=== PATIENT | female | born 1990 | race Caucasian/White ===

== ENCOUNTER → 2020-12-19 08:22 | Outpatient (BNVA) | payer BC, MEDICAID, SELFPAY | PROVIDERS: Visit Provider Surgery ==

== ENCOUNTER 2020-12-22 12:50 | Outpatient (REF) | payer BC, MEDICAID, SELFPAY ==
[2020-12-24 14:57] LABS: H Pylori Breath Test NOT DETECTED (NOT DETECTED)
== END 2020-12-22 12:51 | disposition home or self-care (01) ==
LOC: HO.LAB 12:50
PROVIDERS: Visit Provider Physician Assistant
DX: E66.9 Obesity, unspecified (principal); Z11.0 Encounter for screening for intestinal infectious diseases
CPT/HCPCS: 83013

== ENCOUNTER 2020-12-25 08:31 | Outpatient (REF) | payer BC, MEDICAID, SELFPAY ==
--- NOTE | ~2020-12-25 | XR_ITS ---
EXAMINATION: XR CHEST CLINICAL INFORMATION: Gastroesophageal reflux. COMPARISON: None TECHNIQUE: 2 views of the chest were obtained. FINDINGS: The lungs are clear. The cardiomediastinal silhouette is normal in size. There is no pleural effusion or pneumothorax. No acute osseous abnormality. XR/XR chest 2V IMPRESSION: No acute cardiopulmonary findings.
--- NOTE | 2020-12-25 08:59 | ECG_ITS ---
Test Reason : GERD Blood Pressure : / mmHG Vent. Rate : 060 BPM Atrial Rate : 060 BPM P-R Int : 204 ms QRS Dur : 094 ms QT Int : 390 ms P-R-T Axes : 035 074 054 degrees QTc Int : 390 ms Normal sinus rhythm Normal ECG No previous ECGs available Referred By: José Miguel Myles Electronically Signed By:Sebastian Cruz
[2020-12-25 10:25] LABS: MANUAL DIFF FLAG NO
[2020-12-25 10:56] LABS: Basophils Percent Auto 0.2 % (0-2); Eosinophils Absolute Auto 0.1 X10*3/uL (0.0-0.4); Eosinophils Percent Auto 1.2 % (0-4); Hematocrit 40.8 % (37-47); Hemoglobin 13.2 g/dl (12.0-16.0); Imm Gran Abs Auto 0.02 X10*3/uL (0.00-0.03); Imm Gran Pct Auto 0.3 % (0.0-0.4); Lymphocytes Absolute Auto 1.5 X10*3/uL (1.2-4.9); Lymphocytes Percent Auto 25.7 % (20-40); Mean Corpuscular HGB Conc 32.4 g/dl (31.0-35.0); Mean Corpuscular Hemoglobin 27.4 pg (27.0-33.0); Mean Corpuscular Volume 84.8 fL (80-98); Mean Platelet Volume 10.8 fL (9.4-12.3); Monocytes Absolute Auto 0.3 X10*3/uL (0.1-1.2); Monocytes Percent Auto 5.2 % (2-11); Neutrophils Absolute Auto 3.9 X10*3/uL (2.0-8.3); Neutrophils Percent Auto 67.4 % (45-73); Platelet Count 204 X10*3/uL (160-400); Red Blood Count 4.81 X10*6/uL (4.20-5.50); Red Cell Distribution Width 14.1 % (11.0-16.0); White Blood Count 5.8 X10*3/uL (4.8-10.8)
[2020-12-25 11:05] LABS: Alanine Aminotransferase 16 U/L (0-31); Albumin Level 4.5 g/dL (3.5-5.0); Alkaline Phosphatase 94 U/L (39-117); Anion Gap 15 (12-20); Aspartate Amino Transferase 12 U/L (5-31); Bilirubin Total 0.4 mg/dL (0.0-1.0); Blood Urea Nitrogen 16 mg/dL (9-16); C Reactive Protein 1.16 mg/dL (< or = 0.50); Calcium 9.7 mg/dL (8.4-10.2); Carbon Dioxide 26 mmol/L (22-29); Chloride 105 mmol/L (96-108); Cholesterol 210 mg/dL; Estimated Glomerular Filt Rate > 60; Glucose Random 81 mg/dL (60-115); HDL Cholesterol 47 mg/dL; LDL Cholesterol Calculated 149 mg/dl; Potassium 4.5 mmol/L (3.3-5.1); Sodium 141 mmol/L (135-145); Total Protein 7.2 g/dL (6.5-8.0); Triglycerides 71 mg/dL
[2020-12-25 11:19] LABS: Ferritin 14 ng/mL (10-122); TSH reflex Free T4 0.75 uIU/mL (0.32-4.0)
[2020-12-25 11:52] LABS: Vitamin D 25-OH Total 25.1 ng/mL (>30)
[2020-12-25 12:31] LABS: Folate 11.5 ng/mL (> or = 4.0); Vitamin B12 426 pg/mL (200-900)
[2020-12-25 13:17] LABS: Estimated Average Glucose 111 mg/dL; Hemoglobin A1c % 5.5 %
[2020-12-26 10:06] LABS: Insulin Level Total 7.1 uIU/mL
[2020-12-26 16:12] LABS: Calcium (PTHI) 9.6 mg/dL (8.6-10.2); PTHI 42 pg/mL (14-64)
[2020-12-28 16:46] LABS: Zinc 91 mcg/dL (60-130)
[2020-12-29 12:56] LABS: Vitamin B1 <6 nmol/L (8-30)
[2020-12-30 21:17] LABS: Vitamin A 45 mcg/dL (38-98)
== END 2020-12-25 08:32 | disposition home or self-care (01) ==
LOC: HO.LAB 08:31
PROVIDERS: PCP Nurse Practitioner Family; Visit Provider Surgery
DX: K21.9 Gastro-esophageal reflux disease without esophagitis (principal); E66.9 Obesity, unspecified; J45.909 Unspecified asthma, uncomplicated; Z68.39 Body mass index [BMI] 39.0-39.9, adult
CPT/HCPCS: 36415; 71046; 80053; 80061; 82306; 82607; 82728; 82746; 83036; 83525; 83970; 84425; 84443; 84590; 84630; 85025; 86140; 93005

== ENCOUNTER → 2020-12-29 15:37 | Outpatient (BNVA) | payer BC, MEDICAID, SELFPAY | PROVIDERS: PCP Nurse Practitioner Family; Visit Provider Physician Assistant ==

== ENCOUNTER 2021-01-06 09:40 | Day surgery (SDC) | payer BC, MEDICAID, SELFPAY ==
--- NOTE | 2021-01-05 09:53 | P.CONAN_ITS ---
Documented by User: Janeth Betancourt 01/05/21 09:54 HPI - Anesthesia Eval Consult details Narrative: 30yo F for Upper Endoscopy PMFSH Active Problems Active Problems: All Active Problems (Updated 12/19/20 @ 12:50 by José Miguel Myles MD) GERD (gastroesophageal reflux disease) (Acute) Back pain (Acute) Asthma, exercise induced (Acute) BMI 39.0-39.9,adult (Acute) Obesity (Acute) Past Medical History Medical History Asthma, exercise induced Back pain GERD (gastroesophageal reflux disease) Gestational diabetes Surgical History Surgical History History of sleeve gastrectomy Hx laparoscopic cholecystectomy Social History Social History Alcohol intake: never Smoking Status: Former smoker Use of substances other than those prescribed or required for medical reasons: No Have you been hit, kicked, punched, or otherwise hurt by someone within the past year? If so, by whom?: No Are you DNR?: No Advance Directives: No Advance Directives Information Provided: Yes Meds Allergies Allergy/AdvReac Type Severity Reaction Status Date / Time tomato Allergy Severe Anaphylaxis Verified 12/22/20 13:28 Home Medications Medication Instructions Recorded Confirmed Last Taken Type multivitamin 1 tab PO DAILY 12/19/20 12/19/20 Unknown History omeprazole 20 mg capsule,delayed 20 mg PO DAILY 12/19/20 12/19/20 Unknown History release levonorgestrel 20 mcg/24 hours (6 INTRAUTERINE 12/22/20 Unknown History yrs) 52 mg intrauterine device pantoprazole 20 mg tablet,delayed 20 mg PO DAILY 12/22/20 Unknown History release Exam Exam Date and Time: January 05, 2021 0953 Narrative Narrative: EKG 12/2020 Vent. Rate : 060 BPM Atrial Rate : 060 BPM P-R Int : 204 ms QRS Dur : 094 ms QT Int : 390 ms P-R-T Axes : 035 074 054 degrees QTc Int : 390 ms Normal sinus rhythm Normal ECG No previous ECGs available Assessment and Plan Assessment Anesthesia Assessment: Chart Reviewed Documented by User: Amish Montgomery 01/06/21 10:35 [facility] Past Medical History Medical History Asthma, exercise induced Back pain GERD (gastroesophageal reflux disease) Gestational diabetes Surgical History Surgical History History of sleeve gastrectomy Hx laparoscopic cholecystectomy Social History Social History Alcohol intake: never Smoking Status: Former smoker Use of substances other than those prescribed or required for medical reasons: No Have you been hit, kicked, punched, or otherwise hurt by someone within the past year? If so, by whom?: No Are you DNR?: No Advance Directives: No Advance Directives Information Provided: Yes Meds Allergies Allergy/AdvReac Type Severity Reaction Status Date / Time tomato Allergy Severe Anaphylaxis Verified 12/22/20 13:28 Home Medications Medication Instructions Recorded Confirmed Last Taken Type multivitamin 1 tab PO DAILY 12/19/20 12/19/20 Unknown History omeprazole 20 mg capsule,delayed 20 mg PO DAILY 12/19/20 12/19/20 Unknown History release levonorgestrel 20 mcg/24 hours (6 INTRAUTERINE 12/22/20 Unknown History yrs) 52 mg intrauterine device pantoprazole 20 mg tablet,delayed 20 mg PO DAILY 12/22/20 Unknown History release Exam Airway Mallampati Class: II TM Dist: >3cm Neck ROM: Full Loose/Missing/Broken Teeth: No Heart: [id number] Lungs: cta b/l Assessment and Plan Assessment Anesthesia Assessment: Anesthesia Plan Discussed, PAT Visit and Chart Reviewed Final Anesthetic Review NPO: Yes ASA Class: II Final Preanesthetic Review: No Changes in Pt Med Stat, Meds/Allgs Chart Reviewed, Consent Obtained/Reviewed and Anes Risks/Benef Reviewed Patient Risk: Low Procedure Risk: Low Assessment/Block/Sedation in SS: Assess/Block/Sedation-SS Anesthetic Plan Anesthetic Plan: MAC: and Agree w/ Assess. and Plan Disposition: Standard PACU
--- NOTE | 2021-01-05 17:48 | MHC.SHP ---
Pre-Procedural Eval Section A The patient is an INPATIENT: No The History & Physical has been completed within 30 days and I have reviewed it.: Yes Section B Chief Complaint: reflux disease Details of Present Illness: GERD, s/p sleeve gastrectomy Relevant Family History (Specify if Yes): No Relevant Social History: None Present Medications: see Short Stay Collaborative assessment Medical History: No relevant PMH History of Previous Operations: Relevant previous surgery/procedure and date(s) (sleeve gastrectomy) Allergies: Allergies Allergy/AdvReac Type Severity Reaction Status Date / Time tomato Allergy Severe Anaphylaxis Verified 12/22/20 13:28 Review of Systems Sugical H&P ROS: Negative: Constitution, Cardiovascular, Respiratory, Neurological, Psychiatric, Hem-Onc, Allergic/Immunologic, Gastrointestinal, Genitourinary, Musculoskeletal, Integumentary, Endocrine and Eyes/Ears/Nose/Throat Exam Surgical H&P Exam: Normal: HEENT, Normal: Heart, Normal: Lungs, Normal: Extremities, Normal: Abdomen, Normal: Skin and Normal: Neurological Plan Diagnosis/Plan: Unchanged (EGD to rule out GERD esophagitis, and assess sleeve anatomy and possible stenosis) I have reviewed the history and physical and performed a pertinent physical examination on my patient. No changes have occurred unless specified.
[2021-01-06 09:59] LABS: UPreg QC Valid YES; Urine Pregnancy NEGATIVE (NEGATIVE)
[2021-01-06 10:01] VITALS: BP 128/73; PULSE 65; RESP 18; TEMP 36.7; O2SAT 97; BMI 39.3
[2021-01-06 10:12] LABS: COVID-19 Test Negative (Negative)
[2021-01-06] MEDS: Lactated Ringers 1,000 ML 100 ML IVCONT (10:22)
--- NOTE | 2021-01-06 11:12 | P.BOP_ITS ---
Brief Operative Note Date of Service: 01/06/21 Procedure: PROCEDURE DATE: 01/06/2021 PREOPERATIVE DIAGNOSIS: GERD, s/p sleeve gastrectomy POSTOPERATIVE DIAGNOSIS: Same as above. 1) incomplete fundal resection, 2) functional narrowing at mid- stomach, 3) incomplete antral resection PROCEDURE: Mrgakctv-[id number]-[id number] with biopsies Surgeon: Adam Myles M.D.. Ph.D. Venetian Blind Mechanic: None Anesthesia: IV sedation Estimated blood loss: Minimal FINDINGS AND PROCEDURE: OPERATIVE INDICATIONS: The patient is a 30 year old female known to me who underwent a laparoscopic sleeve gastrectomy. The patient had remarkable weight loss so far and had a completely uneventful recovery. The patient was doing very well but has recently been complaining of GERD. Based on this information I recommended an upper endoscopy to evaluate the patient's symptoms. Risks and complications of the surgery were discussed with the patient in advance particularly the possibility of perforation or bleeding that may require surgical intervention. The patient understood the risks and was in agreement with the plan. PROCEDURE: After informed consent was obtained by the patient, the patient was transferred to the Operating Room and was placed in the supine position. After successful induction of IV sedation, a mouth block was inserted and the patient was placed in the left lateral decubitus position. An upper endoscopy was performed next, the oropharynx and esophagus appeared within the normal limits. There was no hiatal hernia. The z-line was smooth. Two biopsies were obtained from the distal esohagus 2-3 cm proximal to the GE junction and two additional biopsies from the GE junction. The sleeve was entered and it appeared to be of relatively size. The proximal fundus was incompletely resected with an additional lateral chamber beyond the gastric sleeve. The proximal sleeve ended into a relatively small outlet to the antrum causing functional narrowing. THe natrum was not included to the sleeve resection leaving a large portion of distal stomach in place. There was mild gastritis at distal antrum. There was no stricture or ulcer. Biopsies were obtained from the proximal sleeve as well as the distal antrum. No significant bleeding was noted from any of the biopsy sites. The scope was then advanced into the duodenum which appeared to be normal as well. At that point the duodenum and the sleeve were decompressed and the scope was withdrawn from the patient's mouth. The patient extubated and was transferred in stable condition to the Recovery Room for further care. I was present and performed all steps of the procedure. There were no residents to assist with this case. Adam Myles M.D., Ph.D. Surgeon: José Miguel Myles MD Anesthesia: MAC Was an Venetian Blind Mechanic used for this Procedure?: No Estimated blood loss (mL): 0 IV fluids (mL): 400 Urine output (mL): 0 (No [place] to record) Pathology: other ( 1) GE junction x2 2) Distal esophagus x2 3) Proximal stomach x1 4) Distal antrum x1) Condition: stable Disposition: PACU
[2021-01-06 11:49] VITALS: BP 108/61; PULSE 78; RESP 14; TEMP 36.4; O2SAT 94
[2021-01-06 12:17] VITALS: BP 118/63; PULSE 62; RESP 16; O2SAT 99
== END 2021-01-06 12:33 | disposition home or self-care (01) ==
PROVIDERS: Nurse Practitioner; PCP Nurse Practitioner Family; Visit Provider Surgery
PROC: 0DJ08ZZ Inspection of Upper Intestinal Tract, Via Natural or Artificial Opening Endoscopic (ICD-10-PCS; CPT 43235; principal; 2021-01-06 11:00)
DX: K21.9 Gastro-esophageal reflux disease without esophagitis (principal); Z98.84 Bariatric surgery status; K95.89 Other complications of other bariatric procedure; K31.9 Disease of stomach and duodenum, unspecified; J45.990 Exercise induced bronchospasm; Z90.49 Acquired absence of other specified parts of digestive tract; Z79.899 Other long term (current) drug therapy; Z87.891 Personal history of nicotine dependence
CPT/HCPCS: 43239; 36415; 81025; 87635; 88305; 88342; J1100

== ENCOUNTER 2021-01-07 08:40 | Outpatient (REF) | payer BC, MEDICAID, SELFPAY ==
--- NOTE | ~2021-01-07 | US_ITS ---
EXAMINATION: US COMPLETE ABDOMEN WITH LIVER ELASTOGRAPHY CLINICAL INFORMATION: Gastroesophageal reflux disease COMPARISON: None. TECHNIQUE: Real-time imaging of the abdominal viscera. Noninvasive ultrasound liver fibrosis assessment is performed using Efrain ElastPQ point quantification shear wave elastography (pSWE) with a C5-2 MHz transducer. Multiple elastography samples are obtained. FINDINGS: PANCREAS: Not well visualized due to bowel gas ABDOMINAL AORTA: The proximal, middle, and distal aortic segments are normal in caliber. INFERIOR VENA CAVA: Visualized portions are normal. LIVER: The echotexture is normal. The liver is normal in contour and size. There is an echogenic area in the peripheral liver probably representing ligamentum teres. No other focal liver lesion. There is no intrahepatic biliary duct dilatation. The The right lobe measures 15.1 cm in length. The left lobe measures 7.2 cm in length. Portal flow is normal/hepatopedal Shear wave liver elastography median stiffness is 1.39 m/s (reference: normal median stiffness is 1.3 m/s or less). IQR/median stiffness to assess sampling precision is 0.2 (reference: good quality data set is IQR/median stiffness of 0.15 or less). GALLBLADDER: Normal. The gallbladder is physiologically distended without evidence of stones, sludge, polyps, wall thickening or pericholecystic fluid. COMMON BILE DUCT: Normal in caliber measuring 0.2 cm in diameter. RIGHT KIDNEY: Normal. No hydronephrosis. No renal calculi or focal parenchymal lesions. The kidney measures 11 cm in maximum dimension. LEFT KIDNEY: Normal. No hydronephrosis. No renal calculi or focal parenchymal lesions. The kidney measures 9.5 cm in maximum dimension. SPLEEN: Normal. The spleen measures 11.3 cm in maximum dimension. FREE FLUID: None. US/US abdomen comp w elastography IMPRESSION: 1. Impression echogenic area in the peripheral liver probably representing a prominent ligamentum teres. The liver is otherwise normal. Limited visualization of the pancreas. 2. Liver elastography: Minimally elevated liver stiffness. Minimal sampling error. In the absence of known clinical signs, rule out compensated advanced chronic liver disease. REFERENCE: Society of Radiologists in Ultrasound Liver Stiffness Thresholds (2020): LIVER STIFFNESS THRESHOLDS: *Liver Stiffness equal or less than 1.3 m/s: High probability of being normal. *Liver Stiffness less than 1.7 m/s: In the absence of other known clinical signs, rules out compensated advanced chronic liver disease. *Liver Stiffness 1.7-2.1 m/s: Suggestive of compensated advanced chronic liver disease but need further test for confirmation. *Liver Stiffness over 2.1 m/s: Rules in compensated advanced chronic liver disease. *Liver Stiffness over 2.4 m/s: Suggestive of clinically significant portal hypertension. QUALITY OF DATA SET: *IQR/Median value equal or less than 0.15 implies a quality data set. *IQR/Median value over 0.15 implies a poor quality data set. SIGNIFICANT CHANGE FROM PRIOR EXAM: Significant change if liver stiffness measurement is 10% or greater from prior exam. OTHER CONSIDERATIONS: The stage of liver fibrosis may be overestimated in the setting of acute hepatitis, liver inflammation, elevated liver function tests, hepatic vascular congestion, obstructive cholestasis, non-fasting state, and infiltrative diseases such as amyloidosis and lymphoma. In some patients with NAFLD, the liver stiffness thresholds for compensated advanced chronic liver disease may be lower. In causes other than viral hepatitis and NAFLD, liver stiffness thresholds are not well established.
--- NOTE | ~2021-01-07 | FL_ITS ---
EXAMINATION: XR GI SERIES CLINICAL INFORMATION: Gastroesophageal reflux disease with esophagitis. Previous gastric sleeve surgery. COMPARISON: None. TECHNIQUE: Routine upper GI exam was performed. FINDINGS: Following oral administration of thick barium and effervescent granules, there is normal propagation of bolus from the oral cavity through the pharynx and esophagus and into the stomach without any evidence of obstruction, narrowing or stricture. The stomach size is reduced secondary to gastric sleeve surgery. Otherwise, the rest of the visualized stomach, duodenal bulb and sweep is normal in course and caliber. The mucosal pattern of the stomach and duodenal bulb is normal. There is mild gastroesophageal reflux without hiatal hernia. Incidental finding of cholecystectomy. FLUOROSCOPY TIME: 1.2 minutes DOSE AREA PRODUCT: 38.34 uGy-m2 (microgray-meter squared). FL/FL upper GI series IMPRESSION: Evidence of previous gastric sleeve surgery with reduced caliber of the stomach. Mild gastroesophageal reflux. Otherwise the rest of the upper GI exam is unremarkable.
== END 2021-01-07 08:41 | disposition home or self-care (01) ==
LOC: HO.US 08:40
PROVIDERS: PCP Nurse Practitioner Family; Visit Provider Surgery
DX: Z01.818 Encounter for other preprocedural examination (principal); E66.01 Morbid (severe) obesity due to excess calories; Z68.39 Body mass index [BMI] 39.0-39.9, adult; K21.9 Gastro-esophageal reflux disease without esophagitis; J45.909 Unspecified asthma, uncomplicated
CPT/HCPCS: 74240; 76705; 76981

== ENCOUNTER → 2021-01-12 08:22 | Outpatient (BNVA) | payer BC, MEDICAID, SELFPAY | PROVIDERS: PCP Nurse Practitioner Family; Visit Provider Surgery ==

== ENCOUNTER → 2021-01-16 08:19 | Outpatient (BNVA) | payer BC, MEDICAID, SELFPAY | PROVIDERS: PCP Nurse Practitioner Family; Visit Provider Dietitian, Registered | DX: E66.9 Obesity, unspecified (principal); Z68.39 Body mass index [BMI] 39.0-39.9, adult | CPT/HCPCS: 97802 ==

== ENCOUNTER → 2021-02-06 08:26 | Outpatient (BNVA) | payer BC, MEDICAID, SELFPAY | PROVIDERS: PCP Nurse Practitioner Family; Visit Provider Surgery ==

== ENCOUNTER → 2021-03-13 07:50 | Outpatient (BNVA) | payer BC, MEDICAID, SELFPAY | PROVIDERS: PCP Nurse Practitioner Family; Visit Provider Surgery ==

== ENCOUNTER 2021-03-18 23:13 | Inpatient (IN) | payer BC, MEDICAID, SELFPAY ==
[2021-03-12 14:58] VITALS: BMI 36.6
[2021-03-14 08:47] LABS: Basophils Percent Auto 0.2 % (0-2); Eosinophils Absolute Auto 0.1 X10*3/uL (0.0-0.4); Eosinophils Percent Auto 1.9 % (0-4); Hematocrit 41.6 % (37-47); Hemoglobin 13.6 g/dl (12.0-16.0); Imm Gran Abs Auto 0.01 X10*3/uL (0.00-0.03); Imm Gran Pct Auto 0.2 % (0.0-0.4); Lymphocytes Absolute Auto 1.4 X10*3/uL (1.2-4.9); Lymphocytes Percent Auto 29.7 % (20-40); MANUAL DIFF FLAG NO; Mean Corpuscular HGB Conc 32.7 g/dl (31.0-35.0); Mean Corpuscular Volume 85.6 fL (80-98); Mean Platelet Volume 10.3 fL (9.4-12.3); Monocytes Absolute Auto 0.3 X10*3/uL (0.1-1.2); Monocytes Percent Auto 5.9 % (2-11); Neutrophils Absolute Auto 2.9 X10*3/uL (2.0-8.3); Neutrophils Percent Auto 62.1 % (45-73); Platelet Count 191 X10*3/uL (160-400); Red Blood Count 4.86 X10*6/uL (4.20-5.50); Red Cell Distribution Width 14.4 % (11.0-16.0); White Blood Count 4.7 X10*3/uL (4.8-10.8)
[2021-03-14 08:57] LABS: INTERNATIONAL NORM RATIO 1.1 (0.9-1.1); Prothrombin Time 12.5 SEC (9.9-13.0)
[2021-03-14 09:00] LABS: Partial Thromboplastin Time 38.4 SEC (24.1-38.0)
[2021-03-14 09:12] LABS: Estimated Average Glucose 105 mg/dL; Hemoglobin A1c % 5.3 %
[2021-03-14 09:19] LABS: Alanine Aminotransferase 18 U/L (0-31); Albumin Level 4.5 g/dL (3.5-5.0); Alkaline Phosphatase 81 U/L (39-117); Anion Gap 12 (12-20); Aspartate Amino Transferase 15 U/L (5-31); Bilirubin Total 0.6 mg/dL (0.0-1.0); Blood Urea Nitrogen 15 mg/dL (9-16); C Reactive Protein 0.43 mg/dL (< or = 0.50); Carbon Dioxide 27 mmol/L (22-29); Chloride 107 mmol/L (96-108); Cholesterol 198 mg/dL; Creatinine Clr Calc Pharmacy 107.3; Estimated Glomerular Filt Rate > 60; Glucose Random 91 mg/dL (60-115); HDL Cholesterol 49 mg/dL; LDL Cholesterol Calculated 130 mg/dl; Potassium 4.5 mmol/L (3.3-5.1); Sodium 141 mmol/L (135-145); Total Protein 7.2 g/dL (6.5-8.0); Triglycerides 97 mg/dL
[2021-03-14 09:42] LABS: TSH reflex Free T4 1.07 uIU/mL (0.32-4.0)
[2021-03-16 17:17] LABS: Insulin Level Total 6.9 uIU/mL
--- NOTE | ~2021-03-18 | FL_ITS ---
EXAMINATION: XR UPPER GI SERIES WITH SMALL BOWEL CLINICAL INFORMATION: Postop. COMPARISON: Preoperative upper GI exam January 2021 TECHNIQUE: Limited upper single-contrast upper GI was performed following dilute Gastrografin with the patient in the upright position. FINDINGS: Esophageal motility is normal. There are postsurgical changes to the stomach following gastric bypass. No leak or evidence of obstruction is seen. There is no evidence of free air. There are surgical clips in the right upper quadrant suggestive of cholecystectomy. FLUOROSCOPY TIME: 0.2 minutes DOSE AREA PRODUCT: 7 Gy-cm2. Total dose: 36 mGy. 16 saved fluoroscopic images. FL/FL upper GI small bowel IMPRESSION: Postop gastric bypass. No leak or evidence of obstruction.
--- NOTE | 2021-03-18 08:34 | HO.ANESPROP2 ---
Documented by User: Janeth Christyney 03/18/21 08:36 HPI - Anesthesia Eval Consult details Narrative: 31yo F for Gastric Sleeve to Bypass Conversion s/p gastric sleeve 2012 [facility] Active Problems Active Problems: All Active Problems (Updated 03/13/21 @ 11:34 by José Miguel Myles MD) BMI 34.0-34.9,adult (Acute) Obesity (Acute) BMI 39.0-39.9,adult (Acute) Vitamin B1 deficiency (Acute) Vitamin B12 deficiency (Acute) Vitamin D deficiency (Acute) BMI 37.0-37.9, adult (Acute) Adjustment disorder, unspecified (Acute) BMI over 35 (Acute) GERD (gastroesophageal reflux disease) (Acute) Back pain (Acute) Asthma, exercise induced (Acute) Past Medical History Medical History Anxiety Asthma, exercise induced Back pain BMI 34.0-34.9,adult COVID-19 vaccine series completed GERD (gastroesophageal reflux disease) Gestational diabetes History of depression Surgical History Surgical History History of esophagogastroduodenoscopy (EGD) History of sleeve gastrectomy Hx laparoscopic cholecystectomy Social History Social History Are you a primary specialist wound care to a significant other at home: Yes (2 children, arrangements made for their care in the post-op period) Do you presently have visiting nurse or other home services: No Alcohol intake: never Patient Tobacco Use Status: Former Tobacco user Quit Date: 2012 Use of substances other than those prescribed or required for medical reasons: No Have you been hit, kicked, punched, or otherwise hurt by someone within the past year? If so, by whom?: No Are you DNR?: No Advance Directives: No Advance Directives Information Provided: No Advance Directives on File: No Recently lost weight without trying: No Patient : No FDLMP: 03/09/2021 : No Poor oral hygiene: No Meds Allergies Allergy/AdvReac Type Severity Reaction Status Date / Time tomato Allergy Severe itchy Verified 03/12/21 15:03 throat Home Medications Medication Instructions Recorded Confirmed Last Taken Type multivitamin 1 tab PO DAILY 12/19/20 03/13/21 Unknown History levonorgestrel 20 mcg/24 hours (6 INTRAUTERINE 12/22/20 03/13/21 Unknown History yrs) 52 mg intrauterine device pantoprazole 20 mg tablet,delayed 20 mg PO DAILY 12/22/20 03/13/21 Unknown History release albuterol sulfate 1 puff PO Q4H PRN 03/12/21 03/13/21 Unknown History Exam Exam Date and Time: March 18, 2021 0834 Height,Weight and Vital Signs: Height 5 ft 3 in Weight 93.894 kg Pertinent Lab Results Pertinent Lab Results: Laboratory Tests 03/14/21 03/14/21 03/14/21 08:22 08:22 08:22 WBC 4.7 L RBC 4.86 Hgb 13.6 Hct 41.6 MCV 85.6 MCH 28.0 MCHC 32.7 RDW 14.4 Plt Count 191 MPV 10.3 Immature Gran % (Auto) 0.2 Neut % (Auto) 62.1 Lymph % (Auto) 29.7 [place] % (Auto) 5.9 Eos % (Auto) 1.9 Baso % (Auto) 0.2 Lymph # (Auto) 1.4 [place] # (Auto) 0.3 Eos # (Auto) 0.1 Baso # (Auto) 0.0 Abs Immat Gran (auto) 0.01 Absolute Neuts (auto) 2.9 Absolute Nucleated RBC 0.000 Nucleated RBC % (auto) 0.0 PT 12.5 INR 1.1 APTT 38.4 H Sodium 141 Potassium 4.5 Chloride 107 Carbon Dioxide 27 Anion Gap 12 BUN 15 Creatinine 0.82 Estim Creat Clear Calc 107.3 Estimated GFR > 60 Random Glucose 91 Estimat Average Glucose Hemoglobin A1c % Total Insulin Calcium 10.0 Total Bilirubin 0.6 AST 15 ALT 18 Alkaline Phosphatase 81 C-Reactive Protein 0.43 Total Protein 7.2 Albumin 4.5 Triglycerides 97 Cholesterol 198 LDL Cholesterol, Calc 130 HDL Cholesterol 49 TSH 1.07 Blood Type Antibody Screen 03/14/21 03/14/21 03/14/21 08:22 08:22 08:22 WBC RBC Hgb Hct MCV MCH MCHC RDW Plt Count MPV Immature Gran % (Auto) Neut % (Auto) Lymph % (Auto) [place] % (Auto) Eos % (Auto) Baso % (Auto) Lymph # (Auto) [place] # (Auto) Eos # (Auto) Baso # (Auto) Abs Immat Gran (auto) Absolute Neuts (auto) Absolute Nucleated RBC Nucleated RBC % (auto) PT INR APTT Sodium Potassium Chloride Carbon Dioxide Anion Gap BUN Creatinine Estim Creat Clear Calc Estimated GFR Random Glucose Estimat Average Glucose 105 Hemoglobin A1c % 5.3 Total Insulin 6.9 Calcium Total Bilirubin AST ALT Alkaline Phosphatase C-Reactive Protein Total Protein Albumin Triglycerides Cholesterol LDL Cholesterol, Calc HDL Cholesterol TSH Blood Type A Positive Antibody Screen NEGATIVE Narrative Narrative: EKG 12/2020 Vent. Rate : 060 BPM Atrial Rate : 060 BPM P-R Int : 204 ms QRS Dur : 094 ms QT Int : 390 ms P-R-T Axes : 035 074 054 degrees QTc Int : 390 ms Normal sinus rhythm Normal ECG No previous ECGs available Assessment and Plan Assessment Anesthesia Assessment: Chart Reviewed Documented by User: Amish Montgomery 03/19/21 09:07 [facility] Past Medical History Medical History Anxiety Asthma, exercise induced Back pain BMI 34.0-34.9,adult COVID-19 vaccine series completed GERD (gastroesophageal reflux disease) Gestational diabetes History of depression Surgical History Surgical History History of esophagogastroduodenoscopy (EGD) History of sleeve gastrectomy Hx laparoscopic cholecystectomy Social History Social History Are you a primary specialist wound care to a significant other at home: Yes (2 children, arrangements made for their care in the post-op period) Do you presently have visiting nurse or other home services: No Alcohol intake: never Patient Tobacco Use Status: Former Tobacco user Quit Date: 2012 Use of substances other than those prescribed or required for medical reasons: No Have you been hit, kicked, punched, or otherwise hurt by someone within the past year? If so, by whom?: No Are you DNR?: No Advance Directives: No Advance Directives Information Provided: No Advance Directives on File: No Recently lost weight without trying: No Patient : No FDLMP: 03/09/2021 : No Poor oral hygiene: No Meds Allergies Allergy/AdvReac Type Severity Reaction Status Date / Time tomato Allergy Severe itchy Verified 03/12/21 15:03 throat Home Medications Medication Instructions Recorded Confirmed Last Taken Type multivitamin 1 tab PO DAILY 12/19/20 03/13/21 Unknown History levonorgestrel 20 mcg/24 hours (6 INTRAUTERINE 12/22/20 03/13/21 Unknown History yrs) 52 mg intrauterine device pantoprazole 20 mg tablet,delayed 20 mg PO DAILY 12/22/20 03/13/21 Unknown History release albuterol sulfate 1 puff PO Q4H PRN 03/12/21 03/13/21 Unknown History Exam Airway Mallampati Class: III TM Dist: >3cm Neck ROM: Full Loose/Missing/Broken Teeth: Yes (missing some, no loose) Heart: rrr+s1s2 Lungs: cta b/l Assessment and Plan Assessment Anesthesia Assessment: Anesthesia Plan Discussed, PAT Visit and Chart Reviewed Final Anesthetic Review NPO: Yes ASA Class: III Final Preanesthetic Review: No Changes in Pt Med Stat, Meds/Allgs Chart Reviewed, Consent Obtained/Reviewed and Anes Risks/Benef Reviewed Patient Risk: Intermediate Procedure Risk: Low Assessment/Block/Sedation in SS: Assess/Block/Sedation-SS Anesthetic Plan Anesthetic Plan: GA and Agree w/ Assess. and Plan Disposition: Standard PACU
--- NOTE | 2021-03-18 23:12 | MHC.SHP ---
Pre-Procedural Eval Section A Date of Service: 03/18/21 The patient is an INPATIENT: Yes The History & Physical has been completed within 30 days and I have reviewed it.: Yes Section B Chief Complaint: Obesity Details of Present Illness: Obesity Relevant Family History (Specify if Yes): No Relevant Social History: None Present Medications: see Short Stay Collaborative assessment Medical History: No relevant PMH History of Previous Operations: Relevant previous surgery/procedure and date(s) (sleeve gastrectomy) Allergies: Allergies Allergy/AdvReac Type Severity Reaction Status Date / Time tomato Allergy Severe itchy Verified 03/12/21 15:03 throat Review of Systems Sugical H&P ROS: Negative: Constitution, Cardiovascular, Respiratory, Neurological, Psychiatric, Hem-Onc, Allergic/Immunologic, Gastrointestinal, Genitourinary, Musculoskeletal, Integumentary, Endocrine and Eyes/Ears/Nose/Throat Exam Surgical H&P Exam: Normal: HEENT, Normal: Heart, Normal: Lungs, Normal: Extremities, Normal: Abdomen, Normal: Skin and Normal: Neurological Plan Diagnosis/Plan: Unchanged I have reviewed the history and physical and performed a pertinent physical examination on my patient. No changes have occurred unless specified.
[2021-03-19] VITALS (16 sets, daily range): BP systolic 116–147; BP diastolic 55–97; PULSE 54–75; RESP 11–20; TEMP 36.2–37.4; O2SAT 95–100
[2021-03-19 06:37] LABS: COVID-19 Test Negative (Negative); IDNOW Serial# 9DD0AD1C
[2021-03-19 07:40] LABS: UPreg QC Valid YES; Urine Pregnancy NEGATIVE (NEGATIVE)
[2021-03-19] MEDS: Lactated Ringers 1,000 ML 100 ML IVCONT (07:45)
[2021-03-19] MEDS: Lactated Ringers 1,000 ML 999 ML IV (07:45)
--- NOTE | 2021-03-19 12:20 | P.BOP_ITS ---
Brief Operative Note Date of Service: 03/19/21 Pre-op diagnosis: Severe obesity with associated comorbidities including GERD, asthma, back pain, gestational diabetes Post-op diagnosis: same Procedure: PROCEDURE: Upper endoscopy, extensive laparoscopic lysis of adhesions and laparoscopic Savana-en-Y gastric bypass with a Savana limb of 165cm INDICATIONS: This is a 31 year-old female with a BMI of 34.4 kg/m2 and associated comorbid conditions as described previously. After appropriate workup was performed, the patient was electively scheduled for laparoscopic, possibly open, gastric bypass. The risks and complications of the procedure were discussed with the patient in advance, particularly the possibility of ; pulmonary embolism; anastomotic leak; bleeding; bowel obstruction; cardiac, pulmonary, or renal complications; as well as long-term problems such as insufficient weight loss, vitamin deficiency, anastomotic strictures, or ulcers. The patient understood all the risks, and was in agreement to proceed with surgery. DESCRIPTION OF PROCEDURE: After informed consent was obtained from the patient, the patient was given preoperative antibiotics, and was transferred to the operating room. After successful induction of general anesthesia, a Victoria catheter and pneumatic compressive devices were placed on both lower extremities. An upper endoscopy was performed next. The oropharynx and esophagus appeared to be within normal limits. There was no diaphragmatic hernia consistent with the findings of the preoperative upper GI. The sleeve was entered. There was mild redundancy of the proximal sleeve laterally. Then after all fluid and air were suctioned and the stomach was fully decompressed, the scope was withdrawn and secured in the mid esophagus. The patient was then prepped and draped in the usual sterile manner, and abdominal access was established at the right upper quadrant with the Dakota technique. A 12 mm blunt port was inserted, and the abdomen was insufflated with CO2 to a pressure of 15 mmHg. Under direct visualization, additional ports were placed, specifically a 5 and a 12 mm Versi-Step port, to the left and right of the umbilicus, two 5 mm ports to the left upper quadrant, and a 5 mm Versi-Step port to the right upper quadrant. Using the EndoClose suture passer device, I placed a #1 Polysorb tie across the falciform ligament in order to retract it up against the abdominal wall and prevent injury of the ligament with our instruments during the procedure. Following that, the patient was placed in a steep reverse Trendelenburg position. An additional 5 mm port was placed to the right flank for the Mediflex retractor that was used to retract the left lobe of the liver. There was adhesions between the previous sleeve and the greater omentum. Those were lysed with the Thunderbeat all the way to the GE junction. There were also posterior retrogastric adhesions that were also lysed and the sleeve was completely freed all the way to the lesser omentum. Proximally the posterior aspect of the sleeve was attached densely to the spleen and it was not dissected. Adhesions on the anterior aspect of the sleeve at the area of planned resection were also freed so I can be able to identify better stomach as well as the previous sleeve's staple line. The lesser omentum was divided with an Endo RUSS-45 articulating ferrer load. A gastric pouch was created by resecting the previous sleeve transversely with Endo-RUSS 60 purple load. The transection was made carefully to make sure that transection was appropriately oriented in relation to the previous sleeve's staple line to make sure that ischemic areas between stapler lines are not created. The staple line of the distal sleeve was reinfirced with clips. The patient was then placed in supine position, and after we retracted the trans verse colon and the omentum cephalad, we identified the ligament of Treitz. I counted 70 cm from the ligament of Treitz, and the small bowel and the mesentery were divided with an Endo RUSS-60 white load. Using the ultrasonic device, we opened the peritoneum at the root of the mesentery further to gain extra mobility. A clip was used to bibiana the proximal end of the divided bowel, the bilio-pancreatic end, which was run back to the ligament of Treitz to confirm that we had marked the correct side and I had done so. I then developed the mesocolic window slightly to the left and superior to the ligament of Treitz using the ultrasonic device. The apex of the Savana limb was identified. Following that, I grasped the apex of the Savana limb with an articulating bowel grasper, and after I made sure there was no twisting of the mesentery, it was delivered in a retrocolic, retrogastric fashion through the mesocolic window which I had previously made. Following that, I noted there was no tension between the gastric pouch and the Savana limb. Enterotomies were made at the apex of the pouch and the Savana limb, and the gastro-jejunostomy was made with an Endo RUSS-45 kaiser load measured to be 4.5 cm in diameter. The enterotomy was closed using the Endo Stitch device in one layer of running 2-0 Polysorb suture in a Shahid fashion starting from each corner of the enterotomy and tying the two ends together in the center of the enterotomy. The Savana limb was clamped with a bowel clamp approximately 15 cm from the gastro-jejunostomy, and a leak test was performed by submerging the anastomosis in saline and insufflating air off the scope into the pouch. There was no narrowing of the GE junction. There was no air leak during the test. There was no significant ischemia of the mucosa of the gastric pouch or Savana limb. There was no bleeding from the suture or staple lines of the anastomosis, as well as the staple line of the gastric pouch which was clearly seen in its entirety. In addition, the anastomosis was patent, and we easily advanced the scope into the proximal Savana limb. With the scope pulled back at the esophagus, we reinforced the anastomosis circumferentially with multiple interrupted 2-0 Polysorb sutures in a Lembert type fashion using the Endo Stitch device. At that point, I pulled the endoscope back to the esophagus while we were decompressing the Savana limb and gastric pouch from any remaining air. At that point, the patient was placed in supine position, and after we reduced the Savana limb back into the abdomen, I counted 165 cm from the gastro- jejunostomy. An enterotomy was made there with the ultrasonic device. After a similar enterotomy was made at the apex of the bilio-pancreatic limb, the jejuno-jejunostomy was made with an Endo RUSS-60 white load. The enterotomy was closed with another Endo RUSS-60 white load after appropriate alignment with four interrupted 2-0 Surgidac sutures. Two anti-obstruction sutures were placed next between the staple line of the bilio-pancreatic limb and the mesentery of the Savana limb distal from the anastomosis to prevent kinking of the anastomosis. We then closed the small bowel mesenteric defect in a running fashion using a r unning 2-0 Surgidac suture using the EndoStitch device. I checked the anastomosis at the end. The jejuno-jejunostomy was patent. The Savana limb was not narrowed. The staple lines were intact, viable, without evidence of any ischemia, bleeding, or any open areas, and the entire anastomosis was sitting nicely without tension, narrowing, or kinking. I then closed the Martinez's defect with two interrupted 2-0 Surgidac sutures in a U-type fashion and then the mesocolic defect with four interrupted 2-0 Sofsilk sutures in a U-type fashion. The Savana limb was clamped 20 cm inferior to the mesocolic window and another endoscopy was performed. I could easily pass the gastroscope through the gastro-jejunostomy and mesocolic window without any narrowing, kinking, or evidence of bleeding or ischemia. At that point the gastroscope was withdrawn from the patient?s mouth while we were decompressing the bowel and the stomach from any remaining air. I ran back the Savana limb from the mesocolic window to the jejuno-jejunostomy which appeared to be normal without any twisting or kinking. All blood clots were suctioned. We carefully positioned the transverse colon epiploic appendages to the root of the small bowel mesentery to prevent any adhesions between them and the anastomosis that could lead to an internal hernia. I then placed the patient back in a steep reverse Trendelenburg position. I lo oked into the lesser sac to see how the Savana limb was situating and it was situating well. There was no bleeding from the suture lines of the remnant, angle of His, and gastric pouch, as well as from the mesentery of the Savana limb. At this point I placed a 10 mm EMILIE drain underneath the gastro-jejunostomy and we secured the skin level with an #0 Sofsilk suture. The Mediflex retractor was removed, and the undersurface of the liver was inspected and there was no bleeding. The patient was placed in supine position. I closed the fascial defect of periumbilical 12 mm port site laparoscopically with the EndoClose suture passer device using #1 Polysorb suture and a #1 Polysorb suture in a figure of eight fashion for the Dakota port. Then 100 cc 0.25 % Marcaine and 1% lidocaine plain were used to infiltrate both fascial closures as well as all skin incisions. At this point, the abdomen was deflated, all ports were removed under direct vision, and no bleeding was noted from any of the port sites. The skin incisions were irrigated with saline and were closed with 4-0 absorbable monofilament sutures. Steri-Strips and OpSites were used to cover all incisions. The patient was extubated and was transferred in stable condition to the recovery room for further care. I was present and performed all prado parts of the procedure. Ms. Murilloson was the preschool assistant director. There were no residents to assist with this case. Adam Myles MD, PhD, FACS Surgeon: José Miguel Myles MD Anesthesia: GETA, local and other (TAP block) Was an Cutting Machine Operator used for this Procedure?: Yes Cutting Machine Operator: Robyn Sahu Estimated blood loss (mL): 20 IV fluids (mL): 4,000 Urine output (mL): 50 Pathology: none sent Condition: stable Disposition: PACU
--- NOTE | 2021-03-19 12:23 | P.DS_ITS ---
DS: Providers Provider Date of Service: 03/20/21 Date of admission: 03/18/21 23:13 Primary care physician: GABRIELA Murray DS: Medications Discharge Medications Home Medications: Home Medications Medication Instructions Recorded Confirmed multivitamin 1 tab PO DAILY 12/19/20 03/13/21 levonorgestrel 20 mcg/24 hours (6 INTRAUTERINE 12/22/20 03/13/21 yrs) 52 mg intrauterine device pantoprazole 20 mg tablet,delayed 20 mg PO DAILY 12/22/20 03/13/21 release albuterol sulfate 1 puff PO Q4H PRN 03/12/21 03/13/21 Previous Rx's Medication Instructions Recorded cholecalciferol (vitamin D3) 125 125 mcg PO DAILY #30 cap 01/05/21 mcg (5,000 unit) capsule mecobalamin (vitamin B12) 1,000 1,000 mcg SUBLINGUAL DAILY #30 tab 01/05/21 mcg disintegrating tablet,sublingual thiamine HCl (vitamin B1) 100 mg 100 mg PO DAILY #30 tab 01/05/21 tablet ondansetron HCl 4 mg tablet 4 mg PO Q12H #20 tab 03/13/21 pantoprazole 40 mg tablet,delayed 40 mg PO DAILY #30 tab 03/13/21 release polyethylene glycol 3350 17 gram 17 g PO DAILY #14 ea 03/13/21 oral powder packet sucralfate 100 mg/mL oral 10 ml PO BID #400 ml 03/13/21 suspension DS: Summary Time Spent with Patient Time attestation: ADMITTING DIAGNOSIS: Refractory morbid obesity with a BMI of X kg/m2 and history of sleeve gastrectomy with associated co-morbid conditions including asthma DISCHARGE DIAGNOSIS: as above, s/p conversion to gastric bypass Past surgical history: lap maye, lap sleeve gstrectomy PROCEDURE: [id number] and conversion from sleeve gastrectomy to laparoscopic Savana-en-Y gastric bypass DISCHARGE SUMMARY: HISTORY OF PRESENT ILLNESS: The patient is a 31 year-old woman with a BMI of 39.1 kg/m2 and associated co- morbidities as described previously. The patient had extensive preoperative work-up, lost X lbs preoperatively and was electively scheduled for laparoscopic, possible open conversion to gastric bypass. Risks and complic ations of the surgery were discussed with the patient in advance, particularly the possibility of , pulmonary embolism, anastomotic leak, bleeding, bowel injury, GERD, cardiac, renal or pulmonary complications. The patient understood all the risks and was in agreement with the surgical plan. HOSPITAL COURSE: The patient underwent uneventful laparoscopic conversion of sleeve gastrectomy to Savana-en-Y gastric bypass on the day of admission. Postoperatively, the patient was transferred to the surgical floor on a monitored bed and hemoglobin during the first 8 hours remained stable. The patient was on IV Acetaminophen and dilaudid for pain control. On postoperative day one, the patient was feeling well without nausea, vomiting, fevers, or tachycardia. The patient had some mild incisional pain. The abdomen was soft. UGI showed no leak or obstruction. The patient was started on 1 ounce of water or ice every half hour. The Victoria was discontinued. During the first day, the patient did fairly well, having some incisional pain, but able to ambulate adequately and to tolerate liquids well. Since the patient is doing well, we decided that the patient was ready to be discharged. The patient was given instructions to follow-up with me next week and to call my office for any fever over 101, persistent abdominal pain, nausea, vomiting, change in the color of the EMILIE fluid, symptoms of DVT such as calf tenderness, or leg swelling, or pulmonary embolism such as chest pain or shortness of breath. The patient was also instructed to drink 40-60 ounces of liquids per day using the 1-ounce cups. The patient was given prescription for Tylenol for pain, Zofran prn for nausea, pantoprazole and carafate. The patient was encouraged to ambulate and use the incentive spirometry. The patient was allowed to shower, but no baths, and encouraged to stay active at home. All of these instructions were given to the patient personally. All questions were answered and the patient understood all instructions. The instructions were given to the patient in print as well. Total time spent providing and/or coordinating discharge services: 20 Discharge coordination time: Less than 30 minutes Quality: Stroke Does the patient have a stroke diagnosis?: No Physical Exam 2 Vital Signs: Vital Signs: Last Vital Signs Temp 98.3 F 03/19/21 06:21 Pulse 60 03/19/21 06:21 Resp 18 03/19/21 06:21 BP 123/65 03/19/21 06:21 Pulse Ox 98 03/19/21 06:21 Body Mass Index 36.6 DS: Data Data Completed and Pending Labs on day of discharge: Laboratory Results - last 24 hr 03/19/21 03/19/21 06:06 06:06 Urine Test NEGATIVE COVID-19 ([facility]) Negative COVID-19 Clin Com See Note Discharge Plan Discharge Anticipated Discharge Date/Time: 03/20/21 12:00 Patient Disposition: Home, Self-Care Discharge Diagnosis: s/p gastric bypass Referrals: Beth Paul FNP [Primary Care Provider] - 1 Week Discharge Medications: Continued albuterol sulfate 90 mcg/actuation HFA aerosol inhaler 1 puff PO Q4H PRN (Reason: dyspnea) RF: 0 Mirena 20 mcg/24 hours (6 yrs) 52 mg intrauterine device intrauterine RF: 0 pantoprazole 40 mg tablet,delayed release (DR/EC) 40 mg PO DAILY Qty: 30 RF: 2 sucralfate 100 mg/mL suspension 10 ml PO BID Qty: 400 RF: 2 ondansetron HCl [Zofran] 4 mg tablet 4 mg PO Q12H Qty: 20 RF: 0 Discontinued thiamine HCl (vitamin B1) 100 mg tablet 100 mg PO DAILY Qty: 30 RF: 2 mecobalamin (vitamin B12) 1,000 mcg tablet,disintegrating 1,000 mcg sublingual DAILY Qty: 30 RF: 1 cholecalciferol (vitamin D3) 125 mcg (5,000 unit) capsule 125 mcg PO DAILY Qty: 30 RF: 1 pantoprazole 20 mg tablet,delayed release (DR/EC) 20 mg PO DAILY RF: 0 multivitamin Tablet 1 tab PO DAILY RF: 0 polyethylene glycol 3350 [Miralax] 17 gram powder in packet 17 g PO DAILY Qty: 14 RF: 0 Discharge Orders: Discharge Order (Routine); Ordered 03/20/21 Ordered By: José Miguel Myles Diet: other Activity on Discharge: No heavy lifting Stand Alone Forms: Patient Portal Discharge page Care Plan Goals: weight loss Health Concerns: obesity Plan of Treatment: No tub baths, sex or returning to work until discussed at first post op appointment. No exercise, alcohol, tobacco or illegal drug use. Continue to use incentive spirometer hourly while awake. Walk in home for 5- 10 minutes every 2 hours during the first week. Continue phase 1 diet today and start phase 2 diet tomorrow morning. Follow all instructions in the bariatric handbook and call with any questions. Follow all bariatric handbook insructions for drain care. The patient's medical history has been reviewed and they are considered low risk for post op DVT and therefore DVT prophylaxis is not considered necessary. Travel after surgery was reviewed. The patient has not disclosed any travel plans during the first 30 days after surgery and they have been advised that within the first 30 days after surgery any bus, plane, train or car travel over 2 hours in duration is contraindicated due to the possibility of developing blood clots from immobility. Any travel, needs to include periods of ambulation of 10 minutes in duration every 2 hours. The patient was instructed to discuss any plans for travel during this period with their bariatric surgeon. Assessment: stable pod # 1 s/p gastric bypass
[2021-03-19] MEDS: HYDROmorphone HCl 0.5 MG/0.5 ML SYRINGE IVPUSH ×3 (12:28→13:30)
[2021-03-19] MEDS: ondansetron HCL 4 MG/2 ML VIAL IVPUSH ×2 (12:29→21:38)
--- NOTE | 2021-03-19 12:45 | PM.PNGS ---
Subjective Subjective Date of Service: 03/20/21 Interval history: Patient had mild incisional pain but was able to ambulate and use the incentive spirometer. Physical Exam Vital Signs: Vital Signs: Last Vital Signs Temp 97.1 F 03/19/21 12:15 Pulse 68 03/19/21 12:25 Resp 16 03/19/21 12:25 BP 138/89 03/19/21 12:25 Pulse Ox 100 03/19/21 12:25 Body Mass Index 36.6 GI: Inspection: Yes normal to inspection, Yes incision (clean, dry and intact), Yes obesity and Yes other (EMILIE with serosanguinous fluid) Extrem: Right lower extremity: normal to inspection (no calf tenderness) Left lower extremity: normal to inspection (no calf tenderness) Progress Note: A&P Assessment and plan (1) Obesity: Status: Acute (2) BMI 34.0-34.9,adult: Status: Acute (3) GERD (gastroesophageal reflux disease): Status: Acute (4) Back pain: Status: Acute (5) Asthma, exercise induced: Status: Acute (6) Intra-abdominal adhesions: Status: Acute (7) S/P gastric bypass: Status: Acute Assessment and Plan: s/p laparoscopic lysis of adhesions and gastric bypass Doing well Check am labs and UGI. If OK, will d/c Victoria and begin phase 1 bariatric diet. Fall Risk Details Current Medications: Current Medications Generic Name Dose Route Start Last Admin Trade Name Freq PRN Reason Stop Dose Admin Albuterol Sulfate 2.5 mg 03/19/21 05:57 Albuterol Sulfate (0.083%) 2.5 Mg/3 Ml Vial.Neb INHALE ONCE PRN Shortness of Breath/Wheezing Fentanyl 50 mcg 03/19/21 09:07 Fentanyl Citrate/Pf 100 Mcg/2 Ml Vial IVPUSH Q5M PRN Pain, Moderate (Pain Scale 4-6 Hydromorphone HCl 0.5 mg 03/19/21 09:07 03/19/21 12:28 Hydromorphone Hcl 0.5 Mg/0.5 Ml Syringe IVPUSH 0.5 mg Q5M PRN Administration Pain, Severe (Pain Scale 7-10) Lactated Ringer's 1,000 mls @ 100 mls/hr 03/19/21 06:00 03/19/21 07:45 Lr IVCONT 100 mls/hr .Q10H ROXANA Administration Promethazine HCl 12.5 mg/ 50.5 mls @ 202 mls/hr 03/19/21 09:07 03/19/21 12:29 Sodium Chloride IV 202 mls/hr ONCE PRN Administration Nausea and Vomiting Ondansetron HCl 4 mg 03/19/21 09:07 03/19/21 12:29 Ondansetron Hcl 4 Mg/2 Ml Vial IVPUSH 4 mg ONCE PRN Administration Nausea and Vomiting Oxycodone HCl 10 mg 03/19/21 09:07 Oxycodone Hcl Immed Release 5 Mg Tablet PO ONCE PRN Pain, Mild (Pain Scale 1-3) Time Spent With Patient Time: Total time spent is greater than 50% in coordination of care (as documented) at patient's floor/unit and/or counseling patient: Time with patient: less than 15 minutes Procedures Date of Service Date of Service: 03/20/21 Quality Stroke Does the patient have a stroke diagnosis?: No VTE Prior VTE?: No VTE Risk Level:: Surgical - moderate VTE Device Contraindication: N/A - Device Ordered VTE Drug Contraindication: Treatment Not Indicated
[2021-03-19 13:38] LABS: Hematocrit 37.4 % (37-47); Hemoglobin 12.1 g/dl (12.0-16.0)
[2021-03-19 14:14] LABS: Anion Gap 14 (12-20); Blood Urea Nitrogen 11 mg/dL (9-16); Calcium 9.1 mg/dL (8.4-10.2); Carbon Dioxide 21 mmol/L (22-29); Chloride 108 mmol/L (96-108); Creatinine Clr Calc Pharmacy 109.9; Estimated Glomerular Filt Rate > 60; Glucose Random 111 mg/dL (60-115); Potassium 4.3 mmol/L (3.3-5.1); Sodium 139 mmol/L (135-145)
[2021-03-19] MEDS: Lactated Ringers 1,000 ML 150 ML IVCONT ×2 (14:14→20:21)
[2021-03-19] MEDS: Famotidine/PF 20 MG/2 ML VIAL IVPUSH ×2 (14:29→21:38)
[2021-03-19] MEDS: Metoclopramide HCl 10 MG/2 ML VIAL IVPUSH (15:51)
[2021-03-19] MEDS: HYDROmorphone HCl 0.5 MG/0.5 ML SYRINGE 0.25 MG IVPUSH (19:41)
[2021-03-20] MEDS: HYDROmorphone HCl 0.5 MG/0.5 ML SYRINGE 0.25 MG IVPUSH ×3 (01:07→13:45)
[2021-03-20] MEDS: Lactated Ringers 1,000 ML 150 ML IVCONT ×2 (02:23→07:57)
[2021-03-20 03:16] VITALS: BP 108/63; PULSE 54; RESP 15; TEMP 36.6; O2SAT 97
[2021-03-20] MEDS: ondansetron HCL 4 MG/2 ML VIAL IVPUSH (05:42)
[2021-03-20 06:19] LABS: MANUAL DIFF FLAG NO
[2021-03-20 06:29] LABS: Basophils Percent Auto 0.1 % (0-2); Eosinophils Percent Auto 0.1 % (0-4); Hematocrit 32.7 % (37-47); Hemoglobin 10.7 g/dl (12.0-16.0); Imm Gran Abs Auto 0.04 X10*3/uL (0.00-0.03); Imm Gran Pct Auto 0.5 % (0.0-0.4); Lymphocytes Absolute Auto 1.4 X10*3/uL (1.2-4.9); Lymphocytes Percent Auto 16.3 % (20-40); Mean Corpuscular HGB Conc 32.7 g/dl (31.0-35.0); Mean Corpuscular Hemoglobin 28.1 pg (27.0-33.0); Mean Corpuscular Volume 85.8 fL (80-98); Mean Platelet Volume 11.2 fL (9.4-12.3); Monocytes Absolute Auto 0.5 X10*3/uL (0.1-1.2); Monocytes Percent Auto 6.2 % (2-11); Neutrophils Absolute Auto 6.4 X10*3/uL (2.0-8.3); Neutrophils Percent Auto 76.8 % (45-73); Platelet Count 150 X10*3/uL (160-400); Red Blood Count 3.81 X10*6/uL (4.20-5.50); Red Cell Distribution Width 14.5 % (11.0-16.0); White Blood Count 8.4 X10*3/uL (4.8-10.8)
[2021-03-20 06:58] LABS: Anion Gap 13 (12-20); Blood Urea Nitrogen 9 mg/dL (9-16); Calcium 8.5 mg/dL (8.4-10.2); Carbon Dioxide 20 mmol/L (22-29); Chloride 108 mmol/L (96-108); Creatinine Clr Calc Pharmacy 125.6; Estimated Glomerular Filt Rate > 60; Glucose Random 88 mg/dL (60-115); Potassium 4.2 mmol/L (3.3-5.1); Sodium 137 mmol/L (135-145)
[2021-03-20 07:30] VITALS: BP 116/66; PULSE 43; RESP 20; TEMP 36.4; O2SAT 97
[2021-03-20] MEDS: Famotidine/PF 20 MG/2 ML VIAL IVPUSH (07:57)
--- NOTE | 2021-03-20 08:56 | MHC.CM.PN ---
pt lives alone in her home. she reports that she is independent in her care. she drives a car and works a job. pt's s.o. can help her if she needs it and will transport pt home at dc. pt denies the need for vna at dc. dc plan is home no svcs. cm to cont. to follow.
[2021-03-20 09:07] VITALS: O2SAT 94
[2021-03-20 11:16] VITALS: BP 134/78; PULSE 67; RESP 18; TEMP 36.8; O2SAT 98
--- NOTE | 2021-03-20 16:13 | HO.POSTANES ---
Post Anesthesia Evaluation Post Anesthesia Evaluation Vital Signs: Vital Signs Temp Pulse Resp BP Pulse Ox 03/20/21 11:16 98.2 F 67 18 134/78 98 03/20/21 09:07 94 03/20/21 07:30 97.6 F 43 L 20 116/66 97 Anesthesia: General Endotracheal-GETA Mental Status: Awake Pain Control: Satisfactory Nausea/Vomiting: None Hydration: Adequate Anesthesia-Related Issues: No Anes. Related Issues
== END 2021-03-20 15:03 | disposition home or self-care (01) | DRG 403 ==
LOC: HO.SSSA 03-19 12:23 → HO.S3 03-19 12:48
PROVIDERS: Nurse Practitioner; Physician Assistant; Admitting Provider Surgery; PCP Nurse Practitioner Family; Visit Provider Surgery
PROC: 0D164ZA Bypass Stomach to Jejunum, Percutaneous Endoscopic Approach (ICD-10-PCS; principal; 2021-03-19 07:30)
DX: E66.01 Morbid (severe) obesity due to excess calories (principal); J45.909 Unspecified asthma, uncomplicated; K66.0 Peritoneal adhesions (postprocedural) (postinfection); M54.9 Dorsalgia, unspecified; K21.9 Gastro-esophageal reflux disease without esophagitis; Z20.822 Contact with and (suspected) exposure to COVID-19; Z97.5 Presence of (intrauterine) contraceptive device; Z68.34 Body mass index [BMI] 34.0-34.9, adult; Z98.84 Bariatric surgery status; Z79.899 Other long term (current) drug therapy
CPT/HCPCS: 36415; 74240; 74248; 80048; 80053; 80061; 81025; 83036; 83525; 84443; 85014; 85018; 85025; 85610; 85730; 86140; 86850; 86900; 86901; 87635; 99024; C1758; J0131; J0690; J1100; J1170; J2250; J2405; J2550; J2765; J3010

== ENCOUNTER → 2021-03-27 08:29 | Outpatient (BNVA) | payer BC, MEDICAID, SELFPAY | PROVIDERS: PCP Nurse Practitioner Family; Visit Provider Surgery ==

== ENCOUNTER → 2021-04-29 08:01 | Outpatient (BNVA) | payer BC, MEDICAID, SELFPAY | PROVIDERS: PCP Nurse Practitioner Family; Visit Provider Surgery ==

== ENCOUNTER → 2021-06-01 07:40 | Outpatient (BNVA) | payer BC, MEDICAID, SELFPAY | PROVIDERS: PCP Nurse Practitioner Family; Visit Provider Surgery ==

== ENCOUNTER 2021-06-27 10:22 | Outpatient (REF) | payer BC, MEDICAID, SELFPAY ==
[2021-06-27 10:50] LABS: MANUAL DIFF FLAG NO
[2021-06-27 11:01] LABS: Basophils Percent Auto 0.4 % (0-2); Eosinophils Absolute Auto 0.1 X10*3/uL (0.0-0.4); Eosinophils Percent Auto 1.6 % (0-4); Hematocrit 38.4 % (37-47); Hemoglobin 12.7 g/dl (12.0-16.0); Imm Gran Abs Auto 0.01 X10*3/uL (0.00-0.03); Imm Gran Pct Auto 0.2 % (0.0-0.4); Lymphocytes Absolute Auto 1.2 X10*3/uL (1.2-4.9); Mean Corpuscular HGB Conc 33.1 g/dl (31.0-35.0); Mean Corpuscular Hemoglobin 28.9 pg (27.0-33.0); Mean Corpuscular Volume 87.5 fL (80-98); Mean Platelet Volume 11.1 fL (9.4-12.3); Monocytes Absolute Auto 0.2 X10*3/uL (0.1-1.2); Monocytes Percent Auto 4.3 % (2-11); Neutrophils Absolute Auto 3.4 X10*3/uL (2.0-8.3); Neutrophils Percent Auto 68.5 % (45-73); Platelet Count 179 X10*3/uL (160-400); Red Blood Count 4.39 X10*6/uL (4.20-5.50); Red Cell Distribution Width 14.3 % (11.0-16.0); White Blood Count 4.9 X10*3/uL (4.8-10.8)
[2021-06-27 11:16] LABS: Estimated Average Glucose 105 mg/dL; Hemoglobin A1c % 5.3 %
[2021-06-27 11:37] LABS: Alanine Aminotransferase 12 U/L (0-31); Albumin Level 4.4 g/dL (3.5-5.0); Alkaline Phosphatase 91 U/L (39-117); Anion Gap 11 (12-20); Aspartate Amino Transferase 12 U/L (5-31); Bilirubin Total 0.4 mg/dL (0.0-1.0); Blood Urea Nitrogen 10 mg/dL (9-16); C Reactive Protein 0.33 mg/dL (< or = 0.50); Calcium 9.9 mg/dL (8.4-10.2); Carbon Dioxide 25 mmol/L (22-29); Chloride 106 mmol/L (96-108); Cholesterol 157 mg/dL; Estimated Glomerular Filt Rate > 60; Glucose Random 96 mg/dL (60-115); HDL Cholesterol 38 mg/dL; Iron 48 mcg/dL (30-160); LDL Cholesterol Calculated 104 mg/dl; Percent Iron Saturation 16 % (15-50); Potassium 3.9 mmol/L (3.3-5.1); Sodium 138 mmol/L (135-145); Total Iron Binding Capacity 294 mcg/dL (228-428); Total Protein 6.7 g/dL (6.5-8.0); Triglycerides 76 mg/dL; Unsaturated Iron Binding 246 ug/dL
[2021-06-27 11:58] LABS: Ferritin 14 ng/mL (10-122); TSH reflex Free T4 0.89 uIU/mL (0.32-4.0); Vitamin D 25-OH Total 38.2 ng/mL (>30)
[2021-06-29 09:16] LABS: Folate 5.7 ng/mL (> or = 4.0); Vitamin B12 477 pg/mL (200-900)
[2021-06-30 05:42] LABS: Calcium (PTHI) 9.6 mg/dL (8.6-10.2); PTHI 51 pg/mL (14-64)
[2021-07-01 07:47] LABS: Zinc 91 mcg/dL (60-130)
[2021-07-02 10:27] LABS: Vitamin A 34 mcg/dL (38-98)
[2021-07-03 05:45] LABS: Vitamin B1 8 nmol/L (8-30)
== END 2021-06-27 10:23 | disposition home or self-care (01) ==
LOC: HO.LAB 10:22
PROVIDERS: PCP Nurse Practitioner Family; Visit Provider Surgery
DX: E66.3 Overweight (principal); Z98.84 Bariatric surgery status
CPT/HCPCS: 36415; 80053; 80061; 82306; 82607; 82728; 82746; 83036; 83540; 83970; 84425; 84443; 84590; 84630; 85025; 86140

== ENCOUNTER → 2021-07-03 08:14 | Outpatient (BNVA) | payer BC, MEDICAID, SELFPAY | PROVIDERS: PCP Nurse Practitioner Family; Visit Provider Surgery ==

== ENCOUNTER → 2021-08-12 08:03 | Outpatient (BNVA) | payer BC, MEDICAID, SELFPAY | PROVIDERS: PCP Nurse Practitioner Family; Visit Provider Physician Assistant Surgical ==

== ENCOUNTER 2021-09-23 16:35 | Outpatient (REF) | payer MEDICAID, SELFPAY ==
[2021-09-23 16:56] LABS: MANUAL DIFF FLAG NO
[2021-09-23 17:26] LABS: Basophils Percent Auto 0.6 % (0-2); Eosinophils Absolute Auto 0.1 X10*3/uL (0.0-0.4); Eosinophils Percent Auto 3.5 % (0-4); Hematocrit 38.2 % (37.0-47.0); Hemoglobin 12.7 g/dl (12.0-16.0); Lymphocytes Absolute Auto 1.2 X10*3/uL (1.2-4.9); Lymphocytes Percent Auto 33.5 % (20-40); Mean Corpuscular HGB Conc 33.2 g/dl (31.0-35.0); Mean Corpuscular Hemoglobin 28.9 pg (27.0-33.0); Mean Platelet Volume 10.8 fL (9.4-12.3); Monocytes Absolute Auto 0.3 X10*3/uL (0.1-1.2); Monocytes Percent Auto 7.8 % (2-11); Neutrophils Absolute Auto 1.9 x10*3/uL (2.0-8.3); Neutrophils Percent Auto 54.6 % (45-73); Platelet Count 173 X10*3/uL (160-400); Red Blood Count 4.39 X10*6/uL (4.20-5.50); Red Cell Distribution Width 13.8 % (11.0-16.0); White Blood Count 3.5 X10*3/uL (4.8-10.8)
[2021-09-23 17:33] LABS: Estimated Average Glucose 108 mg/dL; Hemoglobin A1c % 5.4 %
[2021-09-23 17:55] LABS: Anion Gap 11 (12-20); Blood Urea Nitrogen 12 mg/dL (9-16); Calcium 9.6 mg/dL (8.4-10.2); Carbon Dioxide 26 mmol/L (22-29); Chloride 106 mmol/L (96-108); Cholesterol 167 mg/dL; Estimated Glomerular Filt Rate > 60; Glucose Random 97 mg/dL (60-115); HDL Cholesterol 42 mg/dL; Iron 29 mcg/dL (30-160); LDL Cholesterol Calculated 108 mg/dl; Percent Iron Saturation 9 % (15-50); Potassium 4.2 mmol/L (3.3-5.1); Sodium 139 mmol/L (135-145); Total Iron Binding Capacity 324 mcg/dL (228-428); Triglycerides 86 mg/dL; Unsaturated Iron Binding 295 ug/dL
[2021-09-23 18:16] LABS: Ferritin 23 ng/mL (10-122); TSH reflex Free T4 0.93 uIU/mL (0.32-4.0); Vitamin D 25-OH Total 29.5 ng/mL (>30)
[2021-09-23 18:30] LABS: Folate 6.2 ng/mL (> or = 4.0); Vitamin B12 411 pg/mL (200-900)
[2021-09-29 03:17] LABS: Zinc 56 mcg/dL (60-130)
[2021-09-29 16:26] LABS: Vitamin B1 9 nmol/L (8-30)
[2021-09-30 14:21] LABS: Vitamin A 30 mcg/dL (38-98)
== END 2021-09-23 16:36 | disposition home or self-care (01) ==
LOC: HO.LAB 16:35
PROVIDERS: Visit Provider Physician Assistant Surgical
DX: E66.3 Overweight (principal)
CPT/HCPCS: 36415; 80048; 80061; 82306; 82607; 82728; 82746; 83036; 83540; 84425; 84443; 84590; 84630; 85025

== ENCOUNTER → 2021-09-25 07:57 | Outpatient (BNVA) | payer MEDICAID, SELFPAY | PROVIDERS: PCP Nurse Practitioner Family; Visit Provider Physician Assistant Surgical | DX: E66.3 Overweight (principal) ==

== ENCOUNTER → 2022-03-18 08:20 | Outpatient (BNVA) | payer MEDICAID, SELFPAY | PROVIDERS: PCP Nurse Practitioner Family; Visit Provider Physician Assistant Surgical | DX: L98.7 Excessive and redundant skin and subcutaneous tissue (principal); Z98.84 Bariatric surgery status | CPT/HCPCS: 99212 ==

== ENCOUNTER 2024-01-10 10:49 | Outpatient (AMB) | payer MEDICAID, SELFPAY ==
--- NOTE | 2024-01-10 11:08 | A.OFFVIS_ITS ---
VS Expanded 01/10/24 11:16 BP 114/58 L Blood Pressure Location Rt brachial Blood Pressure Position Sitting Pulse 59 Pulse Source Pulse Oximeter Temp 97.7 F Temperature Source Temporal Artery Scan Pulse Oximetry 98 Oxygen Delivery Method Room Air Height 5 ft 5 in Weight 144 lb 12.8 oz BMI 24.1 Body Fat % 20.4 Body Fat Mass 29.6 Fat Free Mass 115.0 Visceral Fat Rating 2.0 Body Water % 57.0 Body Water Mass 82.4 Muscle Mass/Score 109.4 Basal Metabolic Rate/Score 1,529 Intake Visit Reasons: (OV) PO LSG 03/19/21 Allergies tomato Allergy (Severe, Verified 01/10/24 11:11) itchy throat Medication List - Last Reconciled 01/10/24 by PRATIBHA Kline albuterol sulfate 90 mcg/actuation 1 puff PO Q4H PRN [Celebrate MVI 1 cap PO DAILY] clotrimazole 1% (Antifungal (clotrimazole)) 1 appl topical BID cyanocobalamin (vitamin B-12) 1,000 mcg IM levonorgestrel (Mirena) intrauterine HPI Comments Details: This?is a?33?yo female who is s/p conversion LSG to RYGB 03/19/2021. Presents for 2 year 10 month post op visit. Weight at last visit on 03/18/2022 was 137 pounds with a BMI of 22.8, weight today is 144.8 pounds, representing a 7.8 pound weight gain with a BMI today of 24.1.? No complaints of nausea, emesis, abdominal pain or reflux, or constipation. Present meal plan includes: breakfast- scrambled eggs, half slice toast, fruit lunch- salad with protein, or half sandwich with whole grain bread/lettuce/turkey/cheese, fruit or carrot/celery sticks dinner- chicken or fish, or liver and onions (eats this to help with iron levels), plus veg Adequate hydration? Exercise routine includes: lots of walking- stair climbing, bike riding, or home exercises (yoga, dance classes) Reports excess skin of abdomen; skin is painful when rubs on clothing. Has tried Nystatin and baby powder which has not completely resolved the problem. Has to use pads to soak up moisture in skin folds, moisture has an unpleasant odor Has to wear compressive waistbands with exercise and any activity as the excess skin is flapping with any movement and is very uncomfortable. Heaviness of the excess skin causes discomfort during normal activities of daily living. [facility] Medical History (Updated 03/18/22 @ 09:09 by PRATIBHA Kline) Intra-abdominal adhesions BMI 34.0-34.9,adult COVID-19 vaccine series completed History of depression Anxiety BMI over 35 BMI 37.0-37.9, adult Vitamin D deficiency Vitamin B12 deficiency Vitamin B1 deficiency GERD (gastroesophageal reflux disease) Back pain Gestational diabetes Asthma, exercise induced Surgical History (Updated 01/10/24 @ 11:13 by Yessica Vera CMA) Hx of breast surgery Hx of gastric bypass History of esophagogastroduodenoscopy (EGD) Hx laparoscopic cholecystectomy History of sleeve gastrectomy Social History (Updated 01/10/24 @ 11:13 by Yessica Vera CMA) 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 home: Yes (2 children, arrangements made for their care in the post-op period) Do you presently have visiting nurse or other home services: No Alcohol intake: current Alcohol intake frequency: holidays/special occasions only Patient Tobacco Use Status: Former Tobacco user Quit Date: 2012 service: No Current occupational status: employed Physical Exam Const General: cooperative, comfortable and no acute distress Orientation/consciousness: patient oriented x3 GI Other: soft, nontender, nondistended, incisions well healed, no hernia, no masses Grade II pannus Neuro General: patient oriented x3 Assessment & Plan Assessment & Plan (1) S/P gastric bypass: Code(s): Z98.84 - Bariatric surgery status Category: Surgical (2) Excess skin of abdomen: Code(s): L98.7 - Excessive and redundant skin and subcutaneous tissue Category: Medical Plan Pt continues to maintain a healthy BMI after conversion from LSG to RYGB. Adequate meal plan and exercise regimen. She has developed issues of excess skin of abdomen resulting in painful, malodorous rashes. Area is difficult to keep clean. Excess skin is making activities of daily living more difficult, causing discomfort and requiring the use of special clothing to try to hold excess skin in place. Clotrimazole ointment ordered for rashes of excess skin. Expected postop course reviewed. Labs ordered. RTC 1 month for monitoring of issues of excess skin. Patient is at healthy BMI but with issues of excess skin and is not considered stable at this time. I spent a total of 30 minutes reviewing/updating records, examining the patient and counseling the patient on weight management as detaile d above. Orders: Orders Insulin Today Z98.84 - Bariatric surgery status Complete Blood Count Auto Diff Today Z98.84 - Bariatric surgery status IRON PROFILE Today Z98.84 - Bariatric surgery status Comprehensive Met. Panel Today Z98.84 - Bariatric surgery status Vitamin B12 and Folate Today Z98.84 - Bariatric surgery status Vitamin B1 Today Z98.84 - Bariatric surgery status Hemoglobin A1c Today Z98.84 - Bariatric surgery status Lipid Panel Today Z98.84 - Bariatric surgery status Zinc Today Z98.84 - Bariatric surgery status C Reactive Protein Today Z98.84 - Bariatric surgery status Vitamin A Today Z98.84 - Bariatric surgery status TSH reflex Free T4 Today Z98.84 - Bariatric surgery status Ferritin Today Z98.84 - Bariatric surgery status Vitamin D 25-OH Total Today Z98.84 - Bariatric surgery status Medications: Refilled clotrimazole 1% (Antifungal (clotrimazole)) 1 appl topical BID 30 grams 2RF M79.3 - Panniculitis, unspecified
[2024-01-10 11:16] VITALS: BP 114/58; PULSE 59; TEMP 36.5; O2SAT 98; BMI 24.1
== END 2024-01-10 11:45 | disposition home or self-care (01) ==
PROVIDERS: PCP Nurse Practitioner Family; Visit Provider Physician Assistant Surgical
DX: L98.7 Excessive and redundant skin and subcutaneous tissue (principal); Z98.84 Bariatric surgery status
CPT/HCPCS: 99214

== ENCOUNTER → 2024-01-10 10:49 | Outpatient (BNVA) | payer MEDICAID, SELFPAY | PROVIDERS: PCP Nurse Practitioner Family; Visit Provider Physician Assistant Surgical | DX: L98.7 Excessive and redundant skin and subcutaneous tissue (principal); Z98.84 Bariatric surgery status | CPT/HCPCS: 99212 ==

== ENCOUNTER 2024-01-14 08:16 | Inpatient (IN) | payer MEDICAID, SELFPAY ==
[2024-01-14] VITALS (8 sets, daily range): BP systolic 103–126; BP diastolic 55–80; PULSE 54–70; RESP 15–22; TEMP 36.6–37.5; O2SAT 96–100; BMI 24.4
--- NOTE | ~2024-01-14 | CT_ITS ---
EXAMINATION: CT ABDOMEN AND PELVIS WITHOUT CONTRAST CLINICAL INFORMATION: Abdominal pain COMPARISON: CT abdomen pelvis from earlier same day. TECHNIQUE: Multidetector volumetric imaging was performed from the superior aspect of the liver through the pubic symphysis. Sagittal and coronal reformatted images were obtained on the technologist's workstation. This CT examination was performed using dose optimization techniques as appropriate, variously including the following: *Automated exposure control *Adjustment of mA and/or kV according to patient size (this includes techniques or standardized protocols for targeted exams where dose is matched to indication/reason for exam; i.e. extremities or head) *Use of iterative reconstruction technique DLP: 504 mGy-cm FINDINGS: Evaluation of solid organs, vascular structures, and bowel wall limited in the absence of intravenous contrast. LUNG BASES: Mild bibasilar pulmonary atelectasis. Lung bases otherwise unremarkable. LIVER AND BILIARY TREE: Unremarkable. GALLBLADDER: Status post cholecystectomy. PANCREAS: Unremarkable. SPLEEN: Unremarkable. ADRENAL GLANDS: Unremarkable. KIDNEYS AND URETERS: Excreted contrast within the bilateral renal collecting systems, likely relates to previous contrast administration. As. GASTROINTESTINAL TRACT: Redemonstrated postoperative appearance from Savana-en-Y gastric bypass, without. Enteric contrast extends from the cecum through the mid descending colon without evidence of leak or extraluminal contrast identified. Normal appendix. VASCULAR: Unremarkable LYMPH NODES: No lymphadenopathy. PERITONEUM: Compared to earlier same day, similar small volume pneumoperitoneum, most pronounced within the ventral upper abdomen, anterior to the left hepatic lobe, with additional small locules at the deandra hepatis, along the falciform ligament, and in the left upper quadrant adjacent to patient's gastrojejunal anastomosis. BLADDER: Partially decompressed containing excreted intravenous contrast.. PELVIC VISCERA: Unchanged small volume simple pelvic free fluid. Centrally positioned intrauterine device again seen. ABDOMINAL AND PELVIC WALL: Partially visualized bilateral saline breast implants, intact. Surgical clips over the right thoracolumbar back. OSSEOUS STRUCTURES: Unremarkable. CT/CT abdomen pelvis wo IV con IMPRESSION: No significant change from earlier same day. Redemonstrated findings highly suggestive of perforated viscus, the source of which remains indeterminate, and again may represent gastric/duodenal ulcer or dehiscent the patient's gastrojejunostomy. No extraluminal enteric contrast identified.
--- NOTE | ~2024-01-14 | CT_ITS ---
EXAMINATION: CT ABDOMEN AND PELVIS WITH CONTRAST CLINICAL INFORMATION: Abdominal pain. History of gastric bypass. COMPARISON: Upper GI small bowel series from 03/20/2021. Abdomen ultrasound from 01/07/2021. TECHNIQUE: Multidetector volumetric images were obtained from the superior aspect of the liver through the pubic symphysis following administration 85 mL of Omnipaque 350 intravenous contrast. Sagittal and coronal reformatted images were obtained on the technologist's workstation. Oral contrast: No This CT examination was performed using dose optimization techniques as appropriate, variously including the following: *Automated exposure control *Adjustment of mA and/or kV according to patient size (this includes techniques or standardized protocols for targeted exams where dose is matched to indication/reason for exam; i.e. extremities or head) *Use of iterative reconstruction technique DLP: 539 mGy-cm FINDINGS: LUNG BASES: No pulmonary consolidation or pleural effusion. There is respiratory motion on images through the bases. Bilateral subpectoral breast implants are partially included in the [id number]. HEPATOBILIARY: Liver has normal size, contour and parenchymal attenuation. No liver mass or abscess, status post cholecystectomy. The common bile duct measures up to 0.6 cm diameter. PANCREAS: No edema, pancreatic ductal dilatation or mass. SPLEEN: Normal. ADRENAL GLANDS: Normal. KIDNEYS AND URETERS: Kidneys are normal in size and enhance symmetrically. No nephrolithiasis or hydronephrosis. BLADDER: Normal. BOWEL AND PERITONEUM: Surgical changes from Savana-en-Y gastric bypass. Small volume of pneumoperitoneum is present. Since some of the free air is seen anterior to the stomach, it is possible that there has been a disruption in the anterior gastric wall or at the gastrojejunal anastomosis. Small amount of simple-appearing free fluid within the pelvis. There is no contrast leakage into the peritoneal cavity. ABDOMINAL WALL: Unremarkable. VASCULATURE: Abdominal aorta is normal in caliber and its branches are patent. Inferior vena cava is normal. LYMPH NODES: No pathologic sized lymph nodes in the abdomen or pelvis. No inguinal lymphadenopathy. PELVIC VISCERA: A contraceptive device is well-positioned within the endometrium. No evidence of uterine or adnexal mass. MUSCULOSKELETAL: The evaluation of bones is partially limited by patient's motion. No evidence of acute osseous abnormality. CT/CT abdomen pelvis w IV con IMPRESSION: The evaluation is partially limited by patient's motion. Small volume of pneumoperitoneum is present and some of the free air is projecting anterior to the stomach. Also, small amount of simple-appearing free fluid is present in the pelvis. No focal organized collection. Consider possibility of a perforated ulcer or dehiscence in the region of the gastrojejunal anastomosis. The critical test result was discussed with Dr. Moreland at 11:03 AM on 01/14/2024 and it was ascertained that the content and the importance of the findings was understood at the time of the direct communication.
[2024-01-14] MEDS: 0.9 % Sodium Chloride 1,000 ML 999 ML IV ×2 (08:38→11:41)
[2024-01-14] MEDS: ondansetron HCL 4 MG/2 ML VIAL IVPUSH ×2 (08:38→17:31)
[2024-01-14] MEDS: Barium Sulfate Oral (Vanilla) 450 ML ORAL.SUSP PO (08:40)
[2024-01-14] MEDS: fentaNYL citrate/PF 100 MCG/2 ML VIAL 25 MCG IVPUSH ×2 (08:45→10:10)
--- NOTE | 2024-01-14 08:56 | ED.ABDPAIN ---
HPI - Abdominal Pain General Chief Complaint: Abdominal Pain Stated Complaint: ABD PAIN HX GASTRIC BYPASS Time Seen by Provider: 01/14/24 08:20 Source: patient Mode of arrival: EMS History of Present Illness HPI narrative: 33-year-old female with history of gastric bypass/cholecystectomy presents via EMS with acute onset mid abdominal pain at 07:00 with associated nausea/vomiting and states that the pain radiates to the left shoulder and woke her up from sleeping, patient reports no flatus/BM and last ate last night. Patient has IUD in place Related Data Home Medications ?Medication ?Instructions ?Recorded ?Confirmed levonorgestrel 21 mcg/24 hours (8 intrauterine 12/22/20 01/10/24 yrs) 52 mg intrauterine device (Mirena) albuterol sulfate 90 mcg/actuation 1 puff PO Q4H PRN dyspnea 03/12/21 01/10/24 aerosol inhaler cyanocobalamin (vitamin B-12) 1,000 mcg IM 01/10/24 01/10/24 1,000 mcg/mL injection solution Previous Rx's ?Medication ?Instructions ?Recorded Celebrate MVI 1 cap PO DAILY #1 cap 09/25/21 clotrimazole 1 % topical cream 1 appl topical BID #30 grams 01/10/24 (Antifungal (clotrimazole)) Allergies Allergy/AdvReac Type Severity Reaction Status Date / Time tomato Allergy Severe itchy Verified 01/14/24 08:24 throat Review of Systems Review of Systems Pertinent positives and negatives as stated in HPI PMFSH Past Medical History Source: nursing notes reviewed Medical History Intra-abdominal adhesions BMI 34.0-34.9,adult COVID-19 vaccine series completed History of depression Anxiety BMI over 35 BMI 37.0-37.9, adult Vitamin D deficiency Vitamin B12 deficiency Vitamin B1 deficiency GERD (gastroesophageal reflux disease) Back pain Gestational diabetes Asthma, exercise induced Surgical History Hx of breast surgery Hx of gastric bypass History of esophagogastroduodenoscopy (EGD) Hx laparoscopic cholecystectomy History of sleeve gastrectomy Social History Social History 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 home: Yes (2 children, arrangements made for their care in the post-op period) Do you presently have visiting nurse or other home services: No Alcohol intake: current Alcohol intake frequency: holidays/special occasions only Patient Tobacco Use Status: Former Tobacco user Quit Date: 2012 Smoked in Last 30 Days: No Use of substances other than those prescribed or required for medical reasons: No Advance Directives: No Do you have a plan to hurt others: No Plan service: No Current occupational status: employed Physical Exam ED Vital Signs: Vital Signs - 24 hr 01/14/24 08:21 01/14/24 08:23 01/14/24 11:38 Temperature 98.2 F 98.1 F Pulse Rate 56 59 65 Respiratory Rate 18 18 18 Blood Pressure 103/62 103/62 105/64 Pulse Oximetry 98 100 100 Oxygen Delivery Method Room Air Room Air Room Air BMI result Body Mass Index 24.4 VITAL SIGNS: Reviewed. GENERAL: Well developed, well nourished, in moderate-severe distress. HEAD: Normocephalic/atraumatic EYES: PERRLA, EOMI EARS: Ext canals without abnormality NOSE: Nares patent bilateral OROPHARYNX: no oral lesions noted, posterior pharynx clear NECK: Supple, no adenopathy LUNGS: Normal breath sounds. No adventitious sounds or accessory muscle use. SpO2<100> CARDIOVASCULAR: Regular rate and rhythm without noted murmurs ABDOMEN: Soft, tenderness to palpation, non-distended with hypoactive bowel sounds. MUSCULOSKELETAL: No tenderness, deformities, or effusions noted on gross inspection. EXTREMITIES: No cyanosis, clubbing or edema. SKIN: Inspection of the skin reveals no rashes NEUROLOGIC: Alert and oriented x 4. Strength and sensation to light touch were grossly intact x 4. Medical Decision Making Medical Decision Making MDM Narrative: 33-year-old female with history and clinical presentation, DDX: Obstruction, internal hernia, renal colic, urinary tract infection, ectopic INTERVENTION: IV fluids, antiemetics, pain medication I reviewed all investigations and hematologic indices are negative for leukocytosis/anemia/thrombocytopenia. Chemistry indices are negative for [place]/electrolyte or liver enzyme derangements. 1103: Received a call from [facility] describing free air that appears to be located around possibly the stomach area, no extravasation contrast though radiology points out that if the patient was lying down this may not have extravasated secondary to position. Also noted small amount of free fluid within the pelvis. INTERVENTION: Lactic acid/blood cultures/antibiotics. 1105: Call out to bariatric surgery, Dr. Myles is aware. Patient has been informed of results as well. Plan for admission to OR. Differential Diagnosis Differential Diagnoses: The differential diagnosis associated with the presentation includes Please see the discussion above Admission/Observation Consideration of admission/observation: Escalation of care including admission/observation considered Please see the discussion above Consult Healthcare Provider Management of the patient was discussed with: [facility] [employer] Department Supervisor Please see the discussion above Lab Data MDM Lab Attestation statement: I reviewed the patient's lab results. Please see the discussion above 01/14/24 09:03 01/14/24 09:03 Labs: Lab Results 01/14/24 Range/Units 09:03 WBC 5.1 (4.8-10.8) X10*3/uL RBC 5.08 (4.20-5.50) X10*6/uL Hgb 14.1 (12.0-16.0) g/dl Hct 42.8 (37.0-47.0) % MCV 84.3 (80.0-98.0) fL MCH 27.8 (27.0-33.0) pg MCHC 32.9 (31.0-35.0) g/dl RDW 14.3 (11.0-16.0) % Plt Count 175 (160-400) X10*3/uL MPV 10.2 (9.4-12.3) fL Immature Gran % (Auto) 0.2 (0.0-0.4) % Neut % (Auto) 73.4 H (45-73) % Lymph % (Auto) 21.1 (20-40) % Saunders % (Auto) 3.3 (2-11) % Eos % (Auto) 1.6 (0-4) % Baso % (Auto) 0.4 (0-2) % Lymph # (Auto) 1.1 L (1.2-4.9) X10*3/uL Saunders # (Auto) 0.2 (0.1-1.2) X10*3/uL Eos # (Auto) 0.1 (0.0-0.4) X10*3/uL Baso # (Auto) 0.0 (0.0-0.2) X10*3/uL Abs Immat Gran (auto) 0.01 (0.00-0.03) X10*3/uL Absolute Neuts (auto) 3.8 (2.0-8.3) x10*3/uL Absolute Nucleated RBC 0.000 (0.0-0.012) X10*3/uL Nucleated RBC % (auto) 0.0 (0.0-0.2) /100WBC Sodium 140 (135-145) mmol/L Potassium 4.2 (3.3-5.1) mmol/L Chloride 107 (96-108) mmol/L Carbon Dioxide 22 (22-29) mmol/L Anion Gap 15 (12-20) BUN 12 (9-16) mg/dL Creatinine 0.68 (0.5-1.4) mg/dL Estim Creat Clear Calc 104.9 Estimated GFR > 60 Random Glucose 94 (60-115) mg/dL Calcium 9.2 (8.4-10.2) mg/dL Total Bilirubin 0.3 (0.0-1.0) mg/dL AST 14 (5-31) U/L ALT 15 (0-31) U/L Alkaline Phosphatase 80 (39-117) U/L Total Protein 7.1 (6.5-8.0) g/dL Albumin 4.2 (3.5-5.0) g/dL Beta HCG, Quant 3 mIU/mL Radiology Impression Discussion of test interpretation with radiology: I have reviewed the radiologist's reading. Radiologist Impression: Please see the discussion above External Record Review External record reviewed: Office record, Outpatient record, Prior outpatient labs and Prior outpatient radiology Medications Administered Generic Name Dose Route Start Last Admin Trade Name Freq PRN Reason Stop Dose Admin Metronidazole 500 mg in 100 mls @ 100 mls/hr 01/14/24 11:06 01/14/24 11:31 Flagyl IV 01/14/24 12:05 100 mls/hr ONCE ONE Administration Discontinued Medications Generic Name Dose Route Start Last Admin Trade Name Freq PRN Reason Stop Dose Admin Barium Sulfate 450 ml 01/14/24 08:40 01/14/24 08:40 Barium Sulfate Oral (Vanilla) 450 Ml Oral.Susp PO 01/14/24 08:41 450 ml ONCE ONE Administration Fentanyl 25 mcg 01/14/24 08:42 01/14/24 08:45 Fentanyl Citrate/Pf 100 Mcg/2 Ml Vial IVPUSH 01/14/24 08:43 25 mcg ONCE ONE Administration Protocol Fentanyl 25 mcg 01/14/24 10:00 01/14/24 10:10 Fentanyl Citrate/Pf 100 Mcg/2 Ml Vial IVPUSH 01/14/24 10:01 25 mcg ONCE ONE Administration Protocol Hydromorphone HCl 0.25 mg 01/14/24 11:22 01/14/24 11:36 Hydromorphone Hcl 0.5 Mg/0.5 Ml Syringe IVPUSH 01/14/24 11:23 0.25 mg ONCE ONE Administration Protocol Sodium Chloride 1,000 mls @ 999 mls/hr 01/14/24 08:30 01/14/24 09:41 Ns IV 01/14/24 09:30 Infused .Q1H1M ROXANA Infusion Piperacillin Sod/Tazobactam 50 mls @ 100 mls/hr 01/14/24 11:06 01/14/24 11:31 Sod 3.375 gm/ Sodium Chloride IV 01/14/24 11:35 100 mls/hr ONCE ONE Administration Iohexol 100 ml 01/14/24 10:07 01/14/24 10:07 Iohexol 350 Mg/Ml 100 Ml Infus..Btl IV 01/14/24 10:08 85 ml ONCE ONE Administration Ondansetron HCl 4 mg 01/14/24 08:22 01/14/24 08:38 Ondansetron Hcl 4 Mg/2 Ml Vial IVPUSH 01/14/24 08:23 4 mg ONCE ONE Administration Critical Care Time Critical Care Time Critical Care Time: Yes Total Critical Care Time: 60 Attestation: I personally attest to this time spent taking care of the patient. Discharge Plan Discharge Clinical Impression: Perforated viscus Patient Disposition: Admitted As Inpatient
[2024-01-14 09:08] LABS: MANUAL DIFF FLAG NO
[2024-01-14 09:12] LABS: Basophils Percent Auto 0.4 % (0-2); Eosinophils Absolute Auto 0.1 X10*3/uL (0.0-0.4); Eosinophils Percent Auto 1.6 % (0-4); Hematocrit 42.8 % (37.0-47.0); Hemoglobin 14.1 g/dl (12.0-16.0); Imm Gran Abs Auto 0.01 X10*3/uL (0.00-0.03); Imm Gran Pct Auto 0.2 % (0.0-0.4); Lymphocytes Absolute Auto 1.1 X10*3/uL (1.2-4.9); Lymphocytes Percent Auto 21.1 % (20-40); Mean Corpuscular HGB Conc 32.9 g/dl (31.0-35.0); Mean Corpuscular Hemoglobin 27.8 pg (27.0-33.0); Mean Corpuscular Volume 84.3 fL (80.0-98.0); Mean Platelet Volume 10.2 fL (9.4-12.3); Monocytes Absolute Auto 0.2 X10*3/uL (0.1-1.2); Monocytes Percent Auto 3.3 % (2-11); Neutrophils Absolute Auto 3.8 x10*3/uL (2.0-8.3); Neutrophils Percent Auto 73.4 % (45-73); Platelet Count 175 X10*3/uL (160-400); Red Blood Count 5.08 X10*6/uL (4.20-5.50); Red Cell Distribution Width 14.3 % (11.0-16.0); White Blood Count 5.1 X10*3/uL (4.8-10.8)
[2024-01-14 09:33] LABS: Alanine Aminotransferase 15 U/L (0-31); Albumin Level 4.2 g/dL (3.5-5.0); Alkaline Phosphatase 80 U/L (39-117); Anion Gap 15 (12-20); Aspartate Amino Transferase 14 U/L (5-31); Bilirubin Total 0.3 mg/dL (0.0-1.0); Blood Urea Nitrogen 12 mg/dL (9-16); Calcium 9.2 mg/dL (8.4-10.2); Carbon Dioxide 22 mmol/L (22-29); Chloride 107 mmol/L (96-108); Creatinine Clr Calc Pharmacy 104.9; Estimated Glomerular Filt Rate > 60; Glucose Random 94 mg/dL (60-115); Potassium 4.2 mmol/L (3.3-5.1); Sodium 140 mmol/L (135-145); Total Protein 7.1 g/dL (6.5-8.0)
[2024-01-14 09:39] LABS: HCG Quantitative 3 mIU/mL
[2024-01-14] MEDS: iohexoL 350 MG/ML 100 ML INFUS..BTL IV (10:07)
[2024-01-14] MEDS: Piperacillin Sodium/Tazobactam 3.375 GM in 0.9 % Sodium Chloride 50 ML IV (11:31)
[2024-01-14] MEDS: metroNIDAZOLE/NS 500 MG/100 ML PIGGYBACK 100 MG IV ×2 (11:31→17:47)
[2024-01-14] MEDS: HYDROmorphone HCl 0.5 MG/0.5 ML SYRINGE 0.25 MG IVPUSH (11:36)
[2024-01-14 11:42] LABS: Lactic Acid 1.1 mmol/L (0.5-2.0)
--- NOTE | 2024-01-14 12:37 | PHA.MEDREC ---
Pharmacy Consult ? Medication Reconciliation Pharmacy has completed the medication reconciliation. Spoke with patient to confirm medications. She reports taking prilosec 20mg daily. Per patient, last B12 injection was around the 18 of December, does not do on a specific day.
[2024-01-14] MEDS: HYDROmorphone HCl 0.5 MG/0.5 ML SYRINGE IVPUSH ×5 (12:49→23:54)
--- NOTE | 2024-01-14 13:57 | P.HPGS_ITS ---
History of Present Illness History of Present Illness Date of Service: 01/14/24 Chief complaint: Perforated anastomotic ulcer Narrative: Daina Larkin is a 33 year old female with a history of laparoscopic Savana-en-Y gastric bypass by me on 03/19/2021. The patient is not compliant with her follow- up in our practice and presents with an acute onset of severe and sudden LUQ abdominal pain radiating to the left shoulder and LLQ. The pain was associated with nausea. After further inquiry she reports that she had LUQ discomfort for over 3 week period for which she went to an Urgent Care and they told her it is reflux. She does take Pantoprazole Review of Systems Constitutional: Constitutional: Reports as per HPI Eyes: Eyes: Reports no additional eye complaints ENT: Reports Normal hearing present Cardiovascular: Cardiovascular: Reports as per HPI Respiratory: Respiratory: Reports as per HPI Gastrointestinal: Gastrointestinal: Reports abdominal pain (LUQ pain) and Reports nausea Genitourinary: Genitourinary: Reports no additional female genitourinary complaints Musculoskeletal: Musculoskeletal: Reports other (Left shoulder pain) Integumentary/Breasts: Skin/Breast: Reports other (Breast implants bilaterally) Neurologic: Reports system reviewed and no additional complaints, except as documented and Reports Normal hearing present Psychiatric: Psychiatric: Reports no additional psychiatric complaints Endocrine: Endocrine: Reports no additional endocrine complaints Hematologic/Lymphatic: Hematologic/Lymphatic: Reports no additional hematologic/lymphatic complaints Allergic/Immunologic: Allergic/Immunologic: Reports no additional allergic/immunologic complaints [facility] Past Medical History Medical History (Updated 01/14/24 @ 14:02 by José Miguel Myles MD) Intestinal malabsorption Intra-abdominal adhesions BMI 34.0-34.9,adult COVID-19 vaccine series completed History of depression Anxiety BMI over 35 BMI 37.0-37.9, adult Vitamin D deficiency Vitamin B12 deficiency Vitamin B1 deficiency GERD (gastroesophageal reflux disease) Back pain Gestational diabetes Asthma, exercise induced Family History Family history: reviewed and not pertinent Surgical History Surgical History Hx of breast surgery Hx of gastric bypass History of esophagogastroduodenoscopy (EGD) Hx laparoscopic cholecystectomy History of sleeve gastrectomy Social History Social History 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 at home: Yes (2 children, arrangements made for their care in the post-op period) Do you presently have visiting nurse or other home services: No Alcohol intake: current Alcohol intake frequency: holidays/special occasions only Patient Tobacco Use Status: Former Tobacco user Quit Date: 2012 Smoked in Last 30 Days: No Use of substances other than those prescribed or required for medical reasons: No Advance Directives: No Do you have a plan to hurt others: No Plan service: No Current occupational status: employed Travel History Ebola Risk: Travel/Contact With Anyone From Affected Area/s: No Has Patient Experienced Ebola Symptoms: No I have personally reviewed the patient's Ebola risk: Yes Recent Out of Country Travel Within the Last 8 Weeks: No Meds Allergies Allergy/AdvReac Type Severity Reaction Status Date / Time tomato Allergy Severe itchy Verified 01/14/24 08:24 throat Active Medications: Current Medications Famotidine (Famotidine/Pf 20 Mg/2 Ml Vial) 20 mg IVPUSH BID ROXANA Hydromorphone HCl (Hydromorphone Hcl 0.5 Mg/0.5 Ml Syringe) 0.5 mg IVPUSH RQ4H WHILE AWAKE PRN; Protocol PRN Reason: Pain, Severe (Pain Scale 7-10) Lactated Ringer's (Lr) 1,000 mls @ 150 mls/hr IVCONT .Q6H40M ROXANA Folic Acid 1 mg/ Sodium (Chloride) 50.2 mls @ 100.4 mls/hr IV ONCE ONE Stop: 01/14/24 14:10 Piperacillin Sod/Tazobactam (Sod 3.375 gm/ Sodium Chloride) 100 mls @ 100 mls/hr IV Q6H ROXANA Acetaminophen (Ofirmev) 1,000 mg in 100 mls @ 16.7 mls/hr IV .Q6H ROXANA Metronidazole (Flagyl) 500 mg in 100 mls @ 100 mls/hr IV Q6H ROXANA Metoclopramide HCl (Metoclopramide Hcl 10 Mg/2 Ml Vial) 10 mg IVPUSH Q6H PRN PRN Reason: Nausea Ondansetron HCl (Ondansetron Hcl 4 Mg/2 Ml Vial) 4 mg IVPUSH RQ6H ROXANA Pantoprazole Sodium (Pantoprazole Sodium 40 Mg/10 Ml Vial) 40 mg IVPUSH BID ROXANA Sodium Chloride (0.9 % Sodium Chloride Flush 3 Ml Syringe) [address] [facility] Home Medications ?Medication ?Instructions ?Recorded ?Confirmed ?Last Taken ?Type levonorgestrel 21 mcg/24 hours (8 1 device intrauterine DIRECTED 12/22/20 01/14/24 Unknown History yrs) 52 mg intrauterine device (Mirena) albuterol sulfate 90 mcg/actuation 1 puff PO Q4H PRN dyspnea 03/12/21 01/14/24 Unknown History aerosol inhaler cyanocobalamin (vitamin B-12) 1,000 mcg IM QMONTH 01/10/24 01/14/24 Unknown History 1,000 mcg/mL injection solution multivitamin 1 tab PO DAILY 01/14/24 01/14/24 Unknown History omeprazole magnesium 20 mg 20 mg PO DAILY 01/14/24 01/14/24 Unknown History tablet,delayed release (Prilosec OTC) Physical Exam Vital Signs: Vital Signs: Last Vital Signs Temp 98.1 F 01/14/24 13:41 Pulse 64 01/14/24 13:41 Resp 15 01/14/24 13:41 BP 114/58 L 01/14/24 13:41 Pulse Ox 96 01/14/24 13:41 O2 Del Method Room Air 01/14/24 13:41 BMI result Body Mass Index 24.4 Const: General: cooperative, well developed, alert, awake and acute distress Nutritional Appearance: thin Orientation/consciousness: oriented to person, oriented to place, oriented to time and patient oriented x3 Chest: Chest palpation & inspection: normal inspection of the chest Breast/axilla inspection: Other (breast implants bilaterally) Resp: Effort & Inspection: normal respiratory effort Cardio: Jugular venous distension: no JVD Rate: regular rate Rhythm: regular rhythm GI: Inspection: Yes incision (well healed) Palpation (GI): Soft to palpation and Tenderness to palpation present (GI) in the LLQ and in the LUQ Rectal Exam - Female: deferred : General: Yes no CVA tenderness Back/Spine/Pelvis: Back: no CVA tenderness Skin: General skin exam: no rashes or lesions noted, elasticity normal and turgor normal Lesions: no lesions Rashes: no rashes Wounds: no wounds Hair: normal Neuro: General: oriented to person, oriented to place, oriented to time and patient oriented x3 Cranial nerves: Yes Normal hearing present Psych: Appearance: grossly normal Results Results Labs: Short CBC 01/14/24 Range/Units 09:03 WBC 5.1 (4.8-10.8) X10*3/uL Hgb 14.1 (12.0-16.0) g/dl Hct 42.8 (37.0-47.0) % Plt Count 175 (160-400) X10*3/uL BMP 01/14/24 09:03 Sodium 140 Potassium 4.2 Chloride 107 Carbon Dioxide 22 BUN 12 Creatinine 0.68 Calcium 9.2 Liver Function 01/14/24 Range/Units 09:03 Total Bilirubin 0.3 (0.0-1.0) mg/dL AST 14 (5-31) U/L ALT 15 (0-31) U/L Alkaline Phosphatase 80 (39-117) U/L Albumin 4.2 (3.5-5.0) g/dL CT scan - chest: report reviewed Assessment and Plan (1) Perforated viscus: Status: Acute Plan 1. I spoke to the Radiologist who read the CT. There is a small amount of free air. There is no extravasation of contrast (although she had a small amount) and no intra-abdominal fluid collection. As I explained to the patient, it would be best to admit her on a monitored bed and observe her. There is a good chance that the microperforation will seal by itself without requiring surgical intervention. However, if she becomes septic (tachycardia, fever, hypotension) she will need laparoscopic explorations with Mu's patch of the perforated anastomotic ulcer. 2. IV antibiotics, NPO, IF fluids 3. IV acetaminophen and Dilaudid prn for pain 4. IV vitamins 5. IV PPI and H2-blockers 6. Monitored bed Case was discussed with the patient in detail and the ER attending Dr. De La Rosa. Total time managing care of this patient today: 60 minutes. Quality Stroke Does the patient have a stroke diagnosis?: No VTE Prior VTE?: No VTE Risk Level:: Surgical - moderate VTE Device Contraindication: N/A - Device Ordered VTE Drug Contraindication: Treatment Not Indicated Procedures Date of Service Date of Service: 01/14/24
[2024-01-14] MEDS: Lactated Ringers 1,000 ML 150 ML IVCONT ×2 (14:15→21:47)
[2024-01-14] MEDS: Pantoprazole Sodium 40 MG/10 ML VIAL 80 MG IVPUSH (14:15)
[2024-01-14] MEDS: Folic Acid 1 MG in 0.9 % Sodium Chloride 50 ML 100.4 MG IV (14:24)
[2024-01-14 14:35] LABS: MANUAL DIFF FLAG NO
[2024-01-14 14:37] LABS: Basophils Percent Auto 0.3 % (0-2); Hematocrit 34.7 % (37.0-47.0); Hemoglobin 11.5 g/dl (12.0-16.0); Imm Gran Abs Auto 0.02 X10*3/uL (0.00-0.03); Imm Gran Pct Auto 0.3 % (0.0-0.4); Lymphocytes Absolute Auto 0.4 X10*3/uL (1.2-4.9); Lymphocytes Percent Auto 5.1 % (20-40); Mean Corpuscular HGB Conc 33.1 g/dl (31.0-35.0); Mean Corpuscular Hemoglobin 27.6 pg (27.0-33.0); Mean Corpuscular Volume 83.2 fL (80.0-98.0); Mean Platelet Volume 10.1 fL (9.4-12.3); Monocytes Absolute Auto 0.4 X10*3/uL (0.1-1.2); Monocytes Percent Auto 4.6 % (2-11); Neutrophils Percent Auto 89.7 % (45-73); Platelet Count 151 X10*3/uL (160-400); Red Blood Count 4.17 X10*6/uL (4.20-5.50); Red Cell Distribution Width 14.3 % (11.0-16.0); White Blood Count 7.8 X10*3/uL (4.8-10.8)
[2024-01-14] MEDS: Cyanocobalamin (Vitamin B-12) 1,000 MCG/ML VIAL 1000 MCG IM (14:37)
[2024-01-14] MEDS: Thiamine HCL 200 MG/2 ML VIAL 100 MG IM (14:38)
[2024-01-14] MEDS: Famotidine/PF 20 MG/2 ML VIAL IVPUSH ×2 (14:43→22:06)
[2024-01-14 14:49] LABS: Magnesium 1.7 mg/dL (1.6-2.6); Phosphorus 3.3 mg/dL (2.7-4.5)
[2024-01-14] MEDS: Acetaminophen 1,000 MG/100 ML PIGGYBACK 16.7 MG IV ×2 (15:19→21:46)
--- NOTE | 2024-01-14 18:35 | PM.EVENT ---
Event Note Date of Service: 01/15/24 Event Note: I was requested to assess a patient by a nurse who had been unsuccessful in contacting the patient's primary attending physician despite multiple attempts. The patient had been admitted earlier with abdominal pain and was found to have a microperforation on CT scan. She has had good pain control fo approximately four hours, but the patient subsequently developed severe abdominal pain, writhing in discomfort, making it challenging to conduct an examination. She was doubled over in pain. Although I had not been officially consulted on the case and with a noticeable change in the patient's condition, coupled with the attending physician being unreachable, I deemed it prudent to order a repeat CT scan of the abdomen to reassess for any significant developments. Eventually, the attending physician was contacted, but by then, it was too late to cancel the imaging study. The patient's vital signs remained within normal limits. Time Spent With Patient Time: Total time managing care of this patient today ____ minutes.
--- NOTE | 2024-01-14 18:38 | PC.NURSE ---
at prox 1755 patient started to have sevre abodominal pain after having optimal pain control x3.5 hours. patient became diaphoretic, tripoding in bed with pain. patient attending consulted with no reply, hospitalist contacted due to patient condition. patient sent to stat CT for concern due to patient condition.
--- NOTE | 2024-01-14 19:21 | PC.NURSE ---
reached out to this RN stating please let me know if she has tachycardia,hypotension,fever RN aware of new orders. no new orders for pain medication at this time, patient is crying in pain, diaphoretic, in visible distress due to pain. currently on tele monitor
--- NOTE | 2024-01-14 19:47 | PC.NURSE ---
assumed care of pt. pt screaming in room reporting 10/10 pain, restless. pt reports she is upset d/t pain meds not being due/effective. Dr. Downs previously notified and aware. patient called Dr. Downs on private phone on speaker, after conversation patient demanded meds be administered prior to due time. pt educated order reflects q4 prn administration and next dose due 2011; new order reflect q2 prn administration however med unverified via pharmacy. pt states you are ignoring me and my pain, i feel i am not getting the care that i deserve. educated on plan of care. pt questioned why she does not have a bed on inpatient unit. health promotion officer/Accounting Technician Rachel notified.
--- NOTE | 2024-01-14 21:30 | PC.NURSE ---
2044- pt transporting to inpatient unit. pt appears more comfortable, resting quietly. receiving nurse Bora RN. family at bedside. nat.
[2024-01-15] MEDS: ondansetron HCL 4 MG/2 ML VIAL IVPUSH ×4 (00:01→16:56)
[2024-01-15 00:18] VITALS: BMI 24.5
[2024-01-15] MEDS: metroNIDAZOLE/NS 500 MG/100 ML PIGGYBACK 100 MG IV ×4 (00:57→16:59)
[2024-01-15] MEDS: HYDROmorphone HCl 0.5 MG/0.5 ML SYRINGE IVPUSH ×11 (01:58→22:18)
[2024-01-15] MEDS: Pantoprazole Sodium 40 MG/10 ML VIAL IVPUSH ×2 (02:06→13:02)
[2024-01-15 03:15] VITALS: BP 113/58; PULSE 61; RESP 16; TEMP 36.6; O2SAT 95
[2024-01-15] MEDS: Lactated Ringers 1,000 ML 150 ML IVCONT ×4 (05:21→20:18)
[2024-01-15 06:48] LABS: Hematocrit 32.7 % (37.0-47.0); Hemoglobin 10.9 g/dl (12.0-16.0); Mean Corpuscular HGB Conc 33.3 g/dl (31.0-35.0); Mean Corpuscular Hemoglobin 27.7 pg (27.0-33.0); Mean Platelet Volume 10.6 fL (9.4-12.3); Platelet Count 158 X10*3/uL (160-400); Red Blood Count 3.94 X10*6/uL (4.20-5.50); Red Cell Distribution Width 14.6 % (11.0-16.0)
[2024-01-15 06:59] LABS: Anion Gap 14 (12-20); Blood Urea Nitrogen 11 mg/dL (9-16); Calcium 8.7 mg/dL (8.4-10.2); Carbon Dioxide 19 mmol/L (22-29); Chloride 109 mmol/L (96-108); Creatinine Clr Calc Pharmacy 111.4; Estimated Glomerular Filt Rate > 60; Glucose Random 94 mg/dL (60-115); Potassium 3.7 mmol/L (3.3-5.1); Sodium 138 mmol/L (135-145)
[2024-01-15 07:11] LABS: Appearance Urine Clear; Color Urine Dark Yellow; Glucose Urine UA Negative (Negative); Leukocyte Esterase Urine Trace (Negative); Nitrite Urine Negative (Negative); PH 5.5 (5.0-9.0); Specific Gravity - Urine >= 1.030 (1.005-1.025); UMIC TRIGGER UACC YES; Urine Blood Negative (Negative); Urine Ketones Trace mg/dL (Negative); Urine Protein 30 (1+) mg/dL (Neg-Trace)
[2024-01-15 07:16] LABS: Bacteria Urine None Seen (None Seen); Hyaline Casts Urine 0-2 /LPF (0-2); RBC Urine 0-2 /HPF (0-2); WBC Urine 0-5 /HPF (0-5)
[2024-01-15 07:23] LABS: Band Neutrophils Percent 2 % (3-5); Lymphocytes Absolute Manual 0.5 X10*3/uL (1.2-4.9); Lymphocytes Percent Manual 7 % (20-40); Monocytes Absolute Manual 0.3 X10*3/uL (0.1-1.2); Monocytes Percent Manual 4 % (2-11); Neutrophils Absolute Manual 6.2 X10*3/uL (2.0-8.3); Neutrophils Percent Manual 87 % (45-73)
[2024-01-15 07:24] LABS: Platelet Estimate NORMAL (NORMAL); Platelet Morphology Comment NORMAL; RBC Morphology NORMAL
[2024-01-15 07:25] LABS: Ovalocytes 1+ (5-14) /OIF
[2024-01-15 07:36] VITALS: BP 108/59; PULSE 59; RESP 18; TEMP 36.8; O2SAT 94
--- NOTE | 2024-01-15 07:39 | PC.NURSE ---
night rn paged covering md pt req muscle relaxer no new orders for prn medication at this time.
[2024-01-15] MEDS: Famotidine/PF 20 MG/2 ML VIAL IVPUSH ×2 (07:59→20:18)
--- NOTE | 2024-01-15 09:23 | P.PNGS_ITS ---
Subjective Subjective Date of Service: 01/15/24 Interval history: Had intermittently pain mostly at the shoulders and chest and less at the LUQ No fever or evidence of sepsis Physical Exam 2 Vital Signs: Vital Signs: Last Vital Signs Temp 98.2 F 01/15/24 07:36 Pulse 59 01/15/24 07:36 Resp 18 01/15/24 07:36 BP 108/59 L 01/15/24 07:36 Pulse Ox 94 01/15/24 07:36 O2 Del Method Room Air 01/15/24 07:36 BMI result Body Mass Index 24.5 GI: Inspection: Yes normal to inspection Palpation (GI): Soft to palpation and Tenderness to palpation present (GI) (LUQ but less than yesterday. No guarding or percussion tenderness) Extrem: Right lower extremity: normal to inspection (no calf tenderness) L eft lower extremity: normal to inspection (no calf tenderness) Objective Data Active Medications Famotidine (Famotidine/Pf 20 Mg/2 Ml Vial) 20 mg IVPUSH BID [facility] Last Admin: 01/15/24 07:59 Dose: 20 mg Documented By: RENNY Hydromorphone HCl (Hydromorphone Hcl 0.5 Mg/0.5 Ml Syringe) 0.5 mg IVPUSH Q2H PRN; Protocol PRN Reason: Pain, Severe (Pain Scale 7-10) Last Admin: 01/15/24 07:59 Dose: 0.5 mg Documented By: RENNY Lactated Ringer's (Lr) 1,000 mls @ 150 mls/hr IVCONT .Q6H40M [facility] Last Admin: 01/15/24 05:21 Dose: 150 mls/hr Documented By: SHARLENE Acetaminophen (Ofirmev) 1,000 mg in 100 mls @ 16.7 mls/hr IV .Q6H [facility] Last Admin: 01/15/24 07:02 Dose: Not Given Documented By: RENNY Non-Admin Reason: still running Metronidazole (Flagyl) 500 mg in 100 mls @ 100 mls/hr IV Q6H [facility] Last Infusion: 01/15/24 06:48 Dose: Infused Documented By: SHARLENE Piperacillin Sod/Tazobactam (Sod 3.375 gm/ Sodium Chloride) 100 mls @ 100 mls/hr IV Q6H [facility] Last Infusion: 01/15/24 06:27 Dose: Infused Documented By: SHARLENE Metoclopramide HCl (Metoclopramide Hcl 10 Mg/2 Ml Vial) 10 mg IVPUSH Q6H PRN PRN Reason: Nausea Ondansetron HCl (Ondansetron Hcl 4 Mg/2 Ml Vial) 4 mg IVPUSH RQ6H [facility] Last Admin: 01/15/24 05:21 Dose: 4 mg Documented By: SHARLENE Pantoprazole Sodium (Pantoprazole Sodium 40 Mg/10 Ml Vial) 40 mg IVPUSH Q12H [facility] Last Admin: 01/15/24 02:06 Dose: 40 mg Documented By: SHARLENE Sodium Chloride (0.9 % Sodium Chloride Flush 3 Ml Syringe) 3 ml IVFLUSH QSHIFT [facility] Last Admin: 01/15/24 06:41 Dose: Not Given Documented By: RENNY Non-Admin Reason: IV Running Labs 01/15/24 05:39 01/15/24 05:39 Labs: Laboratory Results - last 24 hr 01/14/24 01/14/24 01/14/24 09:03 11:11 14:32 MCV 83.2 MCH 27.6 MCHC 33.1 RDW 14.3 Plt Count 151 L MPV 10.1 Immature Gran % (Auto) 0.3 Neut % (Auto) 89.7 H Lymph % (Auto) 5.1 L [place] % (Auto) 4.6 Eos % (Auto) 0.0 Baso % (Auto) 0.3 Lymph # (Auto) 0.4 L [place] # (Auto) 0.4 Eos # (Auto) 0.0 Baso # (Auto) 0.0 Abs Immat Gran (auto) 0.02 Absolute Neuts (auto) 7.0 Absolute Nucleated RBC 0.000 Nucleated RBC % (auto) 0.0 Neutrophils % (Manual) Band Neutrophils % Lymphocytes % (Manual) Monocytes % (Manual) Abs Neuts (Manual) Lymphocytes # (Manual) Monocytes # (Manual) Platelet Estimate Plt Morphology Comment RBC Morphology Ovalocytes Anion Gap 15 Estim Creat Clear Calc 104.9 Estimated GFR > 60 Random Glucose 94 Lactic Acid 1.1 Calcium 9.2 Phosphorus 3.3 Magnesium 1.7 Total Bilirubin 0.3 AST 14 ALT 15 Alkaline Phosphatase 80 Total Protein 7.1 Albumin 4.2 Beta HCG, Quant 3 Urine Color Urine Appearance Urine pH Ur Specific Girard Urine Protein Urine Glucose (UA) Urine Ketones Urine Blood Urine Nitrite Ur Leukocyte Esterase Urine RBC Urine WBC Ur Squamous Epith Cells Urine Bacteria Hyaline Casts 01/15/24 01/15/24 05:39 06:54 MCV 83.0 MCH 27.7 MCHC 33.3 RDW 14.6 Plt Count 158 L MPV 10.6 Immature Gran % (Auto) Cancelled Neut % (Auto) Cancelled Lymph % (Auto) Cancelled [place] % (Auto) Cancelled Eos % (Auto) Cancelled Baso % (Auto) Cancelled Lymph # (Auto) Cancelled [place] # (Auto) Cancelled Eos # (Auto) Cancelled Baso # (Auto) Cancelled Abs Immat Gran (auto) Cancelled Absolute Neuts (auto) Cancelled Absolute Nucleated RBC 0.000 Nucleated RBC % (auto) 0.0 Neutrophils % (Manual) 87 H Band Neutrophils % 2 L Lymphocytes % (Manual) 7 L Monocytes % (Manual) 4 Abs Neuts (Manual) 6.2 Lymphocytes # (Manual) 0.5 L Monocytes # (Manual) 0.3 Platelet Estimate NORMAL Plt Morphology Comment NORMAL RBC Morphology NORMAL Ovalocytes 1+ (5-14) Anion Gap 14 Estim Creat Clear Calc 111.4 Estimated GFR > 60 Random Glucose 94 Lactic Acid Calcium 8.7 Phosphorus Magnesium Total Bilirubin AST ALT Alkaline Phosphatase Total Protein Albumin Beta HCG, Quant Urine Color Dark Yellow Urine Appearance Clear Urine pH 5.5 Ur Specific Girard >= 1.030 H Urine Protein 30 (1+) H Urine Glucose (UA) Negative Urine Ketones Trace Urine Blood Negative Urine Nitrite Negative Ur Leukocyte Esterase Trace H Urine RBC 0-2 Urine WBC 0-5 Ur Squamous Epith Cells 3-5 Urine Bacteria None Seen Hyaline Casts 0-2 Procedures Date of Service Date of Service: 01/15/24 Progress Note: A&P Assessment and plan (1) Perforated viscus: Status: Acute Assessment and Plan: 1. Continue present plan of NPO, IV antibiotics and IV Protonix for at least 7 days 2. PICC line tomorrow for TPN 3. Continue IV Acetaminophen 4. IV Dilaudid changed to every 2 hours from q4. Cannot increase further due to bradycardia 3. Surgical intervention only if signs of sepsis develop (fever > 101.5, HR>120, BP<100/70, bandemia Time Spent With Patient Time: Total time managing care of this patient today ____ minutes. Quality Stroke Does the patient have a stroke diagnosis?: No VTE Prior VTE?: No VTE Risk Level:: Surgical - moderate VTE Device Contraindication: N/A - Device Ordered VTE Drug Contraindication: Treatment Not Indicated
[2024-01-15] MEDS: Acetaminophen 1,000 MG/100 ML PIGGYBACK 16.7 MG IV ×3 (09:32→22:18)
--- NOTE | 2024-01-15 10:30 | PC.NURSE ---
Plan PICC tomorrow and start TPN. to watch for s/s sepsis, pain reg to remain the same, no new changes to pain medication.
--- NOTE | 2024-01-15 11:04 | MHC.CM.PN ---
EMR REVIEWED, PT W/PERFORATED ANASTOMOTIC ULCER, CM MET W/PT WHO REPORTS SHE LIVES W/HER TWO DTRS, PT REPORTS FOR HER CHILDRENS SAFETY HER ADDRESS/INFO CAN NOT BE GIVEN OUT, PT IS FULLY INDEP, DENIES USE OF DME/SERVICES. PT'S GOAL FOR DC IS HOME HOWEVER PT WILL LIKELY REQUIRE LONG HOSPITAL STAY FOR TPN, CM WILL FOLLOW FOR DC NEEDS. PT VERIFIES PCP ON FILE IS CORRECT AND PT HAS BEEN EDUCATED ON AND COMPLETED A HCP NAMING HER MOTHER SAVANNA HELTON HER HCA AND NO ALTERNATE AT THIS TIME, COPY UPLOADED TO [facility] AND PLACED IN PAPER CHART.
[2024-01-15] MEDS: Piperacillin Sodium/Tazobactam 3.375 GM in 0.9 % Sodium Chloride 50 ML IV ×2 (11:07→16:59)
[2024-01-15 12:00] VITALS: BP 111/61; PULSE 69; RESP 18; TEMP 36.7; O2SAT 94
[2024-01-15 16:00] VITALS: BP 111/54; PULSE 67; RESP 16; TEMP 36.9; O2SAT 94
[2024-01-15 19:42] VITALS: BP 108/56; PULSE 60; RESP 18; TEMP 36.6; O2SAT 95
[2024-01-15 23:43] VITALS: BP 123/68; PULSE 62; RESP 18; TEMP 36.7; O2SAT 97
[2024-01-16] VITALS (9 sets, daily range): BP systolic 103–114; BP diastolic 56–62; PULSE 65–72; RESP 16–18; TEMP 36.5–36.8; O2SAT 95–98; BMI 24.5
[2024-01-16] MEDS: HYDROmorphone HCl 0.5 MG/0.5 ML SYRINGE IVPUSH ×8 (00:24→22:48)
[2024-01-16] MEDS: ondansetron HCL 4 MG/2 ML VIAL IVPUSH ×5 (00:26→23:55)
[2024-01-16] MEDS: Piperacillin Sodium/Tazobactam 3.375 GM in 0.9 % Sodium Chloride 50 ML IV ×5 (00:27→23:55)
[2024-01-16] MEDS: metroNIDAZOLE/NS 500 MG/100 ML PIGGYBACK 100 MG IV ×4 (00:28→19:03)
[2024-01-16] MEDS: Lactated Ringers 1,000 ML 150 ML IVCONT ×2 (02:53→12:28)
[2024-01-16] MEDS: Pantoprazole Sodium 40 MG/10 ML VIAL IVPUSH ×2 (02:53→13:20)
[2024-01-16] MEDS: Acetaminophen 1,000 MG/100 ML PIGGYBACK 16.7 MG IV ×4 (04:40→19:29)
[2024-01-16 06:20] LABS: Baso%MD 0.3 %; Eos%MD 0.9 %; Hematocrit 29.9 % (37.0-47.0); Hemoglobin 9.5 g/dl (12.0-16.0); Lymph%MD 9.9 %; Mean Corpuscular HGB Conc 31.8 g/dl (31.0-35.0); Mean Corpuscular Hemoglobin 26.7 pg (27.0-33.0); Mean Platelet Volume 10.9 fL (9.4-12.3); Mono%MD 5.5 %; Neut%MD 82.4 %; Platelet Count 129 X10*3/uL (160-400); Red Blood Count 3.56 X10*6/uL (4.20-5.50); White Blood Count 5.9 X10*3/uL (4.8-10.8)
[2024-01-16 06:29] LABS: Anion Gap 11 (12-20); Blood Urea Nitrogen 13 mg/dL (9-16); Calcium 8.9 mg/dL (8.4-10.2); Carbon Dioxide 22 mmol/L (22-29); Chloride 109 mmol/L (96-108); Estimated Glomerular Filt Rate > 60; Glucose Random 79 mg/dL (60-115); Magnesium 1.7 mg/dL (1.6-2.6); Phosphorus 2.4 mg/dL (2.7-4.5); Potassium 4.2 mmol/L (3.3-5.1); Sodium 138 mmol/L (135-145)
[2024-01-16 07:00] LABS: Band Neutrophils Percent 3 % (3-5); Lymphocytes Absolute Manual 0.7 X10*3/uL (1.2-4.9); Lymphocytes Percent Manual 12 % (20-40); Monocytes Absolute Manual 0.2 X10*3/uL (0.1-1.2); Monocytes Percent Manual 3 % (2-11); Neutrophils Percent Manual 82 % (45-73)
[2024-01-16 07:04] LABS: Platelet Estimate SLIGHTLY DECREASED (NORMAL); Platelet Morphology Comment NORMAL; RBC Morphology NORMAL
[2024-01-16] MEDS: Famotidine/PF 20 MG/2 ML VIAL IVPUSH ×2 (07:49→21:00)
[2024-01-16] MEDS: 0.9 % Sodium Chloride Flush 3 ML SYRINGE IVFLUSH ×3 (07:52→21:01)
--- NOTE | 2024-01-16 10:26 | HO.PICC ---
PICC Line Insertion NPICC Diagnosis: perforated anastomtic ulcer Indication: NPO >7 days Pertinent Labs: reviewed Technique: Following informed consent including risks, benefits and alternatives and using sterile technique including cap and mask, sterile gown, glove and drape, the right arm was prepped and draped in the usual sterile fashion of full barrier technique with G. Following completion of [place] Protocol the skin and soft tissues were anesthetized with 1% Lidocaine plain. Using ultrasound guidance, right basilic vein access was obtained. Over an 0.018 wire through peel-away sheath, a double lumen POWERPICC PASV PICC line was positioned. Catheter length is 36cm internal length, 0cm external length, for a total trimmed length of 36cm. The procedure was performed in [facility]. Tip verification was performed by Ricardo Foster with Faby 3CG. Tip located in SVC. Ultrasound was used to document vein patency and for needle entry. A formal ultrasound picture and cardiac rhythm strip was recorded. [facility] has released the line for use and it is currently dressed with a StatLock, Tegaderm, and CHG disc. Verification has been performed for blood return and line patency. Arm Circumference: 27cm Equipment: BARD POWER PICC SOLO PASV catheter Catheter Type: 5 fr double lumen Power PICC Lot #: [id number]
--- NOTE | 2024-01-16 11:27 | MHC.CLN ---
NUTRITION PATIENT IS NPO. DX PERFORATED VISCUS. STATING TPN TODAY PER PROVIDER. COMMUNICATED WITH PROVIDER AND PHARMACY. START DAY 1 (01/16/24): TPN AT 35 ML/HOUR, 67 G PROTEIN, 84 G DEXTROSE, 557 KCALS. REPLETE LYTES NEEDED. CHECK TRIGLYCERIDES. DAY 2 (01/17/24) ADVANCE TO MAX GOAL RATE 55 ML PER HOUR, 106 G PROTEIN, 132 G DEXTROSE, ADD 63 G LIPIDS, 1505 TOTAL KCALS. PROVIDES 22.6 KCALS/KG, 1.59 G PROTEIN/KG. REPLETE LYTES NEEDED. FOLLOW FOR TPN TOLERANCE AND LYTES.
[2024-01-16] MEDS: Iron Sucrose Complex 400 MG in 0.9 % Sodium Chloride 250 ML 180 MG IV (11:48)
[2024-01-16] MEDS: Potassium Phosphate/NS 15 MMOL/250 ML PLAST..BAG 62.5 MMOL IV (15:09)
[2024-01-16] MEDS: Lactated Ringers 1,000 ML 115 ML IVCONT (19:15)
[2024-01-16] MEDS: Parenteral Nutrition 840 ML 35 ML IV (21:00)
--- NOTE | 2024-01-16 22:53 | P.PNGS_ITS ---
Subjective Subjective Date of Service: 01/16/24 Interval history: Pain at the left shoulder and LUQ has improved. No new symptoms Physical Exam 2 Vital Signs: Vital Signs: Last Vital Signs Temp 98.3 F 01/16/24 19:39 Pulse 65 01/16/24 19:39 Resp 18 01/16/24 19:39 BP 107/56 L 01/16/24 19:39 Pulse Ox 96 01/16/24 19:39 O2 Del Method Room Air 01/16/24 19:39 BMI result Body Mass Index 24.5 Chest: Chest palpation & inspection: normal palpation of entire chest wall and crepitus (no crepitus) GI: Inspection: Yes normal to inspection Palpation (GI): Soft to palpation and Tenderness to palpation present (GI) (LUQ tenderness but less than yesterday) Extrem: Right lower extremity: normal to inspection (no calf tenderness) L eft lower extremity: normal to inspection (no calf tenderness) Objective Data Active Medications Famotidine (Famotidine/Pf 20 Mg/2 Ml Vial) 20 mg IVPUSH BID [facility] Last Admin: 01/16/24 21:00 Dose: 20 mg Documented By: LESLYE Hydromorphone HCl (Hydromorphone Hcl 0.5 Mg/0.5 Ml Syringe) 0.5 mg IVPUSH Q2H PRN; Protocol PRN Reason: Pain, Severe (Pain Scale 7-10) Last Admin: 01/16/24 19:29 Dose: 0.5 mg Documented By: LESLYE Metronidazole (Flagyl) 500 mg in 100 mls @ 100 mls/hr IV Q6H [facility] Last Infusion: 01/16/24 20:10 Dose: Infused Documented By: LESLYE Acetaminophen (Ofirmev) 1,000 mg in 100 mls @ 16.7 mls/hr IV .Q6H [facility] Last Admin: 01/16/24 19:29 Dose: 16.7 mls/hr Documented By: LESLYE Piperacillin Sod/Tazobactam (Sod 3.375 gm/ Sodium Chloride) 50 mls @ 100 mls/hr IV Q6H [facility] Last Infusion: 01/16/24 19:09 Dose: Infused Documented By: ASHLYNAMER Nutrition (Parenteral) (Parenteral Nutrition) 840 mls @ 35 mls/hr IV .Q24H [facility]; Protocol Stop: 01/17/24 20:59 Last Admin: 01/16/24 21:00 Dose: 35 mls/hr Documented By: LESLYE Lactated Ringer's (Lr) 1,000 mls @ 115 mls/hr IVCONT .Q8H42M [facility] Last Admin: 01/16/24 19:15 Dose: 115 mls/hr Documented By: LESLYE Metoclopramide HCl (Metoclopramide Hcl 10 Mg/2 Ml Vial) 10 mg IVPUSH Q6H PRN PRN Reason: Nausea Ondansetron HCl (Ondansetron Hcl 4 Mg/2 Ml Vial) 4 mg IVPUSH RQ6H [facility] Last Admin: 01/16/24 19:03 Dose: 4 mg Documented By: GUNJAN Pantoprazole Sodium (Pantoprazole Sodium 40 Mg/10 Ml Vial) 40 mg IVPUSH Q12H [facility] Last Admin: 01/16/24 13:20 Dose: 40 mg Documented By: GUNJAN Sodium Chloride (0.9 % Sodium Chloride Flush 3 Ml Syringe) 3 ml IVFLUSH QSHIFT [facility] Last Admin: 01/16/24 21:01 Dose: 3 ml Documented By: LESLYE Labs 01/16/24 05:44 01/16/24 05:44 Labs: Laboratory Results - last 24 hr 01/16/24 05:44 MCV 84.0 MCH 26.7 L MCHC 31.8 RDW 15.0 Plt Count 129 L MPV 10.9 Absolute Nucleated RBC 0.000 Nucleated RBC % (auto) 0.0 Neutrophils % (Manual) 82 H Band Neutrophils % 3 Lymphocytes % (Manual) 12 L Monocytes % (Manual) 3 Abs Neuts (Manual) 5.0 Lymphocytes # (Manual) 0.7 L Monocytes # (Manual) 0.2 Platelet Estimate SLIGHTLY DECREASED Plt Morphology Comment NORMAL RBC Morphology NORMAL Anion Gap 11 L Estim Creat Clear Calc 115.0 Estimated GFR > 60 Random Glucose 79 Calcium 8.9 Phosphorus 2.4 L Magnesium 1.7 Microbiology Microbiology Results: Microbiology 01/14/24 11:20 Blood Culture - Preliminary Blood - Venous No growth after 48 hours. 01/14/24 11:20 Blood Culture - Preliminary Blood - Venous No growth after 48 hours. Procedures Date of Service Date of Service: 01/16/24 Progress Note: A&P Assessment and plan (1) Perforated viscus: Status: Acute Assessment and Plan: 1. Continue NPO, IV antibiotics 2. PICC line and TPN today 3. Case Management for discharge on home TPN Time Spent With Patient Time: Total time managing care of this patient today 25 minutes. Quality Stroke Does the patient have a stroke diagnosis?: No VTE Prior VTE?: No VTE Risk Level:: Surgical - moderate VTE Device Contraindication: N/A - Device Ordered VTE Drug Contraindication: Treatment Not Indicated
[2024-01-17] VITALS (8 sets, daily range): BP systolic 109–130; BP diastolic 57–90; PULSE 59–77; RESP 18–20; TEMP 36.2–36.6; O2SAT 95–98
[2024-01-17] MEDS: metroNIDAZOLE/NS 500 MG/100 ML PIGGYBACK 100 MG IV ×4 (00:30→18:09)
[2024-01-17] MEDS: Acetaminophen 1,000 MG/100 ML PIGGYBACK 16.7 MG IV ×4 (01:21→19:15)
[2024-01-17] MEDS: Pantoprazole Sodium 40 MG/10 ML VIAL IVPUSH ×2 (01:22→12:58)
[2024-01-17] MEDS: HYDROmorphone HCl 0.5 MG/0.5 ML SYRINGE IVPUSH ×4 (02:15→20:12)
[2024-01-17] MEDS: Lactated Ringers 1,000 ML 115 ML IVCONT ×3 (02:20→20:01)
[2024-01-17] MEDS: ondansetron HCL 4 MG/2 ML VIAL IVPUSH ×4 (05:24→23:59)
[2024-01-17] MEDS: Piperacillin Sodium/Tazobactam 3.375 GM in 0.9 % Sodium Chloride 50 ML IV ×4 (05:24→23:59)
[2024-01-17 06:50] LABS: Baso%MD 0.2 %; Eos%MD 2.4 %; Hematocrit 27.9 % (37.0-47.0); Hemoglobin 9.2 g/dl (12.0-16.0); IG%MD 0.4 %; Lymph%MD 15.2 %; Mean Corpuscular Hemoglobin 27.6 pg (27.0-33.0); Mean Corpuscular Volume 83.8 fL (80.0-98.0); Mean Platelet Volume 10.7 fL (9.4-12.3); Mono%MD 6.6 %; Neut%MD 75.2 %; Platelet Count 128 X10*3/uL (160-400); Red Blood Count 3.33 X10*6/uL (4.20-5.50); Red Cell Distribution Width 15.2 % (11.0-16.0); White Blood Count 4.5 X10*3/uL (4.8-10.8)
[2024-01-17 07:04] LABS: Alanine Aminotransferase 11 U/L (0-31); Albumin Level 2.8 g/dL (3.5-5.0); Alkaline Phosphatase 55 U/L (39-117); Anion Gap 11 (12-20); Aspartate Amino Transferase 9 U/L (5-31); Bilirubin Total 0.4 mg/dL (0.0-1.0); Blood Urea Nitrogen 13 mg/dL (9-16); Calcium 8.6 mg/dL (8.4-10.2); Carbon Dioxide 21 mmol/L (22-29); Chloride 109 mmol/L (96-108); Creatinine Clr Calc Pharmacy 122.9; Estimated Glomerular Filt Rate > 60; Glucose Random 87 mg/dL (60-115); Magnesium 1.8 mg/dL (1.6-2.6); Phosphorus 2.6 mg/dL (2.7-4.5); Potassium 3.4 mmol/L (3.3-5.1); Sodium 138 mmol/L (135-145); Total Protein 5.2 g/dL (6.5-8.0)
[2024-01-17 07:39] LABS: Band Neutrophils Percent 4 % (3-5); Basophils Percent Manual 1 % (0-2); Lymphocytes Absolute Manual 0.5 X10*3/uL (1.2-4.9); Lymphocytes Percent Manual 11 % (20-40); Monocytes Absolute Manual 0.2 X10*3/uL (0.1-1.2); Monocytes Percent Manual 4 % (2-11); Neutrophils Absolute Manual 3.8 X10*3/uL (2.0-8.3); Neutrophils Percent Manual 80 % (45-73)
[2024-01-17 07:45] LABS: Acanthocytes 1+ (0-2) /OIF; Burr Cells 1+ (0-2) /OIF; RBC Morphology NOTED
[2024-01-17 07:46] LABS: Platelet Estimate SLIGHTLY DECREASED (NORMAL); Platelet Morphology Comment NORMAL
[2024-01-17] MEDS: 0.9 % Sodium Chloride Flush 3 ML SYRINGE IVFLUSH ×3 (07:50→16:13)
--- NOTE | 2024-01-17 07:52 | P.PNGS_ITS ---
Subjective Subjective Date of Service: 01/17/24 Interval history: Pain has improved compared to yesterday. No other symptoms Physical Exam 2 Vital Signs: Vital Signs: Last Vital Signs Temp 97.1 F 01/17/24 07:46 Pulse 77 01/17/24 07:46 Resp 18 01/17/24 07:46 BP 118/66 01/17/24 07:46 Pulse Ox 95 01/17/24 07:46 O2 Del Method Room Air 01/17/24 07:46 BMI result Body Mass Index 24.5 GI: Palpation (GI): Soft to palpation and Tenderness to palpation present (GI) (LUQ tenderness but reduced) Extrem: Right lower extremity: normal to inspection (no calf tenderness) L eft lower extremity: normal to inspection (no calf tenderness) Objective Data Active Medications Famotidine (Famotidine/Pf 20 Mg/2 Ml Vial) 20 mg IVPUSH BID [facility] Last Admin: 01/16/24 21:00 Dose: 20 mg Documented By: LESLYE Hydromorphone HCl (Hydromorphone Hcl 0.5 Mg/0.5 Ml Syringe) 0.5 mg IVPUSH Q2H PRN; Protocol PRN Reason: Pain, Severe (Pain Scale 7-10) Last Admin: 01/17/24 02:15 Dose: 0.5 mg Documented By: LESLYE Metronidazole (Flagyl) 500 mg in 100 mls @ 100 mls/hr IV Q6H [facility] Last Admin: 01/17/24 06:28 Dose: 100 mls/hr Documented By: LESLYE Acetaminophen (Ofirmev) 1,000 mg in 100 mls @ 16.7 mls/hr IV .Q6H [facility] Last Admin: 01/17/24 06:30 Dose: 16.7 mls/hr Documented By: LESLYE Piperacillin Sod/Tazobactam (Sod 3.375 gm/ Sodium Chloride) 50 mls @ 100 mls/hr IV Q6H [facility] Last Infusion: 01/17/24 05:54 Dose: Infused Documented By: LESLYE Nutrition (Parenteral) (Parenteral Nutrition) 840 mls @ 35 mls/hr IV .Q24H [facility]; Protocol Stop: 01/17/24 20:59 Last Admin: 01/16/24 21:00 Dose: 35 mls/hr Documented By: LESLYE Lactated Ringer's (Lr) 1,000 mls @ 115 mls/hr IVCONT .Q8H42M [facility] Last Admin: 01/17/24 02:20 Dose: 115 mls/hr Documented By: LESLYE Metoclopramide HCl (Metoclopramide Hcl 10 Mg/2 Ml Vial) 10 mg IVPUSH Q6H PRN PRN Reason: Nausea Ondansetron HCl (Ondansetron Hcl 4 Mg/2 Ml Vial) 4 mg IVPUSH RQ6H [facility] Last Admin: 01/17/24 05:24 Dose: 4 mg Documented By: LESLYE Pantoprazole Sodium (Pantoprazole Sodium 40 Mg/10 Ml Vial) 40 mg IVPUSH Q12H [facility] Last Admin: 01/17/24 01:22 Dose: 40 mg Documented By: LESLYE Sodium Chloride (0.9 % Sodium Chloride Flush 3 Ml Syringe) 3 ml IVFLUSH QSHIFT [facility] Last Admin: 01/17/24 07:50 Dose: 3 ml Documented By: ASHLYNAMER Labs 01/17/24 05:54 01/17/24 05:54 Labs: Laboratory Results - last 24 hr 01/17/24 05:54 MCV 83.8 MCH 27.6 MCHC 33.0 RDW 15.2 Plt Count 128 L MPV 10.7 Absolute Nucleated RBC 0.000 Nucleated RBC % (auto) 0.0 Neutrophils % (Manual) 80 H Band Neutrophils % 4 Lymphocytes % (Manual) 11 L Monocytes % (Manual) 4 Basophils % (Manual) 1 Abs Neuts (Manual) 3.8 Lymphocytes # (Manual) 0.5 L Monocytes # (Manual) 0.2 Platelet Estimate SLIGHTLY DECREASED Plt Morphology Comment NORMAL RBC Morphology NOTED [place] Cells 1+ (0-2) Acanthocytes (Spur) 1+ (0-2) Anion Gap 11 L Estim Creat Clear Calc 122.9 Estimated GFR > 60 Random Glucose 87 Calcium 8.6 Phosphorus 2.6 L Magnesium 1.8 Total Bilirubin 0.4 AST 9 ALT 11 Alkaline Phosphatase 55 Total Protein 5.2 L Albumin 2.8 L Microbiology Microbiology Results: Microbiology 01/14/24 11:20 Blood Culture - Preliminary Blood - Venous No growth after 48 hours. 01/14/24 11:20 Blood Culture - Preliminary Blood - Venous No growth after 48 hours. Procedures Date of Service Date of Service: 01/17/24 Progress Note: A&P Assessment and plan (1) Perforated viscus: Status: Acute Assessment and Plan: 1. Continue NPO, IV antibiotics and PPI 2. Continue TPN 3. I asked patient to try today not to use the IV dilaudid so we can determine when she could be discharged home on TPN 4. Case Management for home VNA and TPN. Will need TPN for 4 weeks Time Spent With Patient Time: Total time managing care of this patient today ___20_ minutes. Quality Stroke Does the patient have a stroke diagnosis?: No VTE Prior VTE?: No VTE Risk Level:: Surgical - moderate VTE Device Contraindication: N/A - Device Ordered VTE Drug Contraindication: Treatment Not Indicated
--- NOTE | 2024-01-17 08:16 | PM.PNGS ---
Subjective Subjective Date of Service: 01/17/24 Patient reports: no new complaints, feels better, still having pain and bowel movement Interval history: 33-year-old female history of gastric bypass admitted with severe abdominal pain and small free air on CT scan secondary to microperforation. She has remained NPO, PICC line was placed yesterday and she was started on TPN and lipids. Overnight, she has improved slightly. She had a large bowel movement yesterday evening and abdominal pain has improved somewhat. Yesterday she decrease the frequency of her Dilaudid use. She ambulated in the hallway. Physical Exam Vital Signs: Vital Signs: Last Vital Signs Temp 97.1 F 01/17/24 07:46 Pulse 77 01/17/24 07:46 Resp 18 01/17/24 07:46 BP 118/66 01/17/24 07:46 Pulse Ox 95 01/17/24 07:46 O2 Del Method Room Air 01/17/24 07:46 BMI result Body Mass Index 24.5 Const: General: cooperative and no acute distress GI: Palpation (GI): Tenderness to palpation present (GI) (Decreasing tenderness epigastric and left upper quadrant) Percussion: Yes normal to percussion Objective Data Active Medications Famotidine (Famotidine/Pf 20 Mg/2 Ml Vial) 20 mg IVPUSH BID [facility] Last Admin: 01/16/24 21:00 Dose: 20 mg Documented By: LESLYE Hydromorphone HCl (Hydromorphone Hcl 0.5 Mg/0.5 Ml Syringe) 0.5 mg IVPUSH Q2H PRN; Protocol PRN Reason: Pain, Severe (Pain Scale 7-10) Last Admin: 01/17/24 02:15 Dose: 0.5 mg Documented By: LESLYE Metronidazole (Flagyl) 500 mg in 100 mls @ 100 mls/hr IV Q6H [facility] Last Infusion: 01/17/24 08:07 Dose: Infused Documented By: GUNJAN Acetaminophen (Ofirmev) 1,000 mg in 100 mls @ 16.7 mls/hr IV .Q6H [facility] Last Admin: 01/17/24 06:30 Dose: 16.7 mls/hr Documented By: LESLYE Piperacillin Sod/Tazobactam (Sod 3.375 gm/ Sodium Chloride) 50 mls @ 100 mls/hr IV Q6H [facility] Last Infusion: 01/17/24 05:54 Dose: Infused Documented By: LESLYE Nutrition (Parenteral) (Parenteral Nutrition) 840 mls @ 35 mls/hr IV .Q24H [facility]; Protocol Stop: 01/17/24 20:59 Last Admin: 01/16/24 21:00 Dose: 35 mls/hr Documented By: LESLYE Lactated Ringer's (Lr) 1,000 mls @ 115 mls/hr IVCONT .Q8H42M [facility] Last Admin: 01/17/24 02:20 Dose: 115 mls/hr Documented By: LESLYE Metoclopramide HCl (Metoclopramide Hcl 10 Mg/2 Ml Vial) 10 mg IVPUSH Q6H PRN PRN Reason: Nausea Ondansetron HCl (Ondansetron Hcl 4 Mg/2 Ml Vial) 4 mg IVPUSH RQ6H [facility] Last Admin: 01/17/24 05:24 Dose: 4 mg Documented By: LESLYE Pantoprazole Sodium (Pantoprazole Sodium 40 Mg/10 Ml Vial) 40 mg IVPUSH Q12H [facility] Last Admin: 01/17/24 01:22 Dose: 40 mg Documented By: LESLYE Sodium Chloride (0.9 % Sodium Chloride Flush 3 Ml Syringe) 3 ml IVFLUSH QSHIFT [facility] Last Admin: 01/17/24 07:50 Dose: 3 ml Documented By: GUNJAN Labs 01/17/24 05:54 01/17/24 05:54 Labs: Laboratory Results - last 24 hr 01/17/24 05:54 MCV 83.8 MCH 27.6 MCHC 33.0 RDW 15.2 Plt Count 128 L MPV 10.7 Absolute Nucleated RBC 0.000 Nucleated RBC % (auto) 0.0 Neutrophils % (Manual) 80 H Band Neutrophils % 4 Lymphocytes % (Manual) 11 L Monocytes % (Manual) 4 Basophils % (Manual) 1 Abs Neuts (Manual) 3.8 Lymphocytes # (Manual) 0.5 L Monocytes # (Manual) 0.2 Platelet Estimate SLIGHTLY DECREASED Plt Morphology Comment NORMAL RBC Morphology NOTED [place] Cells 1+ (0-2) Acanthocytes (Spur) 1+ (0-2) Anion Gap 11 L Estim Creat Clear Calc 122.9 Estimated GFR > 60 Random Glucose 87 Calcium 8.6 Phosphorus 2.6 L Magnesium 1.8 Total Bilirubin 0.4 AST 9 ALT 11 Alkaline Phosphatase 55 Total Protein 5.2 L Albumin 2.8 L Microbiology Microbiology Results: Microbiology 01/14/24 11:20 Blood Culture - Preliminary Blood - Venous No growth after 48 hours. 01/14/24 11:20 Blood Culture - Preliminary Blood - Venous No growth after 48 hours. Procedures Date of Service Date of Service: 01/17/24 Progress Note: A&P Assessment and plan (1) Perforated viscus: Status: Acute Assessment and Plan: Continue TPN and lipids. Adjust potassium phosphate to account for downward trending potassium and continued low phosphorus. Repeat labs in the morning. Achieve goal rate of 55 mL per hour today. Discuss with case management regarding disposition: Plan for discharge home once off IV narcotics. She will need home infusion for TPN and lipids which we will continue for 3-4 weeks to allow her perforated viscus to heal. Continue NPO Plan for rectal analgesia with Tylenol suppositories as needed at home. Continue IV acetaminophen while in the hospital No evidence to suggest any ongoing acute infection, continue prophylactic antibiotics. Plan Patient examined and case discussed with Dr. Myles Time Spent With Patient Time: Total time managing care of this patient today ____ minutes. Quality Stroke Does the patient have a stroke diagnosis?: No VTE Prior VTE?: No VTE Risk Level:: Surgical - moderate VTE Device Contraindication: N/A - Device Ordered VTE Drug Contraindication: Treatment Not Indicated
[2024-01-17] MEDS: Famotidine/PF 20 MG/2 ML VIAL IVPUSH ×2 (08:29→21:08)
[2024-01-17] MEDS: Potassium Phosphate/NS 15 MMOL/250 ML PLAST..BAG 62.5 MMOL IV (10:32)
--- NOTE | 2024-01-17 11:01 | MHC.CLN ---
F/U PATIENT REMAINS NPO REVIEWED LABS DISCUSSED WITH PHARMACY ADVANCE TPN TO MAX GOAL RATE 55 ML PER HOUR WITH 63G LIPIDS PROVIDES 1505 TOTAL KCALS (22.6KCALS/KG), 106 G PROTEIN (1.59G/KF), 132 G DEXTROSE REPLETE LYTES NEEDED
--- NOTE | 2024-01-17 13:36 | MHC.CM.PN ---
EMR reviewed. Potential dc tomorrow w/ [facility] for TPN. No accepting VNA. [facility] will provide nursing as needed. [facility] met with patient for first teach today. Chao MCKINNON aware.
[2024-01-17] MEDS: Parenteral Nutrition 1,320 ML 55 ML IV (20:56)
[2024-01-18] MEDS: metroNIDAZOLE/NS 500 MG/100 ML PIGGYBACK 100 MG IV ×5 (01:02→23:36)
[2024-01-18] MEDS: 0.9 % Sodium Chloride Flush 3 ML SYRINGE IVFLUSH ×2 (01:02→19:27)
[2024-01-18] MEDS: Pantoprazole Sodium 40 MG/10 ML VIAL IVPUSH (01:03)
[2024-01-18] MEDS: Acetaminophen 1,000 MG/100 ML PIGGYBACK 16.7 MG IV ×4 (01:15→19:27)
[2024-01-18 04:00] VITALS: BP 115/73; PULSE 54; RESP 18; TEMP 36.3; O2SAT 95
[2024-01-18] MEDS: Lactated Ringers 1,000 ML 115 ML IVCONT ×3 (04:17→19:36)
[2024-01-18] MEDS: ondansetron HCL 4 MG/2 ML VIAL IVPUSH ×4 (05:31→23:35)
[2024-01-18] MEDS: Piperacillin Sodium/Tazobactam 3.375 GM in 0.9 % Sodium Chloride 50 ML IV ×3 (05:31→17:14)
[2024-01-18 06:27] LABS: Baso%MD 0.3 %; Eos%MD 2.2 %; Hematocrit 27.2 % (37.0-47.0); Hemoglobin 9.2 g/dl (12.0-16.0); IG%MD 0.3 %; Lymph%MD 16.1 %; Mean Corpuscular HGB Conc 33.8 g/dl (31.0-35.0); Mean Corpuscular Hemoglobin 27.9 pg (27.0-33.0); Mean Corpuscular Volume 82.4 fL (80.0-98.0); Mean Platelet Volume 10.6 fL (9.4-12.3); Mono%MD 9.4 %; Neut%MD 71.7 %; Platelet Count 139 X10*3/uL (160-400); Red Cell Distribution Width 15.1 % (11.0-16.0); White Blood Count 3.6 X10*3/uL (4.8-10.8)
[2024-01-18 06:33] LABS: Alanine Aminotransferase 13 U/L (0-31); Albumin Level 2.8 g/dL (3.5-5.0); Alkaline Phosphatase 101 U/L (39-117); Anion Gap 11 (12-20); Aspartate Amino Transferase 15 U/L (5-31); Bilirubin Total 0.3 mg/dL (0.0-1.0); Blood Urea Nitrogen 10 mg/dL (9-16); Calcium 8.4 mg/dL (8.4-10.2); Carbon Dioxide 20 mmol/L (22-29); Chloride 110 mmol/L (96-108); Creatinine Clr Calc Pharmacy 122.9; Estimated Glomerular Filt Rate > 60; Glucose Random 101 mg/dL (60-115); Magnesium 1.7 mg/dL (1.6-2.6); Phosphorus 2.5 mg/dL (2.7-4.5); Potassium 3.4 mmol/L (3.3-5.1); Sodium 138 mmol/L (135-145)
[2024-01-18 07:19] VITALS: BP 116/62; PULSE 57; RESP 18; TEMP 36; O2SAT 95
[2024-01-18 07:49] LABS: Band Neutrophils Percent 5 % (3-5); Basophils Percent Manual 1 % (0-2); Eosinophils Absolute Manual 0.1 X10*3/uL (0.0-0.4); Eosinophils Percent Manual 3 % (0-4); Lymphocytes Absolute Manual 0.5 X10*3/uL (1.2-4.9); Lymphocytes Percent Manual 14 % (20-40); Monocytes Absolute Manual 0.4 X10*3/uL (0.1-1.2); Monocytes Percent Manual 12 % (2-11); Neutrophils Absolute Manual 2.5 X10*3/uL (2.0-8.3); Neutrophils Percent Manual 65 % (45-73)
[2024-01-18 07:55] LABS: Platelet Estimate SLIGHTLY DECREASED (NORMAL); Platelet Morphology Comment NORMAL; RBC Morphology NOTED
[2024-01-18 07:57] LABS: Acanthocytes 1+ (0-2) /OIF; Burr Cells 2+ (3-5) /OIF; Hypochromasia 1+ (5-14) /OIF
--- NOTE | 2024-01-18 08:03 | PM.PNGS ---
Subjective Subjective Date of Service: 01/18/24 Interval history: Feels much better. Only used Dilaudid 3 times yesterday. Walked more On TPN Physical Exam Vital Signs: Vital Signs: Last Vital Signs Temp 96.8 F 01/18/24 07:19 Pulse 57 01/18/24 07:19 Resp 18 01/18/24 07:19 BP 116/62 01/18/24 07:19 Pulse Ox 95 01/18/24 07:19 O2 Del Method Room Air 01/18/24 07:19 BMI result Body Mass Index 24.5 GI: Palpation (GI): Soft to palpation and Tenderness to palpation present (GI) (less tenderness at LUQ) Extrem: Right lower extremity: normal to inspection (no calf tenderness) Left lower extremity: normal to inspection (no calf tenderness) Objective Data Active Medications Famotidine (Famotidine/Pf 20 Mg/2 Ml Vial) 20 mg IVPUSH BID [facility] Last Admin: 01/17/24 21:08 Dose: 20 mg Documented By: CINDY Hydromorphone HCl (Hydromorphone Hcl 0.5 Mg/0.5 Ml Syringe) 0.5 mg IVPUSH Q2H PRN; Protocol PRN Reason: Pain, Severe (Pain Scale 7-10) Last Admin: 01/17/24 20:12 Dose: 0.5 mg Documented By: BRAULIO Metronidazole (Flagyl) 500 mg in 100 mls @ 100 mls/hr IV Q6H [facility] Last Admin: 01/18/24 05:32 Dose: 100 mls/hr Documented By: BRAULIO Acetaminophen (Ofirmev) 1,000 mg in 100 mls @ 16.7 mls/hr IV .Q6H [facility] Last Admin: 01/18/24 06:27 Dose: 16.7 mls/hr Documented By: LESLYE Piperacillin Sod/Tazobactam (Sod 3.375 gm/ Sodium Chloride) 50 mls @ 100 mls/hr IV Q6H [facility] Last Infusion: 01/18/24 06:21 Dose: Infused Documented By: LESLYE Lactated Ringer's (Lr) 1,000 mls @ 115 mls/hr IVCONT .Q8H42M [facility] Last Admin: 01/18/24 04:17 Dose: 115 mls/hr Documented By: BRAULIO Nutrition (Parenteral) (Parenteral Nutrition) 1,320 mls @ 55 mls/hr IV .Q24H [facility]; Protocol Stop: 01/18/24 20:59 Last Admin: 01/17/24 20:56 Dose: 55 mls/hr Documented By: CINDY Metoclopramide HCl (Metoclopramide Hcl 10 Mg/2 Ml Vial) 10 mg IVPUSH Q6H PRN PRN Reason: Nausea Ondansetron HCl (Ondansetron Hcl 4 Mg/2 Ml Vial) 4 mg IVPUSH RQ6H [facility] Last Admin: 01/18/24 05:31 Dose: 4 mg Documented By: BRAULIO Sodium Chloride (0.9 % Sodium Chloride Flush 3 Ml Syringe) 3 ml IVFLUSH QSHIFT [facility] Last Admin: 01/18/24 07:10 Dose: Not Given Documented By: MICHELLE Non-Admin Reason: IV Running Labs 01/18/24 05:46 01/18/24 05:46 Labs: Laboratory Results - last 24 hr 01/18/24 05:46 MCV 82.4 MCH 27.9 MCHC 33.8 RDW 15.1 Plt Count 139 L MPV 10.6 Absolute Nucleated RBC 0.000 Nucleated RBC % (auto) 0.0 Neutrophils % (Manual) 65 Band Neutrophils % 5 Lymphocytes % (Manual) 14 L Monocytes % (Manual) 12 H Eosinophils % (Manual) 3 Basophils % (Manual) 1 Abs Neuts (Manual) 2.5 Lymphocytes # (Manual) 0.5 L Monocytes # (Manual) 0.4 Eosinophils # (Manual) 0.1 Platelet Estimate SLIGHTLY DECREASED Plt Morphology Comment NORMAL RBC Morphology NOTED Hypochromasia 1+ (5-14) Davina Cells 2+ (3-5) Acanthocytes (Spur) 1+ (0-2) Anion Gap 11 L Estim Creat Clear Calc 122.9 Estimated GFR > 60 Random Glucose 101 Calcium 8.4 Phosphorus 2.5 L Magnesium 1.7 Total Bilirubin 0.3 AST 15 ALT 13 Alkaline Phosphatase 101 Total Protein 5.0 L Albumin 2.8 L Procedures Date of Service Date of Service: 01/18/24 Progress Note: A&P Assessment and plan (1) Perforated viscus: Status: Acute Plan 1. Continue NPO, IV antibiotics, TPN 2. Discharge on home TPN when she does not need IV Dilaudid at all Time Spent With Patient Time: Total time managing care of this patient today ___20_ minutes. Quality Stroke Does the patient have a stroke diagnosis?: No VTE Prior VTE?: No VTE Risk Level:: Surgical - moderate VTE Device Contraindication: N/A - Device Ordered VTE Drug Contraindication: Treatment Not Indicated
[2024-01-18] MEDS: Famotidine/PF 20 MG/2 ML VIAL IVPUSH ×2 (08:33→20:39)
--- NOTE | 2024-01-18 09:38 | MHC.CLN ---
Addendum entered by Monique Rey RD 01/18/24 11:52: [id number] ON 01/18/24. CONTINUE LIPDS. Original Note: F/U PATIENT REMAINS NPO REVIEWED LABS. DISCUSSED WITH PHARMACY CONTINUE TPN AT MAX GOAL RATE 55 ML PER HOUR WITH 63G LIPIDS PROVIDES 1505 TOTAL KCALS (22.6KCALS/KG), 106 G PROTEIN (1.59G/KF), 132 G DEXTROSE. CHECK TRIGLYCERIDES. REPLETE LYTES NEEDED. FOLLOW FOR TPN TOLERANCE.
[2024-01-18 10:19] LABS: Triglycerides 111 mg/dL (<150)
--- NOTE | 2024-01-18 10:30 | MHC.CM.PN ---
EMR reviewed. Patient still requiring IV pain meds, not medically cleared for dc, potentially tomorrow. [facility] aware, updated labs sent. CM will continue to follow.
--- NOTE | 2024-01-18 10:36 | PM.PNGS ---
Subjective Subjective Date of Service: 01/18/24 Patient reports: no new complaints and feels better Interval history: yesterday she had to use dilaudid iv 3 x which was a significant improvement from the day before. She has been ambulating in the owen. continues TPN/lipids, npo Physical Exam Vital Signs: Vital Signs: Last Vital Signs Temp 96.8 F 01/18/24 07:19 Pulse 57 01/18/24 07:19 Resp 18 01/18/24 07:19 BP 116/62 01/18/24 07:19 Pulse Ox 95 01/18/24 07:19 O2 Del Method Room Air 01/18/24 07:19 BMI result Body Mass Index 24.5 GI: Palpation (GI): Tenderness to palpation present (GI) (decreased from yesterday) in the LUQ Objective Data Active Medications Famotidine (Famotidine/Pf 20 Mg/2 Ml Vial) 20 mg IVPUSH BID [facility] Last Admin: 01/18/24 08:33 Dose: 20 mg Documented By: MICHELLE Hydromorphone HCl (Hydromorphone Hcl 0.5 Mg/0.5 Ml Syringe) 0.5 mg IVPUSH Q2H PRN; Protocol PRN Reason: Pain, Severe (Pain Scale 7-10) Last Admin: 01/17/24 20:12 Dose: 0.5 mg Documented By: BRAULIO Metronidazole (Flagyl) 500 mg in 100 mls @ 100 mls/hr IV Q6H [facility] Last Infusion: 01/18/24 08:27 Dose: Infused Documented By: MICHELLE Piperacillin Sod/Tazobactam (Sod 3.375 gm/ Sodium Chloride) 50 mls @ 100 mls/hr IV Q6H [facility] Last Infusion: 01/18/24 06:21 Dose: Infused Documented By: LESLYE Lactated Ringer's (Lr) 1,000 mls @ 115 mls/hr IVCONT .Q8H42M [facility] Last Admin: 01/18/24 04:17 Dose: 115 mls/hr Documented By: BRAULIO Nutrition (Parenteral) (Parenteral Nutrition) 1,320 mls @ 55 mls/hr IV .Q24H [facility]; Protocol Stop: 01/18/24 20:59 Last Admin: 01/17/24 20:56 Dose: 55 mls/hr Documented By: CINDY Metoclopramide HCl (Metoclopramide Hcl 10 Mg/2 Ml Vial) 10 mg IVPUSH Q6H PRN PRN Reason: Nausea Ondansetron HCl (Ondansetron Hcl 4 Mg/2 Ml Vial) 4 mg IVPUSH RQ6H [facility] Last Admin: 01/18/24 05:31 Dose: 4 mg Documented By: COLGERARDO Sodium Chloride (0.9 % Sodium Chloride Flush 3 Ml Syringe) 3 ml IVFLUSH QSHIFT [facility] Last Admin: 01/18/24 07:10 Dose: Not Given Documented By: MICHELLE Non-Admin Reason: IV Running Labs 01/18/24 05:46 01/18/24 05:46 Labs: Laboratory Results - last 24 hr 01/18/24 01/18/24 05:46 09:55 MCV 82.4 MCH 27.9 MCHC 33.8 RDW 15.1 Plt Count 139 L MPV 10.6 Absolute Nucleated RBC 0.000 Nucleated RBC % (auto) 0.0 Neutrophils % (Manual) 65 Band Neutrophils % 5 Lymphocytes % (Manual) 14 L Monocytes % (Manual) 12 H Eosinophils % (Manual) 3 Basophils % (Manual) 1 Abs Neuts (Manual) 2.5 Lymphocytes # (Manual) 0.5 L Monocytes # (Manual) 0.4 Eosinophils # (Manual) 0.1 Platelet Estimate SLIGHTLY DECREASED Plt Morphology Comment NORMAL RBC Morphology NOTED Hypochromasia 1+ (5-14) Radiant Cells 2+ (3-5) Acanthocytes (Spur) 1+ (0-2) Anion Gap 11 L Estim Creat Clear Calc 122.9 Estimated GFR > 60 Random Glucose 101 Calcium 8.4 Phosphorus 2.5 L Magnesium 1.7 Total Bilirubin 0.3 AST 15 ALT 13 Alkaline Phosphatase 101 Total Protein 5.0 L Albumin 2.8 L 3.0 L Triglycerides 111 Procedures Date of Service Date of Service: 01/18/24 Progress Note: A&P Assessment and plan (1) Perforated viscus: Status: Acute Assessment and Plan: improving slowly monitor iv narcotic need, if no iv narcotic need today, plan for dc home tomorrow. encouraged oob to chair and amb in hallway will need 3-4 weeks tpn/lipids. [facility] clin transition manager Estella has been to see pt and teaching has begun. replace phos and K repeat labs in am Plan case discussed with dr olivo Time Spent With Patient Time: Total time managing care of this patient today ____ minutes. Quality Stroke Does the patient have a stroke diagnosis?: No VTE Prior VTE?: No VTE Risk Level:: Surgical - moderate VTE Device Contraindication: N/A - Device Ordered VTE Drug Contraindication: Treatment Not Indicated
[2024-01-18 11:42] VITALS: BP 118/73; PULSE 60; RESP 16; TEMP 36.4; O2SAT 95
[2024-01-18] MEDS: HYDROmorphone HCl 0.5 MG/0.5 ML SYRINGE IVPUSH ×2 (12:49→20:34)
[2024-01-18 15:13] VITALS: BP 113/75; PULSE 62; RESP 18; TEMP 36.3; O2SAT 96
[2024-01-18 19:32] VITALS: BP 118/70; PULSE 60; RESP 18; TEMP 36.7; O2SAT 96
[2024-01-18] MEDS: Parenteral Nutrition 1,320 ML 55 ML IV (20:40)
[2024-01-18 23:24] VITALS: BP 111/64; PULSE 61; RESP 18; TEMP 36.6; O2SAT 94
[2024-01-19] MEDS: Piperacillin Sodium/Tazobactam 3.375 GM in 0.9 % Sodium Chloride 50 ML IV ×4 (00:41→17:32)
[2024-01-19] MEDS: Acetaminophen 1,000 MG/100 ML PIGGYBACK 16.7 MG IV ×3 (01:37→15:50)
[2024-01-19 03:33] VITALS: BP 113/63; PULSE 59; RESP 18; TEMP 36.4; O2SAT 94
[2024-01-19] MEDS: Lactated Ringers 1,000 ML 115 ML IVCONT ×2 (04:31→15:49)
[2024-01-19] MEDS: ondansetron HCL 4 MG/2 ML VIAL IVPUSH ×3 (05:36→17:33)
[2024-01-19] MEDS: metroNIDAZOLE/NS 500 MG/100 ML PIGGYBACK 100 MG IV ×3 (06:13→18:21)
[2024-01-19 06:52] LABS: Hematocrit 27.4 % (37.0-47.0); Hemoglobin 9.1 g/dl (12.0-16.0); IG%MD 0.3 %; Lymph%MD 23.3 %; Mean Corpuscular HGB Conc 33.2 g/dl (31.0-35.0); Mean Corpuscular Hemoglobin 27.6 pg (27.0-33.0); Mean Platelet Volume 10.5 fL (9.4-12.3); Mono%MD 10.7 %; Neut%MD 63.7 %; Platelet Count 140 X10*3/uL (160-400); Red Cell Distribution Width 15.3 % (11.0-16.0); White Blood Count 3.5 X10*3/uL (4.8-10.8)
[2024-01-19 07:00] LABS: Albumin Level 2.7 g/dL (3.5-5.0); Anion Gap 11 (12-20); Blood Urea Nitrogen 9 mg/dL (9-16); Calcium 8.3 mg/dL (8.4-10.2); Carbon Dioxide 21 mmol/L (22-29); Chloride 111 mmol/L (96-108); Creatinine Clr Calc Pharmacy 129.6; Estimated Glomerular Filt Rate > 60; Glucose Random 97 mg/dL (60-115); Magnesium 1.9 mg/dL (1.6-2.6); Phosphorus 2.7 mg/dL (2.7-4.5); Potassium 3.9 mmol/L (3.3-5.1); Sodium 139 mmol/L (135-145)
[2024-01-19 08:00] VITALS: BP 126/68; PULSE 54; RESP 16; TEMP 36.8; O2SAT 96
[2024-01-19 08:32] LABS: Band Neutrophils Percent 3 % (3-5); Eosinophils Absolute Manual 0.2 X10*3/uL (0.0-0.4); Eosinophils Percent Manual 5 % (0-4); Lymphocytes Absolute Manual 0.8 X10*3/uL (1.2-4.9); Lymphocytes Percent Manual 22 % (20-40); Monocytes Absolute Manual 0.1 X10*3/uL (0.1-1.2); Monocytes Percent Manual 3 % (2-11); Neutrophils Absolute Manual 2.5 X10*3/uL (2.0-8.3); Neutrophils Percent Manual 67 % (45-73)
[2024-01-19 08:34] LABS: Acanthocytes 1+ (0-2) /OIF; Burr Cells 2+ (3-5) /OIF; Hypochromasia 1+ (5-14) /OIF; Platelet Estimate SLIGHTLY DECREASED (NORMAL); Platelet Morphology Comment NORMAL; RBC Morphology NOTED
[2024-01-19] MEDS: 0.9 % Sodium Chloride Flush 3 ML SYRINGE IVFLUSH (09:13)
[2024-01-19] MEDS: Famotidine/PF 20 MG/2 ML VIAL IVPUSH (09:14)
--- NOTE | 2024-01-19 11:30 | MHC.CM.PN ---
Per PA, patient will dc home later today. [facility] will provide nursing, TPN, and IV abx. [facility] has done teaching x2 and patient feels comfortable with plan. Patient's parents will provide transport home this evening.
--- NOTE | 2024-01-19 11:46 | PM.PNGS ---
Subjective Subjective Date of Service: 01/19/24 Interval history: Feels better. Pain has improved and yesterday she only used the Dilaudid twice despite the fact that she was unintentionally off the IV Acetaminophen as well. No new symptoms. Left shoulder pain has resolved. Physical Exam Vital Signs: Vital Signs: Last Vital Signs Temp 98.2 F 01/19/24 08:00 Pulse 54 01/19/24 08:00 Resp 16 01/19/24 08:00 BP 126/68 01/19/24 08:00 Pulse Ox 96 01/19/24 08:00 O2 Del Method Room Air 01/19/24 08:00 BMI result Body Mass Index 24.5 GI: Inspection: Yes normal to inspection Palpation (GI): Tenderness to palpation present (GI) (mild LUQ tenderness) Extrem: Right lower extremity: normal to inspection (no calf tenderness) Left lower extremity: normal to inspection (no calf tenderness) Objective Data Active Medications Famotidine (Famotidine/Pf 20 Mg/2 Ml Vial) 20 mg IVPUSH BID [facility] Last Admin: 01/19/24 09:14 Dose: 20 mg Documented By: CHARU Hydromorphone HCl (Hydromorphone Hcl 0.5 Mg/0.5 Ml Syringe) 0.5 mg IVPUSH Q2H PRN; Protocol PRN Reason: Pain, Severe (Pain Scale 7-10) Last Admin: 01/18/24 20:34 Dose: 0.5 mg Documented By: GINA Metronidazole (Flagyl) 500 mg in 100 mls @ 100 mls/hr IV Q6H [facility] Last Infusion: 01/19/24 08:00 Dose: Infused Documented By: CHARU Piperacillin Sod/Tazobactam (Sod 3.375 gm/ Sodium Chloride) 50 mls @ 100 mls/hr IV Q6H [facility] Last Infusion: 01/19/24 06:13 Dose: Infused Documented By: GINA Lactated Ringer's (Lr) 1,000 mls @ 115 mls/hr IVCONT .Q8H42M [facility] Last Admin: 01/19/24 04:31 Dose: 115 mls/hr Documented By: GINA Nutrition (Parenteral) (Parenteral Nutrition) 1,320 mls @ 55 mls/hr IV .Q24H [facility]; Protocol Stop: 01/19/24 20:59 Last Admin: 01/18/24 20:40 Dose: 55 mls/hr Documented By: GINA Acetaminophen (Ofirmev) 1,000 mg in 100 mls @ 16.7 mls/hr IV .Q6H [facility] Last Admin: 01/19/24 09:10 Dose: 16.7 mls/hr Documented By: CHARU Nutrition (Parenteral) (Parenteral Nutrition) 1,320 mls @ 55 mls/hr IV .Q24H [facility]; Protocol Stop: 01/20/24 20:59 Metoclopramide HCl (Metoclopramide Hcl 10 Mg/2 Ml Vial) 10 mg IVPUSH Q6H PRN PRN Reason: Nausea Ondansetron HCl (Ondansetron Hcl 4 Mg/2 Ml Vial) 4 mg IVPUSH RQ6H [facility] Last Admin: 01/19/24 05:36 Dose: 4 mg Documented By: GINA Pharmacy Consult (Consult Rx Parenteral Nutrition Ordering) 1 each MISCELLANE DAILY PRN PRN Reason: Consult order Sodium Chloride (0.9 % Sodium Chloride Flush 3 Ml Syringe) 3 ml IVFLUSH QSHIFT [facility] Last Admin: 01/19/24 09:13 Dose: 3 ml Documented By: CHARU Labs 01/19/24 06:03 01/19/24 06:03 Labs: Laboratory Results - last 24 hr 01/19/24 06:03 MCV 83.0 MCH 27.6 MCHC 33.2 RDW 15.3 Plt Count 140 L MPV 10.5 Absolute Nucleated RBC 0.000 Nucleated RBC % (auto) 0.0 Neutrophils % (Manual) 67 Band Neutrophils % 3 Lymphocytes % (Manual) 22 Monocytes % (Manual) 3 Eosinophils % (Manual) 5 H Abs Neuts (Manual) 2.5 Lymphocytes # (Manual) 0.8 L Monocytes # (Manual) 0.1 Eosinophils # (Manual) 0.2 Platelet Estimate SLIGHTLY DECREASED Plt Morphology Comment NORMAL RBC Morphology NOTED Hypochromasia 1+ (5-14) Davina Cells 2+ (3-5) Acanthocytes (Spur) 1+ (0-2) Anion Gap 11 L Estim Creat Clear Calc 129.6 Estimated GFR > 60 Random Glucose 97 Calcium 8.3 L Phosphorus 2.7 Magnesium 1.9 Albumin 2.7 L Procedures Date of Service Date of Service: 01/19/24 Progress Note: A&P Assessment and plan (1) Perforated viscus: Status: Acute Plan 1. After discussion with the patient, she feels comfortable going home. She understands that she will be using only Tylenol suppository for pain. 2. Will receive 2.5mg fondaparinux daily for VTE prophylaxis due to the PICC line 3. Continue NPO, IV Zosyn 4. Continue 1400ml TPN and 500ml of normal saline per day. May have cycled TPN 5. UGI with gastrograffin in 3 weeks Time Spent With Patient Time: Total time managing care of this patient today __20_ minutes. Quality Stroke Does the patient have a stroke diagnosis?: No VTE Prior VTE?: No VTE Risk Level:: Surgical - moderate VTE Device Contraindication: N/A - Device Ordered VTE Drug Contraindication: Treatment Not Indicated
[2024-01-19 12:00] VITALS: BP 125/69; PULSE 54; RESP 16; TEMP 36.7; O2SAT 96
[2024-01-19 16:00] VITALS: BP 115/65; PULSE 52; RESP 16; TEMP 36.2; O2SAT 98
--- NOTE | 2024-01-19 16:08 | P.DS_ITS ---
DS: Providers Provider Date of Service: 01/19/24 Date of admission: 01/14/24 13:45 Primary care physician: GABRIELA Murray Consults: 01/16/24 08:12 Consult to Case Management Routine Comment: plan for PICC today,start TPN, dc w tpn 1-2 d DS: Diagnosis Discharge Diagnosis (1) Perforated viscus: Status: Acute DS: Summary Hospital Course Hospital Course: 33 yo female admitted with history of remote gastric bypass, presented to the ER 01/14/24 with c/o sudden significant LUQ, epigastric pain. w/u positive for small free air in the abdominal cavity felt to be secondary to microperforation of hollow viscus. Admitted, remained NPO and placed on IV abx and IVF. PICC line placed 01/16/24. Tolerated TPN, lipids. Arrangements were made for home infusion and she is being d/c'd home 01/19/24. She did not require surgical intervention Time Attestation Total time managing care of this patient today: 25 mintues. Discharge Coordination Time (in mins): 25 Quality: Safe Use of Opioids Does Pt have an Active Cancer Diagnosis on the Problem List?: No Quality: Stroke Does the patient have a stroke diagnosis?: No Physical Exam Vital Signs: Vital Signs: Last Vital Signs Temp 98.1 F 01/19/24 12:00 Pulse 54 01/19/24 12:00 Resp 16 01/19/24 12:00 BP 125/69 01/19/24 12:00 Pulse Ox 96 01/19/24 12:00 O2 Del Method Room Air 01/19/24 12:00 BMI result Body Mass Index 24.5 DS: Data Data Completed and Pending Completed studies during hospitalization [Text1]: Procedures Bypass Stomach to Jejunum, Percutaneous Endoscopic Approach (03/18/21) Release Peritoneum, Percutaneous Endoscopic Approach (03/18/21) Labs on day of discharge: Laboratory Results - last 24 hr 01/19/24 06:03 WBC 3.5 L RBC 3.30 L Hgb 9.1 L Hct 27.4 L MCV 83.0 MCH 27.6 MCHC 33.2 RDW 15.3 Plt Count 140 L MPV 10.5 Absolute Nucleated RBC 0.000 Nucleated RBC % (auto) 0.0 Neutrophils % (Manual) 67 Band Neutrophils % 3 Lymphocytes % (Manual) 22 Monocytes % (Manual) 3 Eosinophils % (Manual) 5 H Abs Neuts (Manual) 2.5 Lymphocytes # (Manual) 0.8 L Monocytes # (Manual) 0.1 Eosinophils # (Manual) 0.2 Platelet Estimate SLIGHTLY DECREASED Plt Morphology Comment NORMAL RBC Morphology NOTED Hypochromasia 1+ (5-14) [place] Cells 2+ (3-5) Acanthocytes (Spur) 1+ (0-2) Sodium 139 Potassium 3.9 Chloride 111 H Carbon Dioxide 21 L Anion Gap 11 L BUN 9 Creatinine 0.55 Estim Creat Clear Calc 129.6 Estimated GFR > 60 Random Glucose 97 Calcium 8.3 L Phosphorus 2.7 Magnesium 1.9 Albumin 2.7 L Discharge Plan Discharge Anticipated Discharge Date/Time: 01/19/24 17:18 Patient Disposition: Home Health Service Discharge Diagnosis: perforated viscus Referrals: Beth Paul FNP [Primary Care Provider] - 1 Week Discharge Medications: New piperacillin-tazobactam 3.375 gram recon soln 3.375 g IV Q6H 4 Days acetaminophen 650 mg suppository 650 mg WV Q6H PRN (Reason: pain) Qty: 50 1RF famotidine (PF) 20 mg/2 mL Solution 20 mg IVPUSH BID Qty: 60 0RF fondaparinux [Arixtra] 2.5 mg/0.5 mL syringe 2.5 mg subcut DAILY 30 Days Qty: 15 0RF Continued albuterol sulfate 90 mcg/actuation HFA aerosol inhaler 1 puff PO Q4H PRN (Reason: dyspnea) Patient Comments: last used end of January Mirena 20 mcg/24 hours (6 yrs) 52 mg intrauterine device 1 device intrauterine DIRECTED Discontinued multivitamin Tablet 1 tab PO DAILY omeprazole magnesium [Prilosec OTC] 20 mg Tablet,Delayed Release (Dr/Ec) 20 mg PO DAILY cyanocobalamin (vitamin B-12) 1,000 mcg/mL solution 1,000 mcg IM QMONTH Patient Comments: Per patient, last injection was around the 18 of December, does not do on a specific day. Discharge Orders: Discharge Order (Routine); Ordered 01/19/24 Ordered By: Chao Garcia Activity on Discharge: As tolerated Stand Alone Forms: Patient Portal Discharge page Print Language: Australian Care Plan Goals: heal perforation Health Concerns: perforated viscus Plan of Treatment: TPN, IVF, ABX Upper GI study in approximately 3.5 weeks to assess healing Arixtra to help prevent blood clots Please call the office at [phone] with any questions Assessment: improved abdominal pain after conservative management of microperforated viscus
[2024-01-19] MEDS: HYDROmorphone HCl 0.5 MG/0.5 ML SYRINGE IVPUSH (20:34)
== END 2024-01-19 21:02 | disposition home health service (06) | DRG 252 ==
LOC: HO.ED 12:15 → HO.EDOVER 13:54 → HO.S3 19:52
PROVIDERS: Physician Assistant Surgical; Admitting Provider Surgery; Emergency Provider Student in an Organized Health Care Education/Training Program; PCP Nurse Practitioner Family; Visit Provider Surgery
DX: K95.89 Other complications of other bariatric procedure (principal); K28.5 Chronic or unspecified gastrojejunal ulcer with perforation; Z91.199 Patient's noncompliance with other medical treatment and regimen due to unspecified reason; Z79.899 Other long term (current) drug therapy
CPT/HCPCS: 36415; 36573; 74176; 74177; 80048; 80053; 81001; 82040; 83605; 83735; 84100; 84478; 84702; 85007; 85025; 85027; 87040; 99285; C1751; C9113; J0131; J1170; J1756; J1836; J2405; J2543; J3010; J3411; J3420; J7120; Q9967

== ENCOUNTER → 2024-01-14 13:45 | Outpatient (BNV) | payer MEDICAID, SELFPAY | PROVIDERS: Admitting Provider Surgery; Emergency Provider Student in an Organized Health Care Education/Training Program; PCP Nurse Practitioner Family; Visit Provider Surgery | DX: K63.1 Perforation of intestine (nontraumatic) (principal) | CPT/HCPCS: 99223; 99232; 99239; 99499 ==

== ENCOUNTER 2024-01-23 09:00 | Inpatient (IN) | payer MEDICAID, SELFPAY ==
--- NOTE | ~2024-01-23 | CT_ITS ---
EXAMINATION: CT ABDOMEN AND PELVIS WITH CONTRAST CLINICAL INFORMATION: Concern for worsening perforation COMPARISON: CT abdomen pelvis 01/14/2024 TECHNIQUE: Multidetector volumetric images were obtained from the superior aspect of the liver through the pubic symphysis following administration 85 mL of Omnipaque 350 intravenous contrast. Sagittal and coronal reformatted images were obtained on the technologist's workstation. Oral contrast: No This CT examination was performed using dose optimization techniques as appropriate, variously including the following: *Automated exposure control *Adjustment of mA and/or kV according to patient size (this includes techniques or standardized protocols for targeted exams where dose is matched to indication/reason for exam; i.e. extremities or head) *Use of iterative reconstruction technique DLP: 434 mGy-cm FINDINGS: LUNG BASES: Bilateral breast prostheses are present. New small bilateral pleural effusions are seen with left basilar atelectasis. LIVER, GALLBLADDER, AND BILIARY TREE: The liver is enlarged at 20.7 cm in cephalocaudad dimension. No focal hepatic lesion or biliary ductal dilatation is present. Status post cholecystectomy. PANCREAS: Unremarkable. SPLEEN: Spleen is enlarged at 13.6 cm ADRENAL GLANDS: Unremarkable. KIDNEYS AND URETERS: The kidneys are normal in size, shape, and attenuation. No hydronephrosis, hydroureter, or calculi seen. No perinephric stranding. BLADDER: Unremarkable. GASTROINTESTINAL TRACT: Changes of gastric bypass are seen along with an additional small bowel anastomosis in the left midabdomen. There is a new subdiaphragmatic collection anterior to the left lobe of the liver consistent with an abscess present measuring 10.4 x 5.7 x 5.9 cm. I suspect this may be secondary to an anastomotic leak at the gastrojejunal anastomosis is questioned to be present in retrospect on the 01/14/2024 study (6:36). Free intraperitoneal air continues to be present beneath the diaphragm as well as in the left upper quadrant mesentery around the spleen. No portal venous gas is seen. The colon and the remainder of small bowel appear unremarkable. ABDOMINAL WALL: No significant hernia is appreciated. LYMPH NODES: No retroperitoneal lymphadenopathy. VASCULAR: Unremarkable. PELVIC VISCERA: A tampon is present in the vagina. An anteverted uterus is present containing an IUD in good position. There is a new right adnexal complex cyst measuring 4.2 x 3.5 x 4.0 cm that has some layering blood products within it. The left adnexa is unremarkable. OSSEOUS STRUCTURES: Unremarkable. CT/CT abdomen pelvis w IV con IMPRESSION: 1. New subdiaphragmatic abscess anterior to the left lobe of the liver. I suspect this is secondary to an anastomotic leak at the gastrojejunal anastomosis. If the collection is drained percutaneously, eventually a contrast injection study can be performed to document any connection with bowel. 2. Free intraperitoneal air continues to be present. 3. New small bilateral pleural effusions with left basilar atelectasis. 4. New complex right adnexal cyst with layering blood products. 5. Other incidental findings as described above. Fleischner guidelines were followed. This critical result was discussed with Dr. Garcia at 3:30 PM on the day of the exam and it was ascertained that the content and urgency of the report was understood at the time of direct communication.
[2024-01-23 09:31] VITALS: BP 126/75; PULSE 69; RESP 18; TEMP 36.8; O2SAT 97; BMI 24.0
[2024-01-23] MEDS: 0.9 % Sodium Chloride 1,000 ML 999 ML IV (10:06)
[2024-01-23] MEDS: ondansetron HCL 4 MG/2 ML VIAL IVPUSH (10:09)
[2024-01-23] MEDS: HYDROmorphone HCl 0.5 MG/0.5 ML SYRINGE IVPUSH (10:10)
[2024-01-23] MEDS: Famotidine/PF 20 MG/2 ML VIAL IVPUSH (10:10)
--- NOTE | 2024-01-23 10:10 | PC.NURSE ---
a&ox4. vss and up to date. nsr on the cardiac cath lab radiology technologist. pt presents to ED w/ 02/12 LUQ/LLQ pain that radiates to left flank/left shoulder. pt states sx started around 1800 last night. pt also verbalizing intermittent sob. no sob/wob noted. respirations even and unlabored. pt [place] [facility] [place]. pt states she has been compliant. pt seen by ED provider/aware of plan of care at this time. pt has a PICC line placed n the RUE - unable to use at this time d/t TPN/receiving IV abx. 20gIV placed in the left forearm - labs obtained/sent to lab. partner bedside for support. plan of care ongoing. call hull placed within reach.
--- NOTE | 2024-01-23 10:12 | ED_ITS ---
HPI - Abdominal Pain General Chief Complaint: Abdominal Pain Stated Complaint: renal failure sent in by Dr Garcia Time Seen by Provider: 01/23/24 09:13 Source: patient Mode of arrival: ambulatory Limitations: no limitations History of Present Illness HPI narrative: 33 yo female with history of conversion of laparoscopic sleeve gastrectomy to laparoscopic [place]-en-Y gastric bypass on 03/19/2021 and recent perforated viscus, presents with LUQ pain radiating into her left back. She was recently admitted to bariatric surgery service on 01/14/24 through 01/19/24 after presenting to the ED with acute LUQ pain radiating into LLQ and left shoulder. Work-up revealed small free air in the abdominal cavity felt to be secondary to microperforation of hollow viscus. She was treated non-surgically and discharged remaining NPO on TPN. See bariatric surgery notes. The patient states her symptoms returned yesterday around 6 PM when she was experiencing increasing pain in her LUQ region, radiating to her back. She states she messaged Dr. Garcia last night regarding her symptoms, who told her to come into the ED to be evaluated. She describes the abdominal pain as a continuous pressure. The back pain is an intermittent, zapping sensation that she described as a lightening bolt. She rates her pain as a 6-7/10. She explains this pain feels different than her presentation to the ED on 01/14/24, which she described as much more severe. Her symptoms are worsened with laying flat and movement. She describes yellow, liquid stool during previous hospital course that evolved to brown in color. She has not had a bowel movement yesterday or today. She denies vomiting, but does endorse nausea. She states she feels short of breath during episodes of pain. She denies fevers, chills, chest pain, or urinary symptoms. She states she began her menstrual period yesterday. MD elicited complaint: abdominal pain Pertinent past history: other (Gastric bypass, perforated viscus ) Onset (ago): hour(s) Pain Consistency: constant Location: LUQ Pain scale (0-10): 6 Quality: other (Pressure) Radiation: L flank Exacerbating factors: movement and other (Laying flat/positional) Associated symptoms: nausea Related Data Date of Last Menstrual Period: 01/22/24 Home Medications ?Medication ?Instructions ?Recorded ?Confirmed levonorgestrel 21 mcg/24 hours (8 1 device intrauterine DIRECTED 12/22/20 01/14/24 yrs) 52 mg intrauterine device (Mirena) albuterol sulfate 90 mcg/actuation 1 puff PO Q4H PRN dyspnea 03/12/21 01/14/24 aerosol inhaler Previous Rx's ?Medication ?Instructions ?Recorded acetaminophen 650 mg rectal 650 mg MT Q6H PRN pain #50 ea 01/19/24 suppository famotidine (PF) 20 mg/2 mL 20 mg (2 mL) IVPUSH BID #60 mL 01/19/24 intravenous solution piperacillin-tazobactam 3.375 gram 3.375 g IV Q6H 4 days 01/19/24 intravenous solution fondaparinux 2.5 mg/0.5 mL 2.5 mg (0.5 mL) subcut DAILY 30 01/21/24 subcutaneous solution syringe days #15 mL (Arixtra) Allergies Allergy/AdvReac Type Severity Reaction Status Date / Time tomato Allergy Severe itchy Verified 01/23/24 09:34 throat Review of Systems Review of Systems Yes all other systems are reviewed and are negative [facility] Past Medical History Medical History (Updated 01/23/24 @ 16:00 by PRATIBHA Aponte) Intestinal malabsorption Intra-abdominal adhesions BMI 34.0-34.9,adult COVID-19 vaccine series completed History of depression Anxiety BMI over 35 BMI 37.0-37.9, adult Vitamin D deficiency Vitamin B12 deficiency Vitamin B1 deficiency GERD (gastroesophageal reflux disease) Back pain Gestational diabetes Asthma, exercise induced Surgical History Hx of breast surgery Hx of gastric bypass History of esophagogastroduodenoscopy (EGD) Hx laparoscopic cholecystectomy History of sleeve gastrectomy Date of Last Menstrual Period: 01/22/24 Social History Social History Household Members: Children Housing: House Are you a primary care director to a significant other at home: Yes (2 children, arrangements made for their care in the post-op period) Do you presently have visiting nurse or other home services: No Alcohol intake: current Alcohol intake frequency: holidays/special occasions only Patient Tobacco Use Status: Former Tobacco user Quit Date: 2012 Substance Use Type: Marijuana Advance Directives: No Advance Directives Information Provided: No service: No Current occupational status: employed Physical Exam ED Vital Signs: Vital Signs - 24 hr 01/23/24 09:31 01/23/24 10:17 01/23/24 13:02 Temperature 98.3 F 98.3 F 98.2 F Pulse Rate 69 64 69 Respiratory Rate 18 16 16 Blood Pressure 126/75 120/70 108/63 Pulse Oximetry 97 95 97 Oxygen Delivery Method Room Air Room Air Room Air 01/23/24 15:24 Temperature 97.9 F Pulse Rate 65 Respiratory Rate 17 Blood Pressure 112/44 L Pulse Oximetry 98 Oxygen Delivery Method Room Air BMI result Body Mass Index 24.0 Appearance: Alert. Oriented X3. No acute distress. Head: normocephalic, atraumatic. Eyes: Pupils equal, round and reactive to light. ENT: Pharynx normal. Neck: Normal inspection. Neck supple. CVS: Normal heart rate and rhythm. Pulses normal. Respiratory: No respiratory distress. Breath sounds normal. Abdomen: Soft. No rigidity or guarding. Tenderness to palpation of LUQ. +BS Skin: Skin warm and dry. Normal skin color. Normal skin turgor. No rashes. Extremities: No lower extremity edema. No joint swelling. Neuro/psych: Oriented X 3. No motor deficit. No sensory deficit. Normal speech and cognition. Course Course Course Narrative: The patient was re-evaluated at bedside. She reports a decrease in abdominal pain and nausea. She describes that she is comfortable. Vital signs stable. Awaiting results of abdomen/pelvis CT. Reevaluation(s) Reevaluation #1: CT scan with significant abscess. Case discussed with Chao garcia from bariatric. Patient will be admitted under their service, IV antibiotics, IR to assess for possible drainage. Patient updated on plan of care. Time: 16:23 Medical Decision Making Medical Decision Making MDM Narrative: 33 yo female with history of conversion of laparoscopic sleeve gastrectomy to laparoscopic [place]-en-Y gastric bypass on 03/19/2021 and recent perforated viscus, presents with LUQ pain radiating into her left back. HPI and physical exam as noted above. Labs show elevated LFTs. Lipase wnl at 73. Patient remains normotensive, afebrile non tachycardic. Her pain briefly improved with Dilaudid. CT scan of her abdomen is showing a new subdiaphragmatic abscess on the left side, likely from anastomotic leak. Results discussed with patient. Additional Dilaudid has been ordered. She has been on continuous Zosyn at home via PICC line. Will continue Zosyn around the clock here, stop her infusion. Patient to be admitted to bariatric service. Differential Diagnosis Differential Diagnoses: The differential diagnosis associated with the presentation includes Pancreatitis, bowel perforation, obstruction, abscess, Admission/Observation Consideration of admission/observation: Escalation of care including admission/observation considered Consult Healthcare Provider Management of the patient was discussed with: Field Seismologist Chao Garcia PA-C Lab Data MDM Lab Attestation statement: I reviewed the patient's lab results. no leukocytosis, hemoconcentration now compared to prior 01/23/24 10:07 01/23/24 10:07 Labs: Lab Results 01/23/24 01/23/24 Range/Units 10:07 14:12 WBC 9.6 (4.8-10.8) X10*3/uL RBC 4.51 D (4.20-5.50) X10*6/uL Hgb 12.2 D (12.0-16.0) g/dl Hct 37.4 D (37.0-47.0) % MCV 82.9 (80.0-98.0) fL MCH 27.1 (27.0-33.0) pg MCHC 32.6 (31.0-35.0) g/dl RDW 15.3 (11.0-16.0) % Plt Count 329 D (160-400) X10*3/uL MPV 9.9 (9.4-12.3) fL Immature Gran % (Auto) 0.6 H (0.0-0.4) % Neut % (Auto) 80.3 H (45-73) % Lymph % (Auto) 12.5 L (20-40) % [place] % (Auto) 4.7 (2-11) % Eos % (Auto) 1.5 (0-4) % Baso % (Auto) 0.4 (0-2) % Lymph # (Auto) 1.2 (1.2-4.9) X10*3/uL [place] # (Auto) 0.5 (0.1-1.2) X10*3/uL Eos # (Auto) 0.1 (0.0-0.4) X10*3/uL Baso # (Auto) 0.0 (0.0-0.2) X10*3/uL Abs Immat Gran (auto) 0.06 H (0.00-0.03) X10*3/uL Absolute Neuts (auto) 7.7 (2.0-8.3) x10*3/uL Absolute Nucleated RBC 0.000 (0.0-0.012) X10*3/uL Nucleated RBC % (auto) 0.0 (0.0-0.2) /100WBC PT 13.6 H (11.1-13.3) SEC INR 1.1 (0.9-1.1) Sodium 138 (135-145) mmol/L Potassium 4.5 (3.3-5.1) mmol/L Chloride 104 (96-108) mmol/L Carbon Dioxide 23 (22-29) mmol/L Anion Gap 16 (12-20) BUN 19 H (9-16) mg/dL Creatinine 0.69 (0.5-1.4) mg/dL Estim Creat Clear Calc 103.4 Estimated GFR > 60 Random Glucose 89 (60-115) mg/dL Lactic Acid 0.7 (0.5-2.0) mmol/L Calcium 10.5 H D (8.4-10.2) mg/dL Phosphorus 4.1 (2.7-4.5) mg/dL Magnesium 2.5 (1.6-2.6) mg/dL Total Bilirubin 0.6 (0.0-1.0) mg/dL Direct Bilirubin 0.2 (0.0-0.5) mg/dL AST 32 H (5-31) U/L ALT 60 H (0-31) U/L Alkaline Phosphatase 234 H (39-117) U/L Total Protein 8.5 H (6.5-8.0) g/dL Albumin 4.3 (3.5-5.0) g/dL Triglycerides 90 (<150) mg/dL Cholesterol 137 (<200) mg/dL LDL Cholesterol, Calc 90 (<100) mg/dL HDL Cholesterol 29 L (>40) mg/dL Lipase 73 (8-78) U/L Beta HCG, Quant < 2 mIU/mL Urine Color Yellow Urine Appearance Clear Urine pH 6.5 (5.0-9.0) Ur Specific [place] >= 1.030 H (1.005-1.025) Urine Protein Negative (Neg-Trace) mg/dL Urine Glucose (UA) Negative (Negative) mg/dL Urine Ketones Negative (Negative) mg/dL Urine Blood Small (1+) H (Negative) Urine Nitrite Negative (Negative) Ur Leukocyte Esterase Negative (Negative) Urine RBC 0-2 (0-2) /HPF Urine WBC 0-5 (0-5) /HPF Ur Squamous Epith Cells 0-2 (0-2) /HPF Urine Bacteria None Seen (None Seen) Hyaline Casts 0-2 (0-2) /LPF Independent Interpretation I performed an independent interpretation of an: CT Scan Interpretation: free air in the abdomen w/ irregularity under the diaphram c/w abscess Radiology Impression Discussion of test interpretation with radiology: I have reviewed the radiologist's reading. Radiologist Impression: EXAMINATION: CT ABDOMEN AND PELVIS WITH CONTRAST CLINICAL INFORMATION: Concern for worsening perforation COMPARISON: CT abdomen pelvis 01/14/2024 TECHNIQUE: Multidetector volumetric images were obtained from the superior aspect of the liver through the pubic symphysis following administration 85 mL of Omnipaque 350 intravenous contrast. Sagittal and coronal reformatted images were obtained on the technologist's workstation. Oral contrast: No This CT examination was performed using dose optimization techniques as appropriate, variously including the following: *Automated exposure control *Adjustment of mA and/or kV according to patient size (this includes techniques or standardized protocols for targeted exams where dose is matched to indication/reason for exam; i.e. extremities or head) *Use of iterative reconstruction technique DLP: 434 mGy-cm FINDINGS: LUNG BASES: Bilateral breast prostheses are present. New small bilateral pleural effusions are seen with left basilar atelectasis. LIVER, GALLBLADDER, AND BILIARY TREE: The liver is enlarged at 20.7 cm in cephalocaudad dimension. No focal hepatic lesion or biliary ductal dilatation is present. Status post cholecystectomy. PANCREAS: Unremarkable. SPLEEN: Spleen is enlarged at 13.6 cm ADRENAL GLANDS: Unremarkable. KIDNEYS AND URETERS: The kidneys are normal in size, shape, and attenuation. No hydronephrosis, hydroureter, or calculi seen. No perinephric stranding. BLADDER: Unremarkable. GASTROINTESTINAL TRACT: Changes of gastric bypass are seen along with an additional small bowel anastomosis in the left midabdomen. There is a new subdiaphragmatic collection anterior to the left lobe of the liver consistent with an abscess present measuring 10.4 x 5.7 x 5.9 cm. I suspect this may be secondary to an anastomotic leak at the gastrojejunal anastomosis is questioned to be present in retrospect on the 01/14/2024 study (6:36). Free intraperitoneal air continues to be present beneath the diaphragm as well as in the left upper quadrant mesentery around the spleen. No portal venous gas is seen. The colon and the remainder of small bowel appear unremarkable. ABDOMINAL WALL: No significant hernia is appreciated. LYMPH NODES: No retroperitoneal lymphadenopathy. VASCULAR: Unremarkable. PELVIC VISCERA: A tampon is present in the vagina. An anteverted uterus is present containing an IUD in good position. There is a new right adnexal complex cyst measuring 4.2 x 3.5 x 4.0 cm that has some layering blood products within it. The left adnexa is unremarkable. OSSEOUS STRUCTURES: Unremarkable. CT/CT abdomen pelvis w IV con IMPRESSION: 1. New subdiaphragmatic abscess anterior to the left lobe of the liver. I suspect this is secondary to an anastomotic leak at the gastrojejunal anastomosis. If the collection is drained percutaneously, eventually a contrast injection study can be performed to document any connection with bowel. 2. Free intraperitoneal air continues to be present. 3. New small bilateral pleural effusions with left basilar atelectasis. 4. New complex right adnexal cyst with layering blood products. 5. Other incidental findings as described above. External Record Review External record reviewed: Inpatient record, Office record and Outpatient record Prescription Management I considered prescription management with: Pain Medication and Antibiotic Chronic Conditions Patient?s care impacted by: Other (s/p gastric bypass) Medications Administered Discontinued Medications Generic Name Dose Route Start Last Admin Trade Name Freq PRN Reason Stop Dose Admin Diatrizoate Meglum/Diatrizoate Sod 30 ml 01/23/24 12:46 01/23/24 12:46 Diatrizoate Meglumine, Sodium 30 Ml Solution PO 01/23/24 12:47 30 ml ONCE ONE Administration Famotidine 20 mg 01/23/24 10:01 01/23/24 10:10 Famotidine/Pf 20 Mg/2 Ml Vial IVPUSH 01/23/24 10:02 20 mg ONCE ONE Administration Hydromorphone HCl 0.5 mg 01/23/24 10:01 01/23/24 10:10 Hydromorphone Hcl 0.5 Mg/0.5 Ml Syringe IVPUSH 01/23/24 10:02 0.5 mg ONCE ONE Administration Protocol Sodium Chloride 1,000 mls @ 999 mls/hr 01/23/24 09:03 01/23/24 11:07 Ns IV 01/23/24 10:03 Infused .Q1H1M ONE Infusion Iohexol 100 ml 01/23/24 12:46 01/23/24 12:46 Iohexol 350 Mg/Ml 100 Ml Infus..Btl IV 01/23/24 12:47 85 ml ONCE ONE Administration Ondansetron HCl 4 mg 01/23/24 10:01 01/23/24 10:09 Ondansetron Hcl 4 Mg/2 Ml Vial IVPUSH 01/23/24 10:02 4 mg ONCE ONE Administration Critical Care Time Critical Care Time Critical Care Time: Yes Total Critical Care Time: 49 Attestation: I have personally provided critical care time exclusive of time spent on separately billable procedures. Time includes review of lab data, radiology results, discussion with consultants, and monitoring for potential decompensation. Intervention performed as documented. Discharge Plan Discharge Clinical Impression: Abscess, subdiaphragmatic Patient Disposition: Admitted As Inpatient Print Language: Persian
[2024-01-23 10:17] VITALS: BP 120/70; PULSE 64; RESP 16; TEMP 36.8; O2SAT 95
[2024-01-23 10:17] LABS: MANUAL DIFF FLAG NO
[2024-01-23 10:20] LABS: Basophils Percent Auto 0.4 % (0-2); Eosinophils Absolute Auto 0.1 X10*3/uL (0.0-0.4); Eosinophils Percent Auto 1.5 % (0-4); Hematocrit 37.4 % (37.0-47.0); Hemoglobin 12.2 g/dl (12.0-16.0); Imm Gran Abs Auto 0.06 X10*3/uL (0.00-0.03); Imm Gran Pct Auto 0.6 % (0.0-0.4); Lymphocytes Absolute Auto 1.2 X10*3/uL (1.2-4.9); Lymphocytes Percent Auto 12.5 % (20-40); Mean Corpuscular HGB Conc 32.6 g/dl (31.0-35.0); Mean Corpuscular Hemoglobin 27.1 pg (27.0-33.0); Mean Corpuscular Volume 82.9 fL (80.0-98.0); Mean Platelet Volume 9.9 fL (9.4-12.3); Monocytes Absolute Auto 0.5 X10*3/uL (0.1-1.2); Monocytes Percent Auto 4.7 % (2-11); Neutrophils Absolute Auto 7.7 x10*3/uL (2.0-8.3); Neutrophils Percent Auto 80.3 % (45-73); Platelet Count 329 X10*3/uL (160-400); Red Blood Count 4.51 X10*6/uL (4.20-5.50); Red Cell Distribution Width 15.3 % (11.0-16.0); White Blood Count 9.6 X10*3/uL (4.8-10.8)
[2024-01-23 10:25] LABS: INTERNATIONAL NORM RATIO 1.1 (0.9-1.1); Prothrombin Time 13.6 SEC (11.1-13.3)
[2024-01-23 10:30] LABS: Lactic Acid 0.7 mmol/L (0.5-2.0)
[2024-01-23 10:37] LABS: Alanine Aminotransferase 60 U/L (0-31); Albumin Level 4.3 g/dL (3.5-5.0); Alkaline Phosphatase 234 U/L (39-117); Anion Gap 16 (12-20); Aspartate Amino Transferase 32 U/L (5-31); Bilirubin Direct 0.2 mg/dL (0.0-0.5); Bilirubin Total 0.6 mg/dL (0.0-1.0); Blood Urea Nitrogen 19 mg/dL (9-16); Calcium 10.5 mg/dL (8.4-10.2); Carbon Dioxide 23 mmol/L (22-29); Chloride 104 mmol/L (96-108); Cholesterol 137 mg/dL (<200); Creatinine Clr Calc Pharmacy 103.4; Estimated Glomerular Filt Rate > 60; Glucose Random 89 mg/dL (60-115); HDL Cholesterol 29 mg/dL (>40); LDL Cholesterol Calculated 90 mg/dL (<100); Lipase 73 U/L (8-78); Magnesium 2.5 mg/dL (1.6-2.6); Phosphorus 4.1 mg/dL (2.7-4.5); Potassium 4.5 mmol/L (3.3-5.1); Sodium 138 mmol/L (135-145); Total Protein 8.5 g/dL (6.5-8.0); Triglycerides 90 mg/dL (<150)
--- NOTE | 2024-01-23 11:01 | PC.NURSE ---
pt verbalizing pain level is a 2/10 post medication administration. pt continues to wait to go to CT at this time. plan of care ongoing. call hull placed within reach.
[2024-01-23 12:05] LABS: HCG Quantitative < 2 mIU/mL
[2024-01-23] MEDS: iohexoL 350 MG/ML 100 ML INFUS..BTL IV (12:46)
[2024-01-23] MEDS: Diatrizoate Meglumine, Sodium 30 ML SOLUTION PO (12:46)
[2024-01-23 13:02] VITALS: BP 108/63; PULSE 69; RESP 16; TEMP 36.8; O2SAT 97
--- NOTE | 2024-01-23 13:43 | PC.NURSE ---
pt returned from CT at this time. vss and up to date. nsr on the monitoring tech. pt verbalizing pain level is increasing but does not want medication at this time. respirations remain even and unlabored. plan of care ongoing. call hull placed within reach.
[2024-01-23 14:22] LABS: Appearance Urine Clear; Color Urine Yellow; Glucose Urine UA Negative (Negative); Leukocyte Esterase Urine Negative (Negative); Nitrite Urine Negative (Negative); PH 6.5 (5.0-9.0); Specific Gravity - Urine >= 1.030 (1.005-1.025); UMIC TRIGGER UACC YES; Urine Blood Small (1+) (Negative); Urine Ketones Negative (Negative); Urine Protein Negative (Neg-Trace)
[2024-01-23 14:32] LABS: Bacteria Urine None Seen (None Seen); Hyaline Casts Urine 0-2 /LPF (0-2); RBC Urine 0-2 /HPF (0-2); Squamous Epithelial Cell Urine 0-2 /HPF (0-2); WBC Urine 0-5 /HPF (0-5)
--- NOTE | 2024-01-23 15:12 | PC.NURSE ---
pt ambulates to the restroom independently w/ a strong steady gait. no use of assistive devices noted. UA obtained/sent to lab. CT results still pending at this time. plan of care ongoing. call hull placed within reach.
[2024-01-23 15:24] VITALS: BP 112/44; PULSE 65; RESP 17; TEMP 36.6; O2SAT 98
[2024-01-23] MEDS: HYDROmorphone HCl 1 MG/ML SYRINGE IVPUSH (16:26)
--- NOTE | 2024-01-23 16:31 | PC.NURSE ---
pt c/o 8/ sharp/stabbing left flank pain. pt medicated per provider order. effectiveness pending. pt speaking w/ admitting provider (dr. hull) at this time. pt aware of plan of care in regards to surgery/being admitted. pt currently has zosyn running through PICC line over 24 hours that she self administered. per verbal bedside order - zosyn dose discontinued at this time. medication now wasted. plan of care ongoing. call kurtis placed within reach.
--- NOTE | 2024-01-23 16:59 | PM.HPGS ---
History of Present Illness History of Present Illness Date of Service: 01/23/24 Chief complaint: flank pain, abdominal abcess Narrative: Daina Larkin is a 33 year old female with a history of gastric bypass in March 2021 presented to the hospital on 01/13/2024 with abdominal pain. Found to have perforated viscus. She was treated conservatively with IV antibiotics, fluids, TPN and lipids. PICC line was placed and ultimately she was discharged home on 01/19/2024. She had been doing well until last evening when she felt sudden pain in her left flank. She described the pain as a burning and sharp shooting pain. Radiating to towards her spine. This was worse with pressure, coughing, deep inspiration. No complaints of painful urination and no identifiable fevers. Conversation was had with the patient this morning and she was advised to go to the emergency room for evaluation. In the emergency room, labs were obtained with no significant leukocytosis or significant electrolyte abnormality. CT scan was obtained, concerning for a right subdiaphragmatic abscess measuring approximately 10 x 5 x 6 cm. Again noted was free intraperitoneal air. Patient is going to be admitted to the hospital for further care. Of note, patient states that since discharge home from the hospital on she had been doing fairly well, still had discomfort lying flat so she would use several pillows to prop herself up in bed. She had been tolerating outpatient TPN, lipids and IV antibiotics. She states that she had absolutely nothing by mouth despite being attempted to do so. She denied any trauma and did not recall any significant forceful sneezing or coughing. Review of Systems Review of Systems: Yes all other systems are reviewed and are negative [facility] Past Medical History Medical History (Updated 01/23/24 @ 17:16 by PRATIBHA Norris) Intestinal malabsorption Intra-abdominal adhesions BMI 34.0-34.9,adult COVID-19 vaccine series completed History of depression Anxiety BMI over 35 BMI 37.0-37.9, adult Vitamin D deficiency Vitamin B12 deficiency Vitamin B1 deficiency GERD (gastroesophageal reflux disease) Back pain Gestational diabetes Asthma, exercise induced Surgical History Surgical History Hx of breast surgery Hx of gastric bypass History of esophagogastroduodenoscopy (EGD) Hx laparoscopic cholecystectomy History of sleeve gastrectomy Social History Social History Household Members: Children Housing: House Are you a primary toddler caregiver to a significant other at home: Yes (2 children, arrangements made for their care in the post-op period) Do you presently have visiting nurse or other home services: No Alcohol intake: current Alcohol intake frequency: holidays/special occasions only Patient Tobacco Use Status: Former Tobacco user Quit Date: 2012 Substance Use Type: Marijuana Advance Directives: No Advance Directives Information Provided: No service: No Current occupational status: employed Meds Allergies Allergy/AdvReac Type Severity Reaction Status Date / Time tomato Allergy Severe itchy Verified 01/23/24 09:34 throat Active Medications: Current Medications Hydromorphone HCl (Hydromorphone Hcl 1 Mg/Ml Syringe) 0.25 mg IVPUSH Q4H PRN; Protocol PRN Reason: Pain, Severe (Pain Scale 7-10) Sodium Chloride (Sodium Chloride 0.45 %) 500 mls @ 125 mls/hr IV .Q4H [facility] Stop: 01/27/24 16:44 Metronidazole (Flagyl) 500 mg in 100 mls @ 100 mls/hr IV Q8H [facility] Acetaminophen (Ofirmev) 1,000 mg in 100 mls @ 16.7 mls/hr IV .Q6H [facility] Piperacillin Sod/Tazobactam (Sod 3.375 gm/ Sodium Chloride) 50 mls @ 100 mls/hr IV RQ6H [facility] Ondansetron HCl (Ondansetron Hcl 4 Mg/2 Ml Vial) 4 mg IVPUSH Q8H PRN PRN Reason: Nausea and Vomiting Pantoprazole Sodium (Pantoprazole Sodium 40 Mg/10 Ml Vial) 40 mg IVPUSH BID [facility] Sodium Chloride (0.9 % Sodium Chloride Flush 3 Ml Syringe) 3 ml IVFLUSH QSHIFT [facility] Home Medications ?Medication ?Instructions ?Recorded ?Confirmed ?Last Taken ?Type levonorgestrel 21 mcg/24 hours (8 1 device intrauterine DIRECTED 12/22/20 01/14/24 Unknown History yrs) 52 mg intrauterine device (Mirena) albuterol sulfate 90 mcg/actuation 1 puff PO Q4H PRN dyspnea 03/12/21 01/14/24 Unknown History aerosol inhaler Physical Exam Vital Signs: Vital Signs: Last Vital Signs Temp 97.9 F 01/23/24 15:24 Pulse 65 01/23/24 15:24 Resp 17 01/23/24 15:24 BP 112/44 L 01/23/24 15:24 Pulse Ox 98 01/23/24 15:24 O2 Del Method Room Air 01/23/24 15:24 BMI result Body Mass Index 24.0 Const: General: cooperative and healthy appearing; No comfortable Orientation/consciousness: patient oriented x3 HEENT: Head: Yes normal to inspection Ears: hearing grossly normal bilaterally Face and sinus: Yes normal facial exam Resp: Effort & Inspection: normal respiratory effort Auscultation: clear to auscultation bilaterally Cardio: Rate: regular rate Rhythm: regular rhythm GI: Palpation (GI): Tenderness to palpation present (GI) in the LUQ : General: Yes CVA tenderness (left) Back/Spine/Pelvis: Back: CVA tenderness (left) Skin: General skin exam: no rashes or lesions noted (left back) Neuro: General: patient oriented x3 Results Results Labs: Short CBC 01/23/24 Range/Units 10:07 WBC 9.6 (4.8-10.8) X10*3/uL Hgb 12.2 D (12.0-16.0) g/dl Hct 37.4 D (37.0-47.0) % Plt Count 329 D (160-400) X10*3/uL BMP 01/23/24 10:07 Sodium 138 Potassium 4.5 Chloride 104 Carbon Dioxide 23 BUN 19 H Creatinine 0.69 Calcium 10.5 H D Liver Function 01/23/24 Range/Units 10:07 Total Bilirubin 0.6 (0.0-1.0) mg/dL Direct Bilirubin 0.2 (0.0-0.5) mg/dL AST 32 H (5-31) U/L ALT 60 H (0-31) U/L Alkaline Phosphatase 234 H (39-117) U/L Albumin 4.3 (3.5-5.0) g/dL Urine 01/23/24 Range/Units 14:12 Urine Color Yellow Urine Appearance Clear Urine pH 6.5 (5.0-9.0) Ur Specific [place] >= 1.030 H (1.005-1.025) Urine Protein Negative (Neg-Trace) mg/dL Urine Glucose (UA) Negative (Negative) mg/dL Abdomen CT scan report/results: report reviewed and image reviewed Assessment and Plan (1) Abscess, subdiaphragmatic: Status: Acute Consult to Interventional Radiology for possible percutaneous drainage. If percutaneous drainage is not possible given the location, she may require surgical intervention. We will continue to follow clinically, currently treating conservatively. IV antibiotics - Zosyn and Flagyl IV analgesia - scheduled acetaminophen and p.r.n. Dilaudid Follow labs Possible repeat CT scan in 1-2 days (2) Perforated viscus: Status: Acute Continue NPO TPN and lipids via PICC line IV antibiotics as above IV PPI (3) Flank pain: Status: Acute Unclear etiology. No urinary symptoms. Possible early presentation of herpes zoster. We will follow closely for any evidence to confirm diagnosis including unilateral dermatomal distribution rash. If positive, consideration for acyclovir 10 milligrams/kilogram IV q.8 hours x 7 days. If in fact this is proven to be herpes zoster, there is no risk of infectious transmission prior to vesicles appearing and after lesions have crusted. We will continue to monitor closely. Plan Case discussed with attending Dr. Myles Quality Stroke Does the patient have a stroke diagnosis?: No VTE Prior VTE?: No VTE Risk Level:: Medical - low VTE Device Contraindication: N/A - Device Ordered VTE Drug Contraindication: Treatment Not Indicated Procedures Date of Service Date of Service: 01/23/24
[2024-01-23] MEDS: metroNIDAZOLE/NS 500 MG/100 ML PIGGYBACK 100 MG IV (17:23)
[2024-01-23] MEDS: Acetaminophen 1,000 MG/100 ML PIGGYBACK 16.7 MG IV ×2 (17:23→23:31)
--- NOTE | 2024-01-23 17:32 | PHA.MEDREC ---
Pharmacy Consult ? Medication Reconciliation Pharmacy has completed the medication reconciliation. Patient discharged 01/18; utilized discharge summary
[2024-01-23 17:55] LABS: Lactic Acid 0.5 mmol/L (0.5-2.0)
--- NOTE | 2024-01-23 19:24 | PC.NURSE ---
pt's self admin of abx through pic line is finished. line flushed and capped
[2024-01-23 21:25] VITALS: BP 96/46; PULSE 56; RESP 17; TEMP 36.7; O2SAT 96
[2024-01-23] MEDS: Pantoprazole Sodium 40 MG/10 ML VIAL IVPUSH (21:27)
[2024-01-23] MEDS: HYDROmorphone HCl 1 MG/ML SYRINGE 0.25 MG IVPUSH (22:10)
[2024-01-24] VITALS (7 sets, daily range): BP systolic 92–125; BP diastolic 48–70; PULSE 58–65; RESP 12–18; TEMP 36.1–36.8; O2SAT 96–97; BMI 24.4
[2024-01-24] MEDS: Piperacillin Sodium/Tazobactam 3.375 GM in 0.9 % Sodium Chloride 50 ML IV ×4 (01:23→18:02)
[2024-01-24] MEDS: HYDROmorphone HCl 1 MG/ML SYRINGE 0.25 MG IVPUSH ×4 (02:21→20:29)
[2024-01-24] MEDS: metroNIDAZOLE/NS 500 MG/100 ML PIGGYBACK 100 MG IV ×3 (02:22→17:01)
--- NOTE | 2024-01-24 03:09 | PC.NURSE ---
pt resting comfortably at this time. no apparent distress noted. breathing even and unlabored. call hull w/in reach
[2024-01-24] MEDS: Acetaminophen 1,000 MG/100 ML PIGGYBACK 16.7 MG IV ×3 (05:31→22:48)
[2024-01-24 05:37] LABS: Albumin Level 3.4 g/dL (3.5-5.0); Anion Gap 16 (12-20); Blood Urea Nitrogen 14 mg/dL (9-16); Calcium 9.1 mg/dL (8.4-10.2); Carbon Dioxide 18 mmol/L (22-29); Chloride 107 mmol/L (96-108); Creatinine Clr Calc Pharmacy 109.7; Estimated Glomerular Filt Rate > 60; Glucose Random 71 mg/dL (60-115); Magnesium 2.2 mg/dL (1.6-2.6); Phosphorus 3.7 mg/dL (2.7-4.5); Sodium 137 mmol/L (135-145)
--- NOTE | 2024-01-24 07:31 | P.PNGS_ITS ---
Subjective Subjective Date of Service: 01/24/24 Patient reports: no new complaints Interval history: Reports continued left mid back pain, described as stabbing and electrical shock, worse with deep breathing and postional change. She also reports mild abdominal discomfort LUQ>RUQ, no complaints of nausea, fevers, chills. Remained on IV ABX/PPI/fluids. Physical Exam 2 Vital Signs: Vital Signs: Last Vital Signs Temp 98.2 F 01/24/24 05:32 Pulse 58 01/24/24 05:32 Resp 16 01/24/24 05:32 BP 101/57 L 01/24/24 05:32 Pulse Ox 96 01/24/24 05:32 O2 Del Method Room Air 01/24/24 05:32 BMI result Body Mass Index 24.0 Const: General: cooperative and no acute distress Resp: Effort & Inspection: normal respiratory effort GI: Palpation (GI): Soft to palpation, Tenderness to palpation present (GI) in the LUQ and no guarding : General: Yes CVA tenderness (left mid back) Back/Spine/Pelvis: Back: CVA tenderness (left mid back) Skin: General skin exam: no rashes or lesions noted Objective Data Active Medications Hydromorphone HCl (Hydromorphone Hcl 1 Mg/Ml Syringe) 0.25 mg IVPUSH Q4H PRN; Protocol PRN Reason: Pain, Severe (Pain Scale 7-10) Last Admin: 01/24/24 02:21 Dose: 0.25 mg Documented By: TIFFANY Sodium Chloride (Sodium Chloride 0.45 %) 500 mls @ 125 mls/hr IV .Q4H [facility] Stop: 01/27/24 16:44 Last Admin: 01/24/24 05:30 Dose: 125 mls/hr Documented By: TIFFANY Metronidazole (Flagyl) 500 mg in 100 mls @ 100 mls/hr IV Q8H [facility] Last Infusion: 01/24/24 03:35 Dose: Infused Documented By: TIFFANY Acetaminophen (Ofirmev) 1,000 mg in 100 mls @ 16.7 mls/hr IV .Q6H [facility] Last Admin: 01/24/24 05:31 Dose: 16.7 mls/hr Documented By: TIFFANY Piperacillin Sod/Tazobactam (Sod 3.375 gm/ Sodium Chloride) 50 mls @ 100 mls/hr IV Q6H [facility] Last Infusion: 01/24/24 02:07 Dose: Infused Documented By: TIFFANY Ondansetron HCl (Ondansetron Hcl 4 Mg/2 Ml Vial) 4 mg IVPUSH Q8H PRN PRN Reason: Nausea and Vomiting Pantoprazole Sodium (Pantoprazole Sodium 40 Mg/10 Ml Vial) 40 mg IVPUSH BID [facility] Last Admin: 01/23/24 21:27 Dose: 40 mg Documented By: TIFFANY Pharmacy Consult (Consult Rx Parenteral Nutrition Ordering) 1 each MISCELLANE DAILY PRN PRN Reason: Consult order Sodium Chloride (0.9 % Sodium Chloride Flush 3 Ml Syringe) 3 ml IVFLUSH QSHIFT [facility] Last Admin: 01/24/24 00:39 Dose: Not Given Documented By: TIFFANY Non-Admin Reason: IV Running Labs 01/23/24 10:07 01/24/24 05:00 Labs: Laboratory Results - last 24 hr 01/23/24 01/23/24 01/23/24 10:07 14:12 17:42 MCV 82.9 MCH 27.1 MCHC 32.6 RDW 15.3 Plt Count 329 D MPV 9.9 Immature Gran % (Auto) 0.6 H Neut % (Auto) 80.3 H Lymph % (Auto) 12.5 L [place] % (Auto) 4.7 Eos % (Auto) 1.5 Baso % (Auto) 0.4 Lymph # (Auto) 1.2 [place] # (Auto) 0.5 Eos # (Auto) 0.1 Baso # (Auto) 0.0 Abs Immat Gran (auto) 0.06 H Absolute Neuts (auto) 7.7 Absolute Nucleated RBC 0.000 Nucleated RBC % (auto) 0.0 PT 13.6 H INR 1.1 Anion Gap 16 Estim Creat Clear Calc 103.4 Estimated GFR > 60 Random Glucose 89 Lactic Acid 0.7 0.5 Calcium 10.5 H D Phosphorus 4.1 Magnesium 2.5 Total Bilirubin 0.6 Direct Bilirubin 0.2 AST 32 H ALT 60 H Alkaline Phosphatase 234 H Total Protein 8.5 H Albumin 4.3 Triglycerides 90 Cholesterol 137 LDL Cholesterol, Calc 90 HDL Cholesterol 29 L Lipase 73 Beta HCG, Quant < 2 Urine Color Yellow Urine Appearance Clear Urine pH 6.5 Ur Specific [place] >= 1.030 H Urine Protein Negative Urine Glucose (UA) Negative Urine Ketones Negative Urine Blood Small (1+) H Urine Nitrite Negative Ur Leukocyte Esterase Negative Urine RBC 0-2 Urine WBC 0-5 Ur Squamous Epith Cells 0-2 Urine Bacteria None Seen Hyaline Casts 0-2 01/24/24 05:00 MCV MCH MCHC RDW Plt Count MPV Immature Gran % (Auto) Neut % (Auto) Lymph % (Auto) [place] % (Auto) Eos % (Auto) Baso % (Auto) Lymph # (Auto) [place] # (Auto) Eos # (Auto) Baso # (Auto) Abs Immat Gran (auto) Absolute Neuts (auto) Absolute Nucleated RBC Nucleated RBC % (auto) PT INR Anion Gap 16 Estim Creat Clear Calc 109.7 Estimated GFR > 60 Random Glucose 71 Lactic Acid Calcium 9.1 D Phosphorus 3.7 Magnesium 2.2 Total Bilirubin Direct Bilirubin AST ALT Alkaline Phosphatase Total Protein Albumin 3.4 L Triglycerides Cholesterol LDL Cholesterol, Calc HDL Cholesterol Lipase Beta HCG, Quant Urine Color Urine Appearance Urine pH Ur Specific [place] Urine Protein Urine Glucose (UA) Urine Ketones Urine Blood Urine Nitrite Ur Leukocyte Esterase Urine RBC Urine WBC Ur Squamous Epith Cells Urine Bacteria Hyaline Casts Procedures Date of Service Date of Service: 01/24/24 Progress Note: A&P Assessment and plan (1) Abscess, subdiaphragmatic: Status: Acute Assessment and Plan: IR consult pending for possible drainage of collection subdiaphragmatic anterior to liver, may need surgical intervention, continue to conservatively monitor for now Continue IV ABX - zosyn/flagyl (2) Perforated viscus: Status: Acute Assessment and Plan: NPO IVF TPN/Lipids IV analgesia (3) Flank pain: Status: Acute Assessment and Plan: No changes Monitor for rash Plan Patient seen with and discussed with Dr. Myles Time Spent With Patient Time: Total time managing care of this patient today ____ minutes. Quality Stroke Does the patient have a stroke diagnosis?: No VTE Prior VTE?: No VTE Risk Level:: Medical - low VTE Device Contraindication: N/A - Device Ordered VTE Drug Contraindication: Treatment Not Indicated
--- NOTE | 2024-01-24 08:02 | PM.PNGS ---
Subjective Subjective Date of Service: 01/24/24 Interval history: Patient returns with left and right side pleuritic-type pain. Patient was diagnosed with a contained perforated anastomotic ulcer approximately 10 days ago. Did not require surgery as the perforation was contained and the patient did not become septic. Denies any fever prior to this admission and the abdominal pain has remained improved. Denies any SOB and the pain seems to more intense when she takes a deep breath or lays supine. Physical Exam Vital Signs: Vital Signs: Last Vital Signs Temp 98.2 F 01/24/24 05:32 Pulse 58 01/24/24 05:32 Resp 16 01/24/24 05:32 BP 101/57 L 01/24/24 05:32 Pulse Ox 96 01/24/24 05:32 O2 Del Method Room Air 01/24/24 05:32 BMI result Body Mass Index 24.0 GI: Palpation (GI): Soft to palpation and Tenderness to palpation present (GI) (mild LUQ tenderness) Extrem: Right lower extremity: normal to inspection (no calf tenderness) Left lower extremity: normal to inspection (no calf tenderness) Objective Data Active Medications Hydromorphone HCl (Hydromorphone Hcl 1 Mg/Ml Syringe) 0.25 mg IVPUSH Q4H PRN; Protocol PRN Reason: Pain, Severe (Pain Scale 7-10) Last Admin: 01/24/24 02:21 Dose: 0.25 mg Documented By: TIFFANY Sodium Chloride (Sodium Chloride 0.45 %) 500 mls @ 125 mls/hr IV .Q4H [facility] Stop: 01/27/24 16:44 Last Admin: 01/24/24 05:30 Dose: 125 mls/hr Documented By: TIFFANY Metronidazole (Flagyl) 500 mg in 100 mls @ 100 mls/hr IV Q8H [facility] Last Infusion: 01/24/24 03:35 Dose: Infused Documented By: TIFFANY Acetaminophen (Ofirmev) 1,000 mg in 100 mls @ 16.7 mls/hr IV .Q6H [facility] Last Admin: 01/24/24 05:31 Dose: 16.7 mls/hr Documented By: TIFFANY Piperacillin Sod/Tazobactam (Sod 3.375 gm/ Sodium Chloride) 50 mls @ 100 mls/hr IV Q6H [facility] Last Infusion: 01/24/24 02:07 Dose: Infused Documented By: TIFFANY Ondansetron HCl (Ondansetron Hcl 4 Mg/2 Ml Vial) 4 mg IVPUSH Q8H PRN PRN Reason: Nausea and Vomiting Pantoprazole Sodium (Pantoprazole Sodium 40 Mg/10 Ml Vial) 40 mg IVPUSH BID [facility] Last Admin: 01/23/24 21:27 Dose: 40 mg Documented By: TIFFANY Pharmacy Consult (Consult Rx Parenteral Nutrition Ordering) 1 each MISCELLANE DAILY PRN PRN Reason: Consult order Sodium Chloride (0.9 % Sodium Chloride Flush 3 Ml Syringe) 3 ml IVFLUSH QSHIFT [facility] Last Admin: 01/24/24 00:39 Dose: Not Given Documented By: TIFFANY Non-Admin Reason: IV Running Labs 01/23/24 10:07 01/24/24 05:00 Labs: Laboratory Results - last 24 hr 01/23/24 01/23/24 01/23/24 10:07 14:12 17:42 MCV 82.9 MCH 27.1 MCHC 32.6 RDW 15.3 Plt Count 329 D MPV 9.9 Immature Gran % (Auto) 0.6 H Neut % (Auto) 80.3 H Lymph % (Auto) 12.5 L [place] % (Auto) 4.7 Eos % (Auto) 1.5 Baso % (Auto) 0.4 Lymph # (Auto) 1.2 [place] # (Auto) 0.5 Eos # (Auto) 0.1 Baso # (Auto) 0.0 Abs Immat Gran (auto) 0.06 H Absolute Neuts (auto) 7.7 Absolute Nucleated RBC 0.000 Nucleated RBC % (auto) 0.0 PT 13.6 H INR 1.1 Anion Gap 16 Estim Creat Clear Calc 103.4 Estimated GFR > 60 Random Glucose 89 Lactic Acid 0.7 0.5 Calcium 10.5 H D Phosphorus 4.1 Magnesium 2.5 Total Bilirubin 0.6 Direct Bilirubin 0.2 AST 32 H ALT 60 H Alkaline Phosphatase 234 H Total Protein 8.5 H Albumin 4.3 Triglycerides 90 Cholesterol 137 LDL Cholesterol, Calc 90 HDL Cholesterol 29 L Lipase 73 Beta HCG, Quant < 2 Urine Color Yellow Urine Appearance Clear Urine pH 6.5 Ur Specific [place] >= 1.030 H Urine Protein Negative Urine Glucose (UA) Negative Urine Ketones Negative Urine Blood Small (1+) H Urine Nitrite Negative Ur Leukocyte Esterase Negative Urine RBC 0-2 Urine WBC 0-5 Ur Squamous Epith Cells 0-2 Urine Bacteria None Seen Hyaline Casts 0-2 01/24/24 05:00 MCV MCH MCHC RDW Plt Count MPV Immature Gran % (Auto) Neut % (Auto) Lymph % (Auto) [place] % (Auto) Eos % (Auto) Baso % (Auto) Lymph # (Auto) [place] # (Auto) Eos # (Auto) Baso # (Auto) Abs Immat Gran (auto) Absolute Neuts (auto) Absolute Nucleated RBC Nucleated RBC % (auto) PT INR Anion Gap 16 Estim Creat Clear Calc 109.7 Estimated GFR > 60 Random Glucose 71 Lactic Acid Calcium 9.1 D Phosphorus 3.7 Magnesium 2.2 Total Bilirubin Direct Bilirubin AST ALT Alkaline Phosphatase Total Protein Albumin 3.4 L Triglycerides Cholesterol LDL Cholesterol, Calc HDL Cholesterol Lipase Beta HCG, Quant Urine Color Urine Appearance Urine pH Ur Specific [place] Urine Protein Urine Glucose (UA) Urine Ketones Urine Blood Urine Nitrite Ur Leukocyte Esterase Urine RBC Urine WBC Ur Squamous Epith Cells Urine Bacteria Hyaline Casts Procedures Date of Service Date of Service: 01/24/24 Progress Note: A&P Assessment and plan (1) Perforated viscus: Status: Acute Assessment and Plan: 1. Continue NPO, IV antibiotics and TPN 2. Continue Arixtra 3. IR consult for possible drainageof the subdiaphragmatic abscess 4. Discussed findings with the patient (2) Intestinal malabsorption: Status: Acute Time Spent With Patient Time: Total time managing care of this patient today _20__ minutes. Quality Stroke Does the patient have a stroke diagnosis?: No VTE Prior VTE?: No VTE Risk Level:: Medical - low VTE Device Contraindication: N/A - Device Ordered VTE Drug Contraindication: Treatment Not Indicated
[2024-01-24] MEDS: Pantoprazole Sodium 40 MG/10 ML VIAL IVPUSH ×2 (08:04→20:32)
[2024-01-24] MEDS: Sodium Chloride 0.45 % 1,000 ML 999 ML IV (08:10)
[2024-01-24] MEDS: 0.9 % Sodium Chloride Flush 3 ML SYRINGE IVFLUSH (08:10)
[2024-01-24] MEDS: Sodium Chloride 0.45 % 1,000 ML 125 ML IV ×2 (09:41→17:03)
--- NOTE | 2024-01-24 10:11 | PM.EVENT ---
Event Note Date of Service: 01/24/24 Event Note: IR consult placed by Bariatric service regarding CT finding suggestive of perforated ulcer. Discussed with PRATIBHA Garcia. There is no abscess nor safe access to place a drain in the left subdiaphragmatic space. A drain can be placed in to the air fluid level/collection anterior to the left lobe of the liver. At this time that will continue observation and contact us if they wish to pursue any drainage procedure. Gary MCKINNON Interventional Radiology Time Spent With Patient Time: Total time managing care of this patient today ____ minutes.
--- NOTE | 2024-01-24 10:59 | PC.NURSE ---
PICC line dressing changed today at this time. Sterile technique. Pt tolerated well. Was supposed to be changed yesterday from [facility]NA however was not done. Site with no s/s infection. slight purple skin color.
--- NOTE | 2024-01-24 11:13 | MHC.CLN ---
FAMILIAR WITH PT FROM PREVIOUS ADMISSION ON 01/13/24 D/C 01/19/24 PT REQUIRES TPN FOR NUTRITION SUPPORT PT RECEIVED OUT PT TPN UPON D/C FROM PREVIOUS ADMISSION PT WITH PICC LINE IN PLACE REVIEWED LABS DISCUSSED WITH PHARMACY RECOMMEND RE-STARTING TPN AT 55ML/HR WITH 63G LIPIDS PROVIDES 1505 KCALS(23KCALS/KG), 132G DEXTROSE, 106G PROTEIN (1.59G/KG) REPLETE LYTES NEEDED SEE FULL CLINICAL NUTRITION ASSESSMENT
--- NOTE | 2024-01-24 11:47 | MHC.CM.PN ---
Addendum entered by Amairani Pritchett 01/24/24 12:38: HCP on file, Mother Meseret Steele. Original Note: Bariatric patient S/P Gastric sleeve complications s/p gastric bipass 2020. Last week patient admitted with a micro perf. She discharged to home with TPN + IV ABX. She returns with abdominal pain. DX Abscess, the plan is to drain in IR. DP Home with resumption of [facility]. Patient will arrange for a ride home from her Mother or Fiance.
--- NOTE | 2024-01-24 12:59 | PC.NURSE ---
Pt refusing Compression Boots
[2024-01-24] MEDS: Parenteral Nutrition 1,320 ML 55 ML IV (21:32)
--- NOTE | 2024-01-24 21:45 | PC.NURSE ---
TPN startred ,IV fluids placed on hold per PA Chao
[2024-01-25] MEDS: 0.9 % Sodium Chloride Flush 3 ML SYRINGE IVFLUSH ×2 (00:54→16:29)
[2024-01-25] MEDS: Piperacillin Sodium/Tazobactam 3.375 GM in 0.9 % Sodium Chloride 50 ML IV ×4 (00:55→19:00)
[2024-01-25] MEDS: metroNIDAZOLE/NS 500 MG/100 ML PIGGYBACK 100 MG IV ×3 (01:36→17:19)
[2024-01-25 03:24] VITALS: BP 119/55; PULSE 54; RESP 16; TEMP 36.6; O2SAT 96
[2024-01-25] MEDS: Acetaminophen 1,000 MG/100 ML PIGGYBACK 16.7 MG IV ×4 (04:59→22:41)
[2024-01-25 05:29] VITALS: RESP 18
[2024-01-25 06:05] LABS: Albumin Level 3.3 g/dL (3.5-5.0); Anion Gap 11 (12-20); Blood Urea Nitrogen 14 mg/dL (9-16); Calcium 8.9 mg/dL (8.4-10.2); Carbon Dioxide 21 mmol/L (22-29); Chloride 107 mmol/L (96-108); Creatinine Clr Calc Pharmacy 118.8; Estimated Glomerular Filt Rate > 60; Glucose Random 97 mg/dL (60-115); Magnesium 2.2 mg/dL (1.6-2.6); Phosphorus 3.1 mg/dL (2.7-4.5); Potassium 3.9 mmol/L (3.3-5.1); Sodium 135 mmol/L (135-145)
[2024-01-25 07:40] VITALS: BP 111/61; PULSE 58; RESP 16; TEMP 36.1; O2SAT 97
--- NOTE | 2024-01-25 07:46 | P.PNGS_ITS ---
Subjective Subjective Date of Service: 01/25/24 Patient reports: no new complaints Interval history: 33 yo female admitted with left flank/back pain and recent hx of perforated viscus. over the last 24 hrs she has been OOB walking on the unit and required IV dilaudid twice for her back pain. Still described as stabbing and burning made worse with movement, positional change and deep breathing. Continues use of IS. IR discussion and they are able to place drain in RUQ collection if necessary. Overall she reports continued improvement in abdominal pain form initial perforated viscus and would not have come back to the hospital but for the new left back pain. Physical Exam 2 Vital Signs: Vital Signs: Last Vital Signs Temp 96.9 F 01/25/24 07:40 Pulse 58 01/25/24 07:40 Resp 16 01/25/24 07:40 BP 111/61 01/25/24 07:40 Pulse Ox 97 01/25/24 07:40 O2 Del Method Room Air 01/25/24 07:40 BMI result Body Mass Index 24.4 GI: Palpation (GI): Soft to palpation and Tenderness to palpation present (GI) (minimal luq) Skin: General skin exam: no rashes or lesions noted Objective Data Active Medications Hydromorphone HCl (Hydromorphone Hcl 1 Mg/Ml Syringe) 0.25 mg IVPUSH Q4H PRN; Protocol PRN Reason: Pain, Severe (Pain Scale 7-10) Last Admin: 01/24/24 20:29 Dose: 0.25 mg Documented By: CINDY Metronidazole (Flagyl) 500 mg in 100 mls @ 100 mls/hr IV Q8H [facility] Last Infusion: 01/25/24 02:36 Dose: Infused Documented By: JOVON Acetaminophen (Ofirmev) 1,000 mg in 100 mls @ 16.7 mls/hr IV .Q6H [facility] Last Admin: 01/25/24 04:59 Dose: 16.7 mls/hr Documented By: JOVON Piperacillin Sod/Tazobactam (Sod 3.375 gm/ Sodium Chloride) 50 mls @ 100 mls/hr IV Q6H [facility] Last Infusion: 01/25/24 07:07 Dose: Infused Documented By: VENLA Nutrition (Parenteral) (Parenteral Nutrition) 1,320 mls @ 55 mls/hr IV .Q24H [facility]; Protocol Stop: 01/25/24 20:59 Last Admin: 01/24/24 21:32 Dose: 55 mls/hr Documented By: CINDY Sodium Chloride (Sodium Chloride 0.45 %) 500 mls @ 125 mls/hr IV .Q4H [facility] Stop: 01/28/24 07:09 Ondansetron HCl (Ondansetron Hcl 4 Mg/2 Ml Vial) 4 mg IVPUSH Q8H PRN PRN Reason: Nausea and Vomiting Pantoprazole Sodium (Pantoprazole Sodium 40 Mg/10 Ml Vial) 40 mg IVPUSH BID [facility] Last Admin: 01/24/24 20:32 Dose: 40 mg Documented By: CINDY Pharmacy Consult (Consult Rx Parenteral Nutrition Ordering) 1 each MISCELLANE DAILY PRN PRN Reason: Consult order Sodium Chloride (0.9 % Sodium Chloride Flush 3 Ml Syringe) 3 ml IVFLUSH QSHIFT [facility] Last Admin: 01/25/24 00:54 Dose: 3 ml Documented By: JOVON Labs 01/23/24 10:07 01/25/24 05:38 Labs: Laboratory Results - last 24 hr 01/25/24 05:38 Hold Purple Top SEE NOTE Anion Gap 11 L Estim Creat Clear Calc 118.8 Estimated GFR > 60 Random Glucose 97 Calcium 8.9 Phosphorus 3.1 Magnesium 2.2 Albumin 3.3 L Microbiology Microbiology Results: Microbiology 01/23/24 10:06 Blood Culture - Preliminary Blood - Venous No growth after 24 hours. 01/23/24 10:15 Blood Culture - Preliminary Blood - Venous No growth after 24 hours. Procedures Date of Service Date of Service: 01/25/24 Progress Note: A&P Assessment and plan (1) Flank pain: Status: Acute Assessment and Plan: differential remains early shingles, although no evidnce of rash. MSK strain. Pleural effusion/atelectasis Continue IV acetaminophen, prn dilaudid, IS, frequent ambulation (2) Abscess, subdiaphragmatic: Status: Acute Assessment and Plan: Zosyn/flagyl IR can place drain if necessary, continue conservative management at this time (3) Perforated viscus: Status: Acute Assessment and Plan: NPO, IVF, TPN/Lipids ambulation follow labs Has TPN set up as outpt already so will be all set when appropriate for DC Plan Discussed in depth w Dr Myles Time Spent With Patient Time: Total time managing care of this patient today ____ minutes. Quality Stroke Does the patient have a stroke diagnosis?: No VTE Prior VTE?: No VTE Risk Level:: Medical - low VTE Device Contraindication: N/A - Device Ordered VTE Drug Contraindication: Treatment Not Indicated
--- NOTE | 2024-01-25 07:58 | PM.PNGS ---
Subjective Subjective Date of Service: 01/25/24 Interval history: Overall feels well. No fever or new symptoms. Continues to have LUQ pain especially with activities D/w IR: subdiaphragmatic fluid collection is accessible and can be drained, if needed Physical Exam Vital Signs: Vital Signs: Last Vital Signs Temp 96.9 F 01/25/24 07:40 Pulse 58 01/25/24 07:40 Resp 16 01/25/24 07:40 BP 111/61 01/25/24 07:40 Pulse Ox 97 01/25/24 07:40 O2 Del Method Room Air 01/25/24 07:40 BMI result Body Mass Index 24.4 GI: Palpation (GI): Tenderness to palpation present (GI) (mild LUQ tenderness) Objective Data Active Medications Hydromorphone HCl (Hydromorphone Hcl 1 Mg/Ml Syringe) 0.25 mg IVPUSH Q4H PRN; Protocol PRN Reason: Pain, Severe (Pain Scale 7-10) Last Admin: 01/24/24 20:29 Dose: 0.25 mg Documented By: CINDY Metronidazole (Flagyl) 500 mg in 100 mls @ 100 mls/hr IV Q8H [facility] Last Infusion: 01/25/24 02:36 Dose: Infused Documented By: JOVON Acetaminophen (Ofirmev) 1,000 mg in 100 mls @ 16.7 mls/hr IV .Q6H [facility] Last Admin: 01/25/24 04:59 Dose: 16.7 mls/hr Documented By: JOVON Piperacillin Sod/Tazobactam (Sod 3.375 gm/ Sodium Chloride) 50 mls @ 100 mls/hr IV Q6H [facility] Last Infusion: 01/25/24 07:07 Dose: Infused Documented By: FLAVIA Nutrition (Parenteral) (Parenteral Nutrition) 1,320 mls @ 55 mls/hr IV .Q24H [facility]; Protocol Stop: 01/25/24 20:59 Last Admin: 01/24/24 21:32 Dose: 55 mls/hr Documented By: CINDY Sodium Chloride (Sodium Chloride 0.45 %) 500 mls @ 125 mls/hr IV .Q4H [facility] Stop: 01/28/24 07:09 Ondansetron HCl (Ondansetron Hcl 4 Mg/2 Ml Vial) 4 mg IVPUSH Q8H PRN PRN Reason: Nausea and Vomiting Pantoprazole Sodium (Pantoprazole Sodium 40 Mg/10 Ml Vial) 40 mg IVPUSH BID [facility] Last Admin: 01/24/24 20:32 Dose: 40 mg Documented By: CINDY Pharmacy Consult (Consult Rx Parenteral Nutrition Ordering) 1 each MISCELLANE DAILY PRN PRN Reason: Consult order Sodium Chloride (0.9 % Sodium Chloride Flush 3 Ml Syringe) 3 ml IVFLUSH QSHIFT [facility] Last Admin: 01/25/24 00:54 Dose: 3 ml Documented By: JOVON Labs 01/23/24 10:07 01/25/24 05:38 Labs: Laboratory Results - last 24 hr 01/25/24 05:38 Hold Purple Top SEE NOTE Anion Gap 11 L Estim Creat Clear Calc 118.8 Estimated GFR > 60 Random Glucose 97 Calcium 8.9 Phosphorus 3.1 Magnesium 2.2 Albumin 3.3 L Microbiology Microbiology Results: Microbiology 01/23/24 10:06 Blood Culture - Preliminary Blood - Venous No growth after 24 hours. 01/23/24 10:15 Blood Culture - Preliminary Blood - Venous No growth after 24 hours. Procedures Date of Service Date of Service: 01/25/24 Progress Note: A&P Assessment and plan (1) Abscess, subdiaphragmatic: Status: Acute Plan 1. Continue IV antibiotics, NPO, TPN 2. Drainage of the abscess with CT quidance only if patient becomes septic Discussed with patient Time Spent With Patient Time: Total time managing care of this patient today __15__ minutes. Quality Stroke Does the patient have a stroke diagnosis?: No VTE Prior VTE?: No VTE Risk Level:: Medical - low VTE Device Contraindication: N/A - Device Ordered VTE Drug Contraindication: Treatment Not Indicated
[2024-01-25] MEDS: Pantoprazole Sodium 40 MG/10 ML VIAL IVPUSH ×2 (08:01→20:48)
[2024-01-25] MEDS: HYDROmorphone HCl 1 MG/ML SYRINGE 0.25 MG IVPUSH ×2 (08:10→21:34)
--- NOTE | 2024-01-25 08:44 | MHC.CM.PN ---
Patient readmit ab pain+ Abscess+. Plan to drain in IR if patient becomes septic. [facility] is following for discharge. DP resumption of infusion services: TPN and IV ABX. Patient will arrange for a ride home from a family member.
--- NOTE | 2024-01-25 10:42 | MHC.CLN ---
F/U PT REQUIRES TPN FOR NUTRITION SUPPORT. PICC LINE IN PLACE. REVIEWED LABS. COMMUNICATED WITH PHARMACY. RECOMMEND CONTINUE TPN AT MAX GOAL RATE: TPN AT 55ML/HR WITH 63G LIPIDS PROVIDES 1505 KCALS(23KCALS/KG), 132G DEXTROSE, 106G PROTEIN (1.59G/KG) REPLETE LYTES NEEDED. FOLLOW FOR TPN TOLERANCE.
[2024-01-25 15:20] VITALS: BP 106/59; PULSE 54; RESP 14; TEMP 36.6; O2SAT 97
[2024-01-25 19:29] VITALS: BP 113/65; PULSE 63; RESP 14; TEMP 36.2; O2SAT 96
[2024-01-25] MEDS: Parenteral Nutrition 1,320 ML 55 ML IV (20:49)
[2024-01-25 23:11] VITALS: RESP 18
[2024-01-26] MEDS: 0.9 % Sodium Chloride Flush 3 ML SYRINGE IVFLUSH ×2 (01:01→09:57)
[2024-01-26] MEDS: Piperacillin Sodium/Tazobactam 3.375 GM in 0.9 % Sodium Chloride 50 ML IV ×3 (01:01→13:08)
[2024-01-26] MEDS: metroNIDAZOLE/NS 500 MG/100 ML PIGGYBACK 100 MG IV ×2 (01:32→09:57)
[2024-01-26 04:00] VITALS: BP 101/51; PULSE 50; RESP 16; TEMP 36.4; O2SAT 96
[2024-01-26] MEDS: Acetaminophen 1,000 MG/100 ML PIGGYBACK 16.7 MG IV ×2 (04:46→10:34)
[2024-01-26 06:54] LABS: Baso%MD 0.3 %; Hematocrit 27.7 % (37.0-47.0); Hemoglobin 9.1 g/dl (12.0-16.0); IG%MD 0.3 %; Lymph%MD 16.4 %; Mean Corpuscular HGB Conc 32.9 g/dl (31.0-35.0); Mean Corpuscular Hemoglobin 27.6 pg (27.0-33.0); Mean Corpuscular Volume 83.9 fL (80.0-98.0); Mean Platelet Volume 10.6 fL (9.4-12.3); Mono%MD 5.2 %; Neut%MD 75.8 %; Platelet Count 324 X10*3/uL (160-400); White Blood Count 5.9 X10*3/uL (4.8-10.8)
[2024-01-26 07:03] LABS: Albumin Level 3.4 g/dL (3.5-5.0); Anion Gap 13 (12-20); Blood Urea Nitrogen 15 mg/dL (9-16); Calcium 9.1 mg/dL (8.4-10.2); Carbon Dioxide 20 mmol/L (22-29); Chloride 110 mmol/L (96-108); Creatinine Clr Calc Pharmacy 122.9; Estimated Glomerular Filt Rate > 60; Glucose Random 104 mg/dL (60-115); Magnesium 2.1 mg/dL (1.6-2.6); Phosphorus 3.1 mg/dL (2.7-4.5); Sodium 139 mmol/L (135-145)
[2024-01-26 07:52] LABS: Band Neutrophils Percent 0 % (3-5); Basophils Abs Manual 0.1 X10*3/uL (0.0-0.2); Basophils Percent Manual 1 % (0-2); Eosinophils Absolute Manual 0.2 X10*3/uL (0.0-0.4); Eosinophils Percent Manual 3 % (0-4); Lymphocytes Absolute Manual 1.2 X10*3/uL (1.2-4.9); Lymphocytes Percent Manual 20 % (20-40); Monocytes Absolute Manual 0.2 X10*3/uL (0.1-1.2); Monocytes Percent Manual 4 % (2-11); Neutrophils Absolute Manual 4.2 X10*3/uL (2.0-8.3); Neutrophils Percent Manual 72 % (45-73)
[2024-01-26 07:53] LABS: Platelet Estimate NORMAL (NORMAL); RBC Morphology NORMAL
[2024-01-26 07:54] LABS: Platelet Morphology Comment NORMAL
[2024-01-26 08:00] VITALS: BP 110/67; PULSE 56; RESP 12; TEMP 36.3; O2SAT 97
[2024-01-26] MEDS: Pantoprazole Sodium 40 MG/10 ML VIAL IVPUSH (09:58)
--- NOTE | 2024-01-26 13:30 | PM.DS ---
DS: Providers Provider Date of Service: 01/26/24 Date of admission: 01/23/24 16:45 Primary care physician: GABRIELA Murray DS: Diagnosis Discharge Diagnosis (1) Flank pain: Status: Acute (2) Abscess, subdiaphragmatic: Status: Acute (3) Perforated viscus: Status: Acute DS: Summary Hospital Course Hospital Course: Patient is a 33-year-old female who initially presented to the hospital on 01/14/2024 with abdominal pain, found to have perforated viscus. She was treated without surgical intervention, requiring IV antibiotics, PICC line, ultimately TPN and lipids and discharged home on 01/19 24. She presented again to the emergency room on 01/23/2024 at my direction due to complaints of new onset left flank and back pain, concerning for possible abscess. Workup was negative for leukocytosis however CT scan was concerning for possible subdiaphragmatic abscess on the right side. She continued on IV Zosyn, Flagyl was restarted and she was monitored conservatively. She remained on TPN, IV analgesia and early ambulation. No clear etiology of the stabbing and burning left back/flank pain. Differential includes left atelectasis, pleural effusion, zoster. She did not show evidence of rash or hypoxia. She utilized incentive spirometer with improvement. She declined any significant worsening of abdominal pain specifically. She did not show evidence of sepsis, fevers, leukocytosis and is going to be discharged home today. She will continue Zosyn, TPN, lipids, fluids, Protonix, Arixtra in the outpatient setting with a plan for upper GI with Gastrografin somewhere around 02/09/2024. She will continue Zosyn through that time. Time Attestation Total time managing care of this patient today: 25 mintues. Discharge Coordination Time (in mins): 25 Quality: Safe Use of Opioids Does Pt have an Active Cancer Diagnosis on the Problem List?: No Quality: Stroke Does the patient have a stroke diagnosis?: No Physical Exam Vital Signs: Vital Signs: Last Vital Signs Temp 97.4 F 01/26/24 08:00 Pulse 56 01/26/24 08:00 Resp 12 01/26/24 08:00 BP 110/67 01/26/24 08:00 Pulse Ox 97 01/26/24 08:00 O2 Del Method Room Air 01/26/24 08:00 BMI result Body Mass Index 24.4 Const: General: cooperative and no acute distress Resp: Effort & Inspection: normal respiratory effort GI: Palpation (GI): Soft to palpation, Tenderness to palpation present (GI) (Minimal tenderness in the left upper quadrant) and no guarding Skin: General skin exam: no rashes or lesions noted Extrem: Right upper extremity: shoulder/upper arm (PICC line) DS: Data Data Completed and Pending Completed studies during hospitalization [Text1]: Procedures Bypass Stomach to Jejunum, Percutaneous Endoscopic Approach (03/18/21) Insertion of Infusion Device into Superior Vena Cava, Percutaneous Approach (01/14/24) Release Peritoneum, Percutaneous Endoscopic Approach (03/18/21) Ultrasonography of Superior Vena Cava, Guidance (01/14/24) Labs on day of discharge: Laboratory Results - last 24 hr 01/26/24 05:38 WBC 5.9 RBC 3.30 L D Hgb 9.1 L D Hct 27.7 L D MCV 83.9 MCH 27.6 MCHC 32.9 RDW 15.0 Plt Count 324 MPV 10.6 Absolute Nucleated RBC 0.000 Nucleated RBC % (auto) 0.0 Neutrophils % (Manual) 72 Band Neutrophils % 0 L Lymphocytes % (Manual) 20 Monocytes % (Manual) 4 Eosinophils % (Manual) 3 Basophils % (Manual) 1 Abs Neuts (Manual) 4.2 Lymphocytes # (Manual) 1.2 Monocytes # (Manual) 0.2 Eosinophils # (Manual) 0.2 Basophils # (Manual) 0.1 Platelet Estimate NORMAL Plt Morphology Comment NORMAL RBC Morphology NORMAL Sodium 139 Potassium 4.0 Chloride 110 H Carbon Dioxide 20 L Anion Gap 13 BUN 15 Creatinine 0.58 Estim Creat Clear Calc 122.9 Estimated GFR > 60 Random Glucose 104 Calcium 9.1 Phosphorus 3.1 Magnesium 2.1 Albumin 3.4 L Preliminary micro results at discharge 01/23/24 10:06 Blood Culture - Preliminary Blood - Venous No growth after 48 hours. 01/23/24 10:15 Blood Culture - Preliminary Blood - Venous No growth after 48 hours. Discharge Plan Discharge Anticipated Discharge Date/Time: 01/26/24 14:00 Patient Disposition: Home Health Service Discharge Diagnosis: perforated viscus, left flank pain Referrals: Beth Paul FNP [Primary Care Provider] - 1 Week Discharge Medications: New pantoprazole [Protonix] 40 mg Recon Soln 40 mg IVPUSH BID Qty: 1 0RF Continued fondaparinux [Arixtra] 2.5 mg/0.5 mL syringe 2.5 mg subcut DAILY 30 Days Qty: 15 0RF albuterol sulfate 90 mcg/actuation HFA aerosol inhaler 1 puff PO Q4H PRN (Reason: dyspnea) Patient Comments: last used end of January piperacillin-tazobactam 3.375 gram recon soln 3.375 g IV Q6H 4 Days acetaminophen 650 mg suppository 650 mg ME Q6H PRN (Reason: pain) Qty: 50 1RF Mirena 20 mcg/24 hours (6 yrs) 52 mg intrauterine device 1 device intrauterine DIRECTED Discharge Orders: Discharge Order (Routine); Ordered 01/26/24 Ordered By: Chao Garcia Activity on Discharge: As tolerated Stand Alone Forms: Patient Portal Discharge page Print Language: Ukrainian Care Plan Goals: NPO, heal perforated viscus, Health Concerns: perforated viscus Plan of Treatment: Continue NPO IV Fluids IV Antibiotics IV Proton Pump Inhibitor Continue incentive spirometry 10 x per hour while awake TPN/Lipids via PICC Ambulate in your house every hour while awake Assessment: Improved from admission flank pain and perforated viscus
--- NOTE | 2024-01-26 13:54 | W.MHC.F2F ---
Service Date Service Date: 01/26/24 Encounter Date of encounter: 01/26/24 Reasons for Services Signs and symptoms assessed: perforated viscus Reason for residential: administration of IV, SQ, or IM injection and central line care Homebound: Leaving the home is medically contraindicated at this time without the asist of a device and/or another person due th the listed conditions above and below. Reason homebound: pain with ambulation and unable to drive Certification: Based on the above findings, I certify that this patient is confined to the home and needs intermittent residential care, physical therapy and/or speech therapy, or continues to need occupational therapy. The patient is under my care, and I have initiated the establishment of the plan of care. The patient will be followed by a physician who will periodically review the plan of care. Time Spent With Patient Time: Total time managing care of this patient today ____ minutes.
--- NOTE | 2024-01-26 14:53 | MHC.CM.PN ---
Patient is discharged today to home. [facility] home infusion will resume services. The patient will resume TPN, Zosyn and Protonix. All discharge info was provided to [facility]. Patient has arranged for her Mother to provide transportation home.
[2024-01-26] MEDS: HYDROmorphone HCl 1 MG/ML SYRINGE 0.25 MG IVPUSH (15:30)
== END 2024-01-26 15:39 | disposition home health service (06) | DRG 252 ==
LOC: HO.ED 16:00 → HO.EDOVER 17:27 → HO.S3 22:18 → HO.EDOVER 22:40 → HO.S3 01-24 07:19
PROVIDERS: Physician Assistant; Physician Assistant Surgical; Admitting Provider Surgery; Emergency Provider Emergency Medicine; PCP Nurse Practitioner Family; Visit Provider Surgery
DX: K95.89 Other complications of other bariatric procedure (principal); K65.1 Peritoneal abscess; K28.5 Chronic or unspecified gastrojejunal ulcer with perforation; B02.9 Zoster without complications; Z98.84 Bariatric surgery status; Z87.891 Personal history of nicotine dependence; Z79.899 Other long term (current) drug therapy
CPT/HCPCS: 36415; 74177; 80048; 80061; 80076; 81001; 82040; 83605; 83690; 83735; 84100; 84702; 85007; 85025; 85027; 85610; 87040; 99285; C9113; J0131; J1170; J1836; J2405; J2543; Q9967

== ENCOUNTER → 2024-01-23 16:45 | Outpatient (BNV) | payer MEDICAID, SELFPAY | PROVIDERS: Admitting Provider Physician Assistant Surgical; Emergency Provider Emergency Medicine; PCP Nurse Practitioner Family; Visit Provider Physician Assistant Surgical | DX: R10.9 Unspecified abdominal pain (principal); K65.1 Peritoneal abscess; R19.8 Other specified symptoms and signs involving the digestive system and abdomen | CPT/HCPCS: 99223; 99231; 99232; 99238; 99499; G0180 ==

== ENCOUNTER 2024-02-02 10:23 | Outpatient (REF) | payer MEDICAID, SELFPAY ==
[2024-02-02 11:34] LABS: Anion Gap 11 (12-20); Blood Urea Nitrogen 17 mg/dL (9-16); Calcium 10.1 mg/dL (8.4-10.2); Carbon Dioxide 23 mmol/L (22-29); Chloride 110 mmol/L (96-108); Estimated Glomerular Filt Rate > 60; Glucose Random 80 mg/dL (60-115); Magnesium 2.2 mg/dL (1.6-2.6); Phosphorus 3.4 mg/dL (2.7-4.5); Potassium 4.3 mmol/L (3.3-5.1); Sodium 140 mmol/L (135-145)
== END 2024-02-02 10:24 | disposition home or self-care (01) ==
LOC: HO.LAB 10:23
PROVIDERS: PCP Nurse Practitioner Family; Visit Provider Physician Assistant Surgical
DX: R19.8 Other specified symptoms and signs involving the digestive system and abdomen (principal)
CPT/HCPCS: 36415; 80048; 83735; 84100

== ENCOUNTER 2024-02-09 08:20 | Outpatient (REF) | payer MEDICAID, SELFPAY ==
[2024-02-09 09:50] LABS: Calcium 9.5 mg/dL (8.4-10.2)
== END 2024-02-09 08:21 | disposition home or self-care (01) ==
LOC: HO.LAB 08:20
PROVIDERS: PCP Nurse Practitioner Family; Visit Provider Physician Assistant Surgical
DX: R19.8 Other specified symptoms and signs involving the digestive system and abdomen (principal)
CPT/HCPCS: 36415; 82310

== ENCOUNTER 2024-02-14 09:29 | Outpatient (REF) | payer MEDICAID, SELFPAY ==
--- NOTE | ~2024-02-14 | FL_ITS ---
EXAMINATION: XR FLUOROSCOPY UPPER GI WITH GASTROGRAFIN CLINICAL INFORMATION: History of gastric bypass. Recent perforation of the gastrointestinal tract, likely due to a marginal ulcer at the gastrojejunostomy. COMPARISON: Upper GI March 2021 TECHNIQUE: Fluoroscopic air contrast upper GI examination was performed utilizing standard techniques with thin and thick barium and effervescent granules. Numerous spot images were obtained. FINDINGS: Single contrast images of the esophagus demonstrate normal caliber, contour, and mucosal pattern. No evidence of stricture, mass, or ulcerations identified. Esophageal peristalsis was normal. No evidence of hiatus hernia identified. No significant gastroesophageal reflux was seen during the course of the examination and on reflux views. Single contrast images of the stomach demonstrated postsurgical changes consistent with prior history of Savana-en-Y gastric bypass. The gastrojejunostomy is widely patent. There is no extravasation of contrast noted to suggest an anastomotic leak. Contrast freely passed into the alimentary limb. In the proximal alimentary limb, there is a probable but not definitive ulceration best seen (RF 1-3, image 55). Slightly more proximally another apparent ulcer is present (RF 1-3, image 75). (Also see RF 1-8, image 110). These are marked on the study with arrows. PICC noted, tip in the right atrium. Cholecystectomy clips present. FLUOROSCOPY TIME: 2 minutes 50 seconds Number of Spot Images: 4 Number of Cine: 7 DOSE AREA PRODUCT: 854 uGy-m2 (microgray-meter squared) FL/FL upper GI w gastrografin IMPRESSION: 1. No extravasation of contrast to suggest anastomotic leak. The gastrojejunostomy is widely patent. 2. Two potential alimentary limb ulcerations as detailed above. This procedure was performed by Gary Boyer PA-C, and supervised by Dr. Denson
[2024-02-14] MEDS: Diatrizoate Meglumine, Sodium 120 ML SOLUTION 240 ML PO (10:07)
== END 2024-02-14 09:30 | disposition home or self-care (01) ==
LOC: HO.XRAY 09:29
PROVIDERS: PCP Nurse Practitioner Family; Visit Provider Physician Assistant Surgical
DX: R19.8 Other specified symptoms and signs involving the digestive system and abdomen (principal)
CPT/HCPCS: 74240

== ENCOUNTER → 2024-02-14 09:31 | Outpatient (BNV) | payer MEDICAID, SELFPAY | PROVIDERS: PCP Nurse Practitioner Family; Visit Provider Physician Assistant Surgical | DX: R19.8 Other specified symptoms and signs involving the digestive system and abdomen (principal) | CPT/HCPCS: 74246 ==

== ENCOUNTER 2024-02-15 11:47 | Outpatient (AMB) | payer MEDICAID, SELFPAY ==
--- NOTE | 2024-02-15 11:49 | A.OFFVIS_ITS ---
VS Expanded 02/15/24 11:59 BP 126/60 Blood Pressure Location Rt brachial Blood Pressure Position Sitting Pulse 70 Pulse Source Pulse Oximeter Temp 98.0 F Temperature Source Tympanic Pulse Oximetry 98 Oxygen Delivery Method Room Air Height 5 ft 5 in Weight 140 lb 6.4 oz BMI 23.4 Body Fat % 21.2 Body Fat Mass 29.8 Fat Free Mass 110.4 Visceral Fat Rating 2.0 Body Water % 56.4 Body Water Mass 79.2 Muscle Mass/Score 105.0 Basal Metabolic Rate/Score 1,473 Intake Visit Reasons: (OV) PO LSG 03/19/21 Allergies tomato Allergy (Severe, Verified 01/23/24 09:34) itchy throat HPI Comments Details: Pt presents in followup after hospitalization x2 for abdominal pain, free air, and subdiaphragmatic abscess anterior to the left lobe of the liver likely secondary to an anastomotic leak at the gastrojejunal anastomosis. Was on TPN, IV abx, Arixtra. Remains strict NPO. History of gastric bypass 03/2021. Currently no abdominal pain, no nausea, no fevers/chills/rigors at home. Having some back pain which is similar to what brought her to the ER the second time. Reports IV antibiotics ended on Tuesday. Remains on TPN 12 hours/day, pantoprazole. [facility] Medical History (Updated 01/27/24 @ 00:01 by Thiago Chavez) Excess skin of abdomen Zinc deficiency Constipation Iron deficiency Panniculitis Overweight BMI 31.0-31.9,adult BMI 39.0-39.9,adult Obesity Intestinal malabsorption Intra-abdominal adhesions BMI 34.0-34.9,adult COVID-19 vaccine series completed History of depression Anxiety BMI over 35 BMI 37.0-37.9, adult Vitamin D deficiency Vitamin B12 deficiency Vitamin B1 deficiency GERD (gastroesophageal reflux disease) Back pain Gestational diabetes Asthma, exercise induced Surgical History Hx of breast surgery Hx of gastric bypass History of esophagogastroduodenoscopy (EGD) Hx laparoscopic cholecystectomy History of sleeve gastrectomy Social History Household Members: Family Housing: House Are you a primary resident care manager to a significant other at home: Yes (2 children, arrangements made for their care in the post-op period) Do you presently have visiting nurse or other home services: Yes Alcohol intake: current Alcohol intake frequency: holidays/special occasions only Patient Tobacco Use Status: Former Tobacco user Substance Use Type: Marijuana service: No Current occupational status: employed Physical Exam Vital Signs: Last Vital Signs Temp 98.0 F 02/15/24 11:59 Pulse 70 02/15/24 11:59 BP 126/60 02/15/24 11:59 Pulse Ox 98 02/15/24 11:59 Oxygen Delivery Method Room Air 02/15/24 11:59 BMI result Body Mass Index 23.4 Results Reviewed Results Reviewed: Ordering Physician: Chao Garcia Date of Service: 02/14/24 Procedure(s): FL upper GI w gastrografin Accession Number(s): [id number] cc: Chao Garcia; BAILEY HAMILTON~ EXAMINATION: XR FLUOROSCOPY UPPER GI WITH GASTROGRAFIN CLINICAL INFORMATION: History of gastric bypass. Recent perforation of the gastrointestinal tract, likely due to a marginal ulcer at the gastrojejunostomy. COMPARISON: Upper GI March 2021 TECHNIQUE: Fluoroscopic air contrast upper GI examination was performed utilizing standard techniques with thin and thick barium and effervescent granules. Numerous spot images were obtained. FINDINGS: Single contrast images of the esophagus demonstrate normal caliber, contour, and mucosal pattern. No evidence of stricture, mass, or ulcerations identified. Esophageal peristalsis was normal. No evidence of hiatus hernia identified. No significant gastroesophageal reflux was seen during the course of the examination and on reflux views. Single contrast images of the stomach demonstrated postsurgical changes consistent with prior history of Savana-en-Y gastric bypass. The gastrojejunostomy is widely patent. There is no extravasation of contrast noted to suggest an anastomotic leak. Contrast freely passed into the alimentary limb. In the proximal alimentary limb, there is a probable but not definitive ulceration best seen (RF 1-3, image 55). Slightly more proximally another apparent ulcer is present (RF 1-3, image 75). (Also see RF 1-8, image 110). These are marked on the study with arrows. PICC noted, tip in the right atrium. Cholecystectomy clips present. FLUOROSCOPY TIME: 2 minutes 50 seconds Number of Spot Images: 4 Number of Cine: 7 DOSE AREA PRODUCT: 854 uGy-m2 (microgray-meter squared) FL/FL upper GI w gastrografin IMPRESSION: 1. No extravasation of contrast to suggest anastomotic leak. The gastrojejunostomy is widely patent. 2. Two potential alimentary limb ulcerations as detailed above. Assessment & Plan Assessment & Plan (1) Abscess, subdiaphragmatic: Code(s): K65.1 - Peritoneal abscess Category: Medical (2) Perforated viscus: Code(s): R19.8 - Other specified symptoms and signs involving the digestive system and abdomen Category: Medical (3) S/P gastric bypass: Code(s): Z98.84 - Bariatric surgery status Category: Medical Plan Pt to have EGD scheduled next week with Dr. Harrington Based on findings, will then determine additional duration of NPO, TPN. Will renew IV pantoprazole/Pepcid. Continue Arixtra injections. I spent a total of 30 minutes reviewing/updating records, examining the patient and counseling the patient on weight management as detailed above.
[2024-02-15 11:59] VITALS: BP 126/60; PULSE 70; TEMP 36.7; O2SAT 98; BMI 23.4
== END 2024-02-15 12:49 | disposition home or self-care (01) ==
PROVIDERS: PCP Nurse Practitioner Family; Visit Provider Physician Assistant Surgical
DX: K65.1 Peritoneal abscess (principal); R19.8 Other specified symptoms and signs involving the digestive system and abdomen; Z98.84 Bariatric surgery status
CPT/HCPCS: 99214

== ENCOUNTER → 2024-02-15 11:47 | Outpatient (BNVA) | payer MEDICAID, SELFPAY | PROVIDERS: PCP Nurse Practitioner Family; Visit Provider Physician Assistant Surgical | DX: K65.1 Peritoneal abscess (principal); R19.8 Other specified symptoms and signs involving the digestive system and abdomen; Z98.84 Bariatric surgery status | CPT/HCPCS: 99212 ==

== ENCOUNTER 2024-02-22 08:54 | Day surgery (SDC) | payer MEDICAID, SELFPAY ==
--- NOTE | 2024-02-20 12:28 | P.CONAN_ITS ---
Documented by User: Janeth Betancourt NP 02/20/24 12:32 HPI - Anesthesia Eval Consult details Narrative: 33yo F for Upper Endoscopy [facility] [place] [facility] [place]24 Hospital Course: Patient is a 33-year-old female who initially presented to the hospital on 01/14/2024 with abdominal pain, found to have perforated viscus. She was treated without surgical intervention, requiring IV antibiotics, PICC line, ultimately TPN and lipids and discharged home on 01/19 24. She presented again to the emergency room on 01/23/2024 at my direction due to complaints of new onset left flank and back pain, concerning for possible abscess. Workup was negative for leukocytosis however CT scan was concerning for possible subdiaphragmatic abscess on the right side. She continued on IV Zosyn, Flagyl was restarted and she was monitored conservatively. She remained on TPN, IV analgesia and early ambulation. No clear etiology of the stabbing and burning left back/flank pain. PMFSH Active Problems Active Problems: All Active Problems On total parenteral nutrition (TPN) (Acute) Flank pain (Acute) Abscess, subdiaphragmatic (Acute) Intestinal malabsorption (Acute) Perforated viscus (Acute) S/P gastric bypass (Acute) Adjustment disorder, unspecified (Acute) Asthma, exercise induced (Acute) Past Medical History Medical History Excess skin of abdomen Zinc deficiency Constipation Iron deficiency Panniculitis Overweight BMI 31.0-31.9,adult BMI 39.0-39.9,adult Obesity Intestinal malabsorption Intra-abdominal adhesions BMI 34.0-34.9,adult COVID-19 vaccine series completed History of depression Anxiety BMI over 35 BMI 37.0-37.9, adult Vitamin D deficiency Vitamin B12 deficiency Vitamin B1 deficiency GERD (gastroesophageal reflux disease) Back pain Gestational diabetes Asthma, exercise induced Surgical History Surgical History Hx of breast surgery Hx of gastric bypass History of esophagogastroduodenoscopy (EGD) Hx laparoscopic cholecystectomy History of sleeve gastrectomy Social History Social History Household Members: Family Housing: House Are you a primary healthcare prof to a significant other at home: Yes (2 children, arrangements made for their care in the post-op period) Do you presently have visiting nurse or other home services: Yes Alcohol intake: current Alcohol intake frequency: holidays/special occasions only Patient Tobacco Use Status: Former Tobacco user Use of substances other than those prescribed or required for medical reasons: No Substance Use Type: Marijuana Are you DNR?: No Advance Directives: No Advance Directives Information Provided: Yes service: No Current occupational status: employed Meds Allergies Allergy/AdvReac Type Severity Reaction Status Date / Time tomato Allergy Severe itchy Verified 02/22/24 10:58 throat Home Medications ?Medication ?Instructions ?Recorded ?Confirmed ?Last Taken ?Type levonorgestrel 21 mcg/24 hours (8 1 device intrauterine DIRECTED 12/22/20 01/23/24 Unknown History yrs) 52 mg intrauterine device (Mirena) albuterol sulfate 90 mcg/actuation 1 puff PO Q4H PRN dyspnea 03/12/21 01/23/24 Unknown History aerosol inhaler Exam Pertinent Lab Results Pertinent Lab Results: Laboratory Tests 01/26/24 02/02/24 05:38 10:37 WBC 5.9 Hgb 9.1 L D Hct 27.7 L D Plt Count 324 Sodium 140 Potassium 4.3 Chloride 110 H Carbon Dioxide 23 BUN 17 H Creatinine 0.69 Assessment and Plan Assessment Anesthesia Assessment: Chart Reviewed Documented by User: Ellen Braun MD 02/22/24 12:02 [facility] Past Medical History Medical History Excess skin of abdomen Zinc deficiency Constipation Iron deficiency Panniculitis Overweight BMI 31.0-31.9,adult BMI 39.0-39.9,adult Obesity Intestinal malabsorption Intra-abdominal adhesions BMI 34.0-34.9,adult COVID-19 vaccine series completed History of depression Anxiety BMI over 35 BMI 37.0-37.9, adult Vitamin D deficiency Vitamin B12 deficiency Vitamin B1 deficiency GERD (gastroesophageal reflux disease) Back pain Gestational diabetes Asthma, exercise induced Family History Family history of problems with anesthesia: No Surgical History Surgical History Hx of breast surgery Hx of gastric bypass History of esophagogastroduodenoscopy (EGD) Hx laparoscopic cholecystectomy History of sleeve gastrectomy History of Problems with Anesthesia: No Social History Social History Household Members: Family Housing: House Are you a primary healthcare prof to a significant other at home: Yes (2 children, arrangements made for their care in the post-op period) Do you presently have visiting nurse or other home services: Yes Alcohol intake: current Alcohol intake frequency: holidays/special occasions only Patient Tobacco Use Status: Former Tobacco user Use of substances other than those prescribed or required for medical reasons: No Substance Use Type: Marijuana Are you DNR?: No Advance Directives: No Advance Directives Information Provided: Yes service: No Current occupational status: employed Meds Allergies Allergy/AdvReac Type Severity Reaction Status Date / Time tomato Allergy Severe itchy Verified 02/22/24 10:58 throat Home Medications ?Medication ?Instructions ?Recorded ?Confirmed ?Last Taken ?Type levonorgestrel 21 mcg/24 hours (8 1 device intrauterine DIRECTED 12/22/20 01/23/24 Unknown History yrs) 52 mg intrauterine device (Mirena) albuterol sulfate 90 mcg/actuation 1 puff PO Q4H PRN dyspnea 03/12/21 01/23/24 Unknown History aerosol inhaler Exam Height,Weight and Vital Signs: Height 5 ft 5 in Weight 64.41 kg Vital Signs Temp Pulse Resp BP Pulse Ox O2 Del Method 02/22/24 11:10 97.3 F 50 16 103/58 L 100 Room Air Pertinent Lab Results Pertinent Lab Results: Laboratory Tests 01/26/24 02/02/24 05:38 10:37 WBC 5.9 Hgb 9.1 L D Hct 27.7 L D Plt Count 324 Sodium 140 Potassium 4.3 Chloride 110 H Carbon Dioxide 23 BUN 17 H Creatinine 0.69 Lab Results 02/22/24 Range/Units 11:20 Urine Test NEGATIVE (NEGATIVE) Airway Mallampati Class: II TM Dist: >3cm Neck ROM: Full Loose/Missing/Broken Teeth: Yes (Missing teeth top left and right back. Denies broken or loose teeth) Heart: RRR Lungs: CTAB Assessment and Plan Assessment Anesthesia Assessment: Anesthesia Plan Discussed and Chart Reviewed Final Anesthetic Review Family History of Problems with Anesthesia: No History of Problems with Anesthesia: No NPO: Yes ASA Class: III Final Preanesthetic Review: No Changes in Pt Med Stat, Meds/Allgs Chart Reviewed, Consent Obtained/Reviewed and Anes Risks/Benef Reviewed Patient Risk: Intermediate Procedure Risk: Low Assessment/Block/Sedation in SS: Assess/Block/Sedation-SS Anesthetic Plan Anesthetic Plan: GA and TIVA Disposition: Standard PACU
[2024-02-22 10:47] VITALS: BMI 23.6
[2024-02-22 11:10] VITALS: BP 103/58; PULSE 50; RESP 16; TEMP 36.3; O2SAT 100
[2024-02-22] MEDS: Lactated Ringers 1,000 ML 100 ML IVCONT (11:14)
[2024-02-22 11:32] LABS: UPreg QC Valid YES; Urine Pregnancy NEGATIVE (NEGATIVE)
--- NOTE | 2024-02-22 11:54 | MHC.SHP ---
Pre-Procedural Eval Section A - 24 Hr Update-Section A only Date of Service: 02/22/24 The patient is an INPATIENT: No The patient has been examined within 24 hours of the surgical procedure. The History & Physical has been completed within 30 days and I have reviewed it.: Yes Section B - Complete if H&P > 30 days Chief Complaint: Bariatric surgery status Details of Present Illness: Anastomotic ulcer Relevant Family History (Specify if Yes): No Relevant Social History: None Present Medications: None Medical History: No relevant PMH History of Previous Operations: Relevant previous surgery/procedure and date(s) (Lap sleeve gastrectomy, Lap revision to gastric bypass) Allergies: Allergies Allergy/AdvReac Type Severity Reaction Status Date / Time tomato Allergy Severe itchy Verified 02/22/24 10:58 throat Review of Systems Sugical H&P ROS: Negative: Constitution, Cardiovascular, Respiratory, Neurological, Psychiatric, Hem-Onc, Allergic/Immunologic, Gastrointestinal, Genitourinary, Musculoskeletal, Integumentary, Endocrine and Eyes/Ears/Nose/Throat Exam Surgical H&P Exam: Normal: HEENT, Normal: Heart, Normal: Lungs, Normal: Extremities, Normal: Abdomen, Normal: Skin and Normal: Neurological Plan Diagnosis/Plan: Unchanged (EGD to assess the status of the anastomotic ulcer. Risks of bleeding and perforation were discussed with the patient and she is in agreement with the plan.) I have reviewed the history and physical and performed a pertinent physical examination on my patient. No changes have occurred unless specified. Time Spent With Patient Time: Total time managing care of this patient today ____ minutes.
--- NOTE | 2024-02-22 12:02 | PM.OP ---
Brief Operative Note Date of Service: 02/22/24 Pre-op diagnosis: Perforated viscus Procedure: PROCEDURE DATE: 02/22/2024 PREOPERATIVE DIAGNOSIS: Perforated viscus, s/p gastric bypass POSTOPERATIVE DIAGNOSIS: ?Same as above. 1) Healing anastomotic ulcer PROCEDURE: [id number] with biopsies Surgeon: ?Adam Myels M.D.. Ph.D. Prison Classification Counselor: ?None ? Anesthesia: IV sedation Estimated blood loss: ?Minimal FINDINGS AND PROCEDURE: ? OPERATIVE INDICATIONS: ?The patient is a 33 year old female known to me who underwent a laparoscopic revision of a sleeve gastrectomy to gastric bypass. The patient has not been compliant with her follow-up appointments. She presented to the ER about 5 weeks with evidence of perforated viscus, most likely an anastomotic ulcer. The patient was treated with NPO, IV antibiotics and TPN for 5 weeks. Recent UGI showed no evidence of leak or stricture. Based on this information I recommended an upper endoscopy to assess the statusof the ulcer.? Risks and complications of the surgery were discussed with the patient in advance particularly the possibility of perforation or bleeding that may require surgical intervention. The patient understood the risks and was in agreement with the plan. ? PROCEDURE: After informed consent was obtained by the patient, the patient was ?transferred to the Operating Room and was placed in the supine position.? After successful induction of IV sedation, a mouth block was placed and the patient was placed in the left lateral decubitus position. An upper endoscopy was performed next, the oropharynx and esophagus appeared within the normal limits. There was no hiatal hernia.? The z-line was smooth. The small pouch was entered, appeared to be of normal size. There was no gastritis and the gastrojejunostomy was patent. There was no anastomotic ulcer.?However at the GJ anastomosis there was mild erythema and some white exudate, suggestive of a healing anastomotic ulcer. At that point the scope was advanced into the proximal small intestine (proximal Savana limb) which appeared to be normal as well. The Savana limb and the pouch were decompressed and the scope was withdrawn from the patient's mouth. The patient was awaken and was transferred in stable condition to the Recovery Room for further care. I was present and performed all steps of the procedure. There were no residents to assist with this case. Adam Myles M.D., Ph.D. Surgeon: José Miguel Myles MD Anesthesia: MAC Was an Prison Classification Counselor used for this Procedure?: No Estimated blood loss (mL): 0 IV fluids (mL): 400 Urine output (mL): 0 Pathology: none sent Condition: stable Disposition: PACU
[2024-02-22 12:25] VITALS: BP 109/47; PULSE 58; RESP 18; TEMP 36.6; O2SAT 97
[2024-02-22 12:40] VITALS: BP 105/60; PULSE 45; RESP 16; TEMP 36.4; O2SAT 100
[2024-02-22] MEDS: Heparin Sodium,Porcine Flush 50 UNITS, 0.9 % Sodium Chloride Flush 5 ML IVFLUSH (13:18)
== END 2024-02-22 13:21 | disposition home or self-care (01) ==
PROVIDERS: Nurse Practitioner; PCP Nurse Practitioner Family; Visit Provider Surgery
PROC: 0DJ08ZZ Inspection of Upper Intestinal Tract, Via Natural or Artificial Opening Endoscopic (ICD-10-PCS; CPT 43235; principal; 2024-02-22 11:40)
DX: K91.89 Other postprocedural complications and disorders of digestive system (principal); K63.1 Perforation of intestine (nontraumatic); K28.9 Gastrojejunal ulcer, unspecified as acute or chronic, without hemorrhage or perforation; K65.1 Peritoneal abscess; Y83.2 Surgical operation with anastomosis, bypass or graft as the cause of abnormal reaction of the patient, or of later complication, without mention of misadventure at the time of the procedure; Y92.9 Unspecified place or not applicable; Z90.3 Acquired absence of stomach [part of]; Z98.84 Bariatric surgery status; M79.3 Panniculitis, unspecified; K90.9 Intestinal malabsorption, unspecified; K21.9 Gastro-esophageal reflux disease without esophagitis; E66.3 Overweight; Z68.23 Body mass index [BMI] 23.0-23.9, adult; J45.990 Exercise induced bronchospasm; Z79.899 Other long term (current) drug therapy; Z87.891 Personal history of nicotine dependence
CPT/HCPCS: 43239; 81025; J1642; J2704

== ENCOUNTER → 2024-02-22 08:54 | Outpatient (BNV) | payer MEDICAID, SELFPAY | PROVIDERS: PCP Nurse Practitioner Family; Visit Provider Surgery | DX: R19.8 Other specified symptoms and signs involving the digestive system and abdomen (principal); Z98.84 Bariatric surgery status | CPT/HCPCS: 43239 ==

== ENCOUNTER 2024-03-15 09:12 | Day surgery (SDC) | payer MEDICAID, SELFPAY ==
[2024-03-15 09:21] VITALS: BP 113/52; PULSE 63; RESP 18; TEMP 36.3; O2SAT 97; BMI 24.0
[2024-03-15 09:36] LABS: UPreg QC Valid YES; Urine Pregnancy NEGATIVE (NEGATIVE)
[2024-03-15] MEDS: Lactated Ringers 1,000 ML 50 ML IVCONT (09:46)
--- NOTE | 2024-03-15 10:38 | P.HPSUR_ITS ---
Pre-Procedural Eval Section A - 24 Hr Update-Section A only Date of Service: 03/15/24 The patient is an INPATIENT: No The patient has been examined within 24 hours of the surgical procedure. The History & Physical has been completed within 30 days and I have reviewed it.: Yes Section B - Complete if H&P > 30 days Chief Complaint: Gastrojejunal ulcer, unspecified as acute Relevant Family History (Specify if Yes): No Relevant Social History: None Present Medications: None Medical History: No relevant PMH History of Previous Operations: Relevant previous surgery/procedure and date(s) (lap revision of sleeve gastrectomy to bypass) Allergies: Allergies Allergy/AdvReac Type Severity Reaction Status Date / Time tomato Allergy Severe itchy Verified 02/22/24 10:58 throat Review of Systems Sugical H&P ROS: Negative: Constitution, Cardiovascular, Respiratory, Neurological, Psychiatric, Hem-Onc, Allergic/Immunologic, Gastrointestinal, Genitourinary, Musculoskeletal, Integumentary, Endocrine and Eyes/Ears /Nose/Throat Exam Surgical H&P Exam: Normal: HEENT, Normal: Heart, Normal: Lungs, Normal: Extremities, Normal: Abdomen, Normal: Skin and Normal: Neurological Plan Diagnosis/Plan: Unchanged (EGD to assess the status of the ulcer. Risks of bleeding and perforation were discussed with the patient and she is in agreement with the plan.) I have reviewed the history and physical and performed a pertinent physical examination on my patient. No changes have occurred unless specified. Time Spent With Patient Time: Total time managing care of this patient today ____ minutes.
--- NOTE | 2024-03-15 11:09 | PM.OP ---
Brief Operative Note Date of Service: 03/15/24 Pre-op diagnosis: Anastomotic ulcer Post-op diagnosis: same (Worsening anastomotic ulcer) Procedure: PROCEDURE DATE: 03/15/2024 PREOPERATIVE DIAGNOSIS: Perforated viscus, s/p gastric bypass POSTOPERATIVE DIAGNOSIS: ?Same as above. 1) Healing anastomotic ulcer PROCEDURE: [id number]-[id number] with biopsies Surgeon: ?Adam Myles M.D.. Ph.D. Kier Operator: ?None ? Anesthesia: IV sedation Estimated blood loss: ?Minimal FINDINGS AND PROCEDURE: ? OPERATIVE INDICATIONS: ?The patient is a 33 year old female known to me who underwent a laparoscopic revision of a sleeve gastrectomy to gastric bypass. The patient has not been compliant with her follow-up appointments. She presented to the ER about 8 weeks ago with evidence of perforated viscus, most likely an anastomotic ulcer. The patient was treated with NPO, IV antibiotics and TPN for 5 weeks. Recent UGI showed no evidence of leak or stricture. A follow-up endscopy three weeks ago revealed a healing anastomotic ulcer. The patient was allowed to start protein shakes and she remained on TPN. The patient is doing well and tolerated the diet change. Based on this information I recommended an upper endoscopy to assess the status of the ulcer.? Risks and complications of the surgery were discussed with the patient in advance particularly the possibility of perforation or bleeding that may require surgical intervention. The patient understood the risks and was in agreement with the plan. ? PROCEDURE: After informed consent was obtained by the patient, the patient was ?transferred to the Operating Room and was placed in the supine position.? After successful induction of IV sedation, a mouth block was placed and the patient was placed in the left lateral decubitus position. An upper endoscopy was performed next, the oropharynx and esophagus appeared within the normal limits. There was no hiatal hernia.? The z-line was smooth. The small pouch was entered, appeared to be of normal size. There was inflammation of the gastric pouch near the gastrojejunostomy. The GJ anastomosis was patent. There was worsening inflammation at the GJ anastomosis with several anastomotic ulcers present. The picture of the area was significantly worse than last endoscopy 3 weeks ago. At that point the scope was advanced into the proximal small intestine (proximal Savana limb) which appeared to be normal as well. The Savana limb and the pouch were decompressed and the scope was withdrawn from the patient's mouth. The patient was awaken and was transferred in stable condition to the Recovery Room for further care. I was present and performed all steps of the procedure. There were no residents to assist with this case. Adam Myles M.D., Ph.D. Surgeon: José Miguel Myles MD Anesthesia: MAC Was an Kier Operator used for this Procedure?: No Estimated blood loss (mL): 0 IV fluids (mL): 400 Urine output (mL): 0 (No Victoria to record output) Pathology: none sent Condition: stable Disposition: PACU
--- NOTE | 2024-03-15 11:11 | P.CONAN_ITS ---
[facility] Active Problems Active Problems: All Active Problems On total parenteral nutrition (TPN) (Acute) Flank pain (Acute) Abscess, subdiaphragmatic (Acute) Intestinal malabsorption (Acute) Perforated viscus (Acute) S/P gastric bypass (Acute) Adjustment disorder, unspecified (Acute) Asthma, exercise induced (Acute) Past Medical History Medical History Excess skin of abdomen Zinc deficiency Constipation Iron deficiency Panniculitis Overweight BMI 31.0-31.9,adult BMI 39.0-39.9,adult Obesity Intestinal malabsorption Intra-abdominal adhesions BMI 34.0-34.9,adult COVID-19 vaccine series completed History of depression Anxiety BMI over 35 BMI 37.0-37.9, adult Vitamin D deficiency Vitamin B12 deficiency Vitamin B1 deficiency GERD (gastroesophageal reflux disease) Back pain Gestational diabetes Asthma, exercise induced Family History Family history of problems with anesthesia: No Surgical History Surgical History Hx of breast surgery Hx of gastric bypass History of esophagogastroduodenoscopy (EGD) Hx laparoscopic cholecystectomy History of sleeve gastrectomy History of Problems with Anesthesia: No Social History Social History Household Members: Family Housing: House Are you a primary behavioral health care manager to a significant other at home: Yes (2 children, arrangements made for their care in the post-op period) Do you presently have visiting nurse or other home services: Yes Alcohol intake: current Alcohol intake frequency: does not drink Patient Tobacco Use Status: Former Tobacco user Substance Use Type: Marijuana Are you DNR?: No Advance Directives: No Advance Directives Information Provided: Yes Nutrition Risks: No Nutritional Risk Patient : No service: No Current occupational status: employed Meds Allergies Allergy/AdvReac Type Severity Reaction Status Date / Time tomato Allergy Severe itchy Verified 02/22/24 10:58 throat Active Medications: Current Medications Lactated Ringer's (Lr) 1,000 mls @ 50 mls/hr IVCONT .Q20H ROXANA Last Admin: 03/15/24 09:46 Dose: 50 mls/hr Home Medications ?Medication ?Instructions ?Recorded ?Confirmed ?Last Taken ?Type levonorgestrel 21 mcg/24 hr (up to 1 device intrauterine DIRECTED 12/22/20 01/23/24 Unknown History 8 years) 52 mg intrauterine device (Mirena) albuterol sulfate 90 mcg/actuation 1 puff PO Q4H PRN dyspnea 03/12/21 01/23/24 Unknown History aerosol inhaler Exam Height,Weight and Vital Signs: Height 5 ft 5 in Weight 65.363 kg Last Vital Signs Temp 97.3 F 03/15/24 09:21 Pulse 63 03/15/24 09:21 Resp 18 03/15/24 09:21 BP 113/52 L 03/15/24 09:21 Pulse Ox 97 03/15/24 09:21 O2 Del Method Room Air 03/15/24 09:21 Pertinent Lab Results Pertinent Lab Results: Laboratory Tests 03/15/24 Unknown Urine Test NEGATIVE Airway Mallampati Class: II TM Dist: >3cm Neck ROM: Full Loose/Missing/Broken Teeth: No Heart: RRR Lungs: CTA Assessment and Plan Assessment Anesthesia Assessment: Anesthesia Plan Discussed and Chart Reviewed Final Anesthetic Review Family History of Problems with Anesthesia: No History of Problems with Anesthesia: No NPO: Yes ASA Class: II Final Preanesthetic Review: Meds/Allgs Chart Reviewed, Consent Obtained/Reviewed and Anes Risks/Benef Reviewed Patient Risk: Low Procedure Risk: Intermediate Anesthetic Plan Anesthetic Plan: MAC: Disposition: Standard PACU
[2024-03-15 11:40] VITALS: BP 90/42; PULSE 50; RESP 18; TEMP 36.4; O2SAT 99
[2024-03-15 11:55] VITALS: BP 99/51; PULSE 47; RESP 16; TEMP 36.4; O2SAT 100
--- NOTE | 2024-03-15 12:23 | PC.NURSE ---
picc line disconnected and patient chronic picc line and present for heparin lock with patient at patients bedside. Technique by patient excellent.
== END 2024-03-15 12:30 | disposition home or self-care (01) ==
PROVIDERS: Anesthesiology; PCP Nurse Practitioner Family; Visit Provider Surgery
PROC: 0DJ08ZZ Inspection of Upper Intestinal Tract, Via Natural or Artificial Opening Endoscopic (ICD-10-PCS; CPT 43235; principal; 2024-03-15 11:00)
DX: K28.9 Gastrojejunal ulcer, unspecified as acute or chronic, without hemorrhage or perforation (principal); Z98.84 Bariatric surgery status; Z90.3 Acquired absence of stomach [part of]; K90.9 Intestinal malabsorption, unspecified; K21.9 Gastro-esophageal reflux disease without esophagitis; J45.990 Exercise induced bronchospasm; E61.1 Iron deficiency; E60 Dietary zinc deficiency; F41.9 Anxiety disorder, unspecified; E51.9 Thiamine deficiency, unspecified; E53.8 Deficiency of other specified B group vitamins; E55.9 Vitamin D deficiency, unspecified; Z79.899 Other long term (current) drug therapy; Z87.891 Personal history of nicotine dependence; Z98.890 Other specified postprocedural states
CPT/HCPCS: 43239; 81025; J2704

== ENCOUNTER → 2024-03-15 09:12 | Outpatient (BNV) | payer MEDICAID, SELFPAY | PROVIDERS: PCP Nurse Practitioner Family; Visit Provider Surgery | DX: K28.9 Gastrojejunal ulcer, unspecified as acute or chronic, without hemorrhage or perforation (principal) | CPT/HCPCS: 43239 ==

== ENCOUNTER 2024-04-02 11:46 | Emergency (ER) | payer MEDICAID, SELFPAY ==
--- NOTE | ~2024-04-02 | CT_ITS ---
EXAMINATION: CT ABDOMEN AND PELVIS WITHOUT CONTRAST CLINICAL INFORMATION: dysuria, fever, abd pain. COMPARISON: 01/23/2024. TECHNIQUE: Multidetector volumetric imaging was performed from the superior aspect of the liver through the pubic symphysis without contrast per renal stone protocol. Sagittal and coronal reformatted images were obtained on the technologist workstation. This CT examination was performed using dose optimization techniques as appropriate, variously including the following: *Automated exposure control *Adjustment of mA and/or kV according to patient size (this includes techniques or standardized protocols for targeted exams where dose is matched to indication/reason for exam; i.e. extremities or head) *Use of iterative reconstruction technique DLP: 486 mGy-cm. FINDINGS: LUNG BASES: The visualized lung bases are unremarkable. Bilateral breast prostheses partially visualized. LIVER, GALLBLADDER, BILIARY TREE: The non-contrast liver is normal in size, shape, and attenuation. No focal hepatic lesion or biliary ductal dilatation is present. Gallbladder surgically absent PANCREAS: Unremarkable. SPLEEN: Mild splenomegaly measuring 14.4 cm maximal AP diameter. ADRENAL GLANDS: Unremarkable. KIDNEYS AND URETERS: The kidneys are normal in size, shape, and attenuation. No hydronephrosis, hydroureter, or perinephric stranding. No calculi. BLADDER: Unremarkable. GASTROINTESTINAL TRACT: Colon is unremarkable. Normal-appearing appendix in the right lower quadrant. Patient is status post Savana-en-Y gastric bypass with no small bowel obstruction seen ABDOMINAL WALL: No significant hernia is appreciated. LYMPHOVASCULAR STRUCTURES: No lymphadenopathy. The aorta is unremarkable.. PELVIC VISCERA: IUD in the anteroverted uterus. Small amount of likely physiologic free fluid in the dependent pelvis OSSEUS STRUCTURES: Unremarkable. CT/CT abdomen pelvis wo IV con IMPRESSION: Chronic appearing and postoperative changes as described.
[2024-04-02 12:02] VITALS: BP 108/78; PULSE 57; RESP 16; TEMP 36.6; O2SAT 99; BMI 24.1
--- NOTE | 2024-04-02 12:02 | ED.GENADULT ---
HPI - General Adult General Chief complaint: Urogenital-Female Stated complaint: possible infection, uti Time Seen by Provider: 04/02/24 18:22 Source: patient Mode of arrival: ambulatory Limitations: no limitations History of Present Illness ED Provider: Shahzad MICHAEL HPI narrative: This is a 34-year-old female status post gastric bypass, On TPN w/ feedings Q 12 hours and 2 hours of IVF hydration a day, adjustment disorder, asthma, gastric ulcers, GERD presents with burning on urination, difficulty initiating urinary stream, dark urine, for the past 3-4 days, patient reports that on Tuesday she did have left flank pain she did not think much of it, it has subsided now just having slight discomfort. Reports fevers at home today 101.3 she also reports she woke up covered in sweat. She also reports generalized fatigue, malaise, myalgias as well as diffuse headache ( w/o visual disturbances, dizziness, weakness), cp, sob, nausea, vomiting. No hx of kidney stones. Related Data Home Medications ?Medication ?Instructions ?Recorded ?Confirmed levonorgestrel 21 mcg/24 hr (up to 1 device intrauterine DIRECTED 12/22/20 04/02/24 8 years) 52 mg intrauterine device (Mirena) famotidine (PF) 20 mg/2 mL 40 mg IV Q12H 04/02/24 04/02/24 intravenous solution pantoprazole 40 mg intravenous 40 mg IV Q12H 04/02/24 04/02/24 solution Allergies Allergy/AdvReac Type Severity Reaction Status Date / Time tomato Allergy Severe itchy Verified 04/02/24 12:08 throat Review of Systems Review of Systems: Yes all other systems are reviewed and are negative PMFSH Past Medical History Attestation statement: The following information was validated with the patient. Source: old records reviewed and nursing notes reviewed Medical History Excess skin of abdomen Zinc deficiency Constipation Iron deficiency Panniculitis Overweight BMI 31.0-31.9,adult BMI 39.0-39.9,adult Obesity Intestinal malabsorption Intra-abdominal adhesions BMI 34.0-34.9,adult COVID-19 vaccine series completed History of depression Anxiety BMI over 35 BMI 37.0-37.9, adult Vitamin D deficiency Vitamin B12 deficiency Vitamin B1 deficiency GERD (gastroesophageal reflux disease) Back pain Gestational diabetes Asthma, exercise induced Surgical History Hx of breast surgery Hx of gastric bypass History of esophagogastroduodenoscopy (EGD) Hx laparoscopic cholecystectomy History of sleeve gastrectomy Social History Social History Household Members: Family Housing: House Are you a primary care clinician to a significant other at home: Yes (2 children, arrangements made for their care in the post-op period) Do you presently have visiting nurse or other home services: Yes Alcohol intake: current Alcohol intake frequency: does not drink Patient Tobacco Use Status: Former Tobacco user Substance Use Type: Marijuana Advance Directives Date on File: 01/20/24 service: No Current occupational status: employed Physical Exam ED Vital Signs: Vital Signs - 24 hr 04/02/24 18:28 04/02/24 20:28 04/02/24 22:13 Temperature 98.3 F 98.4 F 98.2 F Pulse Rate 69 62 57 Respiratory Rate 18 18 18 Blood Pressure 132/74 113/60 111/54 L Pulse Oximetry 97 99 99 Oxygen Delivery Method Room Air Room Air Room Air 04/02/24 23:08 04/03/24 00:05 04/03/24 00:10 Temperature 98.6 F 98 F Pulse Rate 50 60 60 Respiratory Rate 16 16 20 Blood Pressure 99/46 L 107/54 L 101/54 L Pulse Oximetry 99 99 98 Oxygen Delivery Method Room Air Room Air Room Air BMI result Body Mass Index 24.1 vss Appearance: Alert.? Oriented X3.? No acute distress.? Head: Normocephalic, atraumatic, no step-offs or deformities Eyes: Pupils equal, round and reactive to light.? Neck: Normal inspection.? Neck supple.? No meningeal signs CVS: Normal heart rate and rhythm.? Pulses normal.? Respiratory: No respiratory distress.? Breath sounds normal.? Abdomen: Soft and nontender.? Skin: Skin warm and dry.? Normal skin color.? Normal skin turgor.? Extremities: No lower extremity edema.? No calf ttp. 5/5 strength to bilateral upper and lower extremities Back: No midline tenderness, no C-spine tenderness, full range of motion, no CVA tenderness bilaterally Neuro: Oriented X 3.? No motor deficit.? No sensory deficit. CN 2-12 intact Course Course Course Narrative: This is an RME: Additional HPI, ROS, PE not included below will be deferred to primary provider. RME assessment and note performed by: Rose Roberson PA-C This is a 66-xx[age]o-female, with a history of gastric bypass in March 2021 presented to the hospital on 01/13/2024 with abdominal pain (found to have perforated viscous), she was treated conservatively with IV antibiotics, fluids, TPN and lipids (PICC line was placed and ultimately she was discharged home on 01/19/2024), who presents to the ER with complaints of dysuria, fevers. Reports sxs started tuesday. She has been NPO since january 12 Plan: Labs, UA, further ER evaluation needed. >Chao Garcia PA-C requesting blood cultures Reevaluation(s) Reevaluation #1: CBC with pancytopenia that appears to be around her baseline. Chemistry no acute findings needing intervention. UA with moderate amount of blood, leukocyte esterases however no bacteria seen. Beta hCG negative Time: 19:14 Reevaluation #2: CT w/o acute findings. Will reach out to Tapan MCKINNON who sent patient here. Time: 21:47 Reevaluation #3: Discuss this case with Chao Garcia bariatric surgery who recommends giving an additional antibiotic Levaquin however prior to doing so to obtain 1 culture from the PICC line to ensure that the PICC line is not infected with this being said both blood cultures were obtained from the periphery not from the PICC line. He does not feel like patient requires admission neither does the hospitalist. Chao garcia does state he will follow this case and follow-up with patient tomorrow morning. At this time 1 set of blood cultures ordered that will be coming from the PICC line. These will be obtained prior to the 2nd dose of antibiotics/Levaquin. Educated patient on diagnosis and treatment plan, answered all question, patient verbalizes understanding. At this time patient will be discharged home, advised to return with new or worsening symptoms. Educated on worrisome signs and symptoms and when to return. At this time I feel comfortable discharge home. Time: 22:04 Additional Reevaluation(s): 04/03/2024 - 1227 - received call lab stating 1/2 sets blood culture was positive for Gram-positive cocci in clusters. This was noted that this was the blood culture drawn peripherally, not the 3rd blood culture that was drawn through the PICC line. This likely is a contaminant within the peripheral blood draw, will await final set tomorrow, follow-up will be performed by 1 of my other colleagues. Medications Administered Discontinued Medications Generic Name Dose Route Start Last Admin Trade Name Brandan PRN Reason Stop Dose Admin Ceftriaxone Sodium 1 gm/ 50 mls @ 100 mls/hr 04/02/24 19:02 04/02/24 21:31 Sodium Chloride IV 04/02/24 19:31 Infused ONCE ONE Infusion Levofloxacin 500 mg in 100 mls @ 100 mls/hr 04/02/24 22:01 04/03/24 00:09 Levaquin IV 04/02/24 23:00 Infused ONCE ONE Infusion Medical Decision Making Medical Decision Making [facility] Narrative: 1910 34 year old female presents w/ pain w/ uriantion, fatigue, malaise, fevers and L flank pain which has resolved now but was present on Tuesday. PE bening VSS History and physical exam concerning for UTI versus cystitis versus pyelonephritis versus obstructing uropathy. Unlikely acute abdomen, cauda equina, cord compression, epidural abscess. Will also rule out viral illness. Plan- labs, imaging, urine Differential Diagnosis Differential Diagnoses: The differential diagnosis associated with the presentation includes History and physical exam concerning for UTI versus cystitis versus pyelonephritis versus obstructing uropathy. Unlikely acute abdomen, cauda equina, cord compression, epidural abscess. Will also rule out viral illness. Admission/Observation Consideration of admission/observation: Escalation of care including admission/observation considered Likely Lab Data [facility] Lab Attestation statement: I reviewed the patient's lab results. 04/02/24 12:18 04/02/24 12:18 Labs: Lab Results 04/02/24 04/02/24 04/02/24 Range/Units 12:18 12:24 18:48 WBC 2.6 L (4.8-10.8) X10*3/uL RBC 3.87 L (4.20-5.50) X10*6/uL Hgb 11.4 L D (12.0-16.0) g/dl Hct 33.5 L D (37.0-47.0) % MCV 86.6 (80.0-98.0) fL MCH 29.5 (27.0-33.0) pg MCHC 34.0 (31.0-35.0) g/dl RDW 15.3 (11.0-16.0) % Plt Count 120 L D (160-400) X10*3/uL MPV 9.9 (9.4-12.3) fL Immature Gran % (Auto) 0.0 (0.0-0.4) % Neut % (Auto) 58.8 (45-73) % Lymph % (Auto) 29.8 (20-40) % [place] % (Auto) 9.0 (2-11) % Eos % (Auto) 2.0 (0-4) % Baso % (Auto) 0.4 (0-2) % Lymph # (Auto) 0.8 L (1.2-4.9) X10*3/uL [place] # (Auto) 0.2 (0.1-1.2) X10*3/uL Eos # (Auto) 0.1 (0.0-0.4) X10*3/uL Baso # (Auto) 0.0 (0.0-0.2) X10*3/uL Abs Immat Gran (auto) 0.00 (0.00-0.03) X10*3/uL Absolute Neuts (auto) 1.5 L (2.0-8.3) x10*3/uL Absolute Nucleated RBC 0.000 (0.0-0.012) X10*3/uL Nucleated RBC % (auto) 0.0 (0.0-0.2) /100WBC Sodium 138 (135-145) mmol/L Potassium 3.9 (3.3-5.1) mmol/L Chloride 111 H (96-108) mmol/L Carbon Dioxide 24 (22-29) mmol/L Anion Gap 7 L (12-20) BUN 10 (9-16) mg/dL Creatinine 0.70 (0.5-1.4) mg/dL Estim Creat Clear Calc 100.9 Estimated GFR > 60 POC Glucose (60-115) mg/dL Random Glucose 108 (60-115) mg/dL Calcium 9.2 (8.4-10.2) mg/dL Magnesium 2.2 (1.6-2.6) mg/dL Total Bilirubin 0.5 (0.0-1.0) mg/dL Direct Bilirubin 0.2 (0.0-0.5) mg/dL AST 30 (5-31) U/L ALT 39 H (0-31) U/L Alkaline Phosphatase 102 (39-117) U/L Total Creatine Kinase 71 (26-140) U/L Total Protein 6.1 L (6.5-8.0) g/dL Albumin 3.8 (3.5-5.0) g/dL Lipase 9 (8-78) U/L Beta HCG, Quant < 2 mIU/mL Urine Color Yellow Urine Appearance Clear Urine pH 6.0 (5.0-9.0) Ur Specific [place] 1.010 (1.005-1.025) Urine Protein 100 (2+) H (Neg-Trace) mg/dL Urine Glucose (UA) Negative (Negative) mg/dL Urine Ketones Negative (Negative) mg/dL Urine Blood Moderate (2+) H (Negative) Urine Nitrite Negative (Negative) Ur Leukocyte Esterase Trace H (Negative) Urine RBC >20 H (0-2) /HPF Urine WBC 11-20 H (0-5) /HPF Ur Squamous Epith Cells 3-5 (0-2) /HPF Urine Bacteria None Seen (None Seen) Hyaline Casts 0-2 (0-2) /LPF Chlam trachomat DNA PCR (Not Detect.) Influenza Type A (PCR) NEGATIVE (Negative) Influenza Type B (PCR) NEGATIVE (Negative) N.gonorrhoeae DNA (PCR) (Not Detect.) RSV RNA Qual (PCR) NEGATIVE (Negative) SARS-CoV-2 RNA (RT-PCR) NEGATIVE (Negative) 04/02/24 04/02/24 Range/Units 20:27 23:08 WBC (4.8-10.8) X10*3/uL RBC (4.20-5.50) X10*6/uL Hgb (12.0-16.0) g/dl Hct (37.0-47.0) % MCV (80.0-98.0) fL MCH (27.0-33.0) pg MCHC (31.0-35.0) g/dl RDW (11.0-16.0) % Plt Count (160-400) X10*3/uL MPV (9.4-12.3) fL Immature Gran % (Auto) (0.0-0.4) % Neut % (Auto) (45-73) % Lymph % (Auto) (20-40) % [place] % (Auto) (2-11) % Eos % (Auto) (0-4) % Baso % (Auto) (0-2) % Lymph # (Auto) (1.2-4.9) X10*3/uL [place] # (Auto) (0.1-1.2) X10*3/uL Eos # (Auto) (0.0-0.4) X10*3/uL Baso # (Auto) (0.0-0.2) X10*3/uL Abs Immat Gran (auto) (0.00-0.03) X10*3/uL Absolute Neuts (auto) (2.0-8.3) x10*3/uL Absolute Nucleated RBC (0.0-0.012) X10*3/uL Nucleated RBC % (auto) (0.0-0.2) /100WBC Sodium (135-145) mmol/L Potassium (3.3-5.1) mmol/L Chloride (96-108) mmol/L Carbon Dioxide (22-29) mmol/L Anion Gap (12-20) BUN (9-16) mg/dL Creatinine (0.5-1.4) mg/dL Estim Creat Clear Calc Estimated GFR POC Glucose 80 (60-115) mg/dL Random Glucose (60-115) mg/dL Calcium (8.4-10.2) mg/dL Magnesium (1.6-2.6) mg/dL Total Bilirubin (0.0-1.0) mg/dL Direct Bilirubin (0.0-0.5) mg/dL AST (5-31) U/L ALT (0-31) U/L Alkaline Phosphatase (39-117) U/L Total Creatine Kinase (26-140) U/L Total Protein (6.5-8.0) g/dL Albumin (3.5-5.0) g/dL Lipase (8-78) U/L Beta HCG, Quant mIU/mL Urine Color Urine Appearance Urine pH (5.0-9.0) Ur Specific [place] (1.005-1.025) Urine Protein (Neg-Trace) mg/dL Urine Glucose (UA) (Negative) mg/dL Urine Ketones (Negative) mg/dL Urine Blood (Negative) Urine Nitrite (Negative) Ur Leukocyte Esterase (Negative) Urine RBC (0-2) /HPF Urine WBC (0-5) /HPF Ur Squamous Epith Cells (0-2) /HPF Urine Bacteria (None Seen) Hyaline Casts (0-2) /LPF Chlam trachomat DNA PCR NOT DETECTED (Not Detect.) Influenza Type A (PCR) (Negative) Influenza Type B (PCR) (Negative) N.gonorrhoeae DNA (PCR) NOT DETECTED (Not Detect.) RSV RNA Qual (PCR) (Negative) SARS-CoV-2 RNA (RT-PCR) (Negative) Independent Interpretation I performed an independent interpretation of an: CT Scan ( CT/CT abdomen pelvis wo IV con IMPRESSION: Chronic appearing and postoperative changes as described. ) Radiology Impression Discussion of test interpretation with radiology: I have reviewed the radiologist's reading. External Record Review External record reviewed: Inpatient record, Office record, Outpatient record, Prior outpatient labs, Prior outpatient radiology, Primary care record and Outside ED record Chronic Conditions Patient?s care impacted by: Other ( status post gastric bypass, On TPN, adjustment disorder, asthma, gastric ulcers, GERD) Critical Care Time Critical Care Time Critical Care Time: Yes Total Critical Care Time: 35 Attestation: I attest to this time spent taking care of the patient, obtaining history, physical, reviewing labs, imaging, speaking to my attending, specialist or hospitalist. Discharge Plan Discharge Clinical Impression: Urinary tract infection Patient Disposition: Home, Self-Care Instructions: Urinary Tract Infection in Women (ED) Additional Instructions: Take your medications as prescribed. If you were prescribed antibiotics today, it is important that you take your medication to their entirety, do not skip any doses, do not finish them early. Follow-up with your primary care provider this week. Return to the emergency department with new or worsening symptoms. Such as fevers, chills, chest pain, shortness of breath, nausea, vomiting, dizziness, headache, vision changes, lethargy In case of emergency call 911 Call Chao Loyd office tomorrow Prescriptions: No Action pantoprazole 40 mg Recon Soln 40 mg IV Q12H famotidine (PF) [Pepcid (PF)] 20 mg/2 mL Solution 40 mg IV Q12H Mirena 20 mcg/24 hours (6 yrs) 52 mg intrauterine device 1 device intrauterine DIRECTED Referrals: Chao Garcia PA [Physician Scientific Programmer] - 2 days Beth Paul FNP [Primary Care Provider] - 2 days Stand Alone Forms: Work/School Release Interventions: ED Discharge Assessment Last Done: 04/03/24 00:10 Discharge Date/Time: 04/03/24 00:11 Print Language: Chinese
[2024-04-02 12:22] LABS: MANUAL DIFF FLAG NO
[2024-04-02 12:26] LABS: Basophils Percent Auto 0.4 % (0-2); Eosinophils Absolute Auto 0.1 X10*3/uL (0.0-0.4); Hematocrit 33.5 % (37.0-47.0); Hemoglobin 11.4 g/dl (12.0-16.0); Lymphocytes Absolute Auto 0.8 X10*3/uL (1.2-4.9); Lymphocytes Percent Auto 29.8 % (20-40); Mean Corpuscular Hemoglobin 29.5 pg (27.0-33.0); Mean Corpuscular Volume 86.6 fL (80.0-98.0); Mean Platelet Volume 9.9 fL (9.4-12.3); Monocytes Absolute Auto 0.2 X10*3/uL (0.1-1.2); Neutrophils Absolute Auto 1.5 x10*3/uL (2.0-8.3); Neutrophils Percent Auto 58.8 % (45-73); Platelet Count 120 X10*3/uL (160-400); Red Blood Count 3.87 X10*6/uL (4.20-5.50); Red Cell Distribution Width 15.3 % (11.0-16.0); White Blood Count 2.6 X10*3/uL (4.8-10.8)
[2024-04-02 12:30] LABS: Appearance Urine Clear; Color Urine Yellow; Glucose Urine UA Negative (Negative); Leukocyte Esterase Urine Trace (Negative); Nitrite Urine Negative (Negative); UMIC TRIGGER UACC YES; Urine Blood Moderate (2+) (Negative); Urine Ketones Negative (Negative); Urine Protein 100 (2+) mg/dL (Neg-Trace)
[2024-04-02 12:37] LABS: Bacteria Urine None Seen (None Seen); Hyaline Casts Urine 0-2 /LPF (0-2); RBC Urine >20 /HPF (0-2); UACC Culture Trigger YES
[2024-04-02 12:47] LABS: Alanine Aminotransferase 39 U/L (0-31); Albumin Level 3.8 g/dL (3.5-5.0); Alkaline Phosphatase 102 U/L (39-117); Anion Gap 7 (12-20); Aspartate Amino Transferase 30 U/L (5-31); Bilirubin Direct 0.2 mg/dL (0.0-0.5); Bilirubin Total 0.5 mg/dL (0.0-1.0); Blood Urea Nitrogen 10 mg/dL (9-16); Calcium 9.2 mg/dL (8.4-10.2); Carbon Dioxide 24 mmol/L (22-29); Chloride 111 mmol/L (96-108); Creatinine Clr Calc Pharmacy 100.9; Estimated Glomerular Filt Rate > 60; Glucose Random 108 mg/dL (60-115); Lipase 9 U/L (8-78); Magnesium 2.2 mg/dL (1.6-2.6); Potassium 3.9 mmol/L (3.3-5.1); Sodium 138 mmol/L (135-145); Total Protein 6.1 g/dL (6.5-8.0)
[2024-04-02 12:50] LABS: HCG Quantitative < 2 mIU/mL
--- NOTE | 2024-04-02 17:28 | MHC.EDTECH ---
1ST SET OF BLOOD CULTURE DRAWN AND SENT TO LAB ,PER PIT PROVIDER LUIS FERNANDO ,PATIENT PROVIDER WOULD LIKE ONE SETS OF BLOOD CULTURE DRAWN PERIPHERALLY AND 1 SET TO BE DRAWN FROM PATIENT PICK LINE .
[2024-04-02 18:28] VITALS: BP 132/74; PULSE 69; RESP 18; TEMP 36.8; O2SAT 97
[2024-04-02] MEDS: cefTRIAXone sodium 1 GM in 0.9 % Sodium Chloride 50 ML IV (19:33)
[2024-04-02 19:52] LABS: Influenza A PCR NEGATIVE (Negative); Influenza B PCR NEGATIVE (Negative); Resp Syncy Virus RNA Qual PCR NEGATIVE (Negative); SARS COV2 PCR INHOUSE NEGATIVE (Negative)
[2024-04-02 20:28] VITALS: BP 113/60; PULSE 62; RESP 18; TEMP 36.9; O2SAT 99
--- NOTE | 2024-04-02 21:20 | PC.NURSE ---
Spoke to lab about CT NGby PCR order, urine needs to be collected in specific container. Will attempt to locate container for collection.
[2024-04-02 22:13] VITALS: BP 111/54; PULSE 57; RESP 18; TEMP 36.8; O2SAT 99
--- NOTE | 2024-04-02 22:25 | PHA.MEDREC ---
Addendum entered by Kay Neri meron 04/02/24 22:30: Patient also notes being on a TPN at home Original Note: Pharmacy Consult ? Medication Reconciliation Pharmacy has completed the medication reconciliation. Confirmed medications with patient. Patient states she can not take any medications by mouth. She takes Pantoprazole 40mg IV Q12H and Pepcid 40mg IV Q12H.
--- NOTE | 2024-04-02 22:52 | PC.NURSE ---
FULL SET OF BC SET FROM PICC LINE, labels on collection sticket PICC LINE.
[2024-04-02 22:54] LABS: Glucose, Whole Blood 80 mg/dL (60-115)
--- NOTE | 2024-04-02 22:56 | PC.NURSE ---
Called lab regarding BC to confirm receipt of PICC LINE BC before hanging abx. Lab confirmed receipt of BC.
[2024-04-02] MEDS: levoFLOXacin/D5W 500 MG/100 ML PIGGYBACK 100 MG IV (23:07)
[2024-04-02 23:08] VITALS: BP 99/46; PULSE 50; RESP 16; O2SAT 99
[2024-04-03 00:05] VITALS: BP 107/54; PULSE 60; RESP 16; TEMP 37; O2SAT 99
--- NOTE | 2024-04-03 00:09 | PC.NURSE ---
Took of care from VIJI Carl, pt complete medication, reviewed discharge instructions with pt. pt verbalized understanding, no sign of distress upon discharge.
[2024-04-03 00:10] VITALS: BP 101/54; PULSE 60; RESP 20; TEMP 36.6; O2SAT 98
[2024-04-03 02:24] LABS: CT PCR NOT DETECTED (Not Detect.); NG PCR NOT DETECTED (Not Detect.)
== END 2024-04-03 00:11 | disposition home or self-care (01) ==
PROVIDERS: Physician Assistant; Physician Assistant Medical; Emergency Provider Emergency Medicine; PCP Nurse Practitioner Family
DX: N39.0 Urinary tract infection, site not specified (principal); R30.0 Dysuria; R10.9 Unspecified abdominal pain; R33.9 Retention of urine, unspecified; M79.10 Myalgia, unspecified site; R51.9 Headache, unspecified; Z98.84 Bariatric surgery status; Z03.818 Encounter for observation for suspected exposure to other biological agents ruled out; Z79.899 Other long term (current) drug therapy
CPT/HCPCS: 0241U; 36415; 51798; 74176; 80048; 80076; 81001; 82550; 82947; 83690; 83735; 84702; 85025; 87040; 87077; 87086; 87186; 87205; 87491; 87591; 96365; 96366; 96367; 99285; J0696; J1956

== ENCOUNTER 2024-04-03 15:29 | Inpatient (IN) | payer MEDICAID, SELFPAY ==
[2024-04-03 15:45] VITALS: BP 112/68; PULSE 78; RESP 18; TEMP 36.7; O2SAT 98; BMI 23.6
--- NOTE | 2024-04-03 15:56 | ED_ITS ---
HPI - Recheck/Abnormal Lab/Rx General Chief Complaint: Recheck/Abnormal Lab/Rx Stated Complaint: ?blood infection Time Seen by Provider: 04/03/24 16:12 Source: patient Mode of arrival: ambulatory Limitations: no limitations History of Present Illness HPI narrative: This is a 34-year-old woman with a complex past medical history including history of conversion of laparoscopic sleeve gastrectomy 2 laparoscopic [place]-en-Y gastric bypass March 19, 2021 complicated by marginal ulcer with perforation who has been on TPN and IV fluids since January, adjustment disorder, asthma, GERD who presents to the emergency room after having positive blood cultures drawn here yesterday. She states feeling tired, but I can't sleep . She states Dr. Garcia had callled in antibiotics and states that they had not yet been delivered before she received the call to come back to the emergency room immediately. She states no fevers since Tuesday earlier this week. She states that she was experiencing pain at the end of urination along with fever Tuesday. She states no fever since then. She states no abdominal pain or flank pain. She states no nausea or vomiting. She states no cough, congestion or headache. She states no pain at the site of her right upper extremity PICC line. She reports the dressing was changed earlier this week on Tuesday. She states no chest pain or difficulty breathing. She states no changes to her chronic loose stools. She states no melena or hematochezia. Related Data Home Medications ?Medication ?Instructions ?Recorded ?Confirmed levonorgestrel 21 mcg/24 hr (up to 1 device intrauterine DIRECTED 12/22/20 04/02/24 8 years) 52 mg intrauterine device (Mirena) famotidine (PF) 20 mg/2 mL 40 mg IV Q12H 04/02/24 04/02/24 intravenous solution pantoprazole 40 mg intravenous 40 mg IV Q12H 04/02/24 04/02/24 solution Allergies Allergy/AdvReac Type Severity Reaction Status Date / Time tomato Allergy Severe itchy Verified 04/03/24 17:25 throat Review of Systems 2 Review of Systems: ROS as per HPI PMF Past Medical History Medical History Excess skin of abdomen Zinc deficiency Constipation Iron deficiency Panniculitis Overweight BMI 31.0-31.9,adult BMI 39.0-39.9,adult Obesity Intestinal malabsorption Intra-abdominal adhesions BMI 34.0-34.9,adult COVID-19 vaccine series completed History of depression Anxiety BMI over 35 BMI 37.0-37.9, adult Vitamin D deficiency Vitamin B12 deficiency Vitamin B1 deficiency GERD (gastroesophageal reflux disease) Back pain Gestational diabetes Asthma, exercise induced Surgical History Hx of breast surgery Hx of gastric bypass History of esophagogastroduodenoscopy (EGD) Hx laparoscopic cholecystectomy History of sleeve gastrectomy Social History Social History Household Members: Family Housing: House Are you a primary manager respiratory care to a significant other at home: Yes (2 children, arrangements made for their care in the post-op period) Do you presently have visiting nurse or other home services: Yes Alcohol intake: current Alcohol intake frequency: does not drink Patient Tobacco Use Status: Former Tobacco user Smoked in Last 30 Days: No Use of substances other than those prescribed or required for medical reasons: No Substance Use Type: Marijuana Advance Directives: Yes Advance Directives on File: Yes Advance Directives Date on File: 01/20/24 service: No Current occupational status: employed Physical Exam 2 Vital Signs: Vital Signs: Last Vital Signs Temp 98.0 F 04/03/24 15:45 Pulse 78 04/03/24 15:45 Resp 18 04/03/24 15:45 BP 112/68 04/03/24 15:45 Pulse Ox 98 04/03/24 15:45 O2 Del Method Room Air 04/03/24 15:45 BMI result Body Mass Index 23.6 Gen: NAD, AOx3 HEENT: NCAT, EOMI, normal conjunctiva CV: RRR, 2+ bilateral radial pulses, no murmurs appreciated Pulm: CTAB, no increased work of breathing GI: Soft, NTND, no rebound, guarding or rigidity MSK: Right upper extremity PICC line dressing c/d/i with no tenderness to palpation/erythema/warmth/fluctuance Neuro: Grossly non focal Course Course Course Narrative: This is a Rapid Medical Examination (RME) performed by Oliver Jane PA-C in triage. Full HPI, ROS, assessment and treatment plan per primary provider in the Main ED. 34 y/o female with complex history including history of conversion of laparoscopic sleeve gastrectomy to laparoscopic [place]-en-Y gastric bypass on 03/19/2021 complicated by a marginal ulcer w/ perforation who has been on TPN and IVF since January who presents back to the ER after she was found to be bacteremic from her blood cultures here yesterday. She has had a PICC in her RUE since January 16. She was here yesterday for fever and dysuria. CT scan of her abd showed no acute findings. She was discharged with plan for IV abx at home. 2 out of 3 sets (one was taken from PICC) were positive for GPC Plan: IV vanco, labs, remove PICC and culture tip. f/u with Chao MCKINNON from Bariatrics. Admit Medications Administered Discontinued Medications Generic Name Dose Route Start Last Admin Trade Name Freq PRN Reason Stop Dose Admin Vancomycin HCl 1,500 mg/ 500 mls @ 333.333 mls/hr 04/03/24 15:52 04/03/24 17:28 Sodium Chloride IV 04/03/24 17:21 333.33 mls/hr ONCE ONE Administration Medical Decision Making Medical Decision Making [facility] Narrative: Differential diagnosis includes, but is not limited to bacteremia, PICC line infection, urinary tract infection, ascending urinary tract infection. Patient is afebrile and hemodynamically stable on room air. Exam is benign and reassuring. I reviewed and interpreted labs, which notable for leukopenia and thrombocytopenia (largely unchanged when compared to previous). I discussed the patient's case and management with philatelic consultant and admitting bariatric surgeon, Dr. Chao Garcia, who states that he will admit the patient to his service. Requests a right upper extremity PICC line catheter tip culture, which is ordered and sent to lab (results pending at tie of admission). He recommends antibiotics with vancomycin and levofloxacin, which are ordered. I considered repeat CT imaging, but given unremarkable CT scan of the abdomen/pelvis obtained 1 day prior to presentation we will defer at this time. Patient is admitted to Dr. Garcia for further workup and management. Admission/Observation Consideration of admission/observation: Escalation of care including admission/observation considered Consult Healthcare Provider Management of the patient was discussed with: Casing Sewer Lab Data 04/03/24 16:33 04/03/24 16:33 Labs: Lab Results 07/30/24 07/30/24 Range/Units 12:12 16:33 WBC 3.2 L (4.8-10.8) X10*3/uL RBC 4.21 (4.20-5.50) X10*6/uL Hgb 12.3 (12.0-16.0) g/dl Hct 36.3 L (37.0-47.0) % MCV 86.2 (80.0-98.0) fL MCH 29.2 (27.0-33.0) pg MCHC 33.9 (31.0-35.0) g/dl RDW 15.2 (11.0-16.0) % Plt Count 133 L (160-400) X10*3/uL MPV 9.6 (9.4-12.3) fL Immature Gran % (Auto) 0.3 (0.0-0.4) % Neut % (Auto) 64.5 (45-73) % Lymph % (Auto) 23.6 (20-40) % Sutton % (Auto) 8.8 (2-11) % Eos % (Auto) 2.5 (0-4) % Baso % (Auto) 0.3 (0-2) % Lymph # (Auto) 0.8 L (1.2-4.9) X10*3/uL Sutton # (Auto) 0.3 (0.1-1.2) X10*3/uL Eos # (Auto) 0.1 (0.0-0.4) X10*3/uL Baso # (Auto) 0.0 (0.0-0.2) X10*3/uL Abs Immat Gran (auto) 0.01 (0.00-0.03) X10*3/uL Absolute Neuts (auto) 2.1 (2.0-8.3) x10*3/uL Absolute Nucleated RBC 0.000 (0.0-0.012) X10*3/uL Nucleated RBC % (auto) 0.0 (0.0-0.2) /100WBC Sodium 143 (135-145) mmol/L Potassium 4.0 (3.3-5.1) mmol/L Chloride 111 H (96-108) mmol/L Carbon Dioxide 23 (22-29) mmol/L Anion Gap 13 (12-20) BUN 13 (9-16) mg/dL Creatinine 0.69 (0.5-1.4) mg/dL Estim Creat Clear Calc 102.3 Estimated GFR > 60 Random Glucose 81 (60-115) mg/dL Lactic Acid 0.6 (0.5-2.0) mmol/L Calcium 9.4 (8.4-10.2) mg/dL Magnesium 2.1 (1.6-2.6) mg/dL Total Bilirubin 0.6 (0.0-1.0) mg/dL Direct Bilirubin 0.2 (0.0-0.5) mg/dL AST 21 (5-31) U/L ALT 34 H (0-31) U/L Alkaline Phosphatase 113 (39-117) U/L Total Protein 6.8 (6.5-8.0) g/dL Albumin 4.1 (3.5-5.0) g/dL Discharge Plan Discharge Clinical Impression: Bacteremia Patient Disposition: Admitted As Inpatient Print Language: Anguillan
[2024-04-03 16:37] LABS: MANUAL DIFF FLAG NO
[2024-04-03 16:42] LABS: Basophils Percent Auto 0.3 % (0-2); Eosinophils Absolute Auto 0.1 X10*3/uL (0.0-0.4); Eosinophils Percent Auto 2.5 % (0-4); Hematocrit 36.3 % (37.0-47.0); Hemoglobin 12.3 g/dl (12.0-16.0); Imm Gran Abs Auto 0.01 X10*3/uL (0.00-0.03); Imm Gran Pct Auto 0.3 % (0.0-0.4); Lymphocytes Absolute Auto 0.8 X10*3/uL (1.2-4.9); Lymphocytes Percent Auto 23.6 % (20-40); Mean Corpuscular HGB Conc 33.9 g/dl (31.0-35.0); Mean Corpuscular Hemoglobin 29.2 pg (27.0-33.0); Mean Corpuscular Volume 86.2 fL (80.0-98.0); Mean Platelet Volume 9.6 fL (9.4-12.3); Monocytes Absolute Auto 0.3 X10*3/uL (0.1-1.2); Monocytes Percent Auto 8.8 % (2-11); Neutrophils Absolute Auto 2.1 x10*3/uL (2.0-8.3); Neutrophils Percent Auto 64.5 % (45-73); Platelet Count 133 X10*3/uL (160-400); Red Blood Count 4.21 X10*6/uL (4.20-5.50); Red Cell Distribution Width 15.2 % (11.0-16.0); White Blood Count 3.2 X10*3/uL (4.8-10.8)
[2024-04-03 16:53] LABS: Lactic Acid 0.6 mmol/L (0.5-2.0)
[2024-04-03 16:56] LABS: Alanine Aminotransferase 34 U/L (0-31); Albumin Level 4.1 g/dL (3.5-5.0); Alkaline Phosphatase 113 U/L (39-117); Anion Gap 13 (12-20); Aspartate Amino Transferase 21 U/L (5-31); Bilirubin Direct 0.2 mg/dL (0.0-0.5); Bilirubin Total 0.6 mg/dL (0.0-1.0); Blood Urea Nitrogen 13 mg/dL (9-16); Calcium 9.4 mg/dL (8.4-10.2); Carbon Dioxide 23 mmol/L (22-29); Chloride 111 mmol/L (96-108); Creatinine Clr Calc Pharmacy 102.3; Estimated Glomerular Filt Rate > 60; Glucose Random 81 mg/dL (60-115); Magnesium 2.1 mg/dL (1.6-2.6); Sodium 143 mmol/L (135-145); Total Protein 6.8 g/dL (6.5-8.0)
--- NOTE | 2024-04-03 17:07 | PM.EVENT ---
Event Note Date of Service: 04/04/24 Event Note: Coverage for Bariatric Service 34F with hx of bariatric surgery in 2020 had developed marginal ulcers in January 2024, had been in TPN with a PICC line since then was in ED yesterday for dysuria, diagnosed to have UTI blood cultures grew gm positive cocci - prob from PICC line she feels great no fever as per Dr. Webster - admit for IV abx plan to remove PICC line IVF via peripheral for now EGD to reexamine marginal ulcer - if healed, no need to reinsert PICC line,and ok to start PO intake if with signficant ulcers - reinsert PICC line, continue TPN seen and examined independently Time Spent With Patient Time: Total time managing care of this patient today ____ minutes.
--- NOTE | 2024-04-03 17:16 | PM.HPGS ---
History of Present Illness History of Present Illness Date of Service: 04/03/24 Chief complaint: ?blood infection Narrative: Daina Larkin is a 34 year old female with a significant past medical history for gastric bypass 03/24/2021, presented to the hospital on 01/14/2024 with abdominal pain, found to have perforated viscus. She was treated without surgical intervention, requiring IV antibiotics, PICC line, ultimately TPN and lipids and discharged home on 01/19 24. She presented again to the emergency room on 01/23/2024 at my direction due to complaints of new onset left flank and back pain, concerning for possible abscess. Workup was negative for leukocytosis however CT scan was concerning for possible subdiaphragmatic abscess on the right side. She continued on IV Zosyn, Flagyl was restarted and she was monitored conservatively. She remained on TPN, IV analgesia and early ambulation. No clear etiology of the stabbing and burning left back/flank pain. Differential includes left atelectasis, pleural effusion, zoster. She did not show evidence of rash or hypoxia. She utilized incentive spirometer with improvement. She declined any significant worsening of abdominal pain specifically. She did not show evidence of sepsis, fevers, leukocytosis and was discharged home with plan for upper endoscopy in February. This was performed 02/22/2024 showing improvement in her ulceration. Surveillance repeat upper endoscopy performed March 15 showed worsening ulceration and she was again placed NPO, given TPN and lipids via right basilic PICC line. She presented to the hospital yesterday with symptomatic complaints of 48 hours of dysuria, urinary urgency and hesitancy. She was found to have bacteriuria and the plan was for IV levofloxacin to be completed at home. The workup from yesterday including blood cultures, 2 from the periphery and 1 from the PICC line (although the PICC line blood culture was after a dose of ceftriaxone), peripheral blood cultures came back positive today with Gram-positive cocci in clusters and she was asked to come back to the emergency room. Patient states that globally, she felt better than yesterday although just somewhat tired. She had no reports of fever, no significant pains, however given her for of for peripheral blood cultures positive, we will admit her to the hospital for further care IV fluids and IV antibiotics. Review of Systems Review of Systems: Yes all other systems are reviewed and are negative PMFSH Past Medical History Medical History Excess skin of abdomen Zinc deficiency Constipation Iron deficiency Panniculitis Overweight BMI 31.0-31.9,adult BMI 39.0-39.9,adult Obesity Intestinal malabsorption Intra-abdominal adhesions BMI 34.0-34.9,adult COVID-19 vaccine series completed History of depression Anxiety BMI over 35 BMI 37.0-37.9, adult Vitamin D deficiency Vitamin B12 deficiency Vitamin B1 deficiency GERD (gastroesophageal reflux disease) Back pain Gestational diabetes Asthma, exercise induced Family History Family history: reviewed and not pertinent Surgical History Surgical History Hx of breast surgery Hx of gastric bypass History of esophagogastroduodenoscopy (EGD) Hx laparoscopic cholecystectomy History of sleeve gastrectomy Social History Social History Household Members: Family Housing: House Are you a primary caretaker grounds to a significant other at home: Yes (2 children, arrangements made for their care in the post-op period) Do you presently have visiting nurse or other home services: Yes Alcohol intake: current Alcohol intake frequency: does not drink Patient Tobacco Use Status: Former Tobacco user Smoked in Last 30 Days: No Use of substances other than those prescribed or required for medical reasons: No Substance Use Type: Marijuana Advance Directives: Yes Advance Directives on File: Yes Advance Directives Date on File: 01/20/24 service: No Current occupational status: employed Meds Allergies Allergy/AdvReac Type Severity Reaction Status Date / Time tomato Allergy Severe itchy Verified 04/03/24 17:25 throat Active Medications: Current Medications Vancomycin HCl 1,500 mg/ (Sodium Chloride) 500 mls @ 333.333 mls/hr IV ONCE ONE Stop: 04/03/24 17:21 Levofloxacin (Levaquin) 750 mg in 150 mls @ 100 mls/hr IV ONCE ONE Stop: 04/03/24 18:12 Home Medications ?Medication ?Instructions ?Recorded ?Confirmed ?Last Taken ?Type levonorgestrel 21 mcg/24 hr (up to 1 device intrauterine DIRECTED 12/22/20 04/02/24 Unknown History 8 years) 52 mg intrauterine device (Mirena) famotidine (PF) 20 mg/2 mL 40 mg IV Q12H 04/02/24 04/02/24 04/02/24 09:00 History intravenous solution pantoprazole 40 mg intravenous 40 mg IV Q12H 04/02/24 04/02/24 04/02/24 09:00 History solution Physical Exam Vital Signs: Vital Signs: Last Vital Signs Temp 98.0 F 04/03/24 15:45 Pulse 78 04/03/24 15:45 Resp 18 04/03/24 15:45 BP 112/68 04/03/24 15:45 Pulse Ox 98 04/03/24 15:45 O2 Del Method Room Air 04/03/24 15:45 BMI result Body Mass Index 23.6 Const: General: cooperative, healthy appearing and no acute distress Orientation/consciousness: patient oriented x3 HEENT: Head: Yes normal to inspection Ears: hearing grossly normal bilaterally General nose exam: Normal external nose present Face and sinus: Yes normal facial exam Eyes: General: appearance normal, both eyes and all related structures Resp: Effort & Inspection: normal respiratory effort Auscultation: clear to auscultation bilaterally Cardio: Rate: regular rate Rhythm: regular rhythm Heart sounds: S1 normal heart sound present and S2 normal heart sound present GI: Inspection: Yes normal to inspection, No distended and Yes obesity Palpation (GI): Soft to palpation, nontender and no guarding Auscultation: normal bowel sounds Skin: General skin exam: no rashes or lesions noted Neuro: General: patient oriented x3 Extrem: General: No edema Psych: Appearance: grossly normal Mental Status: mental status grossly normal Speech and movement: Normal speech and movement present Affect: normal affect Attitude: cooperative Results Results Labs: Short CBC 04/03/24 Range/Units 16:33 WBC 3.2 L (4.8-10.8) X10*3/uL Hgb 12.3 (12.0-16.0) g/dl Hct 36.3 L (37.0-47.0) % Plt Count 133 L (160-400) X10*3/uL BMP 04/03/24 16:33 Sodium 143 Potassium 4.0 Chloride 111 H Carbon Dioxide 23 BUN 13 Creatinine 0.69 Calcium 9.4 Liver Function 04/03/24 Range/Units 16:33 Total Bilirubin 0.6 (0.0-1.0) mg/dL Direct Bilirubin 0.2 (0.0-0.5) mg/dL AST 21 (5-31) U/L ALT 34 H (0-31) U/L Alkaline Phosphatase 113 (39-117) U/L Albumin 4.1 (3.5-5.0) g/dL Assessment and Plan (1) Bacteremia: Status: Acute For of for peripheral blood cultures from yesterday positive for Gram-positive cocci in clusters. PICC line pulled and tip sent for culture prior to initiation of vancomycin Initiate 1 g IV vancomycin q.12 hours. Question whether she will need prolonged IV antibiotics or possible transition to oral antibiotics based upon her ability to take p.o. based upon evidence of healing anastomotic ulcer, listed below. Consult infectious disease, for antibiotic recommendations and duration, both IV and oral based upon patient's ability to take p.o. antibiotics and clinical improvement CBC, Chem 7 in the morning (2) Urinary tract infection: Qualifiers: Urinary tract infection type: acute cystitis Hematuria presence: with hematuria Qualified Code(s): N30.01 - Acute cystitis with hematuria Status: Acute Positive bacteria as of yesterday with urinary symptoms. She did have greater than 100,000 ray of mixed urogenital contamination however given symptomatology and improvement in the last 24 hours, continue IV levofloxacin, likely 7 days treatment to account for any possibility of underlying pyelo (3) Marginal ulcer: Status: Acute Marginal ulcer dating back to 02/23/2024. She did have a perforated viscus, microperforation, in January. Upper endoscopy in February revealed healing ulceration however repeat upper endoscopy in March showed worsening ulceration. She has remained NPO with TPN and lipids via right basilic vein PICC line since 03/15/2024. She is additionally received IV b.i.d. PPI and IV daily H2 milagro. I have consulted Gastroenterology and spoke with them regarding upper endoscopy to eval for continued need of NPO status, b.i.d. PPI and H2 milagro. Patient may or may not need another PICC line placed once blood cultures clear, dependent upon results of upper endoscopy. (4) S/P gastric bypass: Status: Acute Remote history of gastric bypass, dating to 03/24/2021. Found to have microperforation in January 2024. Has remained NPO given recent anastomotic ulcer. Treatment plan as above. Plan Discussed case extensively with doctors Shameka Logan and Philip Total time managing care of this patient today: 90 minutes. Quality Stroke Does the patient have a stroke diagnosis?: No VTE Prior VTE?: No VTE Risk Level:: Medical - low VTE Device Contraindication: N/A - Device Ordered VTE Drug Contraindication: Treatment Not Indicated Procedures Date of Service Date of Service: 04/03/24
--- NOTE | 2024-04-03 17:20 | PC.NURSE ---
Patient's PICC line to be removed before IV abx hung. Called Lab and ICU to confirm container specimen needed. Sterile cup obtained. Dr. Vasques to bedside to pull PICC line, cut tip of line for culture.
[2024-04-03] MEDS: vancomycin HCL 1,500 MG in 0.9 % Sodium Chloride 500 ML 333.33 MG IV (17:28)
--- NOTE | 2024-04-03 17:32 | PC.NURSE ---
Provider pulled PICC line without complication, tip placed in sterile cup for collection. Sent to lab. IV abx started.
--- NOTE | 2024-04-03 18:24 | PHA.MEDREC ---
Pharmacy Consult ? Medication Reconciliation Pharmacy has completed the medication reconciliation. Patient was just discharged yesterday. Used discharge packet and medical records
[2024-04-03] MEDS: Dextrose 5 % and 0.9 % NaCl 1,000 ML 125 ML IVCONT (18:32)
[2024-04-03 18:43] LABS: Appearance Urine Clear; Color Urine Yellow; Glucose Urine UA Negative (Negative); Leukocyte Esterase Urine Negative (Negative); Nitrite Urine Negative (Negative); PH 5.5 (5.0-9.0); Specific Gravity - Urine 1.015 (1.005-1.025); Urine Blood Negative (Negative); Urine Ketones Negative (Negative); Urine Protein Negative (Neg-Trace)
[2024-04-03 19:10] VITALS: BP 110/57; PULSE 63; RESP 17; TEMP 36.7; O2SAT 100
[2024-04-03] MEDS: Acetaminophen 1,000 MG/100 ML PIGGYBACK 400 MG IV (19:34)
[2024-04-03] MEDS: levoFLOXacin/D5W 750 MG/150 ML PIGGYBACK 100 MG IV (19:52)
[2024-04-03 21:03] VITALS: BMI 24.0
[2024-04-03 21:15] VITALS: BP 104/56; PULSE 52; RESP 20; TEMP 36.5; O2SAT 97
[2024-04-03] MEDS: 0.9 % Sodium Chloride Flush 3 ML SYRINGE IVFLUSH (21:18)
[2024-04-03] MEDS: Pantoprazole Sodium 40 MG/10 ML VIAL IVPUSH (21:18)
[2024-04-03 23:28] VITALS: BP 103/57; PULSE 51; RESP 16; TEMP 36.4; O2SAT 97
--- NOTE | 2024-04-03 23:59 | P.CNGI_ITS ---
History of Present Illness Data of Consult Service Date: 04/03/24 Requesting physician: Chao Garcia Primary Care Provider: GABRIELA Murray HPI Reason for consult: assessment of anastomotic ulcer 34 year old female with hx of sleeve gastrectomy with conversion to gastric bypass 03/24/2021, and cholecystectomy who i am seeing for assessment for anastomotic ulcer. Patient presented to hospital with urine frequency dysuria, and urgency with concern for UTI< but she also had fever with BC pos for GPC suspected from an indwelling PICC line. She denies abdomina pain, no nausea or vomiting. Patient has been on TPN since 01/26 after she had microperf and subdiaphragmatic abscess, anastomotic ulcer. Primary team requesting EGD to eval if prior anastomotic ulcer has healed and to see if patient can stop TPN. Patient did say she has been eating oat meal without any issue. Review of Systems 2 Review of Systems: Constitutional : No Weight loss, No Fever, No Chills ENT/Mouth : No sore throat, No Rhinorrhea Eyes: No Swelling, No Redness Cardiovascular : No Chest Pain, No SOB, No Edema Respiratory : No Cough, No Sputum, No Wheezing Gastrointestinal : see HPI Genitourinary : NO Dysuria, No Urinary Frequency, No Hematuria, No Urgency Musculoskeletal : No joint pain, No Myalgias, No Joint Swelling Skin : No Skin Lesions, No rash Neuro : + Weakness, No Numbness, No Dizziness, No Headache Psych : No Anxiety/Panic, No Depression Heme/Lymph: No Bruising, No Lymphadenopathy Endocrine : No Polyuria, No Polydipsia All other systems reviewed and are negative. [facility] Past Medical History Medical History Excess skin of abdomen Zinc deficiency Constipation Iron deficiency Panniculitis Overweight BMI 31.0-31.9,adult BMI 39.0-39.9,adult Obesity Intestinal malabsorption Intra-abdominal adhesions BMI 34.0-34.9,adult COVID-19 vaccine series completed History of depression Anxiety BMI over 35 BMI 37.0-37.9, adult Vitamin D deficiency Vitamin B12 deficiency Vitamin B1 deficiency GERD (gastroesophageal reflux disease) Back pain Gestational diabetes Asthma, exercise induced Family History Pertinent family history: no Fh of ulcers Family history: reviewed and not pertinent Surgical History Surgical History Hx of breast surgery Hx of gastric bypass History of esophagogastroduodenoscopy (EGD) Hx laparoscopic cholecystectomy History of sleeve gastrectomy Social History Social History Household Members: Family Housing: House Are you a primary foster care case manager to a significant other at home: Yes (2 children, arrangements made for their care in the post-op period) Do you presently have visiting nurse or other home services: Yes (vna services) Alcohol intake: current Alcohol intake frequency: does not drink Patient Tobacco Use Status: Former Tobacco user Smoked in Last 30 Days: No Patient Interested in Nicotine Replacement: No Second Hand Smoke Exposure: No Use of substances other than those prescribed or required for medical reasons: No Substance Use Type: Marijuana Currently Displaying Signs/Symptoms of Drug Intoxication Withdrawal: No Have you been hit, kicked, punched, or otherwise hurt by someone within the past year? If so, by whom?: No Do you feel safe in your current relationship?: Yes Is there a partner from a previous relationship who is making you feel unsafe now?: No Are you made to feel afraid or neglected: No Advance Directives: Yes Advance Directives on File: Yes Advance Directives Date on File: 01/20/24 Do you have a plan to hurt others: No Plan Recently lost weight without trying: No How much weight loss: Not applicable Eating poorly because of decreased appetite: No Nutrition screen score: 0 Nutrition Risks: No Nutritional Risk Patient : No : No Poor oral hygiene: No service: No Current occupational status: employed Meds Allergies Allergy/AdvReac Type Severity Reaction Status Date / Time tomato Allergy Severe itchy Verified 04/03/24 17:25 throat Active Medications: Current Medications Famotidine (Famotidine/Pf 20 Mg/2 Ml Vial) 40 mg IVPUSH DAILY [facility] Dextrose/Sodium Chloride (D5ns) 1,000 mls @ 125 mls/hr IVCONT .Q8H [facility] Last Admin: 04/03/24 18:32 Dose: 125 mls/hr Levofloxacin (Levaquin) 500 mg in 100 mls @ 100 mls/hr IV Q24H [facility] Acetaminophen (Ofirmev) 1,000 mg in 100 mls @ 400 mls/hr IV Q6H PRN PRN Reason: Headache Stop: 04/04/24 11:29 Last Infusion: 04/03/24 19:51 Dose: Infused Ondansetron HCl (Ondansetron Hcl 4 Mg/2 Ml Vial) 4 mg IVPUSH Q8H PRN PRN Reason: Nausea and Vomiting Pantoprazole Sodium (Pantoprazole Sodium 40 Mg/10 Ml Vial) 40 mg IVPUSH BID [facility] Last Admin: 04/03/24 21:18 Dose: 40 mg Pharmacy Consult (Consult Rx Vancomycin Dosing) 1 each MISCELLANE DAILY PRN PRN Reason: Consult order Sodium Chloride (0.9 % Sodium Chloride Flush 3 Ml Syringe) 3 ml IVFLUSH QSHIFT [facility] Last Admin: 04/03/24 21:18 Dose: 3 ml Home Medications ?Medication ?Instructions ?Recorded ?Confirmed ?Last Taken ?Type levonorgestrel 21 mcg/24 hr (up to 1 device intrauterine DIRECTED 12/22/20 04/03/24 Unknown History 8 years) 52 mg intrauterine device (Mirena) famotidine (PF) 20 mg/2 mL 40 mg IV Q12H 04/02/24 04/03/24 04/02/24 09:00 History intravenous solution pantoprazole 40 mg intravenous 40 mg IV Q12H 04/02/24 04/03/24 04/02/24 09:00 History solution Physical Exam 2 Vital Signs: Vital Signs: Last Vital Signs Temp 97.5 F 04/03/24 23:28 Pulse 51 04/03/24 23:28 Resp 16 04/03/24 23:28 BP 103/57 L 04/03/24 23:28 Pulse Ox 97 04/03/24 23:28 O2 Del Method Room Air 04/03/24 23:28 BMI result Body Mass Index 24.0 EXAM: GENERAL: The patient is well developed and nontoxic. VITAL SIGNS:see workflow HEENT: Nonicteric sclerae, PERRLA, EOMI. Oropharynx clear. Moist mucous membranes. Conjunctivae appear well perfused. No thyroid mass. CHEST: Chest wall is nontender. HEART: Regular rate and rhythm without murmurs. LUNGS: Clear to auscultation bilaterally. ABDOMEN: Soft, positive bowel sounds, nontender, no organomegaly.no flank tenderness SKIN: No rash, no excessive bruising, petechiae, or purpura. NEUROLOGIC: Cranial nerves II-XII intact without motor/sensory deficit. Psych: normal affect Results Labs 04/04/24 05:33 04/04/24 05:33 Labs: Short CBC 04/03/24 Range/Units 16:33 WBC 3.2 L (4.8-10.8) X10*3/uL Hgb 12.3 (12.0-16.0) g/dl Hct 36.3 L (37.0-47.0) % Plt Count 133 L (160-400) X10*3/uL BMP 04/03/24 16:33 Sodium 143 Potassium 4.0 Chloride 111 H Carbon Dioxide 23 BUN 13 Creatinine 0.69 Calcium 9.4 Liver Function 04/03/24 Range/Units 16:33 Total Bilirubin 0.6 (0.0-1.0) mg/dL Direct Bilirubin 0.2 (0.0-0.5) mg/dL AST 21 (5-31) U/L ALT 34 H (0-31) U/L Alkaline Phosphatase 113 (39-117) U/L Albumin 4.1 (3.5-5.0) g/dL Urine 04/03/24 Range/Units 18:29 Urine Color Yellow Urine Appearance Clear Urine pH 5.5 (5.0-9.0) Ur Specific [place] 1.015 (1.005-1.025) Urine Protein Negative (Neg-Trace) mg/dL Urine Glucose (UA) Negative (Negative) mg/dL Assessment and Plan (1) Marginal ulcer: Status: Acute Plan 1/ Hx of anastomotic ulcer, was on TPN, primary team requesting EGD to re eval ulcer to see if can stop TPN PLAN: 1/ EGD Tue or depending on schedule, 2/ cont rx for GPC bacteremia in the meantime Procedures Date of Service Date of Service: 04/04/24
[2024-04-04] VITALS (7 sets, daily range): BP systolic 90–128; BP diastolic 36–70; PULSE 43–52; RESP 16–18; TEMP 36.1–36.6; O2SAT 98–100
[2024-04-04] MEDS: Dextrose 5 % and 0.9 % NaCl 1,000 ML 125 ML IVCONT ×3 (02:15→20:34)
[2024-04-04] MEDS: Acetaminophen 1,000 MG/100 ML PIGGYBACK 400 MG IV (04:55)
[2024-04-04 06:26] LABS: Basophils Percent Auto 0.4 % (0-2); Eosinophils Absolute Auto 0.1 X10*3/uL (0.0-0.4); Eosinophils Percent Auto 3.7 % (0-4); Hematocrit 30.7 % (37.0-47.0); Hemoglobin 10.2 g/dl (12.0-16.0); Lymphocytes Absolute Auto 1.2 X10*3/uL (1.2-4.9); MANUAL DIFF FLAG SCAN; Mean Corpuscular HGB Conc 33.2 g/dl (31.0-35.0); Mean Corpuscular Hemoglobin 28.8 pg (27.0-33.0); Mean Corpuscular Volume 86.7 fL (80.0-98.0); Mean Platelet Volume 10.1 fL (9.4-12.3); Monocytes Absolute Auto 0.3 X10*3/uL (0.1-1.2); Monocytes Percent Auto 10.4 % (2-11); Neutrophils Absolute Auto 0.8 x10*3/uL (2.0-8.3); Neutrophils Percent Auto 34.5 % (45-73); Platelet Count 102 X10*3/uL (160-400); Red Blood Count 3.54 X10*6/uL (4.20-5.50); Red Cell Distribution Width 15.4 % (11.0-16.0); SCAN SMEAR FLAG 1; White Blood Count 2.4 X10*3/uL (4.8-10.8)
[2024-04-04 06:42] LABS: Anion Gap 9 (12-20); Blood Urea Nitrogen 11 mg/dL (9-16); Calcium 8.9 mg/dL (8.4-10.2); Carbon Dioxide 24 mmol/L (22-29); Chloride 113 mmol/L (96-108); Creatinine Clr Calc Pharmacy 110.3; Estimated Glomerular Filt Rate > 60; Glucose Random 93 mg/dL (60-115); Potassium 3.8 mmol/L (3.3-5.1); Sodium 142 mmol/L (135-145)
[2024-04-04] MEDS: Famotidine/PF 20 MG/2 ML VIAL 40 MG IVPUSH (07:58)
[2024-04-04] MEDS: Pantoprazole Sodium 40 MG/10 ML VIAL IVPUSH ×2 (07:58→20:32)
[2024-04-04 08:07] LABS: SLIDE REVIEW VERIFIED
--- NOTE | 2024-04-04 08:09 | PM.PNGS ---
Subjective Subjective Date of Service: 04/04/24 Interval history: Coverage for bariatric surgery Patient currently feels well Denies abdominal pain Denies complaints Physical Exam Vital Signs: Vital Signs: Last Vital Signs Temp 98 F 04/04/24 06:52 Pulse 52 04/04/24 06:52 Resp 16 04/04/24 06:52 BP 107/70 04/04/24 06:52 Pulse Ox 98 04/04/24 06:52 O2 Del Method Room Air 04/04/24 06:52 BMI result Body Mass Index 24.0 Const: General: comfortable and no acute distress Resp: Effort & Inspection: normal respiratory effort Cardio: Rate: regular rate GI: Palpation (GI): Soft to palpation, not firm, nontender and no guarding Objective Data Active Medications Famotidine (Famotidine/Pf 20 Mg/2 Ml Vial) 40 mg IVPUSH DAILY [facility] Last Admin: 04/04/24 07:58 Dose: 40 mg Documented By: FLAVIA Dextrose/Sodium Chloride (D5ns) 1,000 mls @ 125 mls/hr IVCONT .Q8H [facility] Last Admin: 04/04/24 02:15 Dose: 125 mls/hr Documented By: RIMA Levofloxacin (Levaquin) 500 mg in 100 mls @ 100 mls/hr IV Q24H [facility] Acetaminophen (Ofirmev) 1,000 mg in 100 mls @ 400 mls/hr IV Q6H PRN PRN Reason: Headache Stop: 04/04/24 11:29 Last Infusion: 04/04/24 05:10 Dose: Infused Documented By: RIMA Ondansetron HCl (Ondansetron Hcl 4 Mg/2 Ml Vial) 4 mg IVPUSH Q8H PRN PRN Reason: Nausea and Vomiting Pantoprazole Sodium (Pantoprazole Sodium 40 Mg/10 Ml Vial) 40 mg IVPUSH BID [facility] Last Admin: 04/04/24 07:58 Dose: 40 mg Documented By: FLAVIA Sodium Chloride (0.9 % Sodium Chloride Flush 3 Ml Syringe) 3 ml IVFLUSH QSHIFT [facility] Last Admin: 04/04/24 07:58 Dose: Not Given Documented By: FLAVIA Non-Admin Reason: IV Running Labs 04/04/24 05:33 04/04/24 05:33 Labs: Laboratory Results - last 24 hr 04/03/24 04/03/24 04/03/24 12:12 16:33 18:29 MCV 86.2 MCH 29.2 MCHC 33.9 RDW 15.2 Plt Count 133 L MPV 9.6 Immature Gran % (Auto) 0.3 Neut % (Auto) 64.5 Lymph % (Auto) 23.6 [place] % (Auto) 8.8 Eos % (Auto) 2.5 Baso % (Auto) 0.3 Lymph # (Auto) 0.8 L [place] # (Auto) 0.3 Eos # (Auto) 0.1 Baso # (Auto) 0.0 Abs Immat Gran (auto) 0.01 Absolute Neuts (auto) 2.1 Absolute Nucleated RBC 0.000 Nucleated RBC % (auto) 0.0 Smear Tech's Comments Anion Gap 13 Estim Creat Clear Calc 102.3 Estimated GFR > 60 Random Glucose 81 Lactic Acid 0.6 Calcium 9.4 Magnesium 2.1 Total Bilirubin 0.6 Direct Bilirubin 0.2 AST 21 ALT 34 H Alkaline Phosphatase 113 Total Protein 6.8 Albumin 4.1 Urine Color Yellow Urine Appearance Clear Urine pH 5.5 Ur Specific [place] 1.015 Urine Protein Negative Urine Glucose (UA) Negative Urine Ketones Negative Urine Blood Negative Urine Nitrite Negative Ur Leukocyte Esterase Negative 04/04/24 05:33 MCV 86.7 MCH 28.8 MCHC 33.2 RDW 15.4 Plt Count 102 L MPV 10.1 Immature Gran % (Auto) 0.0 Neut % (Auto) 34.5 L Lymph % (Auto) 51.0 H [place] % (Auto) 10.4 Eos % (Auto) 3.7 Baso % (Auto) 0.4 Lymph # (Auto) 1.2 [place] # (Auto) 0.3 Eos # (Auto) 0.1 Baso # (Auto) 0.0 Abs Immat Gran (auto) 0.00 Absolute Neuts (auto) 0.8 L Absolute Nucleated RBC 0.000 Nucleated RBC % (auto) 0.0 Smear Tech's Comments VERIFIED Anion Gap 9 L Estim Creat Clear Calc 110.3 Estimated GFR > 60 Random Glucose 93 Lactic Acid Calcium 8.9 Magnesium Total Bilirubin Direct Bilirubin AST ALT Alkaline Phosphatase Total Protein Albumin Urine Color Urine Appearance Urine pH Ur Specific [place] Urine Protein Urine Glucose (UA) Urine Ketones Urine Blood Urine Nitrite Ur Leukocyte Esterase Procedures Date of Service Date of Service: 04/04/24 Progress Note: A&P Assessment and plan (1) Bacteremia: Status: Acute Assessment and Plan: PICC line removed For EGD to check on marginal ulcers If this are healed, okay to have p.o. intake Looks well overall Seen and examined independently Time Spent With Patient Time: Total time managing care of this patient today ____ minutes. Quality Stroke Does the patient have a stroke diagnosis?: No VTE Prior VTE?: No VTE Risk Level:: Medical - low VTE Device Contraindication: N/A - Device Ordered VTE Drug Contraindication: Treatment Not Indicated
--- NOTE | 2024-04-04 08:57 | P.PNGS_ITS ---
Subjective Subjective Date of Service: 04/04/24 Patient reports: feels better Interval history: Patient has recovered from her red man syndrome from last night. She has no residual effects. She reports continued improvement regarding her urination. Denies fevers or chills. Physical Exam 2 Vital Signs: Vital Signs: Last Vital Signs Temp 98 F 04/04/24 06:52 Pulse 52 04/04/24 06:52 Resp 16 04/04/24 06:52 BP 107/70 04/04/24 06:52 Pulse Ox 98 04/04/24 06:52 O2 Del Method Room Air 04/04/24 06:52 BMI result Body Mass Index 24.0 GI: Inspection: Yes normal to inspection Palpation (GI): Soft to palpation, not firm and nontender Auscultation: normal bowel sounds Objective Data Active Medications Famotidine (Famotidine/Pf 20 Mg/2 Ml Vial) 40 mg IVPUSH DAILY [facility] Last Admin: 04/04/24 07:58 Dose: 40 mg Documented By: FLAVIA Dextrose/Sodium Chloride (D5ns) 1,000 mls @ 125 mls/hr IVCONT .Q8H [facility] Last Admin: 04/04/24 02:15 Dose: 125 mls/hr Documented By: RIMA Levofloxacin (Levaquin) 500 mg in 100 mls @ 100 mls/hr IV Q24H [facility] Acetaminophen (Ofirmev) 1,000 mg in 100 mls @ 400 mls/hr IV Q6H PRN PRN Reason: Headache Stop: 04/04/24 11:29 Last Infusion: 04/04/24 05:10 Dose: Infused Documented By: RIMA Ondansetron HCl (Ondansetron Hcl 4 Mg/2 Ml Vial) 4 mg IVPUSH Q8H PRN PRN Reason: Nausea and Vomiting Pantoprazole Sodium (Pantoprazole Sodium 40 Mg/10 Ml Vial) 40 mg IVPUSH BID [facility] Last Admin: 04/04/24 07:58 Dose: 40 mg Documented By: FLAVIA Sodium Chloride (0.9 % Sodium Chloride Flush 3 Ml Syringe) 3 ml IVFLUSH QSHIFT [facility] Last Admin: 04/04/24 07:58 Dose: Not Given Documented By: FLAVIA Non-Admin Reason: IV Running Labs 04/04/24 05:33 04/04/24 05:33 Labs: Laboratory Results - last 24 hr 04/03/24 04/03/24 04/03/24 12:12 16:33 18:29 MCV 86.2 MCH 29.2 MCHC 33.9 RDW 15.2 Plt Count 133 L MPV 9.6 Immature Gran % (Auto) 0.3 Neut % (Auto) 64.5 Lymph % (Auto) 23.6 [place] % (Auto) 8.8 Eos % (Auto) 2.5 Baso % (Auto) 0.3 Lymph # (Auto) 0.8 L [place] # (Auto) 0.3 Eos # (Auto) 0.1 Baso # (Auto) 0.0 Abs Immat Gran (auto) 0.01 Absolute Neuts (auto) 2.1 Absolute Nucleated RBC 0.000 Nucleated RBC % (auto) 0.0 Smear Tech's Comments Anion Gap 13 Estim Creat Clear Calc 102.3 Estimated GFR > 60 Random Glucose 81 Lactic Acid 0.6 Calcium 9.4 Magnesium 2.1 Total Bilirubin 0.6 Direct Bilirubin 0.2 AST 21 ALT 34 H Alkaline Phosphatase 113 Total Protein 6.8 Albumin 4.1 Urine Color Yellow Urine Appearance Clear Urine pH 5.5 Ur Specific [place] 1.015 Urine Protein Negative Urine Glucose (UA) Negative Urine Ketones Negative Urine Blood Negative Urine Nitrite Negative Ur Leukocyte Esterase Negative 04/04/24 05:33 MCV 86.7 MCH 28.8 MCHC 33.2 RDW 15.4 Plt Count 102 L MPV 10.1 Immature Gran % (Auto) 0.0 Neut % (Auto) 34.5 L Lymph % (Auto) 51.0 H [place] % (Auto) 10.4 Eos % (Auto) 3.7 Baso % (Auto) 0.4 Lymph # (Auto) 1.2 [place] # (Auto) 0.3 Eos # (Auto) 0.1 Baso # (Auto) 0.0 Abs Immat Gran (auto) 0.00 Absolute Neuts (auto) 0.8 L Absolute Nucleated RBC 0.000 Nucleated RBC % (auto) 0.0 Smear Tech's Comments VERIFIED Anion Gap 9 L Estim Creat Clear Calc 110.3 Estimated GFR > 60 Random Glucose 93 Lactic Acid Calcium 8.9 Magnesium Total Bilirubin Direct Bilirubin AST ALT Alkaline Phosphatase Total Protein Albumin Urine Color Urine Appearance Urine pH Ur Specific [place] Urine Protein Urine Glucose (UA) Urine Ketones Urine Blood Urine Nitrite Ur Leukocyte Esterase Microbiology Microbiology Results: Microbiology 04/03/24 17:27 Catheter Tip Culture - Preliminary Catheter Tip - Other No growth to date. Procedures Date of Service Date of Service: 04/04/24 Progress Note: A&P Assessment and plan (1) Marginal ulcer: Status: Acute Assessment and Plan: Patient remains NPO. Previously receiving TPN and lipids via PICC line which has since been removed given the bacteremia. Consult to GI appreciated, upper endoscopy today or tomorrow to determine patient's healing and potential for p.o. intake (2) Bacteremia: Status: Acute Assessment and Plan: ID consult pending Received 1.5 g vancomycin in the emergency room last night, developed red man syndrome at the end of the infusion. Seen by ER physician who felt this was not a true allergic reaction as there was no urticaria and resolution rather quickly once the vancomycin was stopped. Question whether she should be on vancomycin moving forward at a lower dose and slower rate. PICC tip culture pending Peripheral culture from 04/02 continues Gram-positive cocci in clusters. Organism pending. (3) Urinary tract infection: Status: Inactive Assessment and Plan: Remains on levofloxacin, day 3. Likely will need a 7 day course to cover any chance of pyelonephritis. Urine culture showed greater than 100,000 mixed ray suggestive of urogenital contamination, however given her presenting symptoms and symptomatic improvement on IV antibiotics, we will continue. Plan Discussed case with GI, id, attending. Continue incentive spirometry and sequential compression boots Time Spent With Patient Time: Total time managing care of this patient today ____ minutes. Quality Stroke Does the patient have a stroke diagnosis?: No VTE Prior VTE?: No VTE Risk Level:: Medical - low VTE Device Contraindication: N/A - Device Ordered VTE Drug Contraindication: Treatment Not Indicated
--- NOTE | 2024-04-04 14:59 | MHC.SHP ---
Pre-Procedural Eval Section A - 24 Hr Update-Section A only Date of Service: 04/04/24 The patient is an INPATIENT: Yes The patient has been examined within 24 hours of the surgical procedure. The History & Physical has been completed within 30 days and I have reviewed it.: Yes Section B - Complete if H&P > 30 days Chief Complaint: bacteremia Allergies: Allergies Allergy/AdvReac Type Severity Reaction Status Date / Time tomato Allergy Severe itchy Verified 04/03/24 17:25 throat Plan Diagnosis/Plan: Unchanged I have reviewed the history and physical and performed a pertinent physical examination on my patient. No changes have occurred unless specified. Time Spent With Patient Time: Total time managing care of this patient today ____ minutes.
--- NOTE | 2024-04-04 15:00 | W.PM.OPN ---
Operative Note Operative Note Date of Service: 04/04/24 Narrative: Procedure Description: EGD Indication: hx of anastomotic ulcer Anesthesia: MAC FLEXIBLE TRANSORAL UPPER GASTROINTESTINAL ENDOSCOPY UPPER ENDOSCOPY Consent: Indications for the procedure and potential complications of bleeding, perforation, reaction to medications and missed diagnosis were discussed with the patient and informed consent was obtained. Instrument: Olympus GIF H 190 J mid size upper endoscope Monitoring: Vital signs and clinical assessment, continuous EKG monitoring, Pulse oximetry, Carbon Dioxide monitoring and blood pressure monitoring were done throughout the procedure. Procedure: The patient was placed in the left lateral decubitis position and pre-procedure medications were administered and a bite block was placed. The endoscope was inserted into the mouth and advanced under direct vision to the jejunum. A careful inspection was made as the upper endoscope was withdrawn including a retroflexed examination of the gastric pouch. Findings and interventions are described below. Hx of gastric bypass Findings: Larynx:normal Esophagus: GE junction at 38 cm, diaphragm hiatus at 38 cm, normal mucosa Stomach pouch: 4 cm long . Very mild erythema around the anastomosis, no ulcers seen. Biopsies were obtained. Grade 2 flap valve on retroflexed examination of the cardia. Jejunum: Normal Intervention: Biopsies as noted above, Impression/Findings: mild GJ anastomosis erythema, no ulceration noted PLAN: f/u with primary team cont with PPI can consider PO feeding trial based on these findings
--- NOTE | 2024-04-04 15:16 | P.CONAN_ITS ---
HPI - Anesthesia Eval Consult details Narrative: upper endo PMFSH Active Problems Active Problems: All Active Problems Marginal ulcer (Acute) Bacteremia (Acute) Fever (Acute) Dysuria (Acute) On total parenteral nutrition (TPN) (Acute) Flank pain (Acute) Abscess, subdiaphragmatic (Acute) Intestinal malabsorption (Acute) Perforated viscus (Acute) S/P gastric bypass (Acute) Adjustment disorder, unspecified (Acute) Asthma, exercise induced (Acute) Past Medical History Medical History Excess skin of abdomen Zinc deficiency Constipation Iron deficiency Panniculitis Overweight BMI 31.0-31.9,adult BMI 39.0-39.9,adult Obesity Intestinal malabsorption Intra-abdominal adhesions BMI 34.0-34.9,adult COVID-19 vaccine series completed History of depression Anxiety BMI over 35 BMI 37.0-37.9, adult Vitamin D deficiency Vitamin B12 deficiency Vitamin B1 deficiency GERD (gastroesophageal reflux disease) Back pain Gestational diabetes Asthma, exercise induced Family History Family history of problems with anesthesia: No Surgical History Surgical History Hx of breast surgery Hx of gastric bypass History of esophagogastroduodenoscopy (EGD) Hx laparoscopic cholecystectomy History of sleeve gastrectomy History of Problems with Anesthesia: No Social History Social History Household Members: Family Housing: House Are you a primary ambulatory care coordinator to a significant other at home: Yes (2 children, arrangements made for their care in the post-op period) Do you presently have visiting nurse or other home services: Yes (vna services) Alcohol intake: current Alcohol intake frequency: does not drink Patient Tobacco Use Status: Former Tobacco user Smoked in Last 30 Days: No Patient Interested in Nicotine Replacement: No Second Hand Smoke Exposure: No Use of substances other than those prescribed or required for medical reasons: No Substance Use Type: Marijuana Currently Displaying Signs/Symptoms of Drug Intoxication Withdrawal: No Have you been hit, kicked, punched, or otherwise hurt by someone within the past year? If so, by whom?: No Do you feel safe in your current relationship?: Yes Is there a partner from a previous relationship who is making you feel unsafe now?: No Are you made to feel afraid or neglected: No Are you DNR?: No Advance Directives: Yes Advance Directives on File: Yes Advance Directives Date on File: 01/20/24 Do you have a plan to hurt others: No Plan Recently lost weight without trying: No How much weight loss: Not applicable Eating poorly because of decreased appetite: No Nutrition screen score: 0 Nutrition Risks: No Nutritional Risk Patient : No : No Poor oral hygiene: No service: No Current occupational status: employed Meds Allergies Allergy/AdvReac Type Severity Reaction Status Date / Time tomato Allergy Severe itchy Verified 04/03/24 17:25 throat Active Medications: Current Medications Famotidine (Famotidine/Pf 20 Mg/2 Ml Vial) 40 mg IVPUSH DAILY [facility] Last Admin: 04/04/24 07:58 Dose: 40 mg Dextrose/Sodium Chloride (D5ns) 1,000 mls @ 125 mls/hr IVCONT .Q8H [facility] Last Admin: 04/04/24 10:15 Dose: 125 mls/hr Levofloxacin (Levaquin) 500 mg in 100 mls @ 100 mls/hr IV Q24H [facility] Ondansetron HCl (Ondansetron Hcl 4 Mg/2 Ml Vial) 4 mg IVPUSH Q8H PRN PRN Reason: Nausea and Vomiting Pantoprazole Sodium (Pantoprazole Sodium 40 Mg/10 Ml Vial) 40 mg IVPUSH BID [facility] Last Admin: 04/04/24 07:58 Dose: 40 mg Sodium Chloride (0.9 % Sodium Chloride Flush 3 Ml Syringe) 3 ml IVFLUSH QSHIFT [facility] Last Admin: 04/04/24 07:58 Dose: Not Given Home Medications ?Medication ?Instructions ?Recorded ?Confirmed ?Last Taken ?Type levonorgestrel 21 mcg/24 hr (up to 1 device intrauterine DIRECTED 12/22/20 04/03/24 Unknown History 8 years) 52 mg intrauterine device (Mirena) famotidine (PF) 20 mg/2 mL 40 mg IV Q12H 04/02/24 04/03/24 04/02/24 09:00 History intravenous solution pantoprazole 40 mg intravenous 40 mg IV Q12H 04/02/24 04/03/24 04/02/24 09:00 History solution Exam Height,Weight and Vital Signs: Height 5 ft 5 in Weight 65.4 kg Last Vital Signs Temp 97.2 F 04/04/24 14:12 Pulse 46 L 04/04/24 14:12 Resp 18 04/04/24 14:12 BP 107/45 L 04/04/24 14:12 Pulse Ox 100 04/04/24 14:12 O2 Del Method Room Air 04/04/24 14:12 Pertinent Lab Results Pertinent Lab Results: Laboratory Tests 04/03/24 04/03/24 04/03/24 12:12 16:33 18:29 WBC 3.2 L RBC 4.21 Hgb 12.3 Hct 36.3 L MCV 86.2 MCH 29.2 MCHC 33.9 RDW 15.2 Plt Count 133 L MPV 9.6 Immature Gran % (Auto) 0.3 Neut % (Auto) 64.5 Lymph % (Auto) 23.6 [place] % (Auto) 8.8 Eos % (Auto) 2.5 Baso % (Auto) 0.3 Lymph # (Auto) 0.8 L [place] # (Auto) 0.3 Eos # (Auto) 0.1 Baso # (Auto) 0.0 Abs Immat Gran (auto) 0.01 Absolute Neuts (auto) 2.1 Absolute Nucleated RBC 0.000 Nucleated RBC % (auto) 0.0 Smear Tech's Comments Smear Path Review Sodium 143 Potassium 4.0 Chloride 111 H Carbon Dioxide 23 Anion Gap 13 BUN 13 Creatinine 0.69 Estim Creat Clear Calc 102.3 Estimated GFR > 60 Random Glucose 81 Lactic Acid 0.6 Calcium 9.4 Magnesium 2.1 Total Bilirubin 0.6 Direct Bilirubin 0.2 AST 21 ALT 34 H Alkaline Phosphatase 113 Total Protein 6.8 Albumin 4.1 Urine Color Yellow Urine Appearance Clear Urine pH 5.5 Ur Specific [place] 1.015 Urine Protein Negative Urine Glucose (UA) Negative Urine Ketones Negative Urine Blood Negative Urine Nitrite Negative Ur Leukocyte Esterase Negative 04/04/24 05:33 WBC 2.4 L RBC 3.54 L Hgb 10.2 L Hct 30.7 L MCV 86.7 MCH 28.8 MCHC 33.2 RDW 15.4 Plt Count 102 L MPV 10.1 Immature Gran % (Auto) 0.0 Neut % (Auto) 34.5 L Lymph % (Auto) 51.0 H [place] % (Auto) 10.4 Eos % (Auto) 3.7 Baso % (Auto) 0.4 Lymph # (Auto) 1.2 [place] # (Auto) 0.3 Eos # (Auto) 0.1 Baso # (Auto) 0.0 Abs Immat Gran (auto) 0.00 Absolute Neuts (auto) 0.8 L Absolute Nucleated RBC 0.000 Nucleated RBC % (auto) 0.0 Smear Tech's Comments VERIFIED Smear Path Review SEE NOTE Sodium 142 Potassium 3.8 Chloride 113 H Carbon Dioxide 24 Anion Gap 9 L BUN 11 Creatinine 0.64 Estim Creat Clear Calc 110.3 Estimated GFR > 60 Random Glucose 93 Lactic Acid Calcium 8.9 Magnesium Total Bilirubin Direct Bilirubin AST ALT Alkaline Phosphatase Total Protein Albumin Urine Color Urine Appearance Urine pH Ur Specific [place] Urine Protein Urine Glucose (UA) Urine Ketones Urine Blood Urine Nitrite Ur Leukocyte Esterase Airway Mallampati Class: III TM Dist: >3cm Neck ROM: Full Heart: rrr Lungs: cta Assessment and Plan Assessment Anesthesia Assessment: Anesthesia Plan Discussed Final Anesthetic Review Family History of Problems with Anesthesia: No History of Problems with Anesthesia: No NPO: Yes ASA Class: III Final Preanesthetic Review: No Changes in Pt Med Stat, Meds/Allgs Chart Reviewed, Consent Obtained/Reviewed and Anes Risks/Benef Reviewed Patient Risk: Intermediate Procedure Risk: Low
--- NOTE | 2024-04-04 16:11 | W.PM.IDCN ---
History of Present Illness Data of Consult Service Date: 04/04/24 Requesting physician: Gwyn Logan Primary Care Provider: GABRIELA Murray HPI Reason for consult: bacteremia She has dysuria symptoms. Urine culture now grown so far. Symptoms for five days. Blood cultures staph epi x2 sets,some from port. Port is negative so far and now removed. Review of Systems Review of Systems: Yes all other systems are reviewed and are negative PMFSH Past Medical History Medical History Excess skin of abdomen Zinc deficiency Constipation Iron deficiency Panniculitis Overweight BMI 31.0-31.9,adult BMI 39.0-39.9,adult Obesity Intestinal malabsorption Intra-abdominal adhesions BMI 34.0-34.9,adult COVID-19 vaccine series completed History of depression Anxiety BMI over 35 BMI 37.0-37.9, adult Vitamin D deficiency Vitamin B12 deficiency Vitamin B1 deficiency GERD (gastroesophageal reflux disease) Back pain Gestational diabetes Asthma, exercise induced Family History Family history: reviewed and not pertinent Surgical History Surgical History Hx of breast surgery Hx of gastric bypass History of esophagogastroduodenoscopy (EGD) Hx laparoscopic cholecystectomy History of sleeve gastrectomy Social History Social History Household Members: Family Housing: House Are you a primary transitions rn care coordinator to a significant other at home: Yes (2 children, arrangements made for their care in the post-op period) Do you presently have visiting nurse or other home services: Yes (vna services) Alcohol intake: current Alcohol intake frequency: does not drink Patient Tobacco Use Status: Former Tobacco user Smoked in Last 30 Days: No Patient Interested in Nicotine Replacement: No Second Hand Smoke Exposure: No Use of substances other than those prescribed or required for medical reasons: No Substance Use Type: Marijuana Currently Displaying Signs/Symptoms of Drug Intoxication Withdrawal: No Have you been hit, kicked, punched, or otherwise hurt by someone within the past year? If so, by whom?: No Do you feel safe in your current relationship?: Yes Is there a partner from a previous relationship who is making you feel unsafe now?: No Are you made to feel afraid or neglected: No Are you DNR?: No Advance Directives: Yes Advance Directives on File: Yes Advance Directives Date on File: 01/20/24 Do you have a plan to hurt others: No Plan Recently lost weight without trying: No How much weight loss: Not applicable Eating poorly because of decreased appetite: No Nutrition screen score: 0 Nutrition Risks: No Nutritional Risk Patient : No : No Poor oral hygiene: No service: No Current occupational status: employed Meds Allergies Allergy/AdvReac Type Severity Reaction Status Date / Time tomato Allergy Severe itchy Verified 04/03/24 17:25 throat Active Medications: Current Medications Famotidine (Famotidine/Pf 20 Mg/2 Ml Vial) 40 mg IVPUSH DAILY [facility] Last Admin: 04/04/24 07:58 Dose: 40 mg Dextrose/Sodium Chloride (D5ns) 1,000 mls @ 125 mls/hr IVCONT .Q8H [facility] Last Admin: 04/04/24 10:15 Dose: 125 mls/hr Levofloxacin (Levaquin) 500 mg in 100 mls @ 100 mls/hr IV Q24H [facility] Ondansetron HCl (Ondansetron Hcl 4 Mg/2 Ml Vial) 4 mg IVPUSH Q8H PRN PRN Reason: Nausea and Vomiting Pantoprazole Sodium (Pantoprazole Sodium 40 Mg/10 Ml Vial) 40 mg IVPUSH BID [facility] Last Admin: 04/04/24 07:58 Dose: 40 mg Sodium Chloride (0.9 % Sodium Chloride Flush 3 Ml Syringe) 3 ml IVFLUSH QSHIFT [facility] Last Admin: 04/04/24 07:58 Dose: Not Given Home Medications ?Medication ?Instructions ?Recorded ?Confirmed ?Last Taken ?Type levonorgestrel 21 mcg/24 hr (up to 1 device intrauterine DIRECTED 12/22/20 04/03/24 Unknown History 8 years) 52 mg intrauterine device (Mirena) famotidine (PF) 20 mg/2 mL 40 mg IV Q12H 04/02/24 04/03/24 04/02/24 09:00 History intravenous solution pantoprazole 40 mg intravenous 40 mg IV Q12H 04/02/24 04/03/24 04/02/24 09:00 History solution Physical Exam Vital Signs: Vital Signs: Last Vital Signs Temp 97 F 04/04/24 15:30 Pulse 43 L 04/04/24 15:30 Resp 16 04/04/24 15:30 BP 102/60 04/04/24 15:30 Pulse Ox 99 04/04/24 15:30 O2 Del Method Room Air 04/04/24 15:30 BMI result Body Mass Index 24.0 Const: General: cooperative HEENT: Head: Yes normal to inspection Face and sinus: Yes normal facial exam Mouth: Normal oral and palatal mucosa present Teeth and gingiva: dentition normal Eyes: General: appearance normal, both eyes and all related structures Pupils: Equal, round and reactive pupils present Resp: Effort & Inspection: normal respiratory effort Cardio: Rate: regular rate Rhythm: regular rhythm GI: Palpation (GI): Soft to palpation and nontender : General: Yes no CVA tenderness Back/Spine/Pelvis: Back: no CVA tenderness Skin: General skin exam: no rashes or lesions noted Neuro: General: moves all extremities Cranial nerves: Yes Equal, round and reactive pupils present Extrem: General: Yes normal to inspection Psych: Appearance: grossly normal Results Labs 04/04/24 05:33 04/04/24 05:33 Labs: Short CBC 04/03/24 04/04/24 Range/Units 16:33 05:33 WBC 3.2 L 2.4 L (4.8-10.8) X10*3/uL Hgb 12.3 10.2 L (12.0-16.0) g/dl Hct 36.3 L 30.7 L (37.0-47.0) % Plt Count 133 L 102 L (160-400) X10*3/uL BMP 04/03/24 04/04/24 16:33 05:33 Sodium 143 142 Potassium 4.0 3.8 Chloride 111 H 113 H Carbon Dioxide 23 24 BUN 13 11 Creatinine 0.69 0.64 Calcium 9.4 8.9 Liver Function 04/03/24 Range/Units 16:33 Total Bilirubin 0.6 (0.0-1.0) mg/dL Direct Bilirubin 0.2 (0.0-0.5) mg/dL AST 21 (5-31) U/L ALT 34 H (0-31) U/L Alkaline Phosphatase 113 (39-117) U/L Albumin 4.1 (3.5-5.0) g/dL Urine 04/03/24 Range/Units 18:29 Urine Color Yellow Urine Appearance Clear Urine pH 5.5 (5.0-9.0) Ur Specific [place] 1.015 (1.005-1.025) Urine Protein Negative (Neg-Trace) mg/dL Urine Glucose (UA) Negative (Negative) mg/dL Microbiology Microbiology Results: Microbiology 04/03/24 17:27 Catheter Tip - Other Catheter Tip Culture - Preliminary No growth to date. Assessment and Plan (1) Marginal ulcer: Status: Acute (2) Bacteremia: Status: Acute (3) Fever: Status: Acute (4) Dysuria: Status: Acute Plan Fever likely due to UTI. Staph epi and negative port likely contaminant even though two sets. Line is out 7 day Levaquin. Stop Vancomycin Recheck blood cultures one week.
[2024-04-04] MEDS: levoFLOXacin/D5W 500 MG/100 ML PIGGYBACK 100 MG IV (17:27)
[2024-04-04] MEDS: 0.9 % Sodium Chloride Flush 3 ML SYRINGE IVFLUSH (20:32)
[2024-04-05 03:09] VITALS: BP 96/50; PULSE 50; RESP 14; TEMP 36.6; O2SAT 98
[2024-04-05] MEDS: Dextrose 5 % and 0.9 % NaCl 1,000 ML 125 ML IVCONT ×3 (04:08→20:25)
[2024-04-05 07:58] VITALS: BP 115/57; PULSE 46; RESP 16; TEMP 36.3; O2SAT 99
--- NOTE | 2024-04-05 08:08 | P.PNGS_ITS ---
Subjective Subjective Date of Service: 04/05/24 Patient reports: no new complaints and feels better Interval history: 34-year-old female remains hospitalized with initial symptomatic complaints of dysuria and hesitancy. She was found to have urinary tract infection and blood cultures drawn on the day of presentation, 04/02/2024, proved positive for Gram- positive cocci. She was brought back to the emergency room on 04/03 given the positive blood cultures and admitted to the hospital for presumed Gram-positive bacteremia. PICC line was pulled, tip was cultured, she was placed on IV vancomycin and levofloxacin. Patient was seen by infectious disease and the feeling was that the positive blood cultures were contaminant and no further vancomycin was recommended. Recommend levofloxacin for 7 days for urinary tract symptoms. She was seen by GI and underwent upper endoscopy revealing mild irritation at the anastomosis junction however no active ulceration. Patient continues to feel better. She has no complaints at today's visit. Physical Exam 2 Vital Signs: Vital Signs: Last Vital Signs Temp 97.3 F 04/05/24 07:58 Pulse 46 L 04/05/24 07:58 Resp 16 04/05/24 07:58 BP 115/57 L 04/05/24 07:58 Pulse Ox 99 04/05/24 07:58 O2 Del Method Room Air 04/05/24 07:58 BMI result Body Mass Index 24.0 GI: Palpation (GI): Soft to palpation and nontender Objective Data Active Medications Famotidine (Famotidine/Pf 20 Mg/2 Ml Vial) 40 mg IVPUSH DAILY [facility] Last Admin: 04/04/24 07:58 Dose: 40 mg Documented By: FLAVIA Dextrose/Sodium Chloride (D5ns) 1,000 mls @ 125 mls/hr IVCONT .Q8H [facility] Last Admin: 04/05/24 04:08 Dose: 125 mls/hr Documented By: RIMA Levofloxacin (Levaquin) 500 mg in 100 mls @ 100 mls/hr IV Q24H [facility] Last Infusion: 04/04/24 18:32 Dose: Infused Documented By: RIMA Ondansetron HCl (Ondansetron Hcl 4 Mg/2 Ml Vial) 4 mg IVPUSH Q8H PRN PRN Reason: Nausea and Vomiting Pantoprazole Sodium (Pantoprazole Sodium 40 Mg/10 Ml Vial) 40 mg IVPUSH BID [facility] Last Admin: 04/04/24 20:32 Dose: 40 mg Documented By: RIMA Sodium Chloride (0.9 % Sodium Chloride Flush 3 Ml Syringe) 3 ml IVFLUSH QSHIFT [facility] Last Admin: 04/05/24 07:12 Dose: Not Given Documented By: ELO Non-Admin Reason: Previously Administered Labs 04/04/24 05:33 04/04/24 05:33 Labs: Laboratory Results - last 24 hr 04/04/24 05:33 Smear Tech's Comments VERIFIED Smear Path Review SEE NOTE Microbiology Microbiology Results: Microbiology 04/03/24 17:27 Catheter Tip Culture - Preliminary Catheter Tip - Other No growth to date. Procedures Date of Service Date of Service: 04/05/24 Progress Note: A&P Assessment and plan (1) Bacteremia: Status: Acute Assessment and Plan: ID felt positive blood cultures were contaminant. PICC tip no growth to date. No further vancomycin recommended Repeat blood cultures 1 week (2) Marginal ulcer: Status: Acute Assessment and Plan: Repeat EGD showed improvement. Advance to bariatric phase 2 with shakes and fluids p.o., continue IV b.i.d. PPI and H2. Plan for discharge on p.o. b.i.d. PPI and q.i.d. sucralfate. No advancement to solid foods until follow-up endoscopy in approximately 1 month (3) UTI (urinary tract infection): Status: Acute Assessment and Plan: Continue levofloxacin, today is day 4 of 7 Plan Discussed case with Dr. Myles and Drs. Logan and Gregg Time Spent With Patient Time: Total time managing care of this patient today ____ minutes. Quality Stroke Does the patient have a stroke diagnosis?: No VTE Prior VTE?: No VTE Risk Level:: Medical - low VTE Device Contraindication: N/A - Device Ordered VTE Drug Contraindication: Treatment Not Indicated
--- NOTE | 2024-04-05 08:29 | P.PNGS_ITS ---
Subjective Subjective Date of Service: 04/05/24 Interval history: Coverage for bariatric surgery Patient feels well denies complaints Physical Exam 2 Vital Signs: Vital Signs: Last Vital Signs Temp 97.3 F 04/05/24 07:58 Pulse 46 L 04/05/24 07:58 Resp 16 04/05/24 07:58 BP 115/57 L 04/05/24 07:58 Pulse Ox 99 04/05/24 07:58 O2 Del Method Room Air 04/05/24 07:58 BMI result Body Mass Index 24.0 Const: General: comfortable and no acute distress Resp: Effort & Inspection: normal respiratory effort GI: Palpation (GI): Soft to palpation, not firm, nontender and no guarding Objective Data Active Medications Famotidine (Famotidine/Pf 20 Mg/2 Ml Vial) 40 mg IVPUSH DAILY [facility] Last Admin: 04/04/24 07:58 Dose: 40 mg Documented By: FLAVIA Dextrose/Sodium Chloride (D5ns) 1,000 mls @ 125 mls/hr IVCONT .Q8H [facility] Last Admin: 04/05/24 04:08 Dose: 125 mls/hr Documented By: RIMA Levofloxacin (Levaquin) 500 mg in 100 mls @ 100 mls/hr IV Q24H [facility] Last Infusion: 04/04/24 18:32 Dose: Infused Documented By: RIMA Ondansetron HCl (Ondansetron Hcl 4 Mg/2 Ml Vial) 4 mg IVPUSH Q8H PRN PRN Reason: Nausea and Vomiting Pantoprazole Sodium (Pantoprazole Sodium 40 Mg/10 Ml Vial) 40 mg IVPUSH BID [facility] Last Admin: 04/04/24 20:32 Dose: 40 mg Documented By: RIMA Sodium Chloride (0.9 % Sodium Chloride Flush 3 Ml Syringe) 3 ml IVFLUSH QSHIFT [facility] Last Admin: 04/05/24 07:12 Dose: Not Given Documented By: ELO Non-Admin Reason: Previously Administered Labs 04/04/24 05:33 04/04/24 05:33 Labs: Laboratory Results - last 24 hr 04/04/24 05:33 Smear Path Review SEE NOTE Microbiology Microbiology Results: Microbiology 04/03/24 17:27 Catheter Tip Culture - Preliminary Catheter Tip - Other No growth to date. Procedures Date of Service Date of Service: 04/05/24 Progress Note: A&P Assessment and plan (1) Marginal ulcer: Status: Acute Assessment and Plan: EGD yesterday does not show marginal ulcer As per bariatric service - clear liquids then shakes today No need for PICC line No need for prolonged IV antibiotics Likely DC home tomorrow Looks well overall Patient understands plan Time Spent With Patient Time: Total time managing care of this patient today ____ minutes. Quality Stroke Does the patient have a stroke diagnosis?: No VTE Prior VTE?: No VTE Risk Level:: Medical - low VTE Device Contraindication: N/A - Device Ordered VTE Drug Contraindication: Treatment Not Indicated
[2024-04-05] MEDS: Famotidine/PF 20 MG/2 ML VIAL 40 MG IVPUSH (09:13)
[2024-04-05] MEDS: Pantoprazole Sodium 40 MG/10 ML VIAL IVPUSH ×2 (09:13→20:20)
--- NOTE | 2024-04-05 10:59 | HO.POSTANES ---
Post Anesthesia Evaluation Post Anesthesia Evaluation Date of Service: 04/04/24 Vital Signs: Vital Signs Temp Pulse Resp BP Pulse Ox O2 Del Method 04/05/24 07:58 97.3 F 46 L 16 115/57 L 99 Room Air 04/05/24 03:09 97.9 F 50 14 96/50 L 98 Room Air Anesthesia: Monitored Mental Status: Awake Pain Control: Satisfactory Nausea/Vomiting: None Hydration: Adequate Anesthesia-Related Issues: No Anes. Related Issues
[2024-04-05 11:57] VITALS: BP 110/64; PULSE 47; RESP 18; TEMP 36.5; O2SAT 100
[2024-04-05 15:04] VITALS: BP 117/72; PULSE 49; RESP 16; TEMP 36.6; O2SAT 97
[2024-04-05] MEDS: levoFLOXacin/D5W 500 MG/100 ML PIGGYBACK 100 MG IV (17:49)
[2024-04-05 20:00] VITALS: BP 114/58; PULSE 47; RESP 16; TEMP 36.3; O2SAT 99
[2024-04-05] MEDS: 0.9 % Sodium Chloride Flush 3 ML SYRINGE IVFLUSH (20:20)
[2024-04-05 23:27] VITALS: BP 100/55; PULSE 44; RESP 16; TEMP 36; O2SAT 96
[2024-04-06] MEDS: Dextrose 5 % and 0.9 % NaCl 1,000 ML 125 ML IVCONT (04:12)
[2024-04-06 07:02] VITALS: PULSE 50; RESP 18; O2SAT 98
[2024-04-06] MEDS: Pantoprazole Sodium 40 MG/10 ML VIAL IVPUSH (07:40)
[2024-04-06] MEDS: 0.9 % Sodium Chloride Flush 3 ML SYRINGE IVFLUSH (07:40)
[2024-04-06 07:42] VITALS: BP 120/56; PULSE 41; RESP 17; TEMP 36.4; O2SAT 99
[2024-04-06] MEDS: Famotidine/PF 20 MG/2 ML VIAL 40 MG IVPUSH (07:43)
--- NOTE | 2024-04-06 09:07 | P.DS_ITS ---
DS: Providers Provider Date of Service: 04/06/24 Date of admission: 04/03/24 17:05 Primary care physician: GABRIELA Murray Consults: 04/03/24 17:04 Consult to Gastroenterology Routine Consulting Provider: Hira Palacios Reason for consultation: upper endoscopy for eval of healing marginal ulcer Has provider been notified: Yes Consult to Infectious Diseases Routine Consulting Provider: [facility] Reason for consultation: bacteremia Has provider been notified: No DS: Diagnosis Discharge Diagnosis (1) Marginal ulcer: Status: Acute DS: Summary Hospital Course Hospital Course: Daina Larkin is a 34 year old female with a significant past medical history for gastric bypass 03/24/2021, presented to the hospital on 01/14/2024 with abdominal pain, found to have perforated viscus. She was treated without surgical intervention, requiring IV antibiotics, PICC line, ultimately TPN and lipids and discharged home on 01/19 24. She presented again to the emergency room on 01/23/2024 at my direction due to complaints of new onset left flank and back pain, concerning for possible abscess. Workup was negative for leukocytosis however CT scan was concerning for possible subdiaphragmatic abscess on the right side. She continued on IV Zosyn, Flagyl was restarted and she was monitored conservatively. She remained on TPN, IV analgesia and early ambulation. No clear etiology of the stabbing and burning left back/flank pain. Differential includes left atelectasis, pleural effusion, zoster. She did not show evidence of rash or hypoxia. She utilized incentive spirometer with improvement. She declined any significant worsening of abdominal pain specifically. She did not show evidence of sepsis, fevers, leukocytosis and was discharged home with plan for upper endoscopy in February. This was performed 02/22/2024 showing improvement in her ulceration. Surveillance repeat upper endoscopy performed March 15 showed worsening ulceration and she was again tiffanie gutierrez NPO, given TPN and lipids via right basilic PICC line. She presented to the hospital 04/01/24 with symptomatic complaints of 48 hours of dysuria, urinary urgency and hesitancy. She was found to have bacteriuria and the plan was for IV levofloxacin to be completed at home. The workup from 04/01/24 including blood cultures, 2 from the periphery and 1 from the PICC line (although the PICC line blood culture was after a dose of ceftriaxone), peripheral blood cultures came back positive 04/02/24 with Gram-positive cocci in clusters and she was asked to come back to the emergency room. Patient states that globally, she felt better than the day prior although just somewhat tired. She had no reports of fever, no significant pains, however given her for of for peripheral blood cultures positive, we will admit her to the hospital for further care IV fluids and IV antibiotics. While in the hospital, she was given 1 dose of 1.5 g vancomycin which did cause red man syndrome. She additionally was started on levofloxacin 500 mg IV daily. She was seen in consultation by Infectious Disease who felt that the positive blood cultures were contaminant and no further vancomycin was recommended. Additionally, ID recommended 7 days of levofloxacin for her UTI. To date, the tip of the PICC line which was sent for culture is negative. Blood cultures grew out staph epidermidis. This was sensitive to levofloxacin. She remained NPO until she had an upper endoscopy by GI. Report was that there was mild erythema at the juncture however no acute active ulceration and as a result she was started on protein shakes orally. She tolerated them yesterday without any discomfort whatsoever and she will be discharged home on oral shakes and water only, no solids until seen in follow-up in our office and undergo 1 more surveillance upper endoscopy. She will no longer require TPN or lipids. She does not have IV access upon discharge. Status at Discharge Functional status at discharge: independent ambulation Time Attestation Total time managing care of this patient today: 25 mintues. Discharge Coordination Time (in mins): 25 Quality: Safe Use of Opioids Does Pt have an Active Cancer Diagnosis on the Problem List?: No Quality: Stroke Does the patient have a stroke diagnosis?: No Physical Exam Vital Signs: Vital Signs: Last Vital Signs Temp 97.5 F 04/06/24 07:42 Pulse 41 L 04/06/24 07:42 Resp 17 04/06/24 07:42 BP 120/56 L 04/06/24 07:42 Pulse Ox 99 04/06/24 07:42 O2 Del Method Room Air 04/06/24 07:42 BMI result Body Mass Index 24.0 Const: General: healthy appearing and no acute distress Resp: Effort & Inspection: normal respiratory effort Auscultation: clear to auscultation bilaterally Cardio: Rate: regular rate Rhythm: regular rhythm GI: Auscultation: normal bowel sounds Extrem: General: Yes normal to inspection DS: Data Data Completed and Pending Completed studies during hospitalization [Text1]: Procedures Bypass Stomach to Jejunum, Percutaneous Endoscopic Approach (03/18/21) Insertion of Infusion Device into Superior Vena Cava, Percutaneous Approach (01/14/24) Release Peritoneum, Percutaneous Endoscopic Approach (03/18/21) Ultrasonography of Superior Vena Cava, Guidance (01/14/24) Pending studies at discharge: Pending at discharge 04/04/24 13:28 Surgical Path [Surgical] [PTH] Routine Labs on day of discharge: Preliminary micro results at discharge 04/03/24 17:27 Catheter Tip Culture - Preliminary Catheter Tip - Other No growth to date. Discharge Plan Discharge Anticipated Discharge Date/Time: 04/06/24 16:45 Patient Disposition: Home, Self-Care Discharge Diagnosis: uti Referrals: Beth Paul FNP [Primary Care Provider] - 1 Week Discharge Medications: New levofloxacin 500 mg tablet 500 mg PO DAILY Qty: 1 0RF Rx Instructions: take on 04/07/24 sucralfate 100 mg/mL suspension 10 ml PO BID Qty: 840 0RF famotidine 20 mg tablet 20 mg PO DAILY Qty: 60 0RF pantoprazole 40 mg tablet,delayed release (DR/EC) 40 mg PO BID 90 Days Qty: 180 4RF Continued Mirena 20 mcg/24 hours (6 yrs) 52 mg intrauterine device 1 device intrauterine DIRECTED Discontinued pantoprazole 40 mg Recon Soln 40 mg IV Q12H famotidine (PF) [Pepcid (PF)] 20 mg/2 mL Solution 40 mg IV Q12H Discharge Orders: Discharge Order (Routine); Ordered 04/06/24 Ordered By: Chao Garcia Activity on Discharge: As tolerated Stand Alone Forms: Patient Portal Discharge page Print Language: Singaporean Care Plan Goals: heal completely marginal ulcer Health Concerns: marginal ulcer, uti Plan of Treatment: Take 1 more day of antibiotics, tomorrow, 04/07/2024. Continue fair life 30 g shakes by mouth, 2-1/2 bottles per day at the rate of 1 oz every 15 minutes. Drink 50-60 oz of water as able Continue oral medications for your ulcer including Protonix and Pepcid and sucralfate. Return to the office in approximately 3 weeks for follow-up visit with the understanding that you will text me at my cell phone, with any questions or concerns. Do not have any solid food or anything outside of the shakes and water. Please have a multivitamin daily at night Call the office at [phone] with any questions or concerns. Assessment: Improved clinical picture with IV antibiotics treating urinary tract infection. Stable for discharge home
--- NOTE | 2024-04-06 11:46 | MHC.CM.PN ---
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
--- NOTE | 2024-04-06 12:08 | P.PNGS_ITS ---
Subjective Subjective Date of Service: 04/06/24 Interval history: Continues to feel well No abdominal pain No fever Tolerating ensure shakes Physical Exam 2 Vital Signs: Vital Signs: Last Vital Signs Temp 97.5 F 04/06/24 07:42 Pulse 41 L 04/06/24 07:42 Resp 17 04/06/24 07:42 BP 120/56 L 04/06/24 07:42 Pulse Ox 99 04/06/24 07:42 O2 Del Method Room Air 04/06/24 07:42 BMI result Body Mass Index 24.0 Const: General: comfortable and no acute distress Resp: Effort & Inspection: normal respiratory effort GI: Palpation (GI): Soft to palpation, not firm and nontender Objective Data Active Medications Famotidine (Famotidine/Pf 20 Mg/2 Ml Vial) 40 mg IVPUSH DAILY [facility] Last Admin: 04/06/24 07:43 Dose: 40 mg Documented By: ANAMIKA Dextrose/Sodium Chloride (D5ns) 1,000 mls @ 125 mls/hr IVCONT .Q8H [facility] Last Infusion: 04/06/24 11:07 Dose: 0 mls/hr Documented By: ANAMIKA Levofloxacin (Levaquin) 500 mg in 100 mls @ 100 mls/hr IV Q24H [facility] Last Infusion: 04/05/24 20:19 Dose: Infused Documented By: VILMA Ondansetron HCl (Ondansetron Hcl 4 Mg/2 Ml Vial) 4 mg IVPUSH Q8H PRN PRN Reason: Nausea and Vomiting Pantoprazole Sodium (Pantoprazole Sodium 40 Mg/10 Ml Vial) 40 mg IVPUSH BID [facility] Last Admin: 04/06/24 07:40 Dose: 40 mg Documented By: ANAMIKA Sodium Chloride (0.9 % Sodium Chloride Flush 3 Ml Syringe) 3 ml IVFLUSH QSHIFT [facility] Last Admin: 04/06/24 07:40 Dose: 3 ml Documented By: ANAMIKA Labs 04/04/24 05:33 04/04/24 05:33 Microbiology Microbiology Results: Microbiology 04/03/24 17:27 Catheter Tip Culture - Preliminary Catheter Tip - Other No growth to date. Procedures Date of Service Date of Service: 04/06/24 Progress Note: A&P Assessment and plan (1) Marginal ulcer: Status: Acute Assessment and Plan: EGD shows resolution of the marginal ulcers Tolerating shakes As per bariatric service - okay to continue with shakes, okay to DC home today Long-term plan as per bariatric service Seen and examined independently Time Spent With Patient Time: Total time managing care of this patient today ____ minutes. Quality Stroke Does the patient have a stroke diagnosis?: No VTE Prior VTE?: No VTE Risk Level:: Medical - low VTE Device Contraindication: N/A - Device Ordered VTE Drug Contraindication: Treatment Not Indicated
[2024-04-06] MEDS: levoFLOXacin/D5W 500 MG/100 ML PIGGYBACK 100 MG IV (14:33)
[2024-04-06 15:00] VITALS: BP 127/83; PULSE 40; RESP 18; TEMP 36.5; O2SAT 98
== END 2024-04-06 16:27 | disposition home or self-care (01) | DRG 463 ==
LOC: HO.ED 16:48 → HO.EDOVER 18:12 → HO.S3 20:25
PROVIDERS: Internal Medicine Gastroenterology; Physician Assistant; Physician Assistant Surgical; Admitting Provider Surgery; Emergency Provider Emergency Medicine; PCP Nurse Practitioner Family; Visit Provider Surgery
PROC: 0DJ08ZZ Inspection of Upper Intestinal Tract, Via Natural or Artificial Opening Endoscopic (ICD-10-PCS; CPT 43235; principal; 2024-04-04 13:10)
DX: N39.0 Urinary tract infection, site not specified (principal); L27.0 Generalized skin eruption due to drugs and medicaments taken internally; T36.8X5A Adverse effect of other systemic antibiotics, initial encounter; Z98.84 Bariatric surgery status; Z87.891 Personal history of nicotine dependence; Z79.899 Other long term (current) drug therapy
CPT/HCPCS: 43239; 36415; 80048; 80076; 81003; 83605; 83735; 85025; 87071; 88305; 88313; 88342; 99221; 99285; J0131; J1596; J1956; J2470; J2704; J3371

== ENCOUNTER → 2024-04-03 16:15 | Outpatient (BNV) | payer MEDICAID, SELFPAY | PROVIDERS: Emergency Provider Emergency Medicine; PCP Nurse Practitioner Family; Visit Provider Physician Assistant Surgical | DX: R78.81 Bacteremia (principal); N30.01 Acute cystitis with hematuria; K28.9 Gastrojejunal ulcer, unspecified as acute or chronic, without hemorrhage or perforation; Z98.84 Bariatric surgery status | CPT/HCPCS: 99223; 99232; 99238 ==

== ENCOUNTER → 2024-04-03 17:05 | Outpatient (BNV) | payer MEDICAID, SELFPAY | PROVIDERS: Admitting Provider Surgery; Emergency Provider Emergency Medicine; PCP Nurse Practitioner Family; Visit Provider Internal Medicine Gastroenterology | DX: K28.9 Gastrojejunal ulcer, unspecified as acute or chronic, without hemorrhage or perforation (principal) | CPT/HCPCS: 43239; 99223 ==

== ENCOUNTER → 2024-04-03 17:05 | Outpatient (BNV) | payer MEDICAID, SELFPAY | PROVIDERS: Admitting Provider Surgery; Emergency Provider Emergency Medicine; PCP Nurse Practitioner Family; Visit Provider Internal Medicine | DX: K28.9 Gastrojejunal ulcer, unspecified as acute or chronic, without hemorrhage or perforation (principal); R78.81 Bacteremia; R50.9 Fever, unspecified; R30.0 Dysuria | CPT/HCPCS: 99222 ==

== ENCOUNTER → 2024-04-03 17:05 | Outpatient (BNV) | payer MEDICAID, SELFPAY | PROVIDERS: Admitting Provider Surgery; Emergency Provider Emergency Medicine; PCP Nurse Practitioner Family; Visit Provider Surgery | DX: K28.9 Gastrojejunal ulcer, unspecified as acute or chronic, without hemorrhage or perforation (principal) | CPT/HCPCS: 99231; 99232; 99499 ==

== ENCOUNTER 2024-04-23 09:57 | Outpatient (AMB) | payer MEDICAID, SELFPAY ==
--- NOTE | 2024-04-23 09:59 | MHC.OFFVISWM ---
VS Expanded 04/23/24 10:13 BP 124/74 Blood Pressure Location Rt brachial Blood Pressure Position Sitting Pulse 61 Pulse Source Pulse Oximeter Temp 97.6 F Temperature Source Tympanic Pulse Oximetry 97 Oxygen Delivery Method Room Air Height 5 ft 2.5 in Weight 137 lb 9.6 oz BMI 24.8 Body Fat % 18.4 Body Fat Mass 25.4 Fat Free Mass 112.2 Visceral Fat Rating 2.0 Body Water % 58.3 Body Water Mass 80.2 Muscle Mass/Score 106.4 Basal Metabolic Rate/Score 1,485 Intake Visit Reasons: (OV) PO GBP 03/19/21 Allergies tomato Allergy (Severe, Verified 04/23/24 10:01) itchy throat HPI Comments Details: Daina Larkin is a 34 year old female with a significant past medical history for gastric bypass 03/24/2021, presented to the hospital on 01/14/2024 with abdominal pain, found to have perforated viscus. She was treated without surgical intervention, requiring IV antibiotics, PICC line, ultimately TPN and lipids and discharged home on 01/19 24. She presented again to the emergency room on 01/23/2024 at my direction due to complaints of new onset left flank and back pain, concerning for possible abscess. Workup was negative for leukocytosis however CT scan was concerning for possible subdiaphragmatic abscess on the right side. She continued on IV Zosyn, Flagyl was restarted and she was monitored conservatively. She remained on TPN, IV analgesia and early ambulation. No clear etiology of the stabbing and burning left back/flank pain. Differential includes left atelectasis, pleural effusion, zoster. She did not show evidence of rash or hypoxia. She utilized incentive spirometer with improvement. She declined any significant worsening of abdominal pain specifically. She did not show evidence of sepsis, fevers, leukocytosis and was discharged home with plan for upper endoscopy in February. This was performed 02/22/2024 showing improvement in her ulceration. Surveillance repeat upper endoscopy performed March 15 showed worsening ulceration and she was again placed NPO, given TPN and lipids via right basilic PICC line. She presented to the hospital 04/01/24 with symptomatic complaints of 48 hours of dysuria, urinary urgency and hesitancy. She was found to have bacteriuria and the plan was for IV levofloxacin to be completed at home. The workup from 04/01/24 including blood cultures, 2 from the periphery and 1 from the PICC line (although the PICC line blood culture was after a dose of ceftriaxone), peripheral blood cultures came back positive 04/02/24 with Gram-positive cocci in clusters and she was asked to come back to the emergency room. Patient states that globally, she felt better than the day prior although just somewhat tired. She had no reports of fever, no significant pains, however given her for of for peripheral blood cultures positive, we will admit her to the hospital for further care IV fluids and IV antibiotics. While in the hospital, she was given 1 dose of 1.5 g vancomycin which did cause red man syndrome. She additionally was started on levofloxacin 500 mg IV daily. She was seen in consultation by Infectious Disease who felt that the positive blood cultures were contaminant and no further vancomycin was recommended. Additionally, ID recommended 7 days of levofloxacin for her UTI. To date, the tip of the PICC line which was sent for culture is negative. Blood cultures grew out staph epidermidis. This was sensitive to levofloxacin. She remained NPO until she had an upper endoscopy by GI. Report was that there was mild erythema at the juncture however no acute active ulceration and as a result she was started on protein shakes orally. She tolerated them without any discomfort whatsoever and she was discharged home on oral shakes and water only, no solids. She states that since being discharged from the hospital, she has been on 3 fair life shakes per day, 30 g each, taking approximately 2.5 hours to drink. She has additionally been tolerating 64 oz of water. She has completed her antibiotics. She has no further dysuria. She has no constipation or abdominal pain. She feels very well. She continues Pepcid, pantoprazole and sucralfate. [facility] Medical History On total parenteral nutrition (TPN) Flank pain Abscess, subdiaphragmatic Perforated viscus Excess skin of abdomen Zinc deficiency Constipation Iron deficiency Panniculitis Overweight BMI 31.0-31.9,adult BMI 39.0-39.9,adult Obesity Intestinal malabsorption Intra-abdominal adhesions BMI 34.0-34.9,adult COVID-19 vaccine series completed History of depression Anxiety BMI over 35 BMI 37.0-37.9, adult Vitamin D deficiency Vitamin B12 deficiency Vitamin B1 deficiency GERD (gastroesophageal reflux disease) Back pain Gestational diabetes Asthma, exercise induced Surgical History Hx of breast surgery Hx of gastric bypass History of esophagogastroduodenoscopy (EGD) Hx laparoscopic cholecystectomy History of sleeve gastrectomy Social History Household Members: Family Housing: House Are you a primary family day care worker to a significant other at home: Yes (2 children, arrangements made for their care in the post-op period) Do you presently have visiting nurse or other home services: Yes (vna services) Alcohol intake: current Alcohol intake frequency: does not drink Patient Tobacco Use Status: Former Tobacco user Second Hand Smoke Exposure: No Substance Use Type: Marijuana Advance Directives Date on File: 01/20/24 service: No Current occupational status: employed Physical Exam Vital Signs: Last Vital Signs Temp 97.6 F 04/23/24 10:13 Pulse 61 04/23/24 10:13 BP 124/74 04/23/24 10:13 Pulse Ox 97 04/23/24 10:13 Oxygen Delivery Method Room Air 04/23/24 10:13 BMI result Body Mass Index 24.8 Const General: healthy appearing and no acute distress Resp Effort & Inspection: normal respiratory effort Auscultation: clear to auscultation bilaterally Cardio Rate: regular rate Rhythm: regular rhythm GI Auscultation: normal bowel sounds Extrem General: Yes normal to inspection Assessment & Plan Assessment & Plan (1) Marginal ulcer: Code(s): K28.9 - Gastrojejunal ulcer, unspecified as acute or chronic, without hemorrhage or perforation Category: Medical Plan: Symptomatically, she feels very well. Tolerating shakes without difficulty as well as liquids. At this point, we will refer her back to Dr. Myles for repeat upper endoscopy to ensure healing of her marginal ulcer. Continue H2 milagro, ppi, sucralfate until upper endoscopy. Continue shakes and water only until upper endoscopy. Patient is in agreement with this plan.
[2024-04-23 10:13] VITALS: BP 124/74; PULSE 61; TEMP 36.4; O2SAT 97; BMI 24.8
== END 2024-04-23 10:31 | disposition home or self-care (01) ==
PROVIDERS: PCP Nurse Practitioner Family; Visit Provider Physician Assistant Surgical
DX: K28.9 Gastrojejunal ulcer, unspecified as acute or chronic, without hemorrhage or perforation (principal)
CPT/HCPCS: 99213

== ENCOUNTER → 2024-04-23 09:57 | Outpatient (BNVA) | payer MEDICAID, SELFPAY | PROVIDERS: PCP Nurse Practitioner Family; Visit Provider Physician Assistant Surgical | DX: K28.9 Gastrojejunal ulcer, unspecified as acute or chronic, without hemorrhage or perforation (principal); Z71.3 Dietary counseling and surveillance; Z98.84 Bariatric surgery status | CPT/HCPCS: 99212 ==

== ENCOUNTER 2024-05-09 12:34 | Day surgery (SDC) | payer MEDICAID, SELFPAY ==
--- NOTE | 2024-05-04 14:30 | P.CONAN_ITS ---
HPI - Anesthesia Eval Consult details Narrative: 34yo F for Upper Endoscopy C admit 03/2024 with marginal ulcer, uti s/p EGD 03/2024 with TIVA PMFSH Active Problems Active Problems: All Active Problems UTI (urinary tract infection) (Acute) Marginal ulcer (Acute) Bacteremia (Acute) Fever (Acute) Dysuria (Acute) Intestinal malabsorption (Acute) S/P gastric bypass (Acute) Adjustment disorder, unspecified (Acute) Asthma, exercise induced (Acute) Past Medical History Medical History On total parenteral nutrition (TPN) Flank pain Abscess, subdiaphragmatic Perforated viscus Excess skin of abdomen Zinc deficiency Constipation Iron deficiency Panniculitis Overweight BMI 31.0-31.9,adult BMI 39.0-39.9,adult Obesity Intestinal malabsorption Intra-abdominal adhesions BMI 34.0-34.9,adult COVID-19 vaccine series completed History of depression Anxiety BMI over 35 BMI 37.0-37.9, adult Vitamin D deficiency Vitamin B12 deficiency Vitamin B1 deficiency GERD (gastroesophageal reflux disease) Back pain Gestational diabetes Asthma, exercise induced Family History Family history of problems with anesthesia: No Surgical History Surgical History Hx of breast surgery Hx of gastric bypass History of esophagogastroduodenoscopy (EGD) Hx laparoscopic cholecystectomy History of sleeve gastrectomy History of Problems with Anesthesia: No Social History Social History Household Members: Family Housing: House Are you a primary career placement services counselor to a significant other at home: Yes (2 children, arrangements made for their care in the post-op period) Do you presently have visiting nurse or other home services: Yes (vna services) Alcohol intake: current Alcohol intake frequency: does not drink Patient Tobacco Use Status: Former Tobacco user Second Hand Smoke Exposure: No Substance Use Type: Marijuana Advance Directives Date on File: 01/20/24 service: No Current occupational status: employed Meds Allergies Allergy/AdvReac Type Severity Reaction Status Date / Time tomato Allergy Severe itchy Verified 04/23/24 10:01 throat Home Medications ?Medication ?Instructions ?Recorded ?Confirmed ?Last Taken ?Type levonorgestrel 21 mcg/24 hr (up to 1 device intrauterine DIRECTED 12/22/20 04/03/24 Unknown History 8 years) 52 mg intrauterine device (Mirena) Exam Pertinent Lab Results Pertinent Lab Results: Laboratory Tests 04/04/24 05:33 WBC 2.4 L Hgb 10.2 L Hct 30.7 L Plt Count 102 L Sodium 142 Potassium 3.8 Chloride 113 H Carbon Dioxide 24 BUN 11 Creatinine 0.64 Assessment and Plan Final Anesthetic Review Family History of Problems with Anesthesia: No History of Problems with Anesthesia: No
[2024-05-09 13:18] VITALS: BMI 23.0
[2024-05-09 13:33] LABS: UPreg QC Valid YES; Urine Pregnancy NEGATIVE (NEGATIVE)
[2024-05-09 13:35] VITALS: BP 95/68; PULSE 44; RESP 16; TEMP 36.2; O2SAT 99
[2024-05-09] MEDS: Lactated Ringers 1,000 ML 80 ML IVCONT (13:37)
--- NOTE | 2024-05-09 13:57 | MHC.SHP ---
Pre-Procedural Eval Section A - 24 Hr Update-Section A only Date of Service: 05/09/24 The patient is an INPATIENT: No The patient has been examined within 24 hours of the surgical procedure. The History & Physical has been completed within 30 days and I have reviewed it.: Yes Section B - Complete if H&P > 30 days Chief Complaint: Gastrojejunal ulcer, unspecified as acute or chron Relevant Family History (Specify if Yes): No Relevant Social History: None Present Medications: None Medical History: No relevant PMH History of Previous Operations: Relevant previous surgery/procedure and date(s) (Lap sleeve gastrectomy, Lap revision to gastric bypass) Allergies: Allergies Allergy/AdvReac Type Severity Reaction Status Date / Time tomato Allergy Severe itchy Verified 04/23/24 10:01 throat Review of Systems Sugical H&P ROS: Negative: Constitution, Cardiovascular, Respiratory, Neurological, Psychiatric, Hem-Onc, Allergic/Immunologic, Gastrointestinal, Genitourinary, Musculoskeletal, Integumentary, Endocrine and Eyes/Ears/Nose/Throat Exam Surgical H&P Exam: Normal: HEENT, Normal: Heart, Normal: Lungs, Normal: Extremities, Normal: Abdomen, Normal: Skin and Normal: Neurological Plan Diagnosis/Plan: Unchanged (EGD to assess that status of the anastomotic ulcer. Risks of bleeding and perforation were discussed with the patient and she is in agreement with the plan.) I have reviewed the history and physical and performed a pertinent physical examination on my patient. No changes have occurred unless specified. Time Spent With Patient Time: Total time managing care of this patient today ____ minutes.
--- NOTE | 2024-05-09 14:04 | PM.OP ---
Brief Operative Note Date of Service: 05/09/24 Pre-op diagnosis: Anastomotic ulcer Post-op diagnosis: same Procedure: PROCEDURE DATE: 05/09/2024 PREOPERATIVE DIAGNOSIS: Perforated viscus, s/p gastric bypass POSTOPERATIVE DIAGNOSIS: ?Same as above. 1) Anastomotic ulcer PROCEDURE: Paukalbx-[id number]-[id number] with biopsies Surgeon: ?Adam Myles M.D.. Ph.D. Serology Teacher: ?None ? Anesthesia: IV sedation Estimated blood loss: ?Minimal FINDINGS AND PROCEDURE: ? OPERATIVE INDICATIONS: ?The patient is a 34 year old female known to me who underwent a laparoscopic revision of a sleeve gastrectomy to gastric bypass. The patient has not been compliant with her follow-up appointments. She presented to the ER about 12 weeks ago with evidence of perforated viscus, most likely an anastomotic ulcer. The patient was treated with NPO, IV antibiotics and TPN for 5 weeks. Recent UGI showed no evidence of leak or stricture. A follow-up endscopy three weeks ago revealed a healing anastomotic ulcer. The patient was allowed to start protein shakes and she remained on TPN. The patient is doing well and tolerated the diet change. However, surveillance endoscopy revealed a worsening ulcer. The patient was placed back on TPN and strict NPO. At the beginning of April she developed line sepsis and the PICC line had to be removed. An endoscopy was performed then by Dr. Palacios as I was away and that showed a normal anastomosis. The patient was placed back on protein shakes and she presents for a follow-up endoscopy to assess the status of the ulcer.? Risks and complications of the surgery were discussed with the patient in advance particularly the possibility of perforation or bleeding that may require surgical intervention. The patient understood the risks and was in agreement with the plan. ? PROCEDURE: After informed consent was obtained by the patient, the patient was ?transferred to the Operating Room and was placed in the supine position.? After successful induction of IV sedation, a mouth block was placed and the patient was placed in the left lateral decubitus position. An upper endoscopy was performed next, the oropharynx and esophagus appeared within the normal limits. There was no hiatal hernia.? The z-line was smooth. The small pouch was entered, appeared to be of normal size. There was mild inflammation of the gastric pouch near the gastrojejunostomy. The GJ anastomosis was patent. There was a small anastomotic ulcer in the gastro-jejunostomy with white exudate. The remaining of the Savana limb was normal without inflammation. At that point the scope was advanced into the proximal small intestine (proximal Savana limb) which appeared to be normal as well. The Savana limb and the pouch were decompressed and the scope was withdrawn from the patient's mouth. The patient was awaken and was transferred in stable condition to the Recovery Room for further care. I was present and performed all steps of the procedure. There were no residents to assist with this case. Adam Myles M.D., Ph.D. Surgeon: José Miguel Myles MD Anesthesia: MAC Was an Serology Teacher used for this Procedure?: No Estimated blood loss (mL): 0 IV fluids (mL): 400 Urine output (mL): 0 (No Victoria to record output) Pathology: none sent Condition: stable Disposition: PACU
[2024-05-09 15:45] VITALS: BP 100/50; PULSE 57; RESP 18; TEMP 36.1; O2SAT 97
[2024-05-09 15:50] VITALS: BP 96/47; PULSE 58; RESP 14; O2SAT 98
[2024-05-09 15:55] VITALS: BP 98/53; PULSE 48; RESP 15; O2SAT 97
[2024-05-09 16:00] VITALS: BP 103/82; PULSE 60; RESP 14; O2SAT 99
[2024-05-09 16:15] VITALS: BP 117/72; PULSE 62; RESP 15; TEMP 36.1; O2SAT 99
== END 2024-05-09 16:24 | disposition home or self-care (01) ==
PROVIDERS: Nurse Practitioner; PCP Nurse Practitioner Family; Visit Provider Surgery
PROC: 0DJ08ZZ Inspection of Upper Intestinal Tract, Via Natural or Artificial Opening Endoscopic (ICD-10-PCS; CPT 43235; principal; 2024-05-09 13:00)
DX: K28.9 Gastrojejunal ulcer, unspecified as acute or chronic, without hemorrhage or perforation (principal); K63.1 Perforation of intestine (nontraumatic); K90.9 Intestinal malabsorption, unspecified; K66.0 Peritoneal adhesions (postprocedural) (postinfection); K21.9 Gastro-esophageal reflux disease without esophagitis; Z98.84 Bariatric surgery status; Z90.3 Acquired absence of stomach [part of]; Z98.0 Intestinal bypass and anastomosis status; Z91.198 Patient's noncompliance with other medical treatment and regimen for other reason; Z79.899 Other long term (current) drug therapy; Z98.890 Other specified postprocedural states; Z90.49 Acquired absence of other specified parts of digestive tract; Z87.891 Personal history of nicotine dependence
CPT/HCPCS: 43239; 81025; J1100; J1596; J2250; J2704

== ENCOUNTER → 2024-05-09 12:34 | Outpatient (BNV) | payer MEDICAID, SELFPAY | PROVIDERS: PCP Nurse Practitioner Family; Visit Provider Surgery | DX: K28.1 Acute gastrojejunal ulcer with perforation (principal); K63.1 Perforation of intestine (nontraumatic) | CPT/HCPCS: 43239 ==

== ENCOUNTER → 2024-06-05 10:13 | Outpatient (BNV) | payer MEDICAID, SELFPAY | PROVIDERS: PCP Nurse Practitioner Family; Visit Provider Surgery | DX: K28.9 Gastrojejunal ulcer, unspecified as acute or chronic, without hemorrhage or perforation (principal) | CPT/HCPCS: 43239; 99232; 99499 ==

== ENCOUNTER 2024-06-05 12:51 | Inpatient (IN) | payer MEDICAID, SELFPAY ==
--- NOTE | 2024-06-01 14:29 | P.CONAN_ITS ---
Documented by User: Janeth Betancourt NP 06/01/24 14:30 HPI - Anesthesia Eval Consult details Narrative: 34yo F for Upper Endoscopy PMFSH Active Problems Active Problems: All Active Problems UTI (urinary tract infection) (Acute) Marginal ulcer (Acute) Bacteremia (Acute) Fever (Acute) Dysuria (Acute) Intestinal malabsorption (Acute) S/P gastric bypass (Acute) Adjustment disorder, unspecified (Acute) Asthma, exercise induced (Acute) Past Medical History Medical History On total parenteral nutrition (TPN) Flank pain Abscess, subdiaphragmatic Perforated viscus Excess skin of abdomen Zinc deficiency Constipation Iron deficiency Panniculitis Overweight BMI 31.0-31.9,adult BMI 39.0-39.9,adult Obesity Intestinal malabsorption Intra-abdominal adhesions BMI 34.0-34.9,adult COVID-19 vaccine series completed History of depression Anxiety BMI over 35 BMI 37.0-37.9, adult Vitamin D deficiency Vitamin B12 deficiency Vitamin B1 deficiency GERD (gastroesophageal reflux disease) Back pain Gestational diabetes Asthma, exercise induced Family History Family history of problems with anesthesia: No Surgical History Surgical History Hx of breast surgery Hx of gastric bypass History of esophagogastroduodenoscopy (EGD) Hx laparoscopic cholecystectomy History of sleeve gastrectomy History of Problems with Anesthesia: No Social History Social History Household Members: Family Housing: House Are you a primary career agent to a significant other at home: No Do you presently have visiting nurse or other home services: No Alcohol intake: current Alcohol intake frequency: does not drink Patient Tobacco Use Status: Former Tobacco user Tobacco use type: Cigarette Cigarettes Per Day: 5 Years Smoked: 13 Smoked in Last 30 Days: No Second Hand Smoke Exposure: No Use of substances other than those prescribed or required for medical reasons: No Substance Use Type: Marijuana Have you been hit, kicked, punched, or otherwise hurt by someone within the past year? If so, by whom?: No Are you DNR?: No Advance Directives: No Advance Directives Information Provided: Yes Advance Directives Date on File: 01/20/24 Recently lost weight without trying: No How much weight loss: Not applicable Eating poorly because of decreased appetite: No Nutrition screen score: 0 Nutrition Risks: Gastrointestinal Malabsorption Patient : No : No Poor oral hygiene: No service: No Current occupational status: employed Meds Allergies Allergy/AdvReac Type Severity Reaction Status Date / Time tomato Allergy Severe itchy Verified 06/05/24 10:48 throat Home Medications ?Medication ?Instructions ?Recorded ?Confirmed ?Last Taken ?Type levonorgestrel 21 mcg/24 hr (up to 1 device intrauterine DIRECTED 12/22/20 06/05/24 Unknown History 8 years) 52 mg intrauterine device (Mirena) Assessment and Plan Assessment Anesthesia Assessment: Chart Reviewed Final Anesthetic Review Family History of Problems with Anesthesia: No History of Problems with Anesthesia: No Documented by User: Karen Bearden MD 06/05/24 11:32 [facility] Past Medical History Medical History On total parenteral nutrition (TPN) Flank pain Abscess, subdiaphragmatic Perforated viscus Excess skin of abdomen Zinc deficiency Constipation Iron deficiency Panniculitis Overweight BMI 31.0-31.9,adult BMI 39.0-39.9,adult Obesity Intestinal malabsorption Intra-abdominal adhesions BMI 34.0-34.9,adult COVID-19 vaccine series completed History of depression Anxiety BMI over 35 BMI 37.0-37.9, adult Vitamin D deficiency Vitamin B12 deficiency Vitamin B1 deficiency GERD (gastroesophageal reflux disease) Back pain Gestational diabetes Asthma, exercise induced Surgical History Surgical History Hx of breast surgery Hx of gastric bypass History of esophagogastroduodenoscopy (EGD) Hx laparoscopic cholecystectomy History of sleeve gastrectomy Social History Social History Household Members: Family Housing: House Are you a primary career agent to a significant other at home: No Do you presently have visiting nurse or other home services: No Alcohol intake: current Alcohol intake frequency: does not drink Patient Tobacco Use Status: Former Tobacco user Tobacco use type: Cigarette Cigarettes Per Day: 5 Years Smoked: 13 Smoked in Last 30 Days: No Second Hand Smoke Exposure: No Use of substances other than those prescribed or required for medical reasons: No Substance Use Type: Marijuana Have you been hit, kicked, punched, or otherwise hurt by someone within the past year? If so, by whom?: No Are you DNR?: No Advance Directives: No Advance Directives Information Provided: Yes Advance Directives Date on File: 01/20/24 Recently lost weight without trying: No How much weight loss: Not applicable Eating poorly because of decreased appetite: No Nutrition screen score: 0 Nutrition Risks: Gastrointestinal Malabsorption Patient : No : No Poor oral hygiene: No service: No Current occupational status: employed Meds Allergies Allergy/AdvReac Type Severity Reaction Status Date / Time tomato Allergy Severe itchy Verified 06/05/24 10:48 throat Home Medications ?Medication ?Instructions ?Recorded ?Confirmed ?Last Taken ?Type levonorgestrel 21 mcg/24 hr (up to 1 device intrauterine DIRECTED 12/22/20 06/05/24 Unknown History 8 years) 52 mg intrauterine device (Mirena) Exam Airway Mallampati Class: II TM Dist: >3cm Neck ROM: Full Heart: rrr Lungs: cta Assessment and Plan Assessment Anesthesia Assessment: Anesthesia Plan Discussed Final Anesthetic Review NPO: Yes ASA Class: III Final Preanesthetic Review: No Changes in Pt Med Stat, Meds/Allgs Chart Reviewed, Consent Obtained/Reviewed and Anes Risks/Benef Reviewed Patient Risk: Intermediate Procedure Risk: Low Anesthetic Plan Anesthetic Plan: MAC: Disposition: Standard PACU
[2024-06-05] VITALS (11 sets, daily range): BP systolic 94–125; BP diastolic 46–82; PULSE 48–58; RESP 12–20; TEMP 36.5–36.9; O2SAT 97–100; BMI 23.1
[2024-06-05 10:56] LABS: UPreg QC Valid YES; Urine Pregnancy NEGATIVE (NEGATIVE)
[2024-06-05] MEDS: Lactated Ringers 1,000 ML 80 ML IVCONT (11:26)
--- NOTE | 2024-06-05 11:43 | MHC.SHP ---
Pre-Procedural Eval Section A - 24 Hr Update-Section A only Date of Service: 06/05/24 The patient is an INPATIENT: No The patient has been examined within 24 hours of the surgical procedure. The History & Physical has been completed within 30 days and I have reviewed it.: Yes Section B - Complete if H&P > 30 days Chief Complaint: Gastrojejunal ulcer, unspecified as acute Relevant Family History (Specify if Yes): No Relevant Social History: None Present Medications: None Medical History: No relevant PMH History of Previous Operations: Relevant previous surgery/procedure and date(s) (Lap sleeve gastrectomy and lap revision to gastric bypass) Allergies: Allergies Allergy/AdvReac Type Severity Reaction Status Date / Time tomato Allergy Severe itchy Verified 06/05/24 10:48 throat Review of Systems Sugical H&P ROS: Negative: Constitution, Cardiovascular, Respiratory, Neurological, Psychiatric, Hem-Onc, Allergic/Immunologic, Gastrointestinal, Genitourinary, Musculoskeletal, Integumentary, Endocrine and Eyes/Ears/Nose/Throat Exam Surgical H&P Exam: Normal: HEENT, Normal: Heart, Normal: Lungs, Normal: Extremities, Normal: Abdomen, Normal: Skin and Normal: Neurological Plan Diagnosis/Plan: Unchanged (EGD to assess the status of the anastomotic ulcer. Risks of bleeding and perforation were discussed with the patient and she is in agreement with the plan.) I have reviewed the history and physical and performed a pertinent physical examination on my patient. No changes have occurred unless specified. Time Spent With Patient Time: Total time managing care of this patient today ____ minutes.
--- NOTE | 2024-06-05 11:44 | P.BOP_ITS ---
Brief Operative Note Date of Service: 06/05/24 Pre-op diagnosis: Anastomotic ulcer Post-op diagnosis: same Procedure: PROCEDURE DATE: 06/05/2024 PREOPERATIVE DIAGNOSIS: Perforated viscus, s/p gastric bypass POSTOPERATIVE DIAGNOSIS: ?Same as above. 1) Deep anastomotic ulcer (worse) PROCEDURE: Zrxspmgz-[id number] with biopsies Surgeon: ?Adam Myles M.D.. Ph.D. Manager Of Exhibitions And Collections: ?None ? Anesthesia: IV sedation Estimated blood loss: ?Minimal FINDINGS AND PROCEDURE: ? OPERATIVE INDICATIONS: ?The patient is a 34 year old female known to me who underwent a laparoscopic revision of a sleeve gastrectomy to gastric bypass. The patient has not been compliant with her follow-up appointments. She presented to the ER about 16 weeks ago with evidence of perforated viscus, most likely an anastomotic ulcer. The patient was treated with NPO, IV antibiotics and TPN for 5 weeks. Recent UGI showed no evidence of leak or stricture. A follow-up endoscopy 8 weeks ago revealed a healing anastomotic ulcer. The patient was allowed to start protein shakes and she remained on TPN. The patient was doing well and tolerated the diet change. However, surveillance endoscopy revealed a worsening ulcer. The patient was placed back on TPN and strict NPO. At the beginning of April she developed line sepsis and the PICC line had to be removed. An endoscopy was performed then by Dr. Palacios as I was away and that s howed a normal anastomosis. The patient was placed back on protein shakes and she presented for a follow-up endoscopy to assess the status of the ulcer on 05/09/24 which showed a persistent small anastomotic ulcer. The patient however had discontinued the Pantoprazole and Sucralfrate. She is now back on these medications. The patient has remained on a liquid diet with protein shakes and she presents for follow-up endoscopy.? Risks and complications of the surgery were discussed with the patient in advance particularly the possibility of perforation or bleeding that may require surgical intervention. The patient understood the risks and was in agreement with the plan. ? PROCEDURE: After informed consent was obtained by the patient, the patient was ?transferred to the Operating Room and was placed in the supine position.? After successful induction of IV sedation, a mouth block was placed and the patient was placed in the left lateral decubitus position. An upper endoscopy was performed next, the oropharynx and esophagus appeared within the normal limits. There was no hiatal hernia.? The z-line was smooth. The small pouch was entered, appeared to be of normal size. There was mild inf lammation of the gastric pouch near the gastrojejunostomy. The GJ anastomosis was patent. The previously seen anastomotic ulcer in the gastro-jejunostomy is deeper now and there is increased inflammation around it. The remaining of the Savana limb was normal without inflammation. At that point the scope was advanced into the proximal small intestine (proximal Savana limb) which appeared to be normal as well. The Savana limb and the pouch were decompressed and the scope was withdrawn from the patient's mouth. The patient was awaken and was transferred in stable condition to the Recovery Room for further care. I was present and performed all steps of the procedure. There were no residents to assist with this case. Adam yMles M.D., Ph.D. Surgeon: José Miguel Myles MD Anesthesia: MAC Was an Manager Of Exhibitions And Collections used for this Procedure?: No Estimated blood loss (mL): 0 IV fluids (mL): 400 Urine output (mL): 0 (No Victoria to record output) Pathology: none sent Condition: stable Disposition: PACU
--- NOTE | 2024-06-05 12:40 | PC.NURSE ---
Patient in preop. Med rec complete. Patient took Sucralfate 10ml at 0600. Dr. Solis made aware. Okay to proceed.
--- NOTE | 2024-06-05 13:03 | PHA.MEDREC ---
Pharmacy Consult ? Medication Reconciliation Pharmacy has completed the medication reconciliation. Reviewed med rec done by nursing
[2024-06-05] MEDS: Lactated Ringers 1,000 ML 100 ML IVCONT (15:17)
[2024-06-05] MEDS: 0.9 % Sodium Chloride Flush 3 ML SYRINGE IVFLUSH (15:18)
[2024-06-05] MEDS: Acetaminophen 1,000 MG/100 ML PIGGYBACK 400 MG IV ×2 (15:28→20:49)
[2024-06-05] MEDS: ondansetron HCL 4 MG/2 ML VIAL IVPUSH ×2 (15:29→20:50)
[2024-06-05] MEDS: Sucralfate Oral Suspension 1 GM/10 ML ORAL.SUSP PO ×2 (15:29→20:50)
[2024-06-05] MEDS: Pantoprazole Sodium 40 MG/10 ML VIAL IVPUSH ×2 (15:29→20:50)
[2024-06-05 15:33] LABS: Hematocrit 35.4 % (37.0-47.0); Hemoglobin 12.1 g/dl (12.0-16.0)
[2024-06-05 15:46] LABS: Anion Gap 10 (12-20); Blood Urea Nitrogen 11 mg/dL (9-16); Calcium 9.4 mg/dL (8.4-10.2); Carbon Dioxide 25 mmol/L (22-29); Chloride 108 mmol/L (96-108); Creatinine Clr Calc Pharmacy 105.4; Estimated Glomerular Filt Rate > 60; Glucose Random 92 mg/dL (60-115); Potassium 4.4 mmol/L (3.3-5.1); Sodium 139 mmol/L (135-145)
--- NOTE | 2024-06-05 17:29 | HO.PICC ---
PICC Line Insertion NPICC Diagnosis: Gastric ulcer Indication: TPN Pertinent Labs: Reviewed Technique: Following informed consent including risks, benefits and alternatives and using sterile technique including cap and mask, sterile gown, glove and drape, the right arm was prepped and draped in the usual sterile fashion of full barrier technique with CHG. Following completion of [place] Protocol the skin and soft tissues were anesthetized with 1% Lidocaine plain. Using ultrasound guidance, right basilic vein access was obtained. Over an 0.018 wire through peel-away sheath, a 5FR double lumen PASV PICC line was positioned. Catheter length is 38 internal length, 0cm external length, for a total trimmed length of 38cm. The procedure was performed in [facility]. Tip verification was performed by Ricardo Foster with Sherlock 3CG. Tip located in SVC. Ultrasound was used to document vein patency and for needle entry. A formal ultrasound picture and cardiac rhythm strip was recorded. Vascular Communications Professor has released the line for use and it is currently dressed with a StatLock, Tegaderm, and CHG disc. Verification has been performed for blood return and line patency. Arm Circumference: 26cm Equipment: [employer] Power PICC catheter with Sherlock 3CG Tip Catheter Type: 5FR double lumen PASV catheter Lot #: [id number]
[2024-06-05] MEDS: 0.9 % Sodium Chloride Flush 10 ML SYRINGE 5 ML IVFLUSH (20:50)
[2024-06-06] MEDS: Lactated Ringers 1,000 ML 100 ML IVCONT ×2 (00:25→09:34)
[2024-06-06] MEDS: Acetaminophen 1,000 MG/100 ML PIGGYBACK 400 MG IV ×2 (02:36→07:24)
[2024-06-06 03:24] VITALS: BP 105/57; PULSE 54; RESP 18; TEMP 36.4; O2SAT 98
[2024-06-06] MEDS: ondansetron HCL 4 MG/2 ML VIAL IVPUSH (05:33)
[2024-06-06 07:03] VITALS: BP 101/55; PULSE 62; RESP 18; TEMP 36.6; O2SAT 98
[2024-06-06] MEDS: Sucralfate Oral Suspension 1 GM/10 ML ORAL.SUSP PO ×2 (07:23→10:50)
[2024-06-06] MEDS: Pantoprazole Sodium 40 MG/10 ML VIAL IVPUSH (07:25)
[2024-06-06 07:26] LABS: MANUAL DIFF FLAG NO
[2024-06-06 07:35] LABS: Basophils Percent Auto 0.2 % (0-2); Eosinophils Percent Auto 0.6 % (0-4); Hematocrit 34.5 % (37.0-47.0); Hemoglobin 11.5 g/dl (12.0-16.0); Imm Gran Abs Auto 0.01 X10*3/uL (0.00-0.03); Imm Gran Pct Auto 0.2 % (0.0-0.4); Lymphocytes Absolute Auto 1.6 X10*3/uL (1.2-4.9); Lymphocytes Percent Auto 30.6 % (20-40); Mean Corpuscular HGB Conc 33.3 g/dl (31.0-35.0); Mean Corpuscular Hemoglobin 29.1 pg (27.0-33.0); Mean Corpuscular Volume 87.3 fL (80.0-98.0); Mean Platelet Volume 11.2 fL (9.4-12.3); Monocytes Absolute Auto 0.2 X10*3/uL (0.1-1.2); Monocytes Percent Auto 3.9 % (2-11); Neutrophils Absolute Auto 3.3 x10*3/uL (2.0-8.3); Neutrophils Percent Auto 64.5 % (45-73); Platelet Count 176 X10*3/uL (160-400); Red Blood Count 3.95 X10*6/uL (4.20-5.50); Red Cell Distribution Width 13.5 % (11.0-16.0); White Blood Count 5.2 X10*3/uL (4.8-10.8)
[2024-06-06 07:51] LABS: Albumin Level 3.4 g/dL (3.5-5.0); Anion Gap 11 (12-20); Blood Urea Nitrogen 11 mg/dL (9-16); Calcium 8.9 mg/dL (8.4-10.2); Carbon Dioxide 23 mmol/L (22-29); Chloride 109 mmol/L (96-108); Creatinine Clr Calc Pharmacy 108.6; Estimated Glomerular Filt Rate > 60; Glucose Random 71 mg/dL (60-115); Magnesium 1.9 mg/dL (1.6-2.6); Phosphorus 3.7 mg/dL (2.7-4.5); Potassium 4.1 mmol/L (3.3-5.1); Sodium 139 mmol/L (135-145)
--- NOTE | 2024-06-06 09:09 | HO.POSTANES ---
Post Anesthesia Evaluation Post Anesthesia Evaluation Date of Service: 06/05/24 Vital Signs: Vital Signs Temp Pulse Resp BP Pulse Ox O2 Del Method 06/06/24 07:03 97.8 F 62 18 101/55 L 98 Room Air 06/06/24 03:24 97.5 F 54 18 105/57 L 98 Room Air 06/05/24 23:25 98.4 F 52 18 100/56 L 97 Room Air Anesthesia: Monitored Mental Status: Awake Pain Control: Satisfactory Nausea/Vomiting: None Hydration: Adequate Anesthesia-Related Issues: No Anes. Related Issues
--- NOTE | 2024-06-06 09:38 | MHC.CLN ---
Addendum entered by Monique Rey, ISIDORO 06/06/24 10:44: TRIGLYCERIDES=59. OK TO ADD LIPIDS. RECOMMEND MAX GOAL TPN AT 55 ML PER HOUR, 63 G LIPIDS TO PROVIDE: 1505 KCALS (23.9 KCALS/KG), 132 G DEXTROSE, 106 G PROTEIN (1.68 G/KG). REPLETE LYTES NEEDED. Original Note: NUTRITION PATIENT WITH ANASTOMATIC ULCER, NPO STATUS, REQUIRES NUTRITION/HYDRATION VIA TPN. PICC LINE PROCEDURE 06/05/24. FAMILIAR WITH PATIENT FROM PRIOR ADMISSION 01/2024. DISCHARGED WITH HOME TPN. DISCUSSED WITH PHARMACY. WILL NEED TRIGLYCERIDE LABS TO PROCEED WITH ADDITION OF LIPIDS. RECOMMEND TPN AT 55 ML PER HOUR TO PROVIDE 132 G DEXTROSE, 106 G PROTEIN, 875 KCALS. IF ABLE TO ADD LIPIDS, RECOMMEND MAX GOAL TPN AT 55 ML PER HOUR, 63 G LIPIDS TO PROVIDE: 1505 KCALS (23.9 KCALS/KG), 132 G DEXTROSE, 106 G PROTEIN (1.68 G/KG). REPLETE LYTES NEEDED. MONITOR FOR TPN TOLERANCE, LYTES, PO INTAKE.
[2024-06-06 09:48] LABS: Triglycerides 59 mg/dL (<150)
--- NOTE | 2024-06-06 10:19 | MHC.CM.PN ---
CM MET WITH PT AT BEDSIDE. PT IS INDEPENDENT AND EMPLOYED F/T. PT IS PROFICIENT WITH MANAGING OWN TPN. [facility] WILL MANAGE TPN/SUPPLIES AND IN TO SEE PT. + HCP PCP AT [facility] (PROVIDER LEFT PRACTICE AND HAS NOT ESTABLISHED WITH NEW PROVIDER AT CENTER) DP: PT HOPES TO DC TODAY AFTER TPN IS ARRANGED. PT HAS OWN RIDE HOME. CM WILL CONTINUE TO FOLLOW.
[2024-06-06 10:27] VITALS: BMI 23.1
[2024-06-06 11:41] VITALS: BP 133/58; PULSE 57; RESP 16; TEMP 36.6; O2SAT 98
--- NOTE | 2024-06-06 12:22 | PM.DS ---
DS: Providers Provider Date of Service: 06/06/24 Date of admission: 06/05/24 12:51 Primary care physician: GABRIELA Murray DS: Summary Hospital Course Hospital Course: The patient is a 34 year old female who underwent a laparoscopic revision of a sleeve gastrectomy to gastric bypass. The patient has not been compliant with her follow-up appointments. She presented to the ER about 16 weeks ago with evidence of perforated viscus, most likely an anastomotic ulcer. The patient was treated with NPO, IV antibiotics and TPN for 5 weeks. Recent UGI showed no evidence of leak or stricture. A follow-up endoscopy 8 weeks ago revealed a healing anastomotic ulcer. The patient was allowed to start protein shakes and she remained on TPN. The patient was doing well and tolerated the diet change. However, surveillance endoscopy revealed a worsening ulcer. The patient was placed back on TPN and strict NPO. At the beginning of April she developed line sepsis and the PICC line had to be removed. An endoscopy was performed then by Dr. Palacios as I was away and that showed a normal anastomosis. The patient was placed back on protein shakes and she presented for a follow-up endoscopy to assess the status of the ulcer on 05/09/24 which showed a persistent small anastomotic ulcer. The patient however had discontinued the Pantoprazole and Sucralfrate. She is now back on these medications. The patient has remained on a liquid diet with protein shakes and she presents for follow-up endoscopy. F/U endocscopy showed worsening ulcer and therefore she was admitted overnight so she could get a PICC line (placed late yesterday aftern) and arrange for home TPN. This was able to be arranged today and she will go home on TPN Time Attestation Total time managing care of this patient today: 25 mintues. Discharge Coordination Time (in mins): 25 Quality: Safe Use of Opioids Does Pt have an Active Cancer Diagnosis on the Problem List?: No Quality: Stroke Does the patient have a stroke diagnosis?: No Physical Exam Vital Signs: Vital Signs: Last Vital Signs Temp 97.8 F 06/06/24 11:41 Pulse 57 06/06/24 11:41 Resp 16 06/06/24 11:41 BP 133/58 L 06/06/24 11:41 Pulse Ox 98 06/06/24 11:41 O2 Del Method Room Air 06/06/24 11:41 BMI result Body Mass Index 23.1 DS: Data Data Completed and Pending Completed studies during hospitalization [Text1]: Procedures Bypass Stomach to Jejunum, Percutaneous Endoscopic Approach (03/18/21) Excision of Stomach, Pylorus, Via Natural or Artificial Opening Endoscopic, Diagnostic (04/03/24) Insertion of Infusion Device into Superior Vena Cava, Percutaneous Approach (01/14/24) Release Peritoneum, Percutaneous Endoscopic Approach (03/18/21) Ultrasonography of Superior Vena Cava, Guidance (01/14/24) Labs on day of discharge: Laboratory Results - last 24 hr 06/05/24 06/06/24 06/06/24 14:50 05:38 07:22 WBC 5.2 RBC 3.95 L Hgb 12.1 11.5 L Hct 35.4 L 34.5 L MCV 87.3 MCH 29.1 MCHC 33.3 RDW 13.5 Plt Count 176 D MPV 11.2 Immature Gran % (Auto) 0.2 Neut % (Auto) 64.5 Lymph % (Auto) 30.6 [place] % (Auto) 3.9 Eos % (Auto) 0.6 Baso % (Auto) 0.2 Lymph # (Auto) 1.6 [place] # (Auto) 0.2 Eos # (Auto) 0.0 Baso # (Auto) 0.0 Abs Immat Gran (auto) 0.01 Absolute Neuts (auto) 3.3 Absolute Nucleated RBC 0.000 Nucleated RBC % (auto) 0.0 Sodium 139 139 Potassium 4.4 4.1 Chloride 108 109 H Carbon Dioxide 25 23 Anion Gap 10 L 11 L BUN 11 11 Creatinine 0.67 0.65 Estim Creat Clear Calc 105.4 108.6 Estimated GFR > 60 > 60 Random Glucose 92 71 Calcium 9.4 8.9 Phosphorus 3.7 Magnesium 1.9 Albumin 3.4 L Triglycerides 59 Discharge Plan Discharge Anticipated Discharge Date/Time: 06/06/24 15:00 Patient Disposition: Home, Self-Care Discharge Diagnosis: anastomotic ulcer Referrals: Beth Paul FNP [Primary Care Provider] - 1 Week Discharge Medications: Continued sucralfate 100 mg/mL suspension 10 ml PO Q6H Qty: 1200 2RF pantoprazole 40 mg tablet,delayed release (DR/EC) 40 mg PO BID 90 Days Qty: 180 4RF Mirena 20 mcg/24 hours (6 yrs) 52 mg intrauterine device 1 device intrauterine DIRECTED Discontinued famotidine 20 mg tablet 20 mg PO DAILY Qty: 60 0RF Discharge Orders: Discharge Order (Routine); Ordered 06/06/24 Ordered By: Chao Garcia Activity on Discharge: As tolerated Print Language: Malay Activity Restrictions/Additional Instructions: 1) Remain on TPN until discussed with Dr Myles, Meds by mouth are ok. 2) Avoid aspirin, Motrin, Aleve, Advil, Naproxyn, Ibuprofen for 2 weeks 3) Call Dr. Myles at [phone] for fever >101F, persistent nausea, vomiting, abdominal pain, shortness of breath, calf pain. 4) Continue Pantoprazole 40mg every 12 hours and Sucralfate 2 teaspoons every 6 hours indefinitely Care Plan Goals: heal anastomotic ulcer Health Concerns: gastric ulcer Plan of Treatment: home with TPN and close f/u as outpt Assessment: stable for dc home on tpn
--- NOTE | 2024-06-06 12:25 | PM.PNGS ---
Subjective Subjective Date of Service: 06/06/24 Interval history: Was admitted yesterday due a worsening anastomotic ulcer and need for a PICC for TPN PICC was placed yesterday and TPN will be initiated today. Physical Exam Vital Signs: Vital Signs: Last Vital Signs Temp 97.8 F 06/06/24 11:41 Pulse 57 06/06/24 11:41 Resp 16 06/06/24 11:41 BP 133/58 L 06/06/24 11:41 Pulse Ox 98 06/06/24 11:41 O2 Del Method Room Air 06/06/24 11:41 BMI result Body Mass Index 23.1 GI: Inspection: Yes normal to inspection Palpation (GI): Soft to palpation (no tenderness) Extrem: Right lower extremity: normal to inspection Left lower extremity: normal to inspection Objective Data Active Medications Albuterol Sulfate (Albuterol Sulfate (0.083%) 2.5 Mg/3 Ml Vial.Neb) 2.5 mg INHALE ONCE PRN PRN Reason: Shortness of Breath/Wheezing Hydromorphone HCl (Hydromorphone Hcl 0.5 Mg/0.5 Ml Syringe) 0.25 mg IVPUSH Q4H PRN; Protocol PRN Reason: Pain, Severe (Pain Scale 7-10) Lactated Ringer's (Lr) 1,000 mls @ 100 mls/hr IVCONT .Q10H [facility] Last Admin: 06/06/24 09:34 Dose: 100 mls/hr Documented By: PRIYANK Acetaminophen (Ofirmev) 1,000 mg in 100 mls @ 400 mls/hr IV Q6H [facility] Last Infusion: 06/06/24 07:54 Dose: Infused Documented By: PRIYANK Naloxone HCl (Naloxone Hcl 0.4 Mg/Ml Vial) 0.04 mg IVPUSH Q5M PRN PRN Reason: Excessive sedation or RR < 8 Ondansetron HCl (Ondansetron Hcl 4 Mg/2 Ml Vial) 4 mg IVPUSH Q8H [facility] Last Admin: 06/06/24 05:33 Dose: 4 mg Documented By: RIMA Pantoprazole Sodium (Pantoprazole Sodium 40 Mg/10 Ml Vial) 40 mg IVPUSH BID [facility] Last Admin: 06/06/24 07:25 Dose: 40 mg Documented By: PRIYANK Pharmacy Consult (Consult Rx Parenteral Nutrition Ordering) 1 each MISCELLANE DAILY PRN PRN Reason: Consult order Sodium Chloride (0.9 % Sodium Chloride Flush 3 Ml Syringe) 3 ml IVFLUSH QSHIFT [facility] Last Admin: 06/06/24 08:26 Dose: Not Given Documented By: JANELL Non-Admin Reason: IV Running Sodium Chloride (0.9 % Sodium Chloride Flush 10 Ml Syringe) 5 ml IVFLUSH TID [facility] Last Admin: 06/06/24 10:19 Dose: Not Given Documented By: PRIYANK Non-Admin Reason: IV Running Sucralfate (Sucralfate Oral Suspension 1 Gm/10 Ml Oral.Susp) 1 gm PO QIDACHS [facility] Last Admin: 06/06/24 10:50 Dose: 1 gm Documented By: PRIYANK Labs 06/06/24 05:38 06/06/24 05:38 Labs: Laboratory Results - last 24 hr 06/05/24 06/06/24 06/06/24 14:50 05:38 07:22 MCV 87.3 MCH 29.1 MCHC 33.3 RDW 13.5 Plt Count 176 D MPV 11.2 Immature Gran % (Auto) 0.2 Neut % (Auto) 64.5 Lymph % (Auto) 30.6 Atlantic % (Auto) 3.9 Eos % (Auto) 0.6 Baso % (Auto) 0.2 Lymph # (Auto) 1.6 Atlantic # (Auto) 0.2 Eos # (Auto) 0.0 Baso # (Auto) 0.0 Abs Immat Gran (auto) 0.01 Absolute Neuts (auto) 3.3 Absolute Nucleated RBC 0.000 Nucleated RBC % (auto) 0.0 Anion Gap 10 L 11 L Estim Creat Clear Calc 105.4 108.6 Estimated GFR > 60 > 60 Random Glucose 92 71 Calcium 9.4 8.9 Phosphorus 3.7 Magnesium 1.9 Albumin 3.4 L Triglycerides 59 Procedures Date of Service Date of Service: 06/06/24 Progress Note: A&P Assessment and plan (1) Marginal ulcer: Status: Acute Assessment and Plan: Home TPN was arranged today per [employer]. 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 Patient will be discharged today. Plan was discussed with the patient and she is in agreement with the plan Time Spent With Patient Time: Total time managing care of this patient today ____ minutes. Quality Stroke Does the patient have a stroke diagnosis?: No VTE Prior VTE?: No VTE Risk Level:: Surgical - moderate VTE Device Contraindication: N/A - Device Ordered VTE Drug Contraindication: Treatment Not Indicated
--- NOTE | 2024-06-06 13:32 | MHC.CM.PN ---
DP: PT HAS BEEN MEDICALLY CLEARED FOR DC HOME WITH [facility] FOR TPN OVERSIGHT AND SUPPLIES. PER [facility], PT IS CLEAR FOR DELIVERY OF TPN THIS CEFERINO AND PA/RN UPDATED. PT HAS OWN RIDE HOME.
== END 2024-06-06 12:59 | disposition home or self-care (01) | DRG 252 ==
LOC: HO.SSSA 12:59 → HO.S3 14:34
PROVIDERS: Nurse Practitioner; Physician Assistant Surgical; Admitting Provider Surgery; PCP Nurse Practitioner Family; Visit Provider Surgery
PROC: 0DJ08ZZ Inspection of Upper Intestinal Tract, Via Natural or Artificial Opening Endoscopic (ICD-10-PCS; CPT 43235; principal; 2024-06-05 11:40)
DX: K95.89 Other complications of other bariatric procedure (principal); K28.9 Gastrojejunal ulcer, unspecified as acute or chronic, without hemorrhage or perforation; Z79.899 Other long term (current) drug therapy; Z91.199 Patient's noncompliance with other medical treatment and regimen due to unspecified reason; Z87.891 Personal history of nicotine dependence
CPT/HCPCS: 43239; 36415; 36573; 80048; 81025; 82040; 83735; 84100; 84478; 85014; 85018; 85025; 99221; C1751; J0131; J1100; J1596; J2250; J2405; J2470; J2704; J7120

== ENCOUNTER 2024-08-09 08:13 | Day surgery (SDC) | payer MEDICAID, SELFPAY ==
--- NOTE | 2024-08-07 15:10 | HO.ANESPROP2 ---
Documented by User: Janeth Betancourt NP 08/07/24 15:11 HPI - Anesthesia Eval Consult details Narrative: 34yo F for Upper Endoscopy PMFSH Active Problems Active Problems: All Active Problems UTI (urinary tract infection) (Acute) Marginal ulcer (Acute) Bacteremia (Acute) Fever (Acute) Dysuria (Acute) Intestinal malabsorption (Acute) S/P gastric bypass (Acute) Adjustment disorder, unspecified (Acute) Asthma, exercise induced (Acute) Past Medical History Medical History On total parenteral nutrition (TPN) Flank pain Abscess, subdiaphragmatic Perforated viscus Excess skin of abdomen Zinc deficiency Constipation Iron deficiency Panniculitis Overweight BMI 31.0-31.9,adult BMI 39.0-39.9,adult Obesity Intestinal malabsorption Intra-abdominal adhesions BMI 34.0-34.9,adult COVID-19 vaccine series completed History of depression Anxiety BMI over 35 BMI 37.0-37.9, adult Vitamin D deficiency Vitamin B12 deficiency Vitamin B1 deficiency GERD (gastroesophageal reflux disease) Back pain Gestational diabetes Asthma, exercise induced Family History Family history of problems with anesthesia: No Surgical History Surgical History Hx of breast surgery Hx of gastric bypass History of esophagogastroduodenoscopy (EGD) Hx laparoscopic cholecystectomy History of sleeve gastrectomy History of Problems with Anesthesia: No Social History Social History Household Members: Significant Other and Children Housing: House Are you a primary manager intensive care unit to a significant other at home: No Do you presently have visiting nurse or other home services: No Alcohol intake: current Alcohol intake frequency: does not drink Patient Tobacco Use Status: Former Tobacco user Tobacco use type: Cigarette Cigarettes Per Day: 5 Years Smoked: 13 Second Hand Smoke Exposure: No Substance Use Type: Marijuana Advance Directives: No Advance Directives Information Provided: Yes Advance Directives Date on File: 01/20/24 service: No Current occupational status: employed Meds Allergies Allergy/AdvReac Type Severity Reaction Status Date / Time tomato Allergy Severe itchy Verified 06/05/24 10:48 throat Home Medications ?Medication ?Instructions ?Recorded ?Confirmed ?Last Taken ?Type levonorgestrel 21 mcg/24 hr (up to 1 device intrauterine DIRECTED 12/22/20 06/05/24 Unknown History 8 years) 52 mg intrauterine device (Mirena) Assessment and Plan Assessment Anesthesia Assessment: Chart Reviewed Final Anesthetic Review Family History of Problems with Anesthesia: No History of Problems with Anesthesia: No Documented by User: Rocio Solis MD 08/09/24 08:56 PMF Past Medical History Medical History On total parenteral nutrition (TPN) Flank pain Abscess, subdiaphragmatic Perforated viscus Excess skin of abdomen Zinc deficiency Constipation Iron deficiency Panniculitis Overweight BMI 31.0-31.9,adult BMI 39.0-39.9,adult Obesity Intestinal malabsorption Intra-abdominal adhesions BMI 34.0-34.9,adult COVID-19 vaccine series completed History of depression Anxiety BMI over 35 BMI 37.0-37.9, adult Vitamin D deficiency Vitamin B12 deficiency Vitamin B1 deficiency GERD (gastroesophageal reflux disease) Back pain Gestational diabetes Asthma, exercise induced Surgical History Surgical History Hx of breast surgery Hx of gastric bypass History of esophagogastroduodenoscopy (EGD) Hx laparoscopic cholecystectomy History of sleeve gastrectomy Social History Social History Household Members: Significant Other and Children Housing: House Are you a primary manager intensive care unit to a significant other at home: No Do you presently have visiting nurse or other home services: No Alcohol intake: current Alcohol intake frequency: does not drink Patient Tobacco Use Status: Former Tobacco user Tobacco use type: Cigarette Cigarettes Per Day: 5 Years Smoked: 13 Second Hand Smoke Exposure: No Substance Use Type: Marijuana Advance Directives: No Advance Directives Information Provided: Yes Advance Directives Date on File: 01/20/24 service: No Current occupational status: employed Meds Allergies Allergy/AdvReac Type Severity Reaction Status Date / Time tomato Allergy Severe itchy Verified 06/05/24 10:48 throat Home Medications ?Medication ?Instructions ?Recorded ?Confirmed ?Last Taken ?Type levonorgestrel 21 mcg/24 hr (up to 1 device intrauterine DIRECTED 12/22/20 06/05/24 Unknown History 8 years) 52 mg intrauterine device (Mirena) Exam Airway Mallampati Class: II TM Dist: >3cm Neck ROM: Full Loose/Missing/Broken Teeth: No Heart: RRR Lungs: CTA Assessment and Plan Assessment Anesthesia Assessment: Anesthesia Plan Discussed Final Anesthetic Review NPO: Yes ASA Class: III Final Preanesthetic Review: No Changes in Pt Med Stat, Meds/Allgs Chart Reviewed, Consent Obtained/Reviewed, Anes Risks/Benef Reviewed and DNR Form (If Appl.) Patient Risk: Intermediate Procedure Risk: Intermediate Anesthetic Plan Anesthetic Plan: MAC: Disposition: Standard PACU
[2024-08-09 08:49] VITALS: BMI 24.4
[2024-08-09 08:59] LABS: UPreg QC Valid YES; Urine Pregnancy NEGATIVE (NEGATIVE)
--- NOTE | 2024-08-09 08:59 | MHC.SHP ---
Pre-Procedural Eval Section A - 24 Hr Update-Section A only Date of Service: 08/09/24 The patient is an INPATIENT: No The patient has been examined within 24 hours of the surgical procedure. The History & Physical has been completed within 30 days and I have reviewed it.: Yes Section B - Complete if H&P > 30 days Chief Complaint: Postgastric surgery syndromes Details of Present Illness: Anastomotic ulcer Relevant Family History (Specify if Yes): No Relevant Social History: None Present Medications: None Medical History: No relevant PMH History of Previous Operations: Relevant previous surgery/procedure and date(s) (lap sleeve gastrectomy, laparoscopic revision to gastric bypass) Allergies: Allergies Allergy/AdvReac Type Severity Reaction Status Date / Time tomato Allergy Severe itchy Verified 06/05/24 10:48 throat Review of Systems Sugical H&P ROS: Negative: Constitution, Cardiovascular, Respiratory, Neurological, Psychiatric, Hem-Onc, Allergic/Immunologic, Genitourinary, Musculoskeletal, Integumentary, Endocrine and Eyes/Ears/Nose/Throat and Yes, Specify: Gastrointestinal (RUQ pain) Exam Surgical H&P Exam: Normal: HEENT, Normal: Heart, Normal: Lungs, Normal: Extremities, Normal: Abdomen, Normal: Skin and Normal: Neurological Plan Diagnosis/Plan: Unchanged (EGD to assess the status of the ulcer. Risks of bleeding and perforation were discussed with the patient and she is in agreement with the plan.) I have reviewed the history and physical and performed a pertinent physical examination on my patient. No changes have occurred unless specified. Time Spent With Patient Time: Total time managing care of this patient today ____ minutes.
[2024-08-09 09:04] VITALS: BP 105/55; PULSE 61; RESP 16; TEMP 37.1; O2SAT 100
--- NOTE | 2024-08-09 09:05 | PM.OP ---
Brief Operative Note Date of Service: 08/09/24 Pre-op diagnosis: Anastomotic ulcer Post-op diagnosis: same (healing anastomotic ulcer) Procedure: PROCEDURE DATE: 08/09/2024 PREOPERATIVE DIAGNOSIS: Perforated viscus, s/p gastric bypass POSTOPERATIVE DIAGNOSIS: ?Same as above. 1) Deep anastomotic ulcer (worse) PROCEDURE: [id number] with biopsies Surgeon: ?Adam Myles M.D.. Ph.D. Bleach Range Operator: ?None ? Anesthesia: IV sedation Estimated blood loss: ?Minimal FINDINGS AND PROCEDURE: ? OPERATIVE INDICATIONS: ?The patient is a 34 year old female known to me who underwent a laparoscopic revision of a sleeve gastrectomy to gastric bypass. The patient has not been compliant with her follow-up appointments. She presented to the ER about 16 weeks ago with evidence of perforated viscus, most likely an anastomotic ulcer. The patient was treated with NPO, IV antibiotics and TPN for 5 weeks. Recent UGI showed no evidence of leak or stricture. A follow-up endoscopy 8 weeks ago revealed a healing anastomotic ulcer. The patient was allowed to start protein shakes and she remained on TPN. The patient was doing well and tolerated the diet change. However, surveillance endoscopy revealed a worsening ulcer. The patient was placed back on TPN and strict NPO. At the beginning of April she developed line sepsis and the PICC line had to be removed. An endoscopy was performed then by Dr. Palacios as I was away and that showed a normal anastomosis. The patient was placed back on protein shakes and she presented for a follow-up endoscopy to assess the status of the ulcer on 05/09/24 which showed a persistent small anastomotic ulcer. The patient however had discontinued the Pantoprazole and Sucralfrate. She was put back on these medications. The patient has remained on a liquid diet with protein shakes and presented for follow-up endoscopy on 06/05/24 which showed a deep anastomotic ulcer. A new PICC line was placed and she is on strict TPN. The patient did not scheduled the follow up endoscopy in one month as recommended due to work conflicts despite my recommendation. Today she states that she has been experiencing a RUQ pain for the last few days which she did not have before.? Risks and complications of the surgery were discussed with the patient in advance particularly the possibility of perforation or bleeding that may require surgical intervention. The patient understood the risks and was in agreement with the plan. ? PROCEDURE: After informed consent was obtained by the patient, the patient was ?transferred to the Operating Room and was placed in the supine position.? After successful induction of IV sedation, a mouth block was placed and the patient was placed in the left lateral decubitus position. An upper endoscopy was performed next, the oropharynx and esophagus appeared within the normal limits. There was no hiatal hernia.? The z-line was smooth. The small pouch was entered, appeared to be of normal size. There was no inflammation of the gastric pouch near the gastrojejunostomy. The GJ anastomosis was patent but somewhat narrowed in relation to the pouch. The scope can pass through very easily. The previously seen deep anastomotic ulcer in the gastro-jejunostomy is now better. It's smaller, very superficial with minimal erythema around it. The remaining of the Savana limb was normal without inflammation. At that point the scope was advanced into the proximal small intestine (proximal Savana limb) which appeared to be normal as well. The Savana limb and the pouch were decompressed and the scope was withdrawn from the patient's mouth. The patient was awaken and was transferred in stable condition to the Recovery Room for further care. I was present and performed all steps of the procedure. There were no residents to assist with this case. Adam Myles M.D., Ph.D. Surgeon: José Miguel Myles MD Anesthesia: MAC Was an Bleach Range Operator used for this Procedure?: No Estimated blood loss (mL): 0 IV fluids (mL): 400 Urine output (mL): 0 (No Victoria to record output) Pathology: none sent Condition: stable Disposition: PACU
[2024-08-09] MEDS: Lactated Ringers 1,000 ML 80 ML IVCONT (09:09)
[2024-08-09 09:33] VITALS: BP 92/44; PULSE 61; RESP 18; TEMP 36.6; O2SAT 99
[2024-08-09 09:48] VITALS: BP 108/71; PULSE 53; RESP 16; TEMP 36.6; O2SAT 98
== END 2024-08-09 10:19 | disposition home or self-care (01) ==
PROVIDERS: Nurse Practitioner; PCP Nurse Practitioner Family; Visit Provider Surgery
PROC: 0DJ08ZZ Inspection of Upper Intestinal Tract, Via Natural or Artificial Opening Endoscopic (ICD-10-PCS; CPT 43235; principal; 2024-08-09 09:30)
DX: K91.1 Postgastric surgery syndromes (principal); K63.1 Perforation of intestine (nontraumatic); K28.6 Chronic or unspecified gastrojejunal ulcer with both hemorrhage and perforation; T47.1X6A Underdosing of other antacids and anti-gastric-secretion drugs, initial encounter; Z91.148 Patient's other noncompliance with medication regimen for other reason; Y92.9 Unspecified place or not applicable; Z98.84 Bariatric surgery status; Z95.9 Presence of cardiac and vascular implant and graft, unspecified; Z91.199 Patient's noncompliance with other medical treatment and regimen due to unspecified reason; Z79.899 Other long term (current) drug therapy; Z98.890 Other specified postprocedural states; Z87.891 Personal history of nicotine dependence
CPT/HCPCS: 43239; 81025; J2003; J2250; J2704

== ENCOUNTER → 2024-08-09 08:13 | Outpatient (BNV) | payer MEDICAID, SELFPAY | PROVIDERS: PCP Nurse Practitioner Family; Visit Provider Surgery | DX: K63.1 Perforation of intestine (nontraumatic) (principal); K28.9 Gastrojejunal ulcer, unspecified as acute or chronic, without hemorrhage or perforation | CPT/HCPCS: 43239 ==

== ENCOUNTER 2024-09-06 11:00 | Day surgery (SDC) | payer MEDICAID, SELFPAY ==
--- NOTE | 2024-09-04 09:42 | HO.ANESPROP2 ---
Documented by User: Janeth Betancourt NP 09/04/24 09:42 HPI - Anesthesia Eval Consult details Narrative: 34yo F for Upper Endoscopy s/p same 08/09/24 with MAC PMFSH Active Problems Active Problems: All Active Problems UTI (urinary tract infection) (Acute) Marginal ulcer (Acute) Bacteremia (Acute) Fever (Acute) Dysuria (Acute) Intestinal malabsorption (Acute) S/P gastric bypass (Acute) Adjustment disorder, unspecified (Acute) Asthma, exercise induced (Acute) Past Medical History Medical History On total parenteral nutrition (TPN) Flank pain Abscess, subdiaphragmatic Perforated viscus Excess skin of abdomen Zinc deficiency Constipation Iron deficiency Panniculitis Overweight BMI 31.0-31.9,adult BMI 39.0-39.9,adult Obesity Intestinal malabsorption Intra-abdominal adhesions BMI 34.0-34.9,adult COVID-19 vaccine series completed History of depression Anxiety BMI over 35 BMI 37.0-37.9, adult Vitamin D deficiency Vitamin B12 deficiency Vitamin B1 deficiency GERD (gastroesophageal reflux disease) Back pain Gestational diabetes Asthma, exercise induced Family History Family history of problems with anesthesia: No Surgical History Surgical History Hx of breast surgery Hx of gastric bypass History of esophagogastroduodenoscopy (EGD) Hx laparoscopic cholecystectomy History of sleeve gastrectomy History of Problems with Anesthesia: No Social History Social History Household Members: Significant Other and Children Housing: House Are you a primary care program resident to a significant other at home: No Do you presently have visiting nurse or other home services: No Alcohol intake: current Alcohol intake frequency: does not drink Patient Tobacco Use Status: Former Tobacco user Tobacco use type: Cigarette Cigarettes Per Day: 5 Years Smoked: 13 Second Hand Smoke Exposure: No Substance Use Type: Marijuana Have you been hit, kicked, punched, or otherwise hurt by someone within the past year? If so, by whom?: No Are you DNR?: No Advance Directives: No Advance Directives Information Provided: Yes Advance Directives Date on File: 01/20/24 Recently lost weight without trying: No Nutrition Risks: Receiving home tube feeding or CPN FDLMP: currently service: No Current occupational status: employed Meds Allergies Allergy/AdvReac Type Severity Reaction Status Date / Time tomato Allergy Severe itchy Verified 09/06/24 11:29 throat Home Medications ?Medication ?Instructions ?Recorded ?Confirmed ?Last Taken ?Type levonorgestrel 21 mcg/24 hr (up to 1 device intrauterine DIRECTED 12/22/20 09/06/24 Unknown History 8 years) 52 mg intrauterine device (Mirena) Assessment and Plan Assessment Anesthesia Assessment: Chart Reviewed Final Anesthetic Review Family History of Problems with Anesthesia: No History of Problems with Anesthesia: No Documented by User: Ellen Braun MD 09/06/24 13:41 [facility] Past Medical History Medical History On total parenteral nutrition (TPN) Flank pain Abscess, subdiaphragmatic Perforated viscus Excess skin of abdomen Zinc deficiency Constipation Iron deficiency Panniculitis Overweight BMI 31.0-31.9,adult BMI 39.0-39.9,adult Obesity Intestinal malabsorption Intra-abdominal adhesions BMI 34.0-34.9,adult COVID-19 vaccine series completed History of depression Anxiety BMI over 35 BMI 37.0-37.9, adult Vitamin D deficiency Vitamin B12 deficiency Vitamin B1 deficiency GERD (gastroesophageal reflux disease) Back pain Gestational diabetes Asthma, exercise induced Family History Family history of problems with anesthesia: No Surgical History Surgical History Hx of breast surgery Hx of gastric bypass History of esophagogastroduodenoscopy (EGD) Hx laparoscopic cholecystectomy History of sleeve gastrectomy History of Problems with Anesthesia: No Social History Social History Household Members: Significant Other and Children Housing: House Are you a primary care program resident to a significant other at home: No Do you presently have visiting nurse or other home services: No Alcohol intake: current Alcohol intake frequency: does not drink Patient Tobacco Use Status: Former Tobacco user Tobacco use type: Cigarette Cigarettes Per Day: 5 Years Smoked: 13 Second Hand Smoke Exposure: No Substance Use Type: Marijuana Have you been hit, kicked, punched, or otherwise hurt by someone within the past year? If so, by whom?: No Are you DNR?: No Advance Directives: No Advance Directives Information Provided: Yes Advance Directives Date on File: 01/20/24 Recently lost weight without trying: No Nutrition Risks: Receiving home tube feeding or CPN FDLMP: currently service: No Current occupational status: employed Meds Allergies Allergy/AdvReac Type Severity Reaction Status Date / Time tomato Allergy Severe itchy Verified 09/06/24 11:29 throat Home Medications ?Medication ?Instructions ?Recorded ?Confirmed ?Last Taken ?Type levonorgestrel 21 mcg/24 hr (up to 1 device intrauterine DIRECTED 12/22/20 09/06/24 Unknown History 8 years) 52 mg intrauterine device (Mirena) Exam Height,Weight and Vital Signs: Height 5 ft 5 in Weight 65.317 kg Vital Signs Temp Pulse Resp BP Pulse Ox O2 Del Method 09/06/24 11:25 98.2 F 58 18 113/49 L 97 Room Air Pertinent Lab Results Pertinent Lab Results: Lab Results 09/06/24 Range/Units 11:05 Urine Test NEGATIVE (NEGATIVE) Airway Mallampati Class: II TM Dist: >3cm Neck ROM: Full Loose/Missing/Broken Teeth: No Heart: RRR Lungs: CTAB Assessment and Plan Assessment Anesthesia Assessment: Anesthesia Plan Discussed and Chart Reviewed Final Anesthetic Review Family History of Problems with Anesthesia: No History of Problems with Anesthesia: No NPO: Yes ASA Class: III Final Preanesthetic Review: No Changes in Pt Med Stat, Meds/Allgs Chart Reviewed, Consent Obtained/Reviewed and Anes Risks/Benef Reviewed Patient Risk: Intermediate Procedure Risk: Low Assessment/Block/Sedation in SS: Assess/Block/Sedation-SS Anesthetic Plan Anesthetic Plan: TIVA Disposition: Standard PACU
[2024-09-06 11:25] VITALS: BP 113/49; PULSE 58; RESP 18; TEMP 36.8; O2SAT 97; BMI 24.0
[2024-09-06] MEDS: Lactated Ringers 1,000 ML 80 ML IVCONT (11:30)
[2024-09-06 11:31] LABS: UPreg QC Valid YES; Urine Pregnancy NEGATIVE (NEGATIVE)
--- NOTE | 2024-09-06 12:54 | MHC.SHP ---
Pre-Procedural Eval Section A - 24 Hr Update-Section A only Date of Service: 09/06/24 The patient is an INPATIENT: No The patient has been examined within 24 hours of the surgical procedure. The History & Physical has been completed within 30 days and I have reviewed it.: Yes Section B - Complete if H&P > 30 days Chief Complaint: Postgastric surgery syndromes Details of Present Illness: Anastomotic ulcer Relevant Family History (Specify if Yes): No Relevant Social History: None Present Medications: None Medical History: No relevant PMH History of Previous Operations: Relevant previous surgery/procedure and date(s) (Lap sleeve gastrectomy and lap revision to Savana-en-Y gastric bypass) Allergies: Allergies Allergy/AdvReac Type Severity Reaction Status Date / Time tomato Allergy Severe itchy Verified 09/06/24 11:29 throat Review of Systems Sugical H&P ROS: Negative: Constitution, Cardiovascular, Respiratory, Neurological, Psychiatric, Hem-Onc, Allergic/Immunologic, Gastrointestinal, Genitourinary, Musculoskeletal, Integumentary, Endocrine and Eyes/Ears/Nose/Throat Exam Surgical H&P Exam: Normal: HEENT, Normal: Heart, Normal: Lungs, Normal: Extremities, Normal: Abdomen, Normal: Skin and Normal: Neurological Plan Diagnosis/Plan: Unchanged (EGD to assess the status of the anastomotic ulcer. Risks of bleeding and perforation were discussed with the patient and she is in agreement with the plan.) I have reviewed the history and physical and performed a pertinent physical examination on my patient. No changes have occurred unless specified. Time Spent With Patient Time: Total time managing care of this patient today ____ minutes.
--- NOTE | 2024-09-06 13:01 | P.BOP_ITS ---
Brief Operative Note Date of Service: 09/06/24 Pre-op diagnosis: Anastomotic ulcer Post-op diagnosis: same Procedure: PROCEDURE DATE: 09/06/2024 PREOPERATIVE DIAGNOSIS: Perforated viscus, s/p gastric bypass POSTOPERATIVE DIAGNOSIS: ?Same as above. 1) Improving anastomotic ulcer PROCEDURE: Dsgbtrpp-[id number]-[id number] with biopsies Surgeon: ?Adam Myles M.D.. Ph.D. [employer] Department Head: ?None ? Anesthesia: IV sedation Estimated blood loss: ?Minimal FINDINGS AND PROCEDURE: ? OPERATIVE INDICATIONS: ?The patient is a 34 year old female known to me who underwent a laparoscopic revision of a sleeve gastrectomy to gastric bypass. The patient has not been compliant with her follow-up appointments. She presented to the ER about 16 weeks ago with evidence of perforated viscus, most likely an anastomotic ulcer. The patient was treated with NPO, IV antibiotics and TPN for 5 weeks. Recent UGI showed no evidence of leak or stricture. A follow-up endoscopy 8 weeks ago revealed a healing anastomotic ulcer. The patient was allowed to start protein shakes and she remained on TPN. The patient was doing well and tolerated the diet change. However, surveillance endoscopy revealed a worsening ulcer. The patient was placed back on TPN and strict NPO. At the beginning of April she developed line sepsis and the PICC line had to be removed. An endoscopy was performed then by Dr. Palacios as I was away and that showed a normal anastomosis. The patient was placed back on protein shakes and she presented for a follow-up endoscopy to assess the status of the ulcer on 05/09/24 which showed a persistent small anastomotic ulcer. The patient however had discontinued the Pantoprazole and Sucralfrate. She was put back on these medications. The patient has remained on a liquid diet with protein shakes and presented for follow-up endoscopy on 06/05/24 which showed a deep anastomotic ulcer. A new PICC line was placed and she is on strict TPN. The patient did not schedule the follow up endoscopy in one month as recommended due to work conflicts despite my recommendation. A follow-up endoscopy was performed on 08/09/24 which showed?that the ulcer had improved significantly. TPN was continued but the patient was allowed to have water. She returns today for a follow-up endoscopy to assess the status of the ulcer. Risks and complications of the surgery were discussed with the patient in advance particularly the possibility of perforation or bleeding that may require surgical intervention. The patient understood the risks and was in agreement with the plan. ? PROCEDURE: After informed consent was obtained by the patient, the patient was ?transferred to the Operating Room and was placed in the supine position.? After successful induction of IV sedation, a mouth block was placed and the patient was placed in the left lateral decubitus position. An upper endoscopy was performed next, the oropharynx and esophagus appeared within the normal limits. There was no hiatal hernia. The z-line was smooth. The small pouch was entered, appeared to be of normal size. There was no inflammation of the gastric pouch near the gastrojejunostomy. The GJ anastomosis was patent but somewhat narrowed in relation to the pouch but improved from last endoscopy The scope can pass through very easily. The previously seen deep anastomotic ulcer in the gastro-jejunostomy is improved. It's smaller, very superficial with minimal erythema around it. The remaining of the Savana limb was normal without inflammation. At that point the scope was advanced into the proximal small intestine (proximal Savana limb) which appeared to be normal as well. The Savana limb and the pouch were decompressed and the scope was withdrawn from the patient's mouth. The patient was awaken and was transferred in stable condition to the Recovery Room for further care. I was present and performed all steps of the procedure. There were no residents to assist with this case. Adam Myles M.D., Ph.D. Surgeon: José Miguel Myles MD Anesthesia: MAC Was an College Or [employer] Department Head used for this Procedure?: No Estimated blood loss (mL): 0 IV fluids (mL): 400 Urine output (mL): 0 (No Victoria to record output) Pathology: none sent Condition: stable Disposition: PACU
--- NOTE | 2024-09-06 13:27 | PC.NURSE ---
patient unsure which day of may the PICC line was inserted. Added date due to hard stop requirement.
[2024-09-06 13:40] VITALS: BP 114/72; PULSE 52; RESP 16; TEMP 36.6; O2SAT 96
[2024-09-06 13:55] VITALS: BP 120/78; PULSE 58; RESP 20; TEMP 36.4; O2SAT 100
== END 2024-09-06 14:26 | disposition home or self-care (01) ==
PROVIDERS: Nurse Practitioner; PCP Nurse Practitioner Family; Visit Provider Surgery
PROC: 0DJ08ZZ Inspection of Upper Intestinal Tract, Via Natural or Artificial Opening Endoscopic (ICD-10-PCS; CPT 43235; principal; 2024-09-06 13:10)
DX: K91.1 Postgastric surgery syndromes (principal); K63.1 Perforation of intestine (nontraumatic); K28.9 Gastrojejunal ulcer, unspecified as acute or chronic, without hemorrhage or perforation; K66.0 Peritoneal adhesions (postprocedural) (postinfection); Z98.84 Bariatric surgery status; J45.990 Exercise induced bronchospasm; K21.9 Gastro-esophageal reflux disease without esophagitis; E51.8 Other manifestations of thiamine deficiency; E53.8 Deficiency of other specified B group vitamins; E55.9 Vitamin D deficiency, unspecified; Z90.3 Acquired absence of stomach [part of]; Z87.891 Personal history of nicotine dependence; Z90.49 Acquired absence of other specified parts of digestive tract
CPT/HCPCS: 43239; 81025; J1596; J1642; J2003; J2250; J2704

== ENCOUNTER → 2024-09-06 11:00 | Outpatient (BNV) | payer MEDICAID, SELFPAY | PROVIDERS: PCP Nurse Practitioner Family; Visit Provider Surgery | DX: K63.1 Perforation of intestine (nontraumatic) (principal); K91.1 Postgastric surgery syndromes | CPT/HCPCS: 43239 ==

== ENCOUNTER 2024-10-02 10:51 | Day surgery (SDC) | payer MEDICAID, SELFPAY ==
--- NOTE | 2024-09-28 14:10 | HO.ANESPROP2 ---
Documented by User: Janeth Betancourt NP 09/28/24 14:11 HPI - Anesthesia Eval Consult details Narrative: 34yo F for Upper Endoscopy s/p same 08/2024 PMF Active Problems Active Problems: All Active Problems UTI (urinary tract infection) (Acute) Marginal ulcer (Acute) Bacteremia (Acute) Fever (Acute) Dysuria (Acute) Intestinal malabsorption (Acute) S/P gastric bypass (Acute) Adjustment disorder, unspecified (Acute) Asthma, exercise induced (Acute) Past Medical History Medical History On total parenteral nutrition (TPN) Flank pain Abscess, subdiaphragmatic Perforated viscus Excess skin of abdomen Zinc deficiency Constipation Iron deficiency Panniculitis Overweight BMI 31.0-31.9,adult BMI 39.0-39.9,adult Obesity Intestinal malabsorption Intra-abdominal adhesions BMI 34.0-34.9,adult COVID-19 vaccine series completed History of depression Anxiety BMI over 35 BMI 37.0-37.9, adult Vitamin D deficiency Vitamin B12 deficiency Vitamin B1 deficiency GERD (gastroesophageal reflux disease) Back pain Gestational diabetes Asthma, exercise induced Family History Family history of problems with anesthesia: No Surgical History Surgical History Hx of breast surgery Hx of gastric bypass History of esophagogastroduodenoscopy (EGD) Hx laparoscopic cholecystectomy History of sleeve gastrectomy History of Problems with Anesthesia: No Social History Social History Household Members: Significant Other and Children Housing: House Are you a primary post acute care nurse practitioner to a significant other at home: No Do you presently have visiting nurse or other home services: No Alcohol intake: current Alcohol intake frequency: does not drink Patient Tobacco Use Status: Former Tobacco user Tobacco use type: Cigarette Cigarettes Per Day: 5 Years Smoked: 13 Second Hand Smoke Exposure: No Use of substances other than those prescribed or required for medical reasons: No Substance Use Type: Marijuana Have you been hit, kicked, punched, or otherwise hurt by someone within the past year? If so, by whom?: No Are you DNR?: No Advance Directives: No Advance Directives Information Provided: Yes Advance Directives Date on File: 01/20/24 Recently lost weight without trying: No Nutrition Risks: No Nutritional Risk Patient : No FDLMP: service: No Current occupational status: employed Meds Allergies Allergy/AdvReac Type Severity Reaction Status Date / Time tomato Allergy Severe itchy Verified 10/02/24 12:36 throat Home Medications ?Medication ?Instructions ?Recorded ?Confirmed ?Last Taken ?Type levonorgestrel 21 mcg/24 hr (up to 1 device intrauterine DIRECTED 12/22/20 10/02/24 Unknown History 8 years) 52 mg intrauterine device (Mirena) Assessment and Plan Assessment Anesthesia Assessment: Chart Reviewed Final Anesthetic Review Family History of Problems with Anesthesia: No History of Problems with Anesthesia: No Documented by User: Rocio Solis MD 10/02/24 13:06 [facility] Past Medical History Medical History On total parenteral nutrition (TPN) Flank pain Abscess, subdiaphragmatic Perforated viscus Excess skin of abdomen Zinc deficiency Constipation Iron deficiency Panniculitis Overweight BMI 31.0-31.9,adult BMI 39.0-39.9,adult Obesity Intestinal malabsorption Intra-abdominal adhesions BMI 34.0-34.9,adult COVID-19 vaccine series completed History of depression Anxiety BMI over 35 BMI 37.0-37.9, adult Vitamin D deficiency Vitamin B12 deficiency Vitamin B1 deficiency GERD (gastroesophageal reflux disease) Back pain Gestational diabetes Asthma, exercise induced Surgical History Surgical History Hx of breast surgery Hx of gastric bypass History of esophagogastroduodenoscopy (EGD) Hx laparoscopic cholecystectomy History of sleeve gastrectomy Social History Social History Household Members: Significant Other and Children Housing: House Are you a primary post acute care nurse practitioner to a significant other at home: No Do you presently have visiting nurse or other home services: No Alcohol intake: current Alcohol intake frequency: does not drink Patient Tobacco Use Status: Former Tobacco user Tobacco use type: Cigarette Cigarettes Per Day: 5 Years Smoked: 13 Second Hand Smoke Exposure: No Use of substances other than those prescribed or required for medical reasons: No Substance Use Type: Marijuana Have you been hit, kicked, punched, or otherwise hurt by someone within the past year? If so, by whom?: No Are you DNR?: No Advance Directives: No Advance Directives Information Provided: Yes Advance Directives Date on File: 01/20/24 Recently lost weight without trying: No Nutrition Risks: No Nutritional Risk Patient : No FDLMP: service: No Current occupational status: employed Meds Allergies Allergy/AdvReac Type Severity Reaction Status Date / Time tomato Allergy Severe itchy Verified 10/02/24 12:36 throat Home Medications ?Medication ?Instructions ?Recorded ?Confirmed ?Last Taken ?Type levonorgestrel 21 mcg/24 hr (up to 1 device intrauterine DIRECTED 12/22/20 10/02/24 Unknown History 8 years) 52 mg intrauterine device (Mirena) Exam Airway Mallampati Class: II TM Dist: >3cm Neck ROM: Full Loose/Missing/Broken Teeth: No Heart: RRR Lungs: CTA Assessment and Plan Assessment Anesthesia Assessment: Anesthesia Plan Discussed Final Anesthetic Review NPO: Yes ASA Class: III Final Preanesthetic Review: Meds/Allgs Chart Reviewed, Consent Obtained/Reviewed and Anes Risks/Benef Reviewed Patient Risk: Intermediate Procedure Risk: Intermediate Anesthetic Plan Anesthetic Plan: MAC: Disposition: Standard PACU
--- OUTSIDE RECORDS SUMMARY | 2024-10-02 12:00 | XMS_ITS | Encounter Summary ---
Author Organization [facility] Address [address] [place] [address] Care Team Providers Care Archivist Name Role Phone Beth Valdez DIRECTOR OF EXHIBITS Primary Care Provider Encounter Details Date Type Department Care Team (Late st Contact Info) Description 08/20/2024 Lab Requisition [facility] - Main Lab [address] [facility] [place] [address] José Miguel Myles MD [address] [place] [address] [address] [place], [place] [id number] Other complications of other bariatric procedure; Bariatric surgery status; Perforation of intestine (nontraumatic) (CMS/HCC); Postsurgical malabsorption, not elsewhere classified Social History Tobacco Use Types Packs/Day Years Used Date Smoking Tobacco: Former Smokeless Tobacco: Never Alcohol Use Standard Drinks/Week Comments Yes 0 (1 standard drink = 0.6 oz pur e alcohol) Sex and Gender Information Value Date Recorded Sex Assigned at Not on file Gender Identity Not on file Sexual Orientation Not on file documented as of this encounter Plan of Treatment Not on file documented as of this encounter Procedures Procedure Name Priority Date/Time Associated Diagnosis Comments CBC WITH AUTO DIFFERENTIAL Routine 08/20/2024 3:00 PM EST Other complications of other bariatric procedure Bariatric surgery status Perforation of intestine (nontraumatic) (CMS/HCC) Postsurgical malabsorption, not elsewhere classified CBC AND DIFFERENTIAL Routine 08/20/2024 3:00 PM EST Other complications of other bariatric procedure Bariatric surgery status Perforation of intestine (nontraumatic) (CMS/HCC) Postsurgical malabsorption, not elsewhere classified TRIGLYCERIDES Routine 08/20/2024 3:00 PM EST Other complications of other bariatric procedure Bariatric surgery status Perforation of intestine (nontraumatic) (CMS/HCC) Postsurgical malabsorption, not elsewhere classified PHOSPHORUS Routine 08/20/2024 3:00 PM EST Other complications of other bariatric procedure Bariatric surgery status Perforation of intestine (nontraumatic) (CMS/HCC) Postsurgical malabsorption, not elsewhere classified MAGNESIUM Routine 08/20/2024 3:00 PM EST Other complications of other bariatric procedure Bariatric surgery status Perforation of intestine (nontraumatic) (CMS/HCC) Postsurgical malabsorption, not elsewhere classified COMPREHENSIVE METABOLIC PANEL Routine 08/20/2024 3:00 PM EST Other complications of other bariatric procedure Bariatric surgery status Perforation of intestine (nontraumatic) (CMS/HCC) Postsurgical malabsorption, not elsewhere classified documented in this encounter Results * (ABNORMAL) CBC auto differential (08/20/2024 3:00 PM EST) WBC 4.9 4.8 - 10.8 K/mcL LAB HEMETOLOGY METHOD 08/20/2024 6:46 PM [facility] RBC 4.10 3.80 - 4.80 M/mcL LAB HEMETOLOGY METHOD 08/20/2024 6:46 PM [facility] Hemoglobin 11.7 11.5 - 16.0 g/dL LAB HEMETOLOGY METHOD 08/20/2024 6:46 PM [facility] Hematocrit 35.5 35.0 - 47.0 % LAB HEMETOLOGY METHOD 08/20/2024 6:46 PM [facility] MCV 87.7 79.0 - 98.0 FL LAB HEMETOLOGY METHOD 08/20/2024 6:46 PM [facility] MCH 28.9 27.0 - 32.0 pcg LAB HEMETOLOGY METHOD 08/20/2024 6:46 PM [facility] MCHC 33.0 32.0 - 37.0 g/dL LAB HEMETOLOGY METHOD 08/20/2024 6:46 PM [facility] RDW 13.8 11.0 - 15.0 % LAB HEMETOLOGY METHOD 08/20/2024 6:46 PM [facility] Platelets 158 130 - 400 K/mcL LAB HEMETOLOGY METHOD 08/20/2024 6:46 PM [facility] MPV 11.9(H) 7.0 - 11.0 FL LAB HEMETOLOGY METHOD 08/20/2024 6:46 PM [facility] NRBC 0.0 <1.0 % LAB HEMETOLOGY METHOD 08/20/2024 6:46 PM [facility] NRBC Absolute 0.00 <0.10 K/mcL LAB HEMETOLOGY METHOD 08/20/2024 6:46 PM [facility] Neutrophils Relative 57.6 % LAB HEMETOLOGY METHOD 08/20/2024 6:46 PM [facility] Lymphocytes Relative 35.2 % LAB HEMETOLOGY METHOD 08/20/2024 6:46 PM [facility] Monocytes Relative 4.3 % LAB HEMETOLOGY METHOD 08/20/2024 6:46 PM [facility] Eosinophils Relative 2.3 % LAB HEMETOLOGY METHOD 08/20/2024 6:46 PM [facility] Basophils Relative 0.6 % LAB HEMETOLOGY METHOD 08/20/2024 6:46 PM [facility] Immature Granulocytes Relative 0.0 % LAB HEMETOLOGY METHOD 08/20/2024 6:46 PM [facility] Neutrophils Absolute 2.81 1.50 - 7.00 K/mcL LAB HEMETOLOGY METHOD 08/20/2024 6:46 PM [facility] Lymphocytes Absolute 1.72 1.00 - 5.00 K/mcL LAB HEMETOLOGY METHOD 08/20/2024 6:46 PM EST [facility] Monocytes Absolute 0.21 0.20 - 1.00 K/mcL LAB HEMETOLOGY METHOD 08/20/2024 6:46 PM EST [facility] Eosinophils Absolute 0.11 0.00 - 0.50 K/mcL LAB HEMETOLOGY METHOD 08/20/2024 6:46 PM EST [facility] Basophils Absolute 0.03 0.00 - 0.20 K/[facility] LAB HEMETOLOGY METHOD 08/20/2024 6:46 PM EST [facility] LAB Immature Granulocytes Absolute 0.00 0.00 - 0.03 K/[facility] LAB HEMETOLOGY METHOD 08/20/2024 6:46 PM EST [facility] Blood Venous blood specimen / Unknown 08/20/2024 3:00 PM EST 08/20/2024 5:45 PM EST José Miguel Myles MD LAB BLOOD ORDERAB LES [facility] [address] [place] [address], * Triglycerides (08/20/2024 3:00 PM EST) Triglycerides 67 0 - 150 mg/dL LAB CHEMISTRY METHOD 08/20/2024 9:19 PM EST [facility] Blood Venous blood specimen / Unknown 08/20/2024 3:00 PM EST 08/20/2024 5:45 PM EST José Miguel Myles MD LAB BLOOD ORDERAB LES [facility] [address] [place] [address], [place] [phone] * Phosphorus (08/20/2024 3:00 PM EST) Phosphorus 3.9 2.5 - 4.5 mg/dL LAB CHEMISTRY METHOD 08/20/2024 9:19 PM EST [facility] Blood Venous blood specimen / Unknown 08/20/2024 3:00 PM EST 08/20/2024 5:45 PM EST José Miguel Myles MD LAB BLOOD ORDERAB LES Performing Organization Address City/[facility]/ZIP Co de Phone Number [facility] [address] [place] [address], [place] [phone] * Magnesium (08/20/2024 3:00 PM EST) Magnesium 2.1 1.9 - 2.6 mg/dL LAB CHEMISTRY METHOD 08/20/2024 9:19 PM [facility] Blood Venous blood specimen / Unknown 08/20/2024 3:00 PM EST 08/20/2024 5:45 PM EST José Miguel Myles MD LAB BLOOD ORDERAB LES Performing Organization Address City/[facility]/ZIP Co de Phone Number [facility] [address] [place] [address], [place] [phone] * (ABNORMAL) Comprehensive metabolic panel (08/20/2024 3:00 PM EST) Sodium 140 133 - 145 mmol/L LAB CHEMISTRY METHOD 08/20/2024 9:28 PM [facility] Potassium 4.3 3.5 - 5.5 mmol/L LAB CHEMISTRY METHOD 08/20/2024 9:28 PM [facility] Chloride 109 96 - 110 mmol/L LAB CHEMISTRY METHOD 08/20/2024 9:28 PM [facility] CO2 26 21 - 32 mmol/L LAB CHEMISTRY METHOD 08/20/2024 9:28 PM [facility] Anion Gap 5 3 - 11 LAB CHEMISTRY METHOD 08/20/2024 9:28 PM [facility] Glucose 57(L) 70 - 100 mg/dL LAB CHEMISTRY METHOD 08/20/2024 9:28 PM [facility] BUN 14 5 - 25 mg/dL LAB CHEMISTRY METHOD 08/20/2024 9:28 PM [facility] Creatinine 0.57 0.50 - 1.10 mg/dL LAB CHEMISTRY METHOD 08/20/2024 9:28 PM [facility] eGFR 122 >=60 mL/min/1. 73m2 LAB CHEMISTRY METHOD 08/20/2024 9:28 PM [facility] Comment:Calculation based on the??Chronic Kidney Disease Epidemiology Collaboration (CKD-EPI) equation refit??without adjustment for race. BUN/Creatinine Ratio 24.6 LAB CHEMISTRY METHOD 08/20/2024 9:28 PM [facility] Calcium 9.3 8.5 - 10.5 mg/dL LAB CHEMISTRY METHOD 08/20/2024 9:28 PM [facility] AST (SGOT) 16 10 - 42 unit/L LAB CHEMISTRY METHOD 08/20/2024 9:28 PM [facility] ALT (SGPT) 22 10 - 60 unit/L LAB CHEMISTRY METHOD 08/20/2024 9:28 PM [facility] Alkaline Phosphatase 79 42 - 121 unit/L LAB CHEMISTRY METHOD 08/20/2024 9:28 PM [facility] Total Protein 6.4 6.0 - 8.0 g/dL LAB CHEMISTRY METHOD 08/20/2024 9:28 PM [facility] Albumin 3.8 3.2 - 5.0 g/dL LAB CHEMISTRY METHOD 08/20/2024 9:28 PM [facility] Total Bilirubin 0.2 0.0 - 1.4 mg/dL LAB CHEMISTRY METHOD 08/20/2024 9:28 PM [facility] Blood Venous blood specimen / Unknown 08/20/2024 3:00 PM EST 08/20/2024 5:45 PM EST José Miguel Myles MD LAB BLOOD ORDERAB LES [facility] [address] [place] [address], documented in this encounter Visit Diagnoses Diagnosis Other complications of other bariatric procedure Bariatric surgery status Perforation of intestine (nontraumatic) (CMS/HCC) Postsurgical malabsorption, not elsewhere classified documented in this encounter Care Teams Archivist Relationship Specialty Start Date End Date Beth Valdez FNP PCP - General 03/27/19 documented as of this encounter
--- OUTSIDE RECORDS SUMMARY | 2024-10-02 12:00 | XMS_ITS | Encounter Summary ---
Author Organization [employer] Address [address] [facility] [address] [place] [address] Care Team Providers Care Tufter Operator Name Role Phone Beth Valdez Primary Care Provider Unavailable Tania Ramos Unavailable Unavailable Clovis Montelongo Unavailable Unavail able Encounter Details Date Type Department Care Team (Late st Contact Info) Description 04/03/2024 Orders Only [facility] [address] [place] [address] Beth Valdez FNP Social History Tobacco Use Types Packs/Day Years Used Date Smoking Tobacco: Former Cigarettes Q uit: 2013 Smokeless Tobacco: Never Alcohol Use Standard Drinks/Week Comments Yes 1 (1 standard drink = 0.6 oz pur e alcohol) Housing Stability Answer Date Recorded What is your housing situation today? I have shamika boggs 06/20/[address] you li ve. Do you have problems with any of the following? I am not sure;None of the above 06/20/2023 Food Insecurity Answer Date Recorded Within the past 12 months, y ou worried that your food would run out before you got money to buy more: Never True 06/20/2023 Within the past 12 months,th e food you bought just didn't last and you didn't have enough money to get more: Never True Transportation Answer Date Recorded In the past 12 months, has l ack of transportation kept you from medical appts, meetings, work or from getting things needed for daily living? No 06/20/2023 Utilities Answer Date Recorded In the past 12 months, has t he electric, gas, oil or water company threatened to shut off services in your home? No 06/20/2023 Depression Answer Date Recorded Patient Health Questionnaire-2 Score 0 03/30/2023 Education Answer Date Recorded What is the highest level of school you have completed or the highest degree you have received? Master's degree (e.g., MA, MS, [employer], MEd, [employer], [employer]) 03/30/2023 Comments No Sex and Gender Information Value Date Recorded Sex Assigned at Female 12/08/2022 11:22 AM EDT Legal Sex Female 8:37 PM EDT Gender Identity Female 12/08/2022 11:22 AM EDT Sexual Orientation Straight 12/08/2022 11 :22 AM EDT documented as of this encounter Plan of Treatment Not on file documented as of this encounter Procedures Procedure Name Priority Date/Time Associated Diagnosis Comments CT ABDOMEN PELVIS WO CONTRAST Routine 04/02/2024 10:09 AM EDT documented in this encounter Results * CT Abdomen Pelvis w/o Contrast (04/02/2024 10:09 AM EDT) Anatomical Region Laterality Modality Body, Pelvis, Abdomen Computed T omography Beth OCHOA IMG CT PROCEDURES Babita l Result documented in this encounter Visit Diagnoses Not on filedocumented in this encounter Care Teams Tufter Operator Relationship Specialty Start Date End Date Beth Valdez FNP PCP - General Family Medicine 12/10/22 Tania Ramos Community Health Worker 01/05/23 Clovis Montelongo MANAGER FI[employer] SALES Community Health Worker Case Management 06/19/24 documented as of this encounter
--- OUTSIDE RECORDS SUMMARY | 2024-10-02 12:00 | XMS_ITS | Clinical Summary ---
Author Organization [address] Address [address] [place] [phone] Phone Care Team Providers Care Enamel Dipper Name Role Phone Beth Valdez CALCULUS PROFESSOR Primary Care Provider Encounters Date Type Department Care Team Description 09/25/2024 Lab Requisition [facility] [address] [place] [phone] Physician, Pcp Unknown Perforation of intestine (nontraumatic) (CMS/HCC); Bariatric surgery status; Other complications of other bariatric procedure; Postsurgical malabsorption, not elsewhere classified 09/10/2024 Lab Requisition [facility] [address] [place] [address] José Miguel Myles MD Perforation of intestine (nontraumatic) (CMS/HCC); Other complications of other bariatric procedure; Bariatric surgery status; Postsurgical malabsorption, not elsewhere classified 08/27/2024 Lab Requisition [facility] [address] [place] [address] José Miguel Myles MD Perforation of intestine (nontraumatic) (CMS/HCC); Other complications of other bariatric procedure; Bariatric surgery status; Postsurgical malabsorption, not elsewhere classified 08/20/2024 Lab Requisition [facility] [address] [place] [address] José Miguel Myles MD Other complications of other bariatric procedure; Bariatric surgery status; Perforation of intestine (nontraumatic) (CMS/HCC); Postsurgical malabsorption, not elsewhere classified 07/16/2024 Lab Requisition [facility] [address] [place] [address] José Miguel Myles MD Perforation of intestine (nontraumatic) ([facility]/HCC); Other complications of other bariatric procedure; Bariatric surgery status; Postsurgical malabsorption, not elsewhere classified 07/16/2024 Lab Requisition [facility] [address] [place] [phone] José Miguel Myles MD Other complications of other bariatric procedure; Bariatric surgery status; Postsurgical malabsorption, not elsewhere classified 07/16/2024 Lab Requisition [facility] [address] [place] [phone] José Miguel Myles MD from Last 3 Months Surgical History Surgery Date Site/Laterality Comments BREAST RECONSTRUCTION PROCEDURE: BREAST RECONSTRUCTION; COMMENT: Right breast Medical History Medical History Date Comments Breast CA (CMS/[facility]) DX:Breast CA ([facility]); COMMENT: asymetrical growth, saline implant on right side History of pituitary tumor DX:Wv story of pituitary tumor; COMMENT: Followed by yearly MRIs Family History Medical History Relation Name Comments Alcohol/Drug Father Hypertension Father MIs x 4, Alive . Diabetes Mother Epilepsy,Ovaria n Cysts, alive Breast cancer Neg Hx Ovarian cancer Neg Hx Uterine cancer Neg Hx Relation Name Status Comments Father Alive heart problems, htn Mother Alive epileptic, hear t bproblems, hysterectomy Social History Tobacco Use Types Packs/Day Years Used Date Smoking Tobacco: Former Smokeless Tobacco: Never Alcohol Use Standard Drinks/Week Comments Yes 0 (1 standard drink = 0.6 oz pur e alcohol) Sex and Gender Information Value Date Recorded Sex Assigned at Not on file Gender Identity Not on file Sexual Orientation Not on file Obstetrics History Plan of Treatment Health Maintenance Due Date Last Done Comments Pneumococcal Vaccine: Pediatrics (0 to 5 Years) and At-Risk Patients (6 to 64 Years) (1 of 2 - PCV) 1995 Hepatitis B Vaccines (1 of 3 - 19+ 3-dose series) 2008 Cervical Cancer Screening: P ap Smear 2010 DTaP,Tdap,and Td Vaccines (2 - Td or Tdap) 08/25/2021 08/25/2011 COVID-19 Vaccine (2023-2 5 season) 2024 Influenza Vaccine (#1) 2024 Depression Screening 07/17/2024 HIV Screening 07/17/2024 Hepatitis C Screening 07/17/2024 Social Influencers of Health Screening 07/17/2024 HPV Vaccines Completed 12/06/2012, 06/14/2012, 04/05/2012 HIB Vaccines Aged Out No longer eligi ble based on patient's age to complete this topic Hepatitis A Vaccines Aged Out No long er eligible based on patient's age to complete this topic IPV Vaccines Aged Out No longer eligi ble based on patient's age to complete this topic MMR Vaccines Aged Out No longer eligi ble based on patient's age to complete this topic Meningococcal ACWY Vaccine Aged Out N o longer eligible based on patient's age to complete this topic RSV Immunization Patients Under 20 months Aged Out No longer eligible b ased on patient's age to complete this topic Varicella Vaccines Aged Out No longer eligible based on patient's age to complete this topic Procedures Procedure Name Priority Date/Time Associated Diagnosis Comments CBC WITH AUTO DIFFERENTIAL Routine 09/25/2024 5:00 PM EST Perforation of intestine (nontraumatic) (CMS/HCC) Bariatric surgery status Other complications of other bariatric procedure Postsurgical malabsorption, not elsewhere classified TRIGLYCERIDES Routine 09/25/2024 5:00 PM EST Perforation of intestine (nontraumatic) (CMS/HCC) Bariatric surgery status Other complications of other bariatric procedure Postsurgical malabsorption, not elsewhere classified PHOSPHORUS Routine 09/25/2024 5:00 PM EST Perforation of intestine (nontraumatic) (CMS/HCC) Bariatric surgery status Other complications of other bariatric procedure Postsurgical malabsorption, not elsewhere classified MAGNESIUM Routine 09/25/2024 5:00 PM EST Perforation of intestine (nontraumatic) (CMS/HCC) Bariatric surgery status Other complications of other bariatric procedure Postsurgical malabsorption, not elsewhere classified CBC AND DIFFERENTIAL Routine 09/25/2024 5:00 PM EST Perforation of intestine (nontraumatic) (CMS/HCC) Bariatric surgery status Other complications of other bariatric procedure Postsurgical malabsorption, not elsewhere classified COMPREHENSIVE METABOLIC PANEL Routine 09/25/2024 5:00 PM EST Perforation of intestine (nontraumatic) (CMS/HCC) Bariatric surgery status Other complications of other bariatric procedure Postsurgical malabsorption, not elsewhere classified CBC WITH AUTO DIFFERENTIAL Routine 09/10/2024 3:00 PM EST Perforation of intestine (nontraumatic) (CMS/HCC) Other complications of other bariatric procedure Bariatric surgery status Postsurgical malabsorption, not elsewhere classified TRIGLYCERIDES Routine 09/10/2024 3:00 PM EST Perforation of intestine (nontraumatic) (CMS/HCC) Other complications of other bariatric procedure Bariatric surgery status Postsurgical malabsorption, not elsewhere classified PHOSPHORUS Routine 09/10/2024 3:00 PM EST Perforation of intestine (nontraumatic) (CMS/HCC) Other complications of other bariatric procedure Bariatric surgery status Postsurgical malabsorption, not elsewhere classified MAGNESIUM Routine 09/10/2024 3:00 PM EST Perforation of intestine (nontraumatic) (CMS/HCC) Other complications of other bariatric procedure Bariatric surgery status Postsurgical malabsorption, not elsewhere classified CBC AND DIFFERENTIAL Routine 09/10/2024 3:00 PM EST Perforation of intestine (nontraumatic) (CMS/HCC) Other complications of other bariatric procedure Bariatric surgery status Postsurgical malabsorption, not elsewhere classified COMPREHENSIVE METABOLIC PANEL Routine 09/10/2024 3:00 PM EST Perforation of intestine (nontraumatic) (CMS/HCC) Other complications of other bariatric procedure Bariatric surgery status Postsurgical malabsorption, not elsewhere classified CBC WITH AUTO DIFFERENTIAL Routine 08/27/2024 3:45 PM EST Perforation of intestine (nontraumatic) (CMS/HCC) Other complications of other bariatric procedure Bariatric surgery status Postsurgical malabsorption, not elsewhere classified TRIGLYCERIDES Routine 08/27/2024 3:45 PM EST Perforation of intestine (nontraumatic) (CMS/HCC) Other complications of other bariatric procedure Bariatric surgery status Postsurgical malabsorption, not elsewhere classified PHOSPHORUS Routine 08/27/2024 3:45 PM EST Perforation of intestine (nontraumatic) (CMS/HCC) Other complications of other bariatric procedure Bariatric surgery status Postsurgical malabsorption, not elsewhere classified CBC AND DIFFERENTIAL Routine 08/27/2024 3:45 PM EST Perforation of intestine (nontraumatic) (CMS/HCC) Other complications of other bariatric procedure Bariatric surgery status Postsurgical malabsorption, not elsewhere classified COMPREHENSIVE METABOLIC PANEL Routine 08/27/2024 3:45 PM EST Perforation of intestine (nontraumatic) (CMS/HCC) Other complications of other bariatric procedure Bariatric surgery status Postsurgical malabsorption, not elsewhere classified MAGNESIUM Routine 08/27/2024 3:45 PM EST Perforation of intestine (nontraumatic) (CMS/HCC) Other complications of other bariatric procedure Bariatric surgery status Postsurgical malabsorption, not elsewhere classified CBC WITH AUTO DIFFERENTIAL Routine 08/20/2024 3:00 [...] Postsurgical malabsorption, not elsewhere classified PHOSPHORUS Routine 07/16/2024 4:00 PM EST Perforation of intestine (nontraumatic) (CMS/HCC) Other complications of other bariatric procedure Bariatric surgery status Postsurgical malabsorption, not elsewhere classified TRIGLYCERIDES Routine 07/16/2024 4:00 PM EST Perforation of intestine (nontraumatic) (CMS/HCC) Other complications of other bariatric procedure Bariatric surgery status Postsurgical malabsorption, not elsewhere classified CBC WITH AUTO DIFFERENTIAL Routine 07/16/2024 4:00 PM EST Perforation of intestine (nontraumatic) (CMS/HCC) Other complications of other bariatric procedure Bariatric surgery status Postsurgical malabsorption, not elsewhere classified [id number] DEHYDROGENASE Routine 07/16/2024 4:00 PM EST Perforation of intestine (nontraumatic) (CMS/HCC) Other complications of other bariatric procedure Bariatric surgery status Postsurgical malabsorption, not elsewhere classified MAGNESIUM Routine 07/16/2024 4:00 PM EST Perforation of intestine (nontraumatic) (CMS/HCC) Other complications of other bariatric procedure Bariatric surgery status Postsurgical malabsorption, not elsewhere classified CBC AND DIFFERENTIAL Routine 07/16/2024 4:00 PM EST Perforation of intestine (nontraumatic) (CMS/HCC) Other complications of other bariatric procedure Bariatric surgery status Postsurgical malabsorption, not elsewhere classified COMPREHENSIVE METABOLIC PANEL Routine 07/16/2024 4:00 PM EST Perforation of intestine (nontraumatic) (CMS/HCC) Other complications of other bariatric procedure Bariatric surgery status Postsurgical malabsorption, not elsewhere classified from Last 3 Months Results * (ABNORMAL) CBC auto differential (09/25/2024 5:00 PM EST) Only the most recent of5 resultswithin the time period is included. WBC 5.5 4.8 - 10.8 K/mcL LAB HEMETOLOGY METHOD 09/25/2024 6:46 PM [facility] RBC 4.20 3.80 - 4.80 M/mcL LAB HEMETOLOGY METHOD 09/25/2024 6:46 PM [facility] Hemoglobin 11.9 11.5 - 16.0 g/dL LAB HEMETOLOGY METHOD 09/25/2024 6:46 PM [facility] Hematocrit 36.4 35.0 - 47.0 % LAB HEMETOLOGY METHOD 09/25/2024 6:46 PM [facility] MCV 87.7 79.0 - 98.0 FL LAB HEMETOLOGY METHOD 09/25/2024 6:46 PM [facility] MCH 28.7 27.0 - 32.0 pcg LAB HEMETOLOGY METHOD 09/25/2024 6:46 PM [facility] MCHC 32.7 32.0 - 37.0 g/dL LAB HEMETOLOGY METHOD 09/25/2024 6:46 PM [facility] RDW 14.5 11.0 - 15.0 % LAB HEMETOLOGY METHOD 09/25/2024 6:46 PM [facility] Platelets 161 130 - 400 K/mcL LAB HEMETOLOGY METHOD 09/25/2024 6:46 PM [facility] MPV 11.9(H) 7.0 - 11.0 FL LAB HEMETOLOGY METHOD 09/25/2024 6:46 PM [facility] NRBC 0.0 <1.0 % LAB HEMETOLOGY METHOD 09/25/2024 6:46 PM [facility] NRBC Absolute 0.00 <0.10 K/mcL LAB HEMETOLOGY METHOD 09/25/2024 6:46 PM [facility] Neutrophils Relative 58.5 % LAB HEMETOLOGY METHOD 09/25/2024 6:46 PM [facility] Lymphocytes Relative 33.4 % LAB HEMETOLOGY METHOD 09/25/2024 6:46 PM [facility] Monocytes Relative 5.5 % LAB HEMETOLOGY METHOD 09/25/2024 6:46 PM [facility] Eosinophils Relative 1.8 % LAB HEMETOLOGY METHOD 09/25/2024 6:46 PM [facility] Basophils Relative 0.6 % LAB HEMETOLOGY METHOD 09/25/2024 6:46 PM [facility] Immature Granulocytes Relative 0.2 % LAB HEMETOLOGY METHOD 09/25/2024 6:46 PM [facility] Neutrophils Absolute 3.19 1.50 - 7.00 K/mcL LAB HEMETOLOGY METHOD 09/25/2024 6:46 PM [facility] Lymphocytes Absolute 1.82 1.00 - 5.00 K/mcL LAB HEMETOLOGY METHOD 09/25/2024 6:46 PM [facility] Monocytes Absolute 0.30 0.20 - 1.00 K/mcL LAB HEMETOLOGY METHOD 09/25/2024 6:46 PM [facility] Eosinophils Absolute 0.10 0.00 - 0.50 K/mcL LAB HEMETOLOGY METHOD 09/25/2024 6:46 PM [facility] Basophils Absolute 0.03 0.00 - 0.20 K/mcL LAB HEMETOLOGY METHOD 09/25/2024 6:46 PM [facility] Immature Granulocytes Absolute 0.01 0.00 - 0.03 K/mcL LAB HEMETOLOGY METHOD 09/25/2024 6:46 PM [facility] Blood Venous blood specimen / Unknown 09/25/2024 5:00 PM EST 09/25/2024 6:36 PM EST Pcp Unknown Physician LAB BLOOD ORDERABL ES Performing Organization Address City/[facility]/ZIP Co de Phone Number [facility] [address] [place] [address], [place] [phone] * Triglycerides (09/25/2024 5:00 PM EST) Only the most recent of5 resultswithin the time period is included. Triglycerides 55 0 - 150 mg/dL LAB CHEMISTRY METHOD 09/25/2024 7:05 PM EST [facility] Blood Venous blood specimen / Unknown 09/25/2024 5:00 PM EST 09/25/2024 6:36 PM EST Pcp Unknown Physician LAB BLOOD ORDERABL Performing Organization Address [facility] de Phone Number [facility] [address] [place] [address], [place] [phone] * Phosphorus (09/25/2024 5:00 PM EST) Only the most recent of5 resultswithin the time period is included. Phosphorus 4.0 2.5 - 4.5 mg/dL LAB CHEMISTRY METHOD 09/25/2024 7:05 PM EST [facility] Blood Venous blood specimen / Unknown 09/25/2024 5:00 PM EST 09/25/2024 6:36 PM EST Pcp Unknown Physician LAB BLOOD ORDERABL Performing Organization Address [facility] Co de Phone Number [facility] [address] [place] [address], [place] [phone] * Magnesium (09/25/2024 5:00 PM EST) Only the most recent of5 resultswithin the time period is included. Magnesium 2.2 1.9 - 2.6 mg/dL LAB CHEMISTRY METHOD 09/25/2024 7:05 PM [facility] Blood Venous blood specimen / Unknown 09/25/2024 5:00 PM EST 09/25/2024 6:36 PM EST Pcp Unknown Physician LAB BLOOD ORDERABL ES [facility] [address] [place] [address], [place] [phone] * Comprehensive metabolic panel (09/25/2024 5:00 PM EST) Only the most recent of5 resultswithin the time period is included. [facility] Sodium 138 133 - 145 mmol/L LAB CHEMISTRY METHOD 09/25/2024 7:06 PM [facility] Potassium 4.1 3.5 - 5.5 mmol/L LAB CHEMISTRY METHOD 09/25/2024 7:06 PM [facility] Chloride 110 96 - 110 mmol/L LAB CHEMISTRY METHOD 09/25/2024 7:06 PM [facility] CO2 24 21 - 32 mmol/L LAB CHEMISTRY METHOD 09/25/2024 7:06 PM [facility] Anion Gap 4 3 - 11 LAB CHEMISTRY METHOD 09/25/2024 7:06 PM [facility] Glucose 84 70 - 100 mg/dL LAB CHEMISTRY METHOD 09/25/2024 7:06 PM [facility] BUN 11 5 - 25 mg/dL LAB CHEMISTRY METHOD 09/25/2024 7:06 PM [facility] Creatinine 0.58 0.50 - 1.10 mg/dL LAB CHEMISTRY METHOD 09/25/2024 7:06 PM [facility] eGFR 121 >=60 mL/min/1. 73m2 LAB CHEMISTRY METHOD 09/25/2024 7:06 PM [facility] Comment:Calculation based on the??Chronic Kidney Disease Epidemiology Collaboration (CKD-EPI) equation refit??without adjustment for race. BUN/Creatinine Ratio 19.0 LAB CHEMISTRY METHOD 09/25/2024 7:06 PM [facility] Calcium 8.9 8.5 - 10.5 mg/dL LAB CHEMISTRY METHOD 09/25/2024 7:06 PM [facility] AST (SGOT) 17 10 - 42 unit/L LAB CHEMISTRY METHOD 09/25/2024 7:06 PM [facility] ALT (SGPT) 24 10 - 60 unit/L LAB CHEMISTRY METHOD 09/25/2024 7:06 PM [facility] Alkaline Phosphatase 79 42 - 121 unit/L LAB CHEMISTRY METHOD 09/25/2024 7:06 PM [facility] Total Protein 6.6 6.0 - 8.0 g/dL LAB CHEMISTRY METHOD 09/25/2024 7:06 PM [facility] Albumin 3.8 3.2 - 5.0 g/dL LAB CHEMISTRY METHOD 09/25/2024 7:06 PM [facility] Total Bilirubin 0.3 0.0 - 1.4 mg/dL LAB CHEMISTRY METHOD 09/25/2024 7:06 PM [facility] Blood Venous blood specimen / Unknown 09/25/2024 5:00 PM EST 09/25/2024 6:36 PM EST Pcp Unknown Physician LAB BLOOD ORDERABL ES [facility] [address] [place] [address], * [id number] dehydrogenase (07/16/2024 4:00 PM EST) G6PD activity 12.6 7.0 - 20.5 U/g Hgb 07/20/2024 1:24 PM EST [facility] Comment: Test performed at [facility], [address], [place], [place] ??[address] ? [phone] Judith Mathew MD, PhD - Systems Programmer Blood Venous blood specimen / Unknown 07/16/2024 4:00 PM EST 07/16/2024 6:03 PM EST José Miguel Myles MD LAB BLOOD ORDERAB LES Performing Organization Address City/State/[facility] Co de Phone Number [facility] [address] [place] [address] from Last 3 Months Care Teams Enamel Dipper Relationship Specialty Start Date End Date Beth Valdez FNP PCP - General 03/27/19
--- OUTSIDE RECORDS SUMMARY | 2024-10-02 12:01 | XMS_ITS | Encounter Summary ---
Author Organization [facility] Address [address] [place] [phone] Care Team Providers Care Automatic Developer Name Role Phone Beth Valdez Primary Care Provider Encounter Details Date Type Department Care Team (Late st Contact Info) Description 07/16/[address] [facility] [address] [facility] [address] José Miguel Myles MD [address] [place] [address] [address] [place] [address] Other complications of other bariatric procedure; Bariatric surgery status; Postsurgical malabsorption, not elsewhere classified Social History [...] on file documented as of this encounter Visit Diagnoses Diagnosis Other complications of other bariatric procedure Bariatric surgery status Postsurgical malabsorption, not elsewhere classified documented in this encounter Care Teams Automatic Developer Relationship Specialty Start Date End Date Beth Valdez FNP PCP - General 03/27/19 documented as of this encounter
--- OUTSIDE RECORDS SUMMARY | 2024-10-02 12:01 | XMS_ITS | Encounter Summary ---
Author Organization [facility] Address [address] [place] [address] Care Team Providers Care Registration Manager Name Role Phone Beth Valdez AMERICAN BOARD CERTIFIED ORTHOTIST Primary Care Provider Encounter Details Date Type Department Care Team (Late st Contact Info) Description 08/27/2024 Lab Requisition [facility] - Main Lab [address] [facility] [place] [address] José Miguel Myles MD [address] [place] [address] [address] [place], [place] [id number] Perforation of intestine (nontraumatic) (CMS/HCC); Other complications [...] Diagnosis Comments CBC WITH AUTO DIFFERENTIAL Routine 08/27/2024 3:45 [...] encounter Results * (ABNORMAL) CBC auto differential (08/27/2024 3:45 PM EST) WBC 4.9 4.8 - 10.8 K/mcL LAB HEMETOLOGY METHOD 08/27/2024 6:56 PM [facility] LAB RBC 3.90 3.80 - 4.80 M/mcL LAB HEMETOLOGY METHOD 08/27/2024 6:56 PM [facility] LAB Hemoglobin 11.3(L) 11.5 - 16.0 g/dL LAB HEMETOLOGY METHOD 08/27/2024 6:56 PM [facility] LAB Hematocrit 34.0(L) 35.0 - 47.0 % LAB HEMETOLOGY METHOD 08/27/2024 6:56 PM [facility] LAB MCV 87.6 79.0 - 98.0 FL LAB HEMETOLOGY METHOD 08/27/2024 6:56 PM [facility] LAB MCH 29.1 27.0 - 32.0 pcg LAB HEMETOLOGY METHOD 08/27/2024 6:56 PM [facility] LAB MCHC 33.2 32.0 - 37.0 g/dL LAB HEMETOLOGY METHOD 08/27/2024 6:56 PM [facility] LAB RDW 14.3 11.0 - 15.0 % LAB HEMETOLOGY METHOD 08/27/2024 6:56 PM [facility] LAB Platelets 142 130 - 400 K/mcL LAB HEMETOLOGY METHOD 08/27/2024 6:56 PM [facility] LAB MPV 12.4(H) 7.0 - 11.0 FL LAB HEMETOLOGY METHOD 08/27/2024 6:56 PM [facility] LAB NRBC 0.0 <1.0 % LAB HEMETOLOGY METHOD 08/27/2024 6:56 PM [facility] LAB NRBC Absolute 0.00 <0.10 K/mcL LAB HEMETOLOGY METHOD 08/27/2024 6:56 PM [facility] LAB Neutrophils Relative 62.6 % LAB HEMETOLOGY METHOD 08/27/2024 6:56 PM [facility] LAB Lymphocytes Relative 30.5 % LAB HEMETOLOGY METHOD 08/27/2024 6:56 PM [facility] LAB Monocytes Relative 4.9 % LAB HEMETOLOGY METHOD 08/27/2024 6:56 PM [facility] LAB Eosinophils Relative 1.6 % LAB HEMETOLOGY METHOD 08/27/2024 6:56 PM [facility] LAB Basophils Relative 0.2 % LAB HEMETOLOGY METHOD 08/27/2024 6:56 PM [facility] LAB Immature Granulocytes Relative 0.2 % LAB HEMETOLOGY METHOD 08/27/2024 6:56 PM [facility] LAB Neutrophils Absolute 3.05 1.50 - 7.00 K/mcL LAB HEMETOLOGY METHOD 08/27/2024 6:56 PM [facility] LAB Lymphocytes Absolute 1.49 1.00 - 5.00 K/mcL LAB HEMETOLOGY METHOD 08/27/2024 6:56 PM EST [facility] LAB Monocytes Absolute 0.24 0.20 - 1.00 K/mcL LAB HEMETOLOGY METHOD 08/27/2024 6:56 PM EST [facility] LAB Eosinophils Absolute 0.08 0.00 - 0.50 K/[facility] LAB HEMETOLOGY METHOD 08/27/2024 6:56 PM EST [facility] LAB Basophils Absolute 0.01 0.00 - 0.20 K/[facility] LAB HEMETOLOGY METHOD 08/27/2024 6:56 PM EST [facility] LAB Immature Granulocytes Absolute 0.01 0.00 - 0.03 K/[facility] LAB HEMETOLOGY METHOD 08/27/2024 6:56 PM EST [facility] LAB Blood Venous blood specimen / Unknown 08/27/2024 3:45 PM EST 08/27/2024 6:35 PM EST José Miguel Myles MD LAB BLOOD ORDERAB LES [facility] LAB [address] [place] [address], * Triglycerides (08/27/2024 3:45 PM EST) Triglycerides 68 0 - 150 mg/dL LAB CHEMISTRY METHOD 08/30/2024 6:38 AM EST [facility] LAB Blood Venous blood specimen / Unknown 08/27/2024 3:45 PM EST 08/27/2024 6:35 PM EST José Miguel Myles MD LAB BLOOD ORDERAB LES [facility] LAB [address] [place] [address], [place] [phone] * Phosphorus (08/27/2024 3:45 PM EST) Phosphorus 2.9 2.5 - 4.5 mg/dL LAB CHEMISTRY METHOD 08/27/2024 7:15 PM [facility] LAB Blood Venous blood specimen / Unknown 08/27/2024 3:45 PM EST 08/27/2024 6:35 PM EST José Miguel Myles MD LAB BLOOD ORDERAB LES [facility] LAB [address] [place] [address], * Comprehensive metabolic panel (08/27/2024 3:45 PM EST) Sodium 140 133 - 145 mmol/L LAB CHEMISTRY METHOD 08/30/2024 6:38 AM [facility] LAB Potassium 3.9 3.5 - 5.5 mmol/L LAB CHEMISTRY METHOD 08/30/2024 6:38 AM [facility] LAB Chloride 109 96 - 110 mmol/L LAB CHEMISTRY METHOD 08/30/2024 6:38 AM [facility] LAB CO2 24 21 - 32 mmol/L LAB CHEMISTRY METHOD 08/30/2024 6:38 AM [facility] LAB Anion Gap 7 3 - 11 LAB CHEMISTRY METHOD 08/30/2024 6:38 AM [facility] LAB Glucose 88 70 - 100 mg/dL LAB CHEMISTRY METHOD 08/30/2024 6:38 AM [facility] LAB BUN 13 5 - 25 mg/dL LAB CHEMISTRY METHOD 08/30/2024 6:38 AM [facility] LAB Creatinine 0.63 0.50 - 1.10 mg/dL LAB CHEMISTRY METHOD 08/30/2024 6:38 AM [facility] LAB eGFR 119 >=60 mL/min/1. 73m2 LAB CHEMISTRY METHOD 08/30/2024 6:38 AM [facility] LAB Comment:Calculation based on the??Chronic Kidney Disease Epidemiology Collaboration (CKD-EPI) equation refit??without adjustment for race. BUN/Creatinine Ratio 20.6 LAB CHEMISTRY METHOD 08/30/2024 6:38 AM [facility] LAB Calcium 8.8 8.5 - 10.5 mg/dL LAB CHEMISTRY METHOD 08/30/2024 6:38 AM [facility] LAB AST (SGOT) 15 10 - 42 unit/L LAB CHEMISTRY METHOD 08/30/2024 6:38 AM [facility] LAB ALT (SGPT) 27 10 - 60 unit/L LAB CHEMISTRY METHOD 08/30/2024 6:38 AM [facility] LAB Alkaline Phosphatase 75 42 - 121 unit/L LAB CHEMISTRY METHOD 08/30/2024 6:38 AM [facility] LAB Total Protein 6.2 6.0 - 8.0 g/dL LAB CHEMISTRY METHOD 08/30/2024 6:38 AM [facility] LAB Albumin 3.6 3.2 - 5.0 g/dL LAB CHEMISTRY METHOD 08/30/2024 6:38 AM [facility] LAB Total Bilirubin 0.2 0.0 - 1.4 mg/dL LAB CHEMISTRY METHOD 08/30/2024 6:38 AM [facility] LAB Blood Venous blood specimen / Unknown 08/27/2024 3:45 PM EST 08/27/2024 6:35 PM EST José Miguel Myles MD LAB BLOOD ORDERAB LES [facility] LAB [address] [place] [address], * Magnesium (08/27/2024 3:45 PM EST) Magnesium 2.1 1.9 - 2.6 mg/dL LAB CHEMISTRY METHOD 08/27/2024 7:15 PM EST [facility] LAB Blood Venous blood specimen / Unknown 08/27/2024 3:45 PM EST 08/27/2024 6:35 PM EST José Miguel Myles MD LAB BLOOD ORDERAB LES [facility] LAB [address] [place] [address], documented in this encounter Visit Diagnoses Diagnosis Perforation of intestine (nontraumatic) (CMS/HCC) Other complications of other bariatric procedure Bariatric surgery status Postsurgical malabsorption, not elsewhere classified documented in this encounter Care Teams Registration Manager Relationship Specialty Start Date End Date Beth Valdez FNP PCP - General 03/27/19 documented as of this encounter
--- OUTSIDE RECORDS SUMMARY | 2024-10-02 12:01 | XMS_ITS | Encounter Summary ---
Author Organization [facility] Address [address] [place] [address] Care Team Providers Care Sweat Band Sewer Name Role Phone Beth Valdez FLANGE MACHINE OPERATOR Primary Care Provider Encounter Details Date Type Department Care Team (Late st Contact Info) Description 09/10/2024 Lab Requisition [facility] - Main Lab [address] [facility] [place] [address] José Miguel Myles MD [address] [place] [address] [address] [place], [place] [id number] Perforation of intestine (nontraumatic) (CMS/HCC); Other complications [...] Diagnosis Comments CBC WITH AUTO DIFFERENTIAL Routine 09/10/2024 3:00 [...] encounter Results * (ABNORMAL) CBC auto differential (09/10/2024 3:00 PM EST) WBC 4.7(L) 4.8 - 10.8 K/mcL LAB HEMETOLOGY METHOD 09/10/2024 7:34 PM [facility] LAB RBC 4.00 3.80 - 4.80 M/mcL LAB HEMETOLOGY METHOD 09/10/2024 7:34 PM [facility] LAB Hemoglobin 11.5 11.5 - 16.0 g/dL LAB HEMETOLOGY METHOD 09/10/2024 7:34 PM [facility] LAB Hematocrit 35.4 35.0 - 47.0 % LAB HEMETOLOGY METHOD 09/10/2024 7:34 PM [facility] LAB MCV 88.5 79.0 - 98.0 FL LAB HEMETOLOGY METHOD 09/10/2024 7:34 PM [facility] LAB MCH 28.8 27.0 - 32.0 pcg LAB HEMETOLOGY METHOD 09/10/2024 7:34 PM [facility] LAB MCHC 32.5 32.0 - 37.0 g/dL LAB HEMETOLOGY METHOD 09/10/2024 7:34 PM [facility] LAB RDW 14.2 11.0 - 15.0 % LAB HEMETOLOGY METHOD 09/10/2024 7:34 PM [facility] LAB Platelets 189 130 - 400 K/mcL LAB HEMETOLOGY METHOD 09/10/2024 7:34 PM [facility] LAB MPV 11.8(H) 7.0 - 11.0 FL LAB HEMETOLOGY METHOD 09/10/2024 7:34 PM [facility] LAB NRBC 0.0 <1.0 % LAB HEMETOLOGY METHOD 09/10/2024 7:34 PM [facility] LAB NRBC Absolute 0.00 <0.10 K/mcL LAB HEMETOLOGY METHOD 09/10/2024 7:34 PM [facility] LAB Neutrophils Relative 59.0 % LAB HEMETOLOGY METHOD 09/10/2024 7:34 PM [facility] LAB Lymphocytes Relative 32.6 % LAB HEMETOLOGY METHOD 09/10/2024 7:34 PM [facility] LAB Monocytes Relative 5.2 % LAB HEMETOLOGY METHOD 09/10/2024 7:34 PM [facility] LAB Eosinophils Relative 2.6 % LAB HEMETOLOGY METHOD 09/10/2024 7:34 PM [facility] LAB Basophils Relative 0.4 % LAB HEMETOLOGY METHOD 09/10/2024 7:34 PM [facility] LAB Immature Granulocytes Relative 0.2 % LAB HEMETOLOGY METHOD 09/10/2024 7:34 PM [facility] LAB Neutrophils Absolute 2.75 1.50 - 7.00 K/mcL LAB HEMETOLOGY METHOD 09/10/2024 7:34 PM [facility] LAB Lymphocytes Absolute 1.52 1.00 - 5.00 K/mcL LAB HEMETOLOGY METHOD 09/10/2024 7:34 PM EST [facility] LAB Monocytes Absolute 0.24 0.20 - 1.00 K/[facility] LAB HEMETOLOGY METHOD 09/10/2024 7:34 PM EST [facility] LAB Eosinophils Absolute 0.12 0.00 - 0.50 K/[facility] LAB HEMETOLOGY METHOD 09/10/2024 7:34 PM EST [facility] LAB Basophils Absolute 0.02 0.00 - 0.20 K/[facility] LAB HEMETOLOGY METHOD 09/10/2024 7:34 PM EST [facility] LAB Immature Granulocytes Absolute 0.01 0.00 - 0.03 K/[facility] LAB HEMETOLOGY METHOD 09/10/2024 7:34 PM [facility] LAB Blood Venous blood specimen / Unknown 09/10/2024 3:00 PM EST 09/10/2024 6:31 PM EST José Miguel Myles MD LAB BLOOD ORDERAB LES [facility] LAB [address] [place] [address], * Triglycerides (09/10/2024 3:00 PM EST) Triglycerides 82 0 - 150 mg/dL LAB CHEMISTRY METHOD 09/10/2024 7:50 PM EST [facility] LAB Blood Venous blood specimen / Unknown 09/10/2024 3:00 PM EST 09/10/2024 6:31 PM EST José Miguel Myles MD LAB BLOOD ORDERAB LES [facility] LAB [address] [place] [address], [place] [phone] * Phosphorus (09/10/2024 3:00 PM EST) Phosphorus 4.0 2.5 - 4.5 mg/dL LAB CHEMISTRY METHOD 09/10/2024 7:50 PM [facility] LAB Blood Venous blood specimen / Unknown 09/10/2024 3:00 PM EST 09/10/2024 6:31 PM EST José Miguel Myles MD LAB BLOOD ORDERAB LES Performing Organization Address City/[facility]/ZIP Co de Phone Number [facility] LAB [address] [place] [address], [place] [phone] * Magnesium (09/10/2024 3:00 PM EST) Magnesium 2.2 1.9 - 2.6 mg/dL LAB CHEMISTRY METHOD 09/10/2024 7:50 PM [facility] LAB Blood Venous blood specimen / Unknown 09/10/2024 3:00 PM EST 09/10/2024 6:31 PM EST José Miguel Myles MD LAB BLOOD ORDERAB LES Performing Organization Address City/[facility]/ZIP Co de Phone Number [facility] [address] [place] [address], [place] [phone] * Comprehensive metabolic panel (09/10/2024 3:00 PM EST) Sodium 138 133 - 145 mmol/L LAB CHEMISTRY METHOD 09/10/2024 7:50 PM [facility] LAB Potassium 4.4 3.5 - 5.5 mmol/L LAB CHEMISTRY METHOD 09/10/2024 7:50 PM [facility] LAB Chloride 108 96 - 110 mmol/L LAB CHEMISTRY METHOD 09/10/2024 7:50 PM [facility] LAB CO2 25 21 - 32 mmol/L LAB CHEMISTRY METHOD 09/10/2024 7:50 PM [facility] LAB Anion Gap 5 3 - 11 LAB CHEMISTRY METHOD 09/10/2024 7:50 PM [facility] LAB Glucose 83 70 - 100 mg/dL LAB CHEMISTRY METHOD 09/10/2024 7:50 PM [facility] LAB BUN 12 5 - 25 mg/dL LAB CHEMISTRY METHOD 09/10/2024 7:50 PM [facility] LAB Creatinine 0.69 0.50 - 1.10 mg/dL LAB CHEMISTRY METHOD 09/10/2024 7:50 PM [facility] LAB eGFR 116 >=60 mL/min/1. 73m2 LAB CHEMISTRY METHOD 09/10/2024 7:50 PM [facility] LAB Comment:Calculation based on the??Chronic Kidney Disease Epidemiology Collaboration (CKD-EPI) equation refit??without adjustment for race. BUN/Creatinine Ratio 17.4 LAB CHEMISTRY METHOD 09/10/2024 7:50 PM [facility] LAB Calcium 8.8 8.5 - 10.5 mg/dL LAB CHEMISTRY METHOD 09/10/2024 7:50 PM [facility] LAB AST (SGOT) 17 10 - 42 unit/L LAB CHEMISTRY METHOD 09/10/2024 7:50 PM [facility] LAB ALT (SGPT) 32 10 - 60 unit/L LAB CHEMISTRY METHOD 09/10/2024 7:50 PM [facility] LAB Alkaline Phosphatase 85 42 - 121 unit/L LAB CHEMISTRY METHOD 09/10/2024 7:50 PM [facility] LAB Total Protein 6.4 6.0 - 8.0 g/dL LAB CHEMISTRY METHOD 09/10/2024 7:50 PM [facility] LAB Albumin 3.9 3.2 - 5.0 g/dL LAB CHEMISTRY METHOD 09/10/2024 7:50 PM [facility] LAB Total Bilirubin 0.2 0.0 - 1.4 mg/dL LAB CHEMISTRY METHOD 09/10/2024 7:50 PM [facility] LAB Blood Venous blood specimen / Unknown 09/10/2024 3:00 PM EST 09/10/2024 6:31 PM EST José Miguel Myles MD LAB BLOOD ORDERAB LES [facility] LAB [address] [place] [address], documented in this encounter Visit Diagnoses Diagnosis Perforation of intestine (nontraumatic) (CMS/HCC) Other complications of other bariatric procedure Bariatric surgery status Postsurgical malabsorption, not elsewhere classified documented in this encounter Care Teams Sweat Band Sewer Relationship Specialty Start Date End Date Beth Valdez FNP PCP - General 03/27/19 documented as of this encounter
--- OUTSIDE RECORDS SUMMARY | 2024-10-02 12:01 | XMS_ITS | Encounter Summary ---
Author Organization [facility] Address [address] [place] [address] Care Team Providers Care Primer And Powder Canning Leader Name Role Phone Beth Valdez SEAM FELLER Primary Care Provider Encounter Details Date Type Department Care Team (Latest Contact Info) Description 09/25/2024 Lab Requisition [facility] - Main Lab [address] [facility] [place] [address] Physician, Pcp Unknown Perforation of intestine (nontraumatic) (CMS/HCC); Bariatric surgery status; Other complications of other bariatric procedure; Postsurgical malabsorption, not elsewhere classified Social History [...] bariatric procedure Postsurgical malabsorption, not elsewhere classified documented in this encounter Results * (ABNORMAL) CBC auto differential (09/25/2024 5:00 PM EST) WBC 5.5 4.8 - 10.8 K/mcL LAB HEMETOLOGY METHOD 09/25/2024 6:46 PM [facility] LAB RBC 4.20 3.80 - 4.80 M/mcL LAB HEMETOLOGY METHOD 09/25/2024 6:46 PM [facility] LAB Hemoglobin 11.9 11.5 - 16.0 g/dL LAB HEMETOLOGY METHOD 09/25/2024 6:46 PM [facility] LAB Hematocrit 36.4 35.0 - 47.0 % LAB HEMETOLOGY METHOD 09/25/2024 6:46 PM [facility] LAB MCV 87.7 79.0 - 98.0 FL LAB HEMETOLOGY METHOD 09/25/2024 6:46 PM [facility] LAB MCH 28.7 27.0 - 32.0 pcg LAB HEMETOLOGY METHOD 09/25/2024 6:46 PM [facility] LAB MCHC 32.7 32.0 - 37.0 g/dL LAB HEMETOLOGY METHOD 09/25/2024 6:46 PM [facility] LAB RDW 14.5 11.0 - 15.0 % LAB HEMETOLOGY METHOD 09/25/2024 6:46 PM [facility] LAB Platelets 161 130 - 400 K/mcL LAB HEMETOLOGY METHOD 09/25/2024 6:46 PM [facility] LAB MPV 11.9(H) 7.0 - 11.0 FL LAB HEMETOLOGY METHOD 09/25/2024 6:46 PM [facility] LAB NRBC 0.0 <1.0 % LAB HEMETOLOGY METHOD 09/25/2024 6:46 PM [facility] LAB NRBC Absolute 0.00 <0.10 K/mcL LAB HEMETOLOGY METHOD 09/25/2024 6:46 PM [facility] LAB Neutrophils Relative 58.5 % LAB HEMETOLOGY METHOD 09/25/2024 6:46 PM [facility] LAB Lymphocytes Relative 33.4 % LAB HEMETOLOGY METHOD 09/25/2024 6:46 PM [facility] LAB Monocytes Relative 5.5 % LAB HEMETOLOGY METHOD 09/25/2024 6:46 PM [facility] Eosinophils Relative 1.8 % LAB HEMETOLOGY METHOD 09/25/2024 6:46 PM [facility] LAB Basophils Relative 0.6 % LAB HEMETOLOGY METHOD 09/25/2024 6:46 PM [facility] LAB Immature Granulocytes Relative 0.2 % LAB HEMETOLOGY METHOD 09/25/2024 6:46 PM [facility] LAB Neutrophils Absolute 3.19 1.50 - 7.00 K/mcL LAB HEMETOLOGY METHOD 09/25/2024 6:46 PM [facility] LAB Lymphocytes Absolute 1.82 1.00 - 5.00 K/mcL LAB HEMETOLOGY METHOD 09/25/2024 6:46 PM [facility] LAB Monocytes Absolute 0.30 0.20 - 1.00 K/mcL LAB HEMETOLOGY METHOD 09/25/2024 6:46 PM EST [facility] LAB Eosinophils Absolute 0.10 0.00 - 0.50 K/[facility] LAB HEMETOLOGY METHOD 09/25/2024 6:46 PM EST [facility] LAB Basophils Absolute 0.03 0.00 - 0.20 K/[facility] LAB HEMETOLOGY METHOD 09/25/2024 6:46 PM EST [facility] LAB Immature Granulocytes Absolute 0.01 0.00 - 0.03 K/[facility] LAB HEMETOLOGY METHOD 09/25/2024 6:46 PM EST [facility] LAB Blood Venous blood specimen / Unknown 09/25/2024 5:00 PM EST 09/25/2024 6:36 PM EST Pcp Unknown Physician LAB BLOOD ORDERABL ES Performing Organization Address City/[facility]/ZIP Co de Phone Number [facility] [address] [place] [address], * Triglycerides (09/25/2024 5:00 PM EST) Triglycerides 55 0 - 150 mg/dL LAB CHEMISTRY METHOD 09/25/2024 7:05 PM EST [facility] Blood Venous blood specimen / Unknown 09/25/2024 5:00 PM EST 09/25/2024 6:36 PM EST Pcp Unknown Physician LAB BLOOD ORDERABL ES [facility] [address] [place] [address], [place] [phone] * Phosphorus (09/25/2024 5:00 PM EST) Phosphorus 4.0 2.5 - 4.5 mg/dL LAB CHEMISTRY METHOD 09/25/2024 7:05 PM EST [facility] Blood Venous blood specimen / Unknown 09/25/2024 5:00 PM EST 09/25/2024 6:36 PM EST Pcp Unknown Physician LAB BLOOD ORDERABL ES [facility] [address] [place] [address], [place] [phone] * Magnesium (09/25/2024 5:00 PM EST) Magnesium 2.2 1.9 - 2.6 mg/dL LAB CHEMISTRY METHOD 09/25/2024 7:05 PM [facility] Blood Venous blood specimen / Unknown 09/25/2024 5:00 PM EST 09/25/2024 6:36 PM EST Pcp Unknown Physician LAB BLOOD ORDERABL ES Performing Organization Address [facility]/ZIP Co de Phone Number [facility] [address] [place] [address], [place] [phone] * Comprehensive metabolic panel (09/25/2024 5:00 PM EST) Sodium 138 133 - 145 mmol/L LAB CHEMISTRY METHOD 09/25/2024 7:06 PM [facility] Potassium 4.1 3.5 - 5.5 mmol/L LAB CHEMISTRY METHOD 09/25/2024 7:06 PM [facility] Chloride 110 96 - 110 mmol/L LAB CHEMISTRY METHOD 09/25/2024 7:06 PM [facility] CO2 24 21 - 32 mmol/L LAB CHEMISTRY METHOD 09/25/2024 7:06 PM [facility] Anion Gap 4 3 - 11 LAB CHEMISTRY METHOD 09/25/2024 7:06 PM [facility] LAB Glucose 84 70 - 100 mg/dL LAB CHEMISTRY METHOD 09/25/2024 7:06 PM [facility] BUN 11 5 - 25 mg/dL LAB CHEMISTRY METHOD 09/25/2024 7:06 PM [facility] Creatinine 0.58 0.50 - 1.10 mg/dL LAB CHEMISTRY METHOD 09/25/2024 7:06 PM [facility] LAB eGFR 121 >=60 mL/min/1. 73m2 LAB CHEMISTRY METHOD 09/25/2024 7:06 PM [facility] LAB Comment:Calculation based on the??Chronic Kidney Disease Epidemiology Collaboration (CKD-EPI) equation refit??without adjustment for race. BUN/Creatinine Ratio 19.0 LAB CHEMISTRY METHOD 09/25/2024 7:06 PM [facility] Calcium 8.9 8.5 - 10.5 mg/dL LAB CHEMISTRY METHOD 09/25/2024 7:06 PM [facility] AST (SGOT) 17 10 - 42 unit/L LAB CHEMISTRY METHOD 09/25/2024 7:06 PM [facility] ALT (SGPT) 24 10 - 60 unit/L LAB CHEMISTRY METHOD 09/25/2024 7:06 PM [facility] Alkaline Phosphatase 79 42 - 121 unit/L LAB CHEMISTRY METHOD 09/25/2024 7:06 PM [facility] Total Protein 6.6 6.0 - 8.0 g/dL LAB CHEMISTRY METHOD 09/25/2024 7:06 PM [facility] Albumin 3.8 3.2 - 5.0 g/dL LAB CHEMISTRY METHOD 09/25/2024 7:06 PM [facility] Total Bilirubin 0.3 0.0 - 1.4 mg/dL LAB CHEMISTRY METHOD 09/25/2024 7:06 PM [facility] Blood Venous blood specimen / Unknown 09/25/2024 5:00 PM EST 09/25/2024 6:36 PM EST Pcp Unknown Physician LAB BLOOD ORDERABL ES [facility] [address] [place] [address], documented in this encounter Visit Diagnoses Diagnosis Perforation of intestine (nontraumatic) (CMS/[facility]) Bariatric surgery status Other complications of other bariatric procedure Postsurgical malabsorption, not elsewhere classified documented in this encounter Care Teams Primer And Powder Canning Leader Relationship Specialty Start Date End Date Beth Valdez FNP PCP - General 03/27/19 documented as of this encounter
--- OUTSIDE RECORDS SUMMARY | 2024-10-02 12:01 | XMS_ITS | Encounter Summary ---
Author Organization [employer] Address [address] [facility] [address] [place] [address] Care Team Providers Care Conditioner Tumbler Name Role Phone Beth Valdez Primary Care Provider Unavailable Tania Ramos Unavailable Unavailable Clovis Montelongo Unavailable Unavail able Encounter Details Date Type Department Care Team (Late st Contact Info) Description 04/07/2024 Orders Only [facility] [address] [place] [address] Provider, MD Victor Manuel Social History Tobacco Use Types Packs/Day Years Used Date Smoking Tobacco: Former Cigarettes Q uit: 2013 Smokeless Tobacco: Never Alcohol Use Standard Drinks/Week Comments Yes 1 (1 standard drink = 0.6 oz pur e alcohol) Housing Stability Answer Date Recorded What is your housing situation today? I have shamikasusanne boggs 06/20/[address] you [...] Master's degree (e.g., MA, MS, Darrius, MEd, EXTRACTIONS TECHNICIAN, ROCIO) 03/30/2023 Comments No Sex and Gender [...] Diagnosis Comments CBC WITH AUTO DIFFERENTIAL Routine 04/02/2024 9:00 AM EDT TRIGLYCERIDES Routine 04/02/2024 9:00 AM EDT PHOSPHATE ( PHOSPHORUS) Routine 2023 9:00 AM EDT MAGNESIUM Routine 04/02/2024 9:00 AM EDT COMPREHENSIVE METABOLIC PANEL Routine 04/02/2024 9:00 AM EDT documented in this encounter Results * Triglycerides (04/02/2024 9:00 AM EDT) Blood Venous blood specimen / Unknown [facility] Provider LAB BLOOD ORDERABLES Babita l Result * Comprehensive Metabolic Panel (04/02/2024 9:00 AM EDT) Blood Venous blood specimen / Unknown [facility] Provider LAB BLOOD ORDERABLES Babita l Result * Magnesium (04/02/2024 9:00 AM EDT) Blood Venous blood specimen / Unknown [facility] Provider LAB BLOOD ORDERABLES Babita l Result * Phosphate (As Phosphorus) (04/02/2024 9:00 AM EDT) Blood Venous blood specimen / Unknown us Historical Provider LAB BLOOD ORDERABLES Babita l Result * CBC auto differential (04/02/2024 9:00 AM EDT) Blood Venous blood specimen / Unknown Historical Provider LAB BLOOD ORDERABLES Babita l Result documented in this encounter Visit Diagnoses Not on filedocumented in this encounter Care Teams Conditioner Tumbler Relationship Specialty Start Date End Date Beth Valdez FNP PCP - General Family Medicine 12/10/22 Tania Ramos Community Health Worker 01/05/23 Clovis Montelongo LICSW Community Health Worker Case Management 06/19/24 documented as of this encounter
--- OUTSIDE RECORDS SUMMARY | 2024-10-02 12:01 | XMS_ITS | Clinical Summary ---
Author Organization [employer] Address [address] [facility] 7t [place] [address] Care Team Providers Care Control Systems Designer Name Role Phone Beth Valdez Primary Care Provider Unavailable Tania Ramos Unavailable Unavailable Clovis Montelongo Unavailable Unavail able Allergies Active Allergy Reactions Criticality Noted Date Comments Tomato Unknown 02/06/2023 Medications Ventolin HFA 108 (90 Base) MCG/ACT inhalerIndicati ons:Asthma, unspecified asthma severity, unspecified whether complicated, unspecified whether persistent Inhale 2 puffs every 6 (six) hours if needed for shortness of breath or wheezing. 56 g 3 3 Active pantoprazole (ProtoNix) 40 MG EC tablet Take 40 mg by mouth in the morning. 2 Active ergocalciferol (Vitamin D2) 1.25 MG (26934 UT) capsuleIndicati ons:Vitamin D deficiency Take 1 capsule (1.25 mg) by mouth 1 (one) time per week. 13 capsule 3 Active cyanocobalamin (Vitamin B-12) 1000 MCG/ML injectionIndica tions:Fatigue, unspecified type,History of gastric bypass INJECT 1 ML DIRECTED EVERY 30 (THIRTY) DAYS. 3 mL 1 3 Active Levonorgestrel (MIRENA, 52 MG, IU) by Intrauterine route. 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 Recommend consult with rheumatology. History of syncope 12/08/2022 Overview (12/08/2022): Seen initially In the ED - EKG negative for cardiogenic cause Fatigue 12/08/2022 Overview (12/08/2022): 2 + months of profound fatigue in the setting of feelings of pre-syncope and anxiety No recent labs done despite gastric bypass status. Recommend lab work up and close follow up. History of gastric bypass 12/08/2022 Encounters Date Type Department Care Team Description 09/11/2024 Patient Outreach [address] [address] Meseret Schmitt, VIJI Care Management (C3 Transfer to ) 08/09/2024 Patient Outreach [address] [address] Meseret Schmitt, VIJI Care Management (C3 ) 08/06/2024 Patient Outreach [address] [address] Meseret Schmitt, VIJI Care Management (C3 Appt Request) 07/18/[address] [address] Clovis Montelongo [facility] Care Management (C3-CHW Provider notification program closed. ) from Last 3 Months Immunizations Name Administration Dates Next Due HPV, Quadrivalent 12/06/2012,06/14/2012,04/05/20 12 Moderna Covid-19 Vaccine 12+ 08/14/2021,10/08/19 21,09/09/2020 Rubella 10/21/2015 Tdap 04/15/2016,08/25/2011 Varicella 10/21/2015 Social History Tobacco Use Types Packs/Day Years Used Date Smoking Tobacco: Former Cigarettes Q uit: 2013 Smokeless Tobacco: Never Tobacco Cessation:Counseling Given: Not Answered Alcohol Use Standard Drinks/Week Comments Yes 1 (1 standard drink = 0.6 oz pur e alcohol) Housing Stability Answer Date Recorded What is your housing situation today? I have shamika boggs 06/20/[address] you li ve. Do you have problems with any of the following? None of the above 06/20/2024 Food Insecurity Answer Date Recorded Within the past 12 months, y ou worried that your food would run out before you got money to buy more: Never True 06/20/2024 Within the past 12 months,th e food you bought just didn't last and you didn't have enough money to get more: Never True Transportation Answer Date Recorded In the past 12 months, has l ack of transportation kept you from medical appts, meetings, work or from getting things needed for daily living? No 06/20/2024 Utilities Answer Date Recorded In the past 12 months, has t he electric, gas, oil or water company threatened to shut off services in your home? Yes 06/20/2024 Depression Answer Date Recorded Patient Health Questionnaire-2 Score 0 03/30/2023 Internet Access Answer Date Recorded Internet Access Q1 Yes 06/20/2024 Internet Access Q2 Not on file 06/20/2024 Education Answer Date Recorded What is the highest level of school you have completed or the highest degree you have received? Master's degree (e.g., MA, MS, Darrius, MEd, E LEARNING DEVELOPER, ROCIO) 03/30/2023 Comments No Sex and Gender Information Value Date Recorded Sex Assigned at Female 12/08/2022 11:22 AM EDT Legal Sex Female 8:37 PM EDT Gender Identity Female 12/08/2022 11:22 AM EDT Sexual Orientation Straight 12/08/2022 11 :22 AM EDT Last Filed Vital Signs Vital Sign Reading Time Taken Comments Blood Pressure 116/64 03/30/2023 3:23 PM EDT Pulse 72 03/30/2023 3:23 PM EDT Temperature 36.6 ??C (97.8 ??F) 03/30/2023 3:23 PM ED T Respiratory Rate 16 03/30/2023 3:23 PM EDT Oxygen Saturation 99% 03/30/2023 3:23 PM EDT Inhaled Oxygen Concentration - - Weight 69.7 kg (153 lb 9.6 oz) 03/30/2023 3:23 P M EDT Height 163.8 cm (5' 4.5 ) 03/30/2023 3:23 PM EDT Body Mass Index 25.96 03/30/2023 3:23 PM EDT Plan of Treatment Health Maintenance Due Date Last Done Comments Pneumococcal Vaccine: Pediatrics (0 to 5 Years) and At-Risk Patients (6 to 64 Years) (1 of 2 - PCV) 1995 Alcohol/Substance Use Screening 2001 Family Planning (PISQ) 2004 Hepatitis A Vaccines (1 of 2 - Risk 2-dose series) 2008 Hepatitis B Vaccines (1 of 3 - 19+ 3-dose series) 2008 Cervical Cancer Screening 11/06/2019 HPV/Cotest 11/06/2019 11/05/2014 Pap Smear 11/06/2019 11/05/2014 Depression Screening 03/30/2024 03/30/2023, 03/30/2023 Tobacco Screening 03/30/2024 03/30/2023 COVID-19 Vaccine (4 - 2023-2 5 season) 2024 08/14/2021, 10/08/2020, 09/09/2020 Influenza Vaccine (#1) 2024 SDOH Screening 06/20/2025 06/20/2024 DTaP/Tdap/Td Vaccines (3 - T d or Tdap) 04/15/2026 04/15/2016, 08/25/2011 Lipid Panel 12/09/2027 12/08/2022 Zoster Vaccines (1 of 2) 2039 RSV Patients and Patients Aged 60 years or older (1 - 1-dose 75+ series) 2064 HPV Vaccines Completed 12/06/2012, 06/14/2012, 04/05/2012 Hepatitis C Screening Completed 10/21/2015 HIV Screening Completed 10/22/2015 HIB Vaccines Aged Out No longer eligi ble based on patient's age to complete this topic IPV Vaccines Aged Out No longer eligi ble based on patient's age to complete this topic Meningococcal Vaccine Aged Out No huong ellie eligible based on patient's age to complete this topic RSV under 20 months Aged Out No longe r eligible based on patient's age to complete this topic Rotavirus Vaccines Aged Out No longer eligible based on patient's age to complete this topic Procedures Procedure Name Priority Date/Time Associated Diagnosis Comments LIPID PANEL, STANDARD Routine 12/08/2022 12:20 PM EDT History of gastric bypass HIV-1 ANTIBODY, EIA Routine 10/22/2015 HEPATITIS C ANTIBODY (EXTERNAL RESULTS ONLY) Routine 10/21/2015 11:11 AM EST THIN PREP PAP, WITH HPV Routine 11/05/2014 12:00 AM EST from Last 3 Months or Most Recently Relevant to Health Maintenance Results * Lipid Panel, Standard (12/08/2022 12:20 PM EDT) Cholesterol, Total 178 (<200) MG/DL [facility] Triglyceride (mg/dL) in Serum/Plasma 74 (<150) MG/DL [facility] HDL Cholesterol 67 (>39) MG/DL [facility] LDL Cholesterol, Calculated 96 (0-130) MG/DL [facility] Non HDL Chol. (LDL+VLDL) 111 (<160) MG/DL [facility] Comment: Testing performed or reported by [facility], a Service of [facility], [address] [place] [address] Bridget Childers MD, Breakfast Manager [facility]# [id number] Blood Venous blood specimen / Unknown 12/08/2022 12:20 PM EDT 12/08/2022 12:22 PM EDT Beth OCHOA LAB BLOOD ORDERABLES [place] [address] * HIV-1 antibody, EIA (10/22/2015) External HIV-1 Antibody Negative Blood Venous blood specimen / Unknown Historical Provider LAB BLOOD ORDERABLES Babita l Result * Hepatitis C Antibody (10/21/2015 11:11 AM EST) Hepatitis C Antibody Nonreactive Blood 10/21/2015 11:1 1 AM EST Historical Provider POINT OF CARE TEST ENTER/ EDIT ORDERABLES Final Result * THIN PREP PAP, WITH HPV (11/05/2014 12:00 AM EST) Historical Provider LAB CYTOLOGY ORDERABLES F inal Result [facility] [address] [place] [address] from Last 3 Months or Most Recently Relevant to Health Maintenance Insurance [facility] C3 Care Teams Control Systems Designer Relationship Specialty Start Date End Date Beth Valdez FNP PCP - General Family Medicine 12/10/22 Tania Ramos Community Health Worker 01/05/23 Clovis Montelongo [facility] Community Health Worker Case Management 06/19/24
--- OUTSIDE RECORDS SUMMARY | 2024-10-02 12:01 | XMS_ITS | Encounter Summary ---
Author Organization [facility] Address [id number] [place] [id number] Care Team Providers Care Retort Load Expediter Name Role Phone Beth Valdez Primary Care Provider Encounter Details Date Type Department Care Team (Late st Contact Info) Description 07/16/2024 Lab Requisition [facility] - Main Lab [address] [facility] [place] [address] José Miguel Myles MD [address] [place] [address] [address] [place], [place] [id number] Social History Tobacco Use Types Packs/Day Years [...] documented as of this encounter Visit Diagnoses Not on filedocumented in this encounter Care Teams Retort Load Expediter Relationship Specialty Start Date End Date Beth Valdez FNP PCP - General 03/27/19 documented as of this encounter
--- OUTSIDE RECORDS SUMMARY | 2024-10-02 12:01 | XMS_ITS | Encounter Summary ---
Author Organization [employer] Address [address] [facility] 7t [place] [address] Care Team Providers Care Employee Benefits Administrator Name Role Phone Beth Valdez MANAGER OF CUSTOMER BILLING Primary Care Provider Unavailable Tania Ramos Unavailable Unavailable Clovis Montelongo Unavailable Unavail able Reason for Visit * Reason Comments Care Management C3-CHW Provider noti fication program closed. Encounter Details Date Type Department Care Team ([facility] Contact Info) Description 07/18/2024 Telephone [facility] [address] [place] [address] Clovis Montelongo, PIANO TEACHER Care Management (C3-CHW Provider notification program closed. ) Social History Tobacco Use Types Packs/Day Years [...] Master's degree (e.g., MA, MS, Darrius, MEd, INDUSTRIAL MACHINERY MECHANIC, ROCIO) 03/30/2023 Comments No Sex and Gender [...] on filedocumented in this encounter Care Teams Employee Benefits Administrator Relationship Specialty Start Date End Date Beth Valdez FNP PCP - General Family Medicine 12/10/22 Tania Ramos Community Health Worker 01/05/23 Clovis Montelongo LICSW Community Health Worker Case Management 06/19/24 documented as of this encounter
--- OUTSIDE RECORDS SUMMARY | 2024-10-02 12:01 | XMS_ITS | Encounter Summary ---
Author Organization [facility] Address [address] [place] [phone] Care Team Providers Care Registered Nurse Maternity Name Role Phone Beth Valdez CNC SERVICE ENGINEER Primary Care Provider Encounter Details Date Type Department Care Team (Late st Contact Info) Description 07/16/2024 Lab Requisition [facility] - Main Lab [address] [facility] [place] [address] José Miguel Myles MD [address] [place] [address] [address] [place], [place] [id number] Perforation of intestine (nontraumatic) (CMS/HCC); Other complications [...] Diagnosis Comments CBC WITH AUTO DIFFERENTIAL Routine 07/16/2024 4:00 PM EST Perforation of intestine (nontraumatic) (CMS/HCC) Other complications of other bariatric procedure Bariatric surgery status Postsurgical malabsorption, not elsewhere classified [id number] DEHYDROGENASE Routine 07/16/2024 4:00 PM EST Perforation [...] classified documented in this encounter Results * Phosphorus (07/16/2024 4:00 PM EST) Pathologist [facility] Phosphorus 3.3 2.5 - 4.5 mg/dL LAB CHEMISTRY METHOD 07/19/2024 4:58 AM EST [facility] Blood Venous blood specimen / Unknown 07/16/2024 4:00 PM EST 07/19/2024 4:28 AM EST José Miguel Myles MD LAB BLOOD ORDERAB LES [facility] [address] [place] [address], * Triglycerides (07/16/2024 4:00 PM EST) Triglycerides 64 0 - 150 mg/dL LAB CHEMISTRY METHOD 07/19/2024 4:58 AM EST [facility] Blood Venous blood specimen / Unknown 07/16/2024 4:00 PM EST 07/19/2024 4:28 AM EST José Miguel Myles MD LAB BLOOD ORDERAB LES [facility] [address] [place] [address], * (ABNORMAL) CBC auto differential (07/16/2024 4:00 PM EST) WBC 4.2(L) 4.8 - 10.8 K/mcL LAB HEMETOLOGY METHOD 07/16/2024 6:07 PM [facility] RBC 4.00 3.80 - 4.80 M/mcL LAB HEMETOLOGY METHOD 07/16/2024 6:07 PM [facility] Hemoglobin 11.5 11.5 - 16.0 g/dL LAB HEMETOLOGY METHOD 07/16/2024 6:07 PM [facility] Hematocrit 35.1 35.0 - 47.0 % LAB HEMETOLOGY METHOD 07/16/2024 6:07 PM [facility] MCV 88.4 79.0 - 98.0 FL LAB HEMETOLOGY METHOD 07/16/2024 6:07 PM [facility] MCH 29.0 27.0 - 32.0 pcg LAB HEMETOLOGY METHOD 07/16/2024 6:07 PM [facility] MCHC 32.8 32.0 - 37.0 g/dL LAB HEMETOLOGY METHOD 07/16/2024 6:07 PM [facility] RDW 13.6 11.0 - 15.0 % LAB HEMETOLOGY METHOD 07/16/2024 6:07 PM [facility] Platelets 155 130 - 400 K/mcL LAB HEMETOLOGY METHOD 07/16/2024 6:07 PM [facility] MPV 11.4(H) 7.0 - 11.0 FL LAB HEMETOLOGY METHOD 07/16/2024 6:07 PM [facility] NRBC 0.0 <1.0 % LAB HEMETOLOGY METHOD 07/16/2024 6:07 PM [facility] NRBC Absolute 0.00 <0.10 K/mcL LAB HEMETOLOGY METHOD 07/16/2024 6:07 PM [facility] Neutrophils Relative 64.0 % LAB HEMETOLOGY METHOD 07/16/2024 6:07 PM [facility] Lymphocytes Relative 29.7 % LAB HEMETOLOGY METHOD 07/16/2024 6:07 PM [facility] Monocytes Relative 4.2 % LAB HEMETOLOGY METHOD 07/16/2024 6:07 PM [facility] Eosinophils Relative 1.4 % LAB HEMETOLOGY METHOD 07/16/2024 6:07 PM [facility] Basophils Relative 0.5 % LAB HEMETOLOGY METHOD 07/16/2024 6:07 PM [facility] Immature Granulocytes Relative 0.2 % LAB HEMETOLOGY METHOD 07/16/2024 6:07 PM [facility] Neutrophils Absolute 2.71 1.50 - 7.00 K/mcL LAB HEMETOLOGY METHOD 07/16/2024 6:07 PM [facility] Lymphocytes Absolute 1.26 1.00 - 5.00 K/mcL LAB HEMETOLOGY METHOD 07/16/2024 6:07 PM [facility] Monocytes Absolute 0.18(L) 0.20 - 1.00 K/mcL LAB HEMETOLOGY METHOD 07/16/2024 6:07 PM [facility] Eosinophils Absolute 0.06 0.00 - 0.50 K/mcL LAB HEMETOLOGY METHOD 07/16/2024 6:07 PM EST [facility] Basophils Absolute 0.02 0.00 - 0.20 K/mcL LAB HEMETOLOGY METHOD 07/16/2024 6:07 PM EST [facility] Immature Granulocytes Absolute 0.01 0.00 - 0.03 K/mcL LAB HEMETOLOGY METHOD 07/16/2024 6:07 PM EST [facility] Blood Venous blood specimen / Unknown 07/16/2024 4:00 PM EST 07/16/2024 6:03 PM EST José Miguel Myles MD LAB BLOOD ORDERAB LES [facility] [address] [place] [address], * Dxhqcyc-5-kndtsprox dehydrogenase (07/16/2024 4:00 PM EST) Pathologist [facility] G6PD activity 12.6 7.0 - 20.5 U/g Hgb 07/20/2024 1:24 PM EST [facility] Comment: Test performed at [facility], [address] , [place], [place] ??[address] ? [phone] Judith Mathew MD, PhD - Underwear Trimmer Blood Venous blood specimen / Unknown 07/16/2024 4:00 PM EST 07/16/2024 6:03 PM EST José Miguel Myles MD LAB BLOOD ORDERAB LES [facility] [address] [place] [address] * Magnesium (07/16/2024 4:00 PM EST) Pathologist [facility] Magnesium 2.1 1.9 - 2.6 mg/dL LAB CHEMISTRY METHOD 07/16/2024 7:11 PM EST [facility] Blood Venous blood specimen / Unknown 07/16/2024 4:00 PM EST 07/16/2024 6:03 PM EST José Miguel Myles MD LAB BLOOD ORDERAB LES [facility] [address] [place] [address], [place] [phone] * (ABNORMAL) Comprehensive metabolic panel (07/16/2024 4:00 PM EST) Sodium 139 133 - 145 mmol/L LAB CHEMISTRY METHOD 07/18/2024 12:36 PM [facility] Potassium 3.9 3.5 - 5.5 mmol/L LAB CHEMISTRY METHOD 07/18/2024 12:36 PM [facility] Chloride 109 96 - 110 mmol/L LAB CHEMISTRY METHOD 07/18/2024 12:36 PM [facility] CO2 25 21 - 32 mmol/L LAB CHEMISTRY METHOD 07/18/2024 12:36 PM [facility] Anion Gap 5 3 - 11 LAB CHEMISTRY METHOD 07/18/2024 12:36 PM [facility] Glucose 137(H) 70 - 100 mg/dL LAB CHEMISTRY METHOD 07/18/2024 12:36 PM [facility] BUN 12 5 - 25 mg/dL LAB CHEMISTRY METHOD 07/18/2024 12:36 PM [facility] Creatinine 0.74 0.50 - 1.10 mg/dL LAB CHEMISTRY METHOD 07/18/2024 12:36 PM [facility] eGFR 108 >=60 mL/min/1. 73m2 LAB CHEMISTRY METHOD 07/18/2024 12:36 PM [facility] Comment:Calculation based on the??Chronic Kidney Disease Epidemiology Collaboration (CKD-EPI) equation refit??without adjustment for race. BUN/Creatinine Ratio 16.2 LAB CHEMISTRY METHOD 07/18/2024 12:36 PM [facility] Calcium 9.1 8.5 - 10.5 mg/dL LAB CHEMISTRY METHOD 07/18/2024 12:36 PM [facility] AST (SGOT) 48(H) 10 - 42 unit/L LAB CHEMISTRY METHOD 07/18/2024 12:36 PM [facility] ALT (SGPT) 149(H) 10 - 60 unit/L LAB CHEMISTRY METHOD 07/18/2024 12:36 PM [facility] Alkaline Phosphatase 109 42 - 121 unit/L LAB CHEMISTRY METHOD 07/18/2024 12:36 PM [facility] Total Protein 6.2 6.0 - 8.0 g/dL LAB CHEMISTRY METHOD 07/18/2024 12:36 PM [facility] Albumin 3.7 3.2 - 5.0 g/dL LAB CHEMISTRY METHOD 07/18/2024 12:36 PM [facility] Total Bilirubin 0.3 0.0 - 1.4 mg/dL LAB CHEMISTRY METHOD 07/18/2024 12:36 PM [facility] Blood Venous blood specimen / Unknown 07/16/2024 4:00 PM EST 07/16/2024 6:03 PM EST José Miguel Myles MD LAB BLOOD ORDERAB LES [facility] [address] [place], [place] [address] [phone] documented in this encounter Visit Diagnoses Diagnosis Perforation of intestine (nontraumatic) (CMS/HCC) Other complications of other bariatric procedure Bariatric surgery status Postsurgical malabsorption, not elsewhere classified documented in this encounter Care Teams Registered Nurse Maternity Relationship Specialty Start Date End Date Beth Valdez FNP PCP - General 03/27/19 documented as of this encounter
--- OUTSIDE RECORDS SUMMARY | 2024-10-02 12:01 | XMS_ITS | Encounter Summary ---
Author Organization [employer] Address [address] [facility] 7t [place] [address] Care Team Providers Care Relocation Coordinator Name Role Phone Beth Valdez Primary Care Provider Unavailable Tania Ramos Unavailable Unavailable Clovis Montelongo Unavailable Unavail able Reason for Visit * Reason Comments Care Management C3 Transfer to Encounter Details Date Type Department Care Team (Late st Contact Info) Description 09/11/[address] [facility] MEDICAL [address] [place] [address] Meseret Schmitt, VIJI Care Management (C3 Transfer to ) Social History Tobacco Use Types Packs/Day Years Used Date Smoking Tobacco: Former Cigarettes Q uit: 2013 Smokeless Tobacco: Never Alcohol Use Standard Drinks/Week Comments Yes 1 (1 standard drink = 0.6 oz pur e alcohol) Housing Stability Answer Date Recorded What is your housing situation today? I have shamikasusanne boggs 06/20/[address] you [...] Master's degree (e.g., MA, MS, Darrius, MEd, CURING PICKLING PACKER, ROCIO) 03/30/2023 Comments No Sex and Gender Information Value Date Recorded Sex Assigned at Female 12/08/2022 11:22 AM EDT Legal Sex Female 8:37 PM EDT Gender Identity Female 12/08/2022 11:22 AM EDT Sexual Orientation Straight 12/08/2022 11 :22 AM EDT documented as of this encounter Progress Notes * Meseret Schmitt RN - 09/11/2024 2:14 PM EST Notification of Closed RN Care Management C3 Member Daina Larkin 1990 has closed services as Transfer to another program . Member transferred to [facility]ss program at [facility] hardware manager: (insert signature) Meseret Schmitt RN, BSN ward assistant, Care Management ( She/her/hers) [facility] (C3) Email: [email or web address] documented in this encounter Plan of Treatment Not on file documented as of this encounter Visit Diagnoses Not on filedocumented in this encounter Care Teams Relocation Coordinator Relationship Specialty Start Date End Date Anish-Beth Story FNP PCP - General Family Medicine 12/10/22 Tania Ramos Community Health Worker 01/05/23 Clovis Montelongo LICSW Community Health Worker Case Management 06/19/24 documented as of this encounter
[2024-10-02 12:12] VITALS: BP 109/63; PULSE 52; RESP 14; TEMP 36.8; O2SAT 99; BMI 23.0
[2024-10-02 12:13] LABS: UPreg QC Valid YES; Urine Pregnancy NEGATIVE (NEGATIVE)
[2024-10-02] MEDS: Lactated Ringers 1,000 ML 100 ML IVCONT (12:23)
--- NOTE | 2024-10-02 12:43 | MHC.SHP ---
Pre-Procedural Eval Section A - 24 Hr Update-Section A only Date of Service: 10/02/24 The patient is an INPATIENT: No The patient has been examined within 24 hours of the surgical procedure. The History & Physical has been completed within 30 days and I have reviewed it.: Yes Section B - Complete if H&P > 30 days Chief Complaint: Postgastric surgery syndromes Details of Present Illness: Anastomotic ulcer Relevant Family History (Specify if Yes): No Relevant Social History: None Present Medications: None Medical History: No relevant PMH History of Previous Operations: Relevant previous surgery/procedure and date(s) (Lap sleeve gastrectomy and laparoscopic revision to gastric bypass) Allergies: Allergies Allergy/AdvReac Type Severity Reaction Status Date / Time tomato Allergy Severe itchy Verified 10/02/24 12:36 throat Review of Systems Sugical H&P ROS: Negative: Constitution, Cardiovascular, Respiratory, Neurological, Psychiatric, Hem-Onc, Allergic/Immunologic, Gastrointestinal, Genitourinary, Musculoskeletal, Integumentary, Endocrine and Eyes/Ears/Nose/Throat Exam Surgical H&P Exam: Normal: HEENT, Normal: Heart, Normal: Lungs, Normal: Extremities, Normal: Abdomen, Normal: Skin and Normal: Neurological Plan Diagnosis/Plan: Unchanged (EGD to assess the status of the anastomotic ulcer. Risks of bleeding and perforation were discussed with the patient and she is in agreement with the plan.) I have reviewed the history and physical and performed a pertinent physical examination on my patient. No changes have occurred unless specified. Time Spent With Patient Time: Total time managing care of this patient today ____ minutes.
--- NOTE | 2024-10-02 12:45 | PM.OP ---
Brief Operative Note Date of Service: 10/02/24 Pre-op diagnosis: Anastomotic ulcer Post-op diagnosis: same Procedure: PROCEDURE DATE: 10/02/2024 PREOPERATIVE DIAGNOSIS: Perforated viscus, s/p gastric bypass POSTOPERATIVE DIAGNOSIS: ?Same as above. 1) Healed anastomotic ulcer PROCEDURE: [id number] with biopsies Surgeon: ?Adam Myles M.D.. Ph.D. Agricultural Appraiser: ?None ? Anesthesia: IV sedation Estimated blood loss: ?Minimal FINDINGS AND PROCEDURE: ? OPERATIVE INDICATIONS: ?The patient is a 34 year old female known to me who underwent a laparoscopic revision of a sleeve gastrectomy to gastric bypass. The patient has not been compliant with her follow-up appointments. She presented to the ER about 16 weeks ago with evidence of perforated viscus, most likely an anastomotic ulcer. The patient was treated with NPO, IV antibiotics and TPN for 5 weeks. Recent UGI showed no evidence of leak or stricture. A follow-up endoscopy 8 weeks ago revealed a healing anastomotic ulcer. The patient was allowed to start protein shakes and she remained on TPN. The patient was doing well and tolerated the diet change. However, surveillance endoscopy revealed a worsening ulcer. The patient was placed back on TPN and strict NPO. At the beginning of April she developed line sepsis and the PICC line had to be removed. An endoscopy was performed then by Dr. Palacios as I was away and that showed a normal anastomosis. The patient was placed back on protein shakes and she presented for a follow-up endoscopy to assess the status of the ulcer on 05/09/24 which showed a persistent small anastomotic ulcer. The patient however had discontinued the Pantoprazole and Sucralfrate. She was put back on these medications. The patient has remained on a liquid diet with protein shakes and presented for follow-up endoscopy on 06/05/24 which showed a deep anastomotic ulcer. A new PICC line was placed and she is on strict TPN. The patient did not schedule the follow up endoscopy in one month as recommended due to work conflicts despite my recommendation. A follow-up endoscopy was performed on 08/09/24 which showed?that the ulcer had improved significantly. TPN was continued but the patient was allowed to have water. A f/up endoscopy was performed on 09/06/24 which showed that the ulcer had nearly healed. The patient was allowed to have protein shakes which she tolerated very well. She returns today for a follow-up endoscopy to assess the status of the ulcer. Risks and complications of the surgery were discussed with the patient in advance particularly the possibility of perforation or bleeding that may require surgical intervention. The patient understood the risks and was in agreement with the plan. ? PROCEDURE: After informed consent was obtained by the patient, the patient was ?transferred to the Operating Room and was placed in the supine position.? After successful induction of IV sedation, a mouth block was placed and the patient was placed in the left lateral decubitus position. An upper endoscopy was performed next, the oropharynx and esophagus appeared within the normal limits. There was no hiatal hernia. The z-line was smooth. The small pouch was entered, appeared to be of normal size. There was no inflammation of the gastric pouch near the gastrojejunostomy. The GJ anastomosis was patent but somewhat narrowed in relation to the pouch but improved from last endoscopy The scope can pass through very easily. The previously seen deep anastomotic ulcer in the gastro-jejunostomy has healed. There was minimal erythema at the gastro-jejunostomy. The remaining of the Savana limb was normal without inflammation. At that point the scope was advanced into the proximal small intestine (proximal Savana limb) which appeared to be normal as well. The Savana limb and the pouch were decompressed and the scope was withdrawn from the patient's mouth. The patient was awaken and was transferred in stable condition to the Recovery Room for further care. I was present and performed all steps of the procedure. There were no residents to assist with this case. Adam Myles M.D., Ph.D. Surgeon: José Miguel Myles MD Anesthesia: MAC Was an Agricultural Appraiser used for this Procedure?: No Estimated blood loss (mL): 0 IV fluids (mL): 400 Urine output (mL): 0 (No Victoria to record output) Pathology: none sent Condition: stable Disposition: PACU
[2024-10-02 13:41] VITALS: BP 100/57; PULSE 50; RESP 18; TEMP 36.3; O2SAT 99
[2024-10-02 13:56] VITALS: BP 106/57; PULSE 60; RESP 18; TEMP 36.3; O2SAT 99
== END 2024-10-02 14:19 | disposition home or self-care (01) ==
PROVIDERS: Nurse Practitioner; PCP Nurse Practitioner Family; Visit Provider Surgery
PROC: 0DJ08ZZ Inspection of Upper Intestinal Tract, Via Natural or Artificial Opening Endoscopic (ICD-10-PCS; CPT 43235; principal; 2024-10-02 13:00)
DX: K95.89 Other complications of other bariatric procedure (principal); K91.1 Postgastric surgery syndromes; K28.9 Gastrojejunal ulcer, unspecified as acute or chronic, without hemorrhage or perforation; Z91.199 Patient's noncompliance with other medical treatment and regimen due to unspecified reason; Z98.84 Bariatric surgery status
CPT/HCPCS: 43239; 81025; J2003; J2250; J2704

== ENCOUNTER → 2024-10-02 10:51 | Outpatient (BNV) | payer MEDICAID, SELFPAY | PROVIDERS: PCP Nurse Practitioner Family; Visit Provider Surgery | DX: K63.1 Perforation of intestine (nontraumatic) (principal); K91.1 Postgastric surgery syndromes | CPT/HCPCS: 43239 ==

== ENCOUNTER 2024-11-01 11:31 | Day surgery (SDC) | payer MEDICAID, SELFPAY ==
--- NOTE | 2024-10-30 13:22 | HO.ANESPROP2 ---
Documented by User: Janeth Betancourt NP 10/30/24 13:23 HPI - Anesthesia Eval Consult details Narrative: 34yo F for Upper Endoscopy s/p same 09/2024 [facility] Active Problems Active Problems: All Active Problems UTI (urinary tract infection) (Acute) Marginal ulcer (Acute) Bacteremia (Acute) Fever (Acute) Dysuria (Acute) Intestinal malabsorption (Acute) S/P gastric bypass (Acute) Adjustment disorder, unspecified (Acute) Asthma, exercise induced (Acute) Past Medical History Medical History On total parenteral nutrition (TPN) Flank pain Abscess, subdiaphragmatic Perforated viscus Excess skin of abdomen Zinc deficiency Constipation Iron deficiency Panniculitis Overweight BMI 31.0-31.9,adult BMI 39.0-39.9,adult Obesity Intestinal malabsorption Intra-abdominal adhesions BMI 34.0-34.9,adult COVID-19 vaccine series completed History of depression Anxiety BMI over 35 BMI 37.0-37.9, adult Vitamin D deficiency Vitamin B12 deficiency Vitamin B1 deficiency GERD (gastroesophageal reflux disease) Back pain Gestational diabetes Asthma, exercise induced Family History Family history of problems with anesthesia: No Surgical History Surgical History Hx of breast surgery Hx of gastric bypass History of esophagogastroduodenoscopy (EGD) Hx laparoscopic cholecystectomy History of sleeve gastrectomy History of Problems with Anesthesia: No Social History Social History Household Members: Significant Other and Children Housing: House Are you a primary memory care program director to a significant other at home: No Do you presently have visiting nurse or other home services: No Alcohol intake: current Alcohol intake frequency: does not drink Patient Tobacco Use Status: Former Tobacco user Tobacco use type: Cigarette Cigarettes Per Day: 5 Years Smoked: 13 Second Hand Smoke Exposure: No Substance Use Type: Marijuana Advance Directives Date on File: 01/20/24 service: No Current occupational status: employed Meds Allergies Allergy/AdvReac Type Severity Reaction Status Date / Time tomato Allergy Severe itchy Verified 11/01/24 11:50 throat Home Medications ?Medication ?Instructions ?Recorded ?Confirmed ?Last Taken ?Type levonorgestrel 21 mcg/24 hr (up to 1 device intrauterine DIRECTED 12/22/20 10/02/24 Unknown History 8 years) 52 mg intrauterine device (Mirena) Assessment and Plan Assessment Anesthesia Assessment: Chart Reviewed Final Anesthetic Review Family History of Problems with Anesthesia: No History of Problems with Anesthesia: No Documented by User: Rocio Solis MD 11/01/24 13:08 [facility] Past Medical History Medical History On total parenteral nutrition (TPN) Flank pain Abscess, subdiaphragmatic Perforated viscus Excess skin of abdomen Zinc deficiency Constipation Iron deficiency Panniculitis Overweight BMI 31.0-31.9,adult BMI 39.0-39.9,adult Obesity Intestinal malabsorption Intra-abdominal adhesions BMI 34.0-34.9,adult COVID-19 vaccine series completed History of depression Anxiety BMI over 35 BMI 37.0-37.9, adult Vitamin D deficiency Vitamin B12 deficiency Vitamin B1 deficiency GERD (gastroesophageal reflux disease) Back pain Gestational diabetes Asthma, exercise induced Surgical History Surgical History Hx of breast surgery Hx of gastric bypass History of esophagogastroduodenoscopy (EGD) Hx laparoscopic cholecystectomy History of sleeve gastrectomy Social History Social History Household Members: Significant Other and Children Housing: House Are you a primary memory care program director to a significant other at home: No Do you presently have visiting nurse or other home services: No Alcohol intake: current Alcohol intake frequency: does not drink Patient Tobacco Use Status: Former Tobacco user Tobacco use type: Cigarette Cigarettes Per Day: 5 Years Smoked: 13 Second Hand Smoke Exposure: No Substance Use Type: Marijuana Advance Directives Date on File: 01/20/24 service: No Current occupational status: employed Meds Allergies Allergy/AdvReac Type Severity Reaction Status Date / Time tomato Allergy Severe itchy Verified 11/01/24 11:50 throat Home Medications ?Medication ?Instructions ?Recorded ?Confirmed ?Last Taken ?Type levonorgestrel 21 mcg/24 hr (up to 1 device intrauterine DIRECTED 12/22/20 10/02/24 Unknown History 8 years) 52 mg intrauterine device (Mirena) Exam Airway Mallampati Class: II TM Dist: >3cm Neck ROM: Full Loose/Missing/Broken Teeth: No Heart: RRR Lungs: CTA Assessment and Plan Assessment Anesthesia Assessment: Anesthesia Plan Discussed Final Anesthetic Review NPO: Yes ASA Class: II Final Preanesthetic Review: Meds/Allgs Chart Reviewed, Consent Obtained/Reviewed and Anes Risks/Benef Reviewed Patient Risk: Low Procedure Risk: Intermediate Anesthetic Plan Anesthetic Plan: MAC: Disposition: Standard PACU
[2024-11-01 11:50] VITALS: BMI 24.3
[2024-11-01 12:00] VITALS: BP 98/55; PULSE 47; RESP 15; TEMP 36.6; O2SAT 98
[2024-11-01] MEDS: Lactated Ringers 1,000 ML 80 ML IVCONT (12:11)
[2024-11-01 12:26] LABS: UPreg QC Valid YES; Urine Pregnancy NEGATIVE (NEGATIVE)
--- NOTE | 2024-11-01 12:39 | MHC.SHP ---
Pre-Procedural Eval Section A - 24 Hr Update-Section A only Date of Service: 11/01/24 The patient is an INPATIENT: No The patient has been examined within 24 hours of the surgical procedure. The History & Physical has been completed within 30 days and I have reviewed it.: Yes Section B - Complete if H&P > 30 days Chief Complaint: Postgastric surgery syndromes Details of Present Illness: Anastomotic ulcer Relevant Family History (Specify if Yes): No Relevant Social History: None Present Medications: None Medical History: No relevant PMH History of Previous Operations: Relevant previous surgery/procedure and date(s) (Lap sleeve gastrectomy and lap revision to gastric bypass) Allergies: Allergies Allergy/AdvReac Type Severity Reaction Status Date / Time tomato Allergy Severe itchy Verified 11/01/24 11:50 throat Review of Systems Sugical H&P ROS: Negative: Constitution, Cardiovascular, Respiratory, Neurological, Psychiatric, Hem-Onc, Allergic/Immunologic, Gastrointestinal, Genitourinary, Musculoskeletal, Integumentary, Endocrine and Eyes/Ears/Nose/Throat Exam Surgical H&P Exam: Normal: HEENT, Normal: Heart, Normal: Lungs, Normal: Extremities, Normal: Abdomen, Normal: Skin and Normal: Neurological Plan Diagnosis/Plan: Unchanged (EGD to assess the status of the ulcer. Risks of bleeding and perforation were discussed with the patient and she is in agreement with the plan.) I have reviewed the history and physical and performed a pertinent physical examination on my patient. No changes have occurred unless specified. Time Spent With Patient Time: Total time managing care of this patient today ____ minutes.
--- NOTE | 2024-11-01 12:44 | PM.OP ---
Brief Operative Note Date of Service: 11/01/24 Pre-op diagnosis: Anastomotic ulcer Post-op diagnosis: same Procedure: PROCEDURE DATE: 11/01/2024 PREOPERATIVE DIAGNOSIS: Perforated viscus, s/p gastric bypass POSTOPERATIVE DIAGNOSIS: ?Same as above. 1) Healed anastomotic ulcer, 2) mild anastomotic stricture PROCEDURE: [id number] with biopsies Surgeon: ?Adam Myles M.D.. Ph.D. Ornament Maker Hand: ?None ? Anesthesia: IV sedation Estimated blood loss: ?Minimal FINDINGS AND PROCEDURE: ? OPERATIVE INDICATIONS: ?The patient is a 34 year old female known to me who underwent a laparoscopic revision of a sleeve gastrectomy to gastric bypass. The patient has not been compliant with her follow-up appointments. She presented to the ER about 16 weeks ago with evidence of perforated viscus, most likely an anastomotic ulcer. The patient was treated with NPO, IV antibiotics and TPN for 5 weeks. Recent UGI showed no evidence of leak or stricture. A follow-up endoscopy 8 weeks ago revealed a healing anastomotic ulcer. The patient was allowed to start protein shakes and she remained on TPN. The patient was doing well and tolerated the diet change. However, surveillance endoscopy revealed a worsening ulcer. The patient was placed back on TPN and strict NPO. At the beginning of April she developed line sepsis and the PICC line had to be removed. An endoscopy was performed then by Dr. Palacios as I was away and that showed a normal anastomosis. The patient was placed back on protein shakes and she presented for a follow-up endoscopy to assess the status of the ulcer on 05/09/24 which showed a persistent small anastomotic ulcer. The patient however had discontinued the Pantoprazole and Sucralfrate. She was put back on these medications. The patient has remained on a liquid diet with protein shakes and presented for follow-up endoscopy on 06/05/24 which showed a deep anastomotic ulcer. A new PICC line was placed and she is on strict TPN. The patient did not schedule the follow up endoscopy in one month as recommended due to work conflicts despite my recommendation. A follow-up endoscopy was performed on 08/09/24 which showed?that the ulcer had improved significantly. TPN was continued but the patient was allowed to have water. A f/up endoscopy was performed on 09/06/24 which showed that the ulcer had nearly healed. The patient was allowed to have protein shakes which she tolerated very well. A follow-up endoscopy was performed on 10/02/24 which showed that the ulcer was healed and there was no worsening due to the PO protein shakes. The PICC line was kept but she was given a meal with soft foods. She returns today for a follow-up endoscopy to assess the status of the ulcer and possible removing the PICC line. Risks and complications of the surgery were discussed with the patient in advance particularly the possibility of perforation or bleeding that may require surgical intervention. The patient understood the risks and was in agreement with the plan. ? PROCEDURE: After informed consent was obtained by the patient, the patient was ?transferred to the Operating Room and was placed in the supine position.? After successful induction of IV sedation, a mouth block was placed and the patient was placed in the left lateral decubitus position. An upper endoscopy was performed next, the oropharynx and esophagus appeared within the normal limits. There was no hiatal hernia. The z-line was smooth. The small pouch was entered, appeared to be of normal size. There was no inflammation of the gastric pouch near the gastrojejunostomy. The GJ anastomosis was patent but somewhat narrowed in relation to the pouch but improved from last endoscopy The scope can pass through very easily. The previously seen deep anastomotic ulcer in the gastro-jejunostomy has healed. There was minimal erythema at the gastro-jejunostomy. The remaining of the Savana limb was normal without inflammation. At that point the scope was advanced into the proximal small intestine (proximal Savana limb) which appeared to be normal as well. The Savana limb and the pouch were decompressed and the scope was withdrawn from the patient's mouth. The patient was awaken and was transferred in stable condition to the Recovery Room for further care. I was present and performed all steps of the procedure. There were no residents to assist with this case. Adam Myles M.D., Ph.D. Surgeon: José Miguel Myles MD Anesthesia: MAC Was an Ornament Maker Hand used for this Procedure?: No Estimated blood loss (mL): 0 IV fluids (mL): 400 Urine output (mL): 0 (No Fluid to record output) Pathology: none sent Condition: stable Disposition: PACU
[2024-11-01 13:05] VITALS: BP 99/53; PULSE 47; RESP 18; TEMP 36.5; O2SAT 100
[2024-11-01 13:20] VITALS: BP 96/51; PULSE 42; RESP 16; O2SAT 97
[2024-11-01 13:35] VITALS: BP 105/61; PULSE 55; RESP 16; O2SAT 97
== END 2024-11-01 15:10 | disposition home or self-care (01) ==
PROVIDERS: Nurse Practitioner; PCP Nurse Practitioner Family; Visit Provider Surgery
PROC: 0DJ08ZZ Inspection of Upper Intestinal Tract, Via Natural or Artificial Opening Endoscopic (ICD-10-PCS; CPT 43235; principal; 2024-11-01 13:40)
DX: K91.1 Postgastric surgery syndromes (principal); E64.9 Sequelae of unspecified nutritional deficiency; K91.89 Other postprocedural complications and disorders of digestive system; K63.1 Perforation of intestine (nontraumatic); K28.9 Gastrojejunal ulcer, unspecified as acute or chronic, without hemorrhage or perforation; Z98.84 Bariatric surgery status; Z91.199 Patient's noncompliance with other medical treatment and regimen due to unspecified reason; Z79.899 Other long term (current) drug therapy
CPT/HCPCS: 43235; 81025; J2003; J2250; J2704

== ENCOUNTER → 2024-11-01 11:31 | Outpatient (BNV) | payer MEDICAID, SELFPAY | PROVIDERS: PCP Nurse Practitioner Family; Visit Provider Surgery | DX: K63.1 Perforation of intestine (nontraumatic) (principal); K91.1 Postgastric surgery syndromes | CPT/HCPCS: 43239 ==

== ENCOUNTER 2024-12-14 12:20 | Day surgery (SDC) | payer MEDICAID, SELFPAY ==
--- OUTSIDE RECORDS SUMMARY | 2024-11-02 13:26 | XMS_ITS | Encounter Summary ---
Author Organization [facility] Address [address] [place] [address] Care Team Providers Care Seasonal Recruiter Name Role Phone Beth Valdez PRINTER APPRENTICE Primary Care Provider Encounter Details Date Type Department Care Team (Late st Contact Info) Description 08/20/2024 Lab Requisition [facility] - Main Lab [address] [facility] [place] [address] José Miguel Myles MD [address] [place] [address] [address] [place], [place] [id number] Other complications of other bariatric procedure; Bariatric surgery status; Perforation of intestine (nontraumatic) (CMS/HCC); Postsurgical malabsorption, not elsewhere classified Social History Tobacco Use Types Packs/Day Years Used Date Smoking Tobacco: Former Smokeless Tobacco: Never Alcohol Use Standard Drinks/Week Comments Yes 0 (1 standard drink = 0.6 oz pur e alcohol) Comments Unknown Sex and Gender Information Value Date Recorded Sex Assigned at Not on file Legal Sex Female 11:30 PM EST Gender Identity Not on file Sexual Orientation [...] LAB HEMETOLOGY METHOD 08/20/2024 6:46 PM EST [facility] RBC 4.10 3.80 - 4.80 M/mcL LAB HEMETOLOGY METHOD 08/20/2024 6:46 PM EST [facility] Hemoglobin 11.7 11.5 - 16.0 g/dL LAB HEMETOLOGY METHOD 08/20/2024 6:46 PM EST [facility] Hematocrit 35.5 35.0 - 47.0 % LAB HEMETOLOGY METHOD 08/20/2024 6:[address] [facility] MCV 87.7 79.0 - 98.0 FL LAB HEMETOLOGY METHOD 08/20/2024 6:[address] [facility] MCH 28.9 27.0 - 32.0 pcg LAB HEMETOLOGY METHOD 08/20/2024 6:46 PM EST [facility] MCHC 33.0 32.0 - 37.0 g/dL LAB HEMETOLOGY METHOD 08/20/2024 6:[address] [facility] RDW 13.8 11.0 - 15.0 % LAB HEMETOLOGY METHOD 08/20/2024 6:[address] [facility] Platelets 158 130 - 400 K/mcL LAB HEMETOLOGY METHOD 08/20/2024 6:[address] [facility] MPV 11.9(H) 7.0 - 11.0 FL LAB HEMETOLOGY METHOD 08/20/2024 6:[address] [facility] NRBC 0.0 <1.0 % LAB HEMETOLOGY METHOD 08/20/2024 6:[address] [facility] NRBC Absolute 0.00 <0.10 K/mcL LAB HEMETOLOGY METHOD 08/20/2024 6:[address] [facility] Neutrophils Relative 57.6 % LAB HEMETOLOGY METHOD 08/20/2024 6:[address] [facility] Lymphocytes Relative 35.2 % LAB HEMETOLOGY METHOD 08/20/2024 6:[address] [facility] Monocytes Relative 4.3 % LAB HEMETOLOGY METHOD 08/20/2024 6:[address] [facility] Eosinophils Relative 2.3 % LAB HEMETOLOGY METHOD 08/20/2024 6:[address] [facility] Basophils Relative 0.6 % LAB HEMETOLOGY METHOD 08/20/2024 6:[address] [facility] Immature Granulocytes Relative 0.0 % LAB HEMETOLOGY METHOD 08/20/2024 6:[address] [facility] Neutrophils Absolute 2.81 1.50 - 7.00 K/mcL LAB HEMETOLOGY METHOD 08/20/2024 6:[address] [facility] Lymphocytes Absolute 1.72 1.00 - 5.00 K/mcL LAB HEMETOLOGY METHOD 08/20/2024 6:46 PM EST [facility] Monocytes Absolute 0.21 0.20 - 1.00 K/mcL LAB HEMETOLOGY METHOD 08/20/2024 6:46 PM EST [facility] Eosinophils Absolute 0.11 0.00 - 0.50 K/mcL LAB HEMETOLOGY METHOD 08/20/2024 6:46 PM EST [facility] Basophils Absolute 0.03 0.00 - 0.20 K/[facility] LAB HEMETOLOGY METHOD 08/20/2024 6:46 PM [address] [facility] Immature Granulocytes Absolute 0.00 0.00 - 0.03 K/[facility] LAB HEMETOLOGY METHOD 08/20/2024 6:46 PM EST [facility] Blood Venous blood specimen / Unknown 08/20/2024 3:00 PM EST 08/20/2024 5:45 PM EST José Miguel Myles MD LAB BLOOD ORDERABLES Babita l Result [facility] [address] [place] [address], [place] [phone] * Triglycerides (08/20/2024 3:00 PM EST) Triglycerides 67 0 - 150 mg/dL LAB CHEMISTRY METHOD 08/20/2024 9:19 PM EST [facility] Blood Venous blood specimen / Unknown 08/20/2024 3:00 PM EST 08/20/2024 5:45 PM EST us José Miguel Myles MD LAB BLOOD ORDERABLES Babita l Result [facility] [address] [place] [address], [place] [phone] * Phosphorus (08/20/2024 3:00 PM EST) Phosphorus 3.9 2.5 - 4.5 mg/dL LAB CHEMISTRY METHOD 08/20/2024 9:19 PM EST [facility] Blood Venous blood specimen / Unknown 08/20/2024 3:00 PM EST 08/20/2024 5:45 PM EST José Miguel Myles MD LAB BLOOD ORDERABLES Babita l Result [facility] [address] [place] [address], [place] [phone] * Magnesium (08/20/2024 3:00 PM EST) Pathologist [facility] Magnesium 2.1 1.9 - 2.6 mg/dL LAB CHEMISTRY METHOD 08/20/2024 9:19 PM EST [facility] Blood Venous blood specimen / Unknown 08/20/2024 3:00 PM EST 08/20/2024 5:45 PM EST José Miguel Myles MD LAB BLOOD ORDERABLES Babita l Result [facility] [address] [place] [address], [place] [phone] * (ABNORMAL) Comprehensive metabolic panel (08/20/2024 3:00 PM EST) [facility] Sodium 140 133 - 145 mmol/L LAB CHEMISTRY METHOD 08/20/2024 9:28 PM EST [facility] Potassium 4.3 3.5 - 5.5 mmol/L LAB CHEMISTRY METHOD 08/20/2024 9:28 PM EST [facility] Chloride 109 96 - 110 mmol/L LAB CHEMISTRY METHOD 08/20/2024 9:28 PM EST [facility] CO2 26 21 - 32 mmol/L LAB CHEMISTRY METHOD 08/20/2024 9:[address] [facility] Anion Gap 5 3 - 11 LAB CHEMISTRY METHOD 08/20/2024 9:[address] [facility] Glucose 57(L) 70 - 100 mg/dL LAB CHEMISTRY METHOD 08/20/2024 9:[address] [facility] BUN 14 5 - 25 mg/dL LAB CHEMISTRY METHOD 08/20/2024 9:[address] [facility] Creatinine 0.57 0.50 - 1.10 mg/dL LAB CHEMISTRY METHOD 08/20/2024 9:[address] [facility] eGFR 122 >=60 mL/min/1. 73m2 LAB CHEMISTRY METHOD 08/20/2024 9:[address] [facility] Comment:Calculation based on the??Chronic Kidney Disease Epidemiology Collaboration (CKD-EPI) equation refit??without adjustment for race. BUN/Creatinine Ratio 24.6 LAB CHEMISTRY METHOD 08/20/2024 9:[address] [facility] Calcium 9.3 8.5 - 10.5 mg/dL LAB CHEMISTRY METHOD 08/20/2024 9:[address] [facility] AST (SGOT) 16 10 - 42 unit/L LAB CHEMISTRY METHOD 08/20/2024 9:[address] [facility] ALT (SGPT) 22 10 - 60 unit/L LAB CHEMISTRY METHOD 08/20/2024 9:[address] [facility] Alkaline Phosphatase 79 42 - 121 unit/L LAB CHEMISTRY METHOD 08/20/2024 9:[address] [facility] Total Protein 6.4 6.0 - 8.0 g/dL LAB CHEMISTRY METHOD 08/20/2024 9:[address] [facility] Albumin 3.8 3.2 - 5.0 g/dL LAB CHEMISTRY METHOD 08/20/2024 9:[address] [facility] Total Bilirubin 0.2 0.0 - 1.4 mg/dL LAB CHEMISTRY METHOD 08/20/2024 9:28 PM EST [facility] Blood Venous blood specimen / Unknown 08/20/2024 3:00 PM EST 08/20/2024 5:45 PM EST us José Miguel Myles MD LAB BLOOD ORDERABLES Babita ingrid Result [facility] [address] [place] [address], documented in this encounter Visit Diagnoses Diagnosis Other complications of other bariatric procedure Bariatric surgery status Perforation of intestine (nontraumatic) (CMS/HCC) Postsurgical malabsorption, not elsewhere classified documented in this encounter Care Teams Seasonal Recruiter Relationship Specialty Start Date End Date Beth Valdez FNP PCP - General 03/27/19 documented as of this encounter
--- OUTSIDE RECORDS SUMMARY | 2024-11-02 13:26 | XMS_ITS | Encounter Summary ---
Author Organization [facility] Address [address] [place] [address] Care Team Providers Care Senior Managing Director Name Role Phone Beth Valdez GLASS BLOCK INSTALLER Primary Care Provider Encounter Details Date Type Department Care Team (Late st Contact Info) Description 08/27/2024 Lab Requisition [facility] - Main Lab [address] [facility] [place] [address] José Miguel Myles MD [address] [place] [address] [address] [place] [address] Perforation of intestine (nontraumatic) (CMS/HCC); Other complications [...] K/mcL LAB HEMETOLOGY METHOD 08/27/2024 6:56 PM [facility] RBC 3.90 3.80 - 4.80 M/mcL LAB HEMETOLOGY METHOD 08/27/2024 6:56 PM [facility] Hemoglobin 11.3(L) 11.5 - 16.0 g/dL LAB HEMETOLOGY METHOD 08/27/2024 6:56 PM EST [facility] LAB Hematocrit 34.0(L) 35.0 - 47.0 % LAB HEMETOLOGY METHOD 08/27/2024 6:56 PM [facility] LAB MCV 87.6 79.0 - 98.0 FL LAB HEMETOLOGY METHOD 08/27/2024 6:56 PM [facility] LAB MCH 29.1 27.0 - 32.0 pcg LAB HEMETOLOGY METHOD 08/27/2024 6:56 PM [facility] LAB MCHC 33.2 32.0 - 37.0 g/dL LAB HEMETOLOGY METHOD 08/27/2024 6:56 PM [facility] RDW 14.3 11.0 - 15.0 % LAB HEMETOLOGY METHOD 08/27/2024 6:56 PM [facility] LAB Platelets 142 130 - 400 K/mcL LAB HEMETOLOGY METHOD 08/27/2024 6:56 PM [facility] LAB MPV 12.4(H) 7.0 - 11.0 FL LAB HEMETOLOGY METHOD 08/27/2024 6:56 PM [facility] LAB NRBC 0.0 <1.0 % LAB HEMETOLOGY METHOD 08/27/2024 6:56 PM [facility] NRBC Absolute 0.00 <0.10 K/mcL LAB HEMETOLOGY METHOD 08/27/2024 6:56 PM [facility] Neutrophils Relative 62.6 % LAB HEMETOLOGY METHOD 08/27/2024 6:56 PM [facility] Lymphocytes Relative 30.5 % LAB HEMETOLOGY METHOD 08/27/2024 6:56 PM [facility] Monocytes Relative 4.9 % LAB HEMETOLOGY METHOD 08/27/2024 6:56 PM [facility] Eosinophils Relative 1.6 % LAB HEMETOLOGY METHOD 08/27/2024 6:56 PM [facility] Basophils Relative 0.2 % LAB HEMETOLOGY METHOD 08/27/2024 6:56 PM [facility] Immature Granulocytes Relative 0.2 % LAB HEMETOLOGY METHOD 08/27/2024 6:56 PM [facility] Neutrophils Absolute 3.05 1.50 - 7.00 K/mcL LAB HEMETOLOGY METHOD 08/27/2024 6:56 PM [facility] Lymphocytes Absolute 1.49 1.00 - 5.00 K/mcL LAB HEMETOLOGY METHOD 08/27/2024 6:56 PM EST [facility] LAB Monocytes Absolute 0.24 0.20 - 1.00 K/[facility] LAB HEMETOLOGY METHOD 08/27/2024 6:56 PM EST [facility] LAB Eosinophils Absolute 0.08 0.00 - 0.50 K/[facility] LAB HEMETOLOGY METHOD 08/27/2024 6:56 PM EST [facility] Basophils Absolute 0.01 0.00 - 0.20 K/[facility] LAB HEMETOLOGY METHOD 08/27/2024 6:56 PM EST [facility] LAB Immature Granulocytes Absolute 0.01 0.00 - 0.03 K/[facility] LAB HEMETOLOGY METHOD 08/27/2024 6:56 PM EST [facility] Blood Venous blood specimen / Unknown 08/27/2024 3:45 PM EST 08/27/2024 6:35 PM EST José Miguel Myles MD LAB BLOOD ORDERABLES Babita l Result [facility] [address] [place] [address], [place] [phone] * Triglycerides (08/27/2024 3:45 PM EST) Pathologist [facility] Triglycerides 68 0 - 150 mg/dL LAB CHEMISTRY METHOD 08/30/2024 6:38 AM EST [facility] Blood Venous blood specimen / Unknown 08/27/2024 3:45 PM EST 08/27/2024 6:35 PM EST José Miguel Myles MD LAB BLOOD ORDERABLES Edit ed Result - Final [facility] [address] [place] [address], [place] [phone] * Phosphorus (08/27/2024 3:45 PM EST) Phosphorus 2.9 2.5 - 4.5 mg/dL LAB CHEMISTRY METHOD 08/27/2024 7:15 PM [facility] Blood Venous blood specimen / Unknown 08/27/2024 3:45 PM EST 08/27/2024 6:35 PM EST us José Miguel Myles MD LAB BLOOD ORDERABLES Babita l Result [facility] [address] [place] [address], * Comprehensive metabolic panel (08/27/2024 3:45 PM EST) Sodium 140 133 - 145 mmol/L LAB CHEMISTRY METHOD 08/30/2024 6:38 AM [facility] Potassium 3.9 3.5 - 5.5 mmol/L LAB CHEMISTRY METHOD 08/30/2024 6:38 AM [facility] Chloride 109 96 - 110 mmol/L LAB CHEMISTRY METHOD 08/30/2024 6:38 AM [facility] CO2 24 21 - 32 mmol/L LAB CHEMISTRY METHOD 08/30/2024 6:38 AM [facility] Anion Gap 7 3 - 11 LAB CHEMISTRY METHOD 08/30/2024 6:38 AM [facility] Glucose 88 70 - 100 mg/dL LAB CHEMISTRY METHOD 08/30/2024 6:38 AM [facility] BUN 13 5 - 25 mg/dL LAB CHEMISTRY METHOD 08/30/2024 6:38 AM [facility] Creatinine 0.63 0.50 - 1.10 mg/dL LAB CHEMISTRY METHOD 08/30/2024 6:38 AM [facility] LAB eGFR 119 >=60 mL/min/1. 73m2 LAB CHEMISTRY METHOD 08/30/2024 6:38 AM [facility] LAB Comment:Calculation based on the??Chronic Kidney Disease Epidemiology Collaboration (CKD-EPI) equation refit??without adjustment for race. BUN/Creatinine Ratio 20.6 LAB CHEMISTRY METHOD 08/30/2024 6:38 AM [facility] Calcium 8.8 8.5 - 10.5 mg/dL LAB CHEMISTRY METHOD 08/30/2024 6:38 AM [facility] AST (SGOT) 15 10 - 42 unit/L LAB CHEMISTRY METHOD 08/30/2024 6:38 AM [facility] ALT (SGPT) 27 10 - 60 unit/L LAB CHEMISTRY METHOD 08/30/2024 6:38 AM [facility] Alkaline Phosphatase 75 42 - 121 unit/L LAB CHEMISTRY METHOD 08/30/2024 6:38 AM [facility] Total Protein 6.2 6.0 - 8.0 g/dL LAB CHEMISTRY METHOD 08/30/2024 6:38 AM [facility] Albumin 3.6 3.2 - 5.0 g/dL LAB CHEMISTRY METHOD 08/30/2024 6:38 AM [facility] Total Bilirubin 0.2 0.0 - 1.4 mg/dL LAB CHEMISTRY METHOD 08/30/2024 6:38 AM [facility] Blood Venous blood specimen / Unknown 08/27/2024 3:45 PM EST 08/27/2024 6:35 PM EST us José Miguel Myles MD LAB BLOOD ORDERABLES Edit ed Result - Final [facility] [address] [place] [address], * Magnesium (08/27/2024 3:45 PM EST) Magnesium 2.1 1.9 - 2.6 mg/dL LAB CHEMISTRY METHOD 08/27/2024 7:15 PM EST [facility] Blood Venous blood specimen / Unknown 08/27/2024 3:45 PM EST 08/27/2024 6:35 PM EST us José Miguel Myles MD LAB BLOOD ORDERABLES Babita l Result [facility] [address] [place] [address], documented in this encounter Visit Diagnoses Diagnosis Perforation of intestine (nontraumatic) (CMS/HCC) Other complications of other bariatric procedure Bariatric surgery status Postsurgical malabsorption, not elsewhere classified documented in this encounter Care Teams Senior Managing Director Relationship Specialty Start Date End Date Beth Valdez FNP PCP - General 03/27/19 documented as of this encounter
--- OUTSIDE RECORDS SUMMARY | 2024-11-02 13:26 | XMS_ITS | Encounter Summary ---
Author Organization [employer] Address [address] [place] [address] Care Team Providers Care Stockroom Selector Name Role Phone Beth Valdez Primary Care Provider Unavailable Tania Ramos Unavailable Unavailable Clovis Montelongo Unavailable Unavail able Encounter Details Date Type Department Care Team (Late st Contact Info) Description 04/07/2024 Orders Only [place] [facility] MEDICAL [address] [place] [address] Provider, MD Victor Manuel Social History Tobacco [...] Master's degree (e.g., MA, MS, [employer], MEd, SUPERINTENDENT [employer] FI[employer] DRILLING, [employer]) 03/30/2023 Comments No Sex and Gender [...] EDT) Blood Venous blood specimen / Unknown [facility] Provider LAB BLOOD ORDERABLES Abbita l Result * Comprehensive Metabolic Panel (04/02/2024 9:00 AM EDT) Blood Venous blood specimen / Unknown [facility] Provider LAB BLOOD ORDERABLES Babita l Result * Magnesium (04/02/2024 9:00 AM EDT) Blood Venous blood specimen / Unknown [facility] Provider LAB BLOOD ORDERABLES Babita [...] on filedocumented in this encounter Care Teams Stockroom Selector Relationship Specialty Start Date End Date Beth Valdez FNP PCP - General Family Medicine 12/10/22 Taina Ramos Community Health Worker 01/05/23 Clovis Montelongo LICSW Community Health Worker Case Management 06/19/24 documented as of this encounter
--- OUTSIDE RECORDS SUMMARY | 2024-11-02 13:26 | XMS_ITS | Clinical Summary ---
Author Organization [address] Address [address] [place] [phone] Phone Care Team Providers Care Box Blank Machine Operator Helper Name Role Phone Beth Valdez Primary Care Provider Encounters Date Type Department Care Team Description 10/22/2024 Lab Requisition [facility] Lab [address] [place] [id number] José Miguel Myles MD Postsurgical malabsorption, not elsewhere classified; Bariatric surgery status; Other complications of other bariatric procedure; Perforation of intestine (nontraumatic) (CMS/HCC) 09/25/2024 Lab Requisition [facility] Lab [address] [place] [address] José Miguel Myles MD Perforation of intestine (nontraumatic) (CMS/HCC); Bariatric surgery status; Other complications of other bariatric procedure; Postsurgical malabsorption, not elsewhere classified 09/10/2024 Lab Requisition [facility] Lab [address] [place] [address] José Miguel Myles MD Perforation of intestine (nontraumatic) (CMS/HCC); Other complications of other bariatric procedure; Bariatric surgery status; Postsurgical malabsorption, not elsewhere classified 08/27/2024 Lab Requisition [facility] Lab [address] [place] [address] José Miguel Myles MD Perforation of intestine (nontraumatic) (CMS/HCC); Other complications of other bariatric procedure; Bariatric surgery status; Postsurgical malabsorption, not elsewhere classified 08/20/2024 Lab Requisition [facility] Lab [address] [facility] [place] [address] José Miguel Myles MD Other complications of other bariatric procedure; Bariatric surgery status; Perforation of intestine (nontraumatic) (CMS/HCC); Postsurgical malabsorption, not elsewhere classified from Last 3 Months Surgical History Surgery Date Site/Laterality Comments BREAST RECONSTRUCTION PROCEDURE: BREAST RECONSTRUCTION; COMMENT: Right breast Medical History Medical History Date Comments Breast CA (CMS/HCC) DX:Breast CA (HCC); COMMENT: asymetrical growth, saline implant on right side History of pituitary tumor DX:Hi story of pituitary tumor; COMMENT: Followed by [...] Health Maintenance Due Date Last Done Comments Hepatitis B Vaccines (1 of 3 - 19+ 3-dose series) 2008 Pneumococcal Vaccine: Pediatrics (0 to 5 Years) and At-Risk Patients (6 to 64 Years) (1 of 2 - PCV) 2008 Cervical Cancer Screening: P ap Smear [...] patient's age to complete this topic Meningococcal B Vacine Aged Out No lo nger eligible based on patient's age to complete this topic RSV Immunization Patients Under 20 months Aged Out No longer eligible b ased on patient's age to complete this topic Varicella Vaccines Aged Out No longer eligible based on patient's age to complete this topic Procedures Procedure Name Priority Date/Time Associated Diagnosis Comments CBC WITH AUTO DIFFERENTIAL Routine 10/22/2024 3:00 PM EST Postsurgical malabsorption, not elsewhere classified Bariatric surgery status Other complications of other bariatric procedure Perforation of intestine (nontraumatic) (CMS/HCC) TRIGLYCERIDES Routine 10/22/2024 3:00 PM EST Postsurgical malabsorption, not elsewhere classified Bariatric surgery status Other complications of other bariatric procedure Perforation of intestine (nontraumatic) (CMS/HCC) PHOSPHORUS Routine 10/22/2024 3:00 PM EST Postsurgical malabsorption, not elsewhere classified Bariatric surgery status Other complications of other bariatric procedure Perforation of intestine (nontraumatic) (CMS/HCC) MAGNESIUM Routine 10/22/2024 3:00 PM EST Postsurgical malabsorption, not elsewhere classified Bariatric surgery status Other complications of other bariatric procedure Perforation of intestine (nontraumatic) (CMS/HCC) CBC AND DIFFERENTIAL Routine 10/22/2024 3:00 PM EST Postsurgical malabsorption, not elsewhere classified Bariatric surgery status Other complications of other bariatric procedure Perforation of intestine (nontraumatic) (CMS/HCC) COMPREHENSIVE METABOLIC PANEL Routine 10/22/2024 3:00 PM EST Postsurgical malabsorption, not elsewhere classified Bariatric surgery status Other complications of other bariatric procedure Perforation of intestine (nontraumatic) (CMS/HCC) CBC WITH AUTO DIFFERENTIAL Routine 09/25/2024 5:00 [...] (nontraumatic) (CMS/HCC) Postsurgical malabsorption, not elsewhere classified from Last 3 Months Results * (ABNORMAL) CBC auto differential (10/22/2024 3:00 PM EST) Only the most recent of5 resultswithin the time period is included. WBC 3.9(L) 4.8 - 10.8 K/mcL LAB HEMETOLOGY METHOD 10/22/2024 7:14 PM EST [facility] LAB RBC 4.00 3.80 - 4.80 M/mcL LAB HEMETOLOGY METHOD 10/22/2024 7:14 PM EST [facility] LAB Hemoglobin 11.4(L) 11.5 - 16.0 g/dL LAB HEMETOLOGY METHOD 10/22/2024 7:14 PM [facility] LAB Hematocrit 34.7(L) 35.0 - 47.0 % LAB HEMETOLOGY METHOD 10/22/2024 7:14 PM [facility] LAB MCV 86.1 79.0 - 98.0 FL LAB HEMETOLOGY METHOD 10/22/2024 7:14 PM [facility] LAB MCH 28.3 27.0 - 32.0 pcg LAB HEMETOLOGY METHOD 10/22/2024 7:14 PM [facility] LAB MCHC 32.9 32.0 - 37.0 g/dL LAB HEMETOLOGY METHOD 10/22/2024 7:14 PM [facility] LAB RDW 14.7 11.0 - 15.0 % LAB HEMETOLOGY METHOD 10/22/2024 7:14 PM [facility] LAB Platelets 149 130 - 400 K/mcL LAB HEMETOLOGY METHOD 10/22/2024 7:14 PM [facility] LAB MPV 11.7(H) 7.0 - 11.0 FL LAB HEMETOLOGY METHOD 10/22/2024 7:14 PM [facility] LAB NRBC 0.0 <1.0 % LAB HEMETOLOGY METHOD 10/22/2024 7:14 PM [facility] LAB NRBC Absolute 0.00 <0.10 K/mcL LAB HEMETOLOGY METHOD 10/22/2024 7:14 PM [facility] LAB Neutrophils Relative 53.9 % LAB HEMETOLOGY METHOD 10/22/2024 7:14 PM [facility] LAB Lymphocytes Relative 38.0 % LAB HEMETOLOGY METHOD 10/22/2024 7:14 PM [facility] LAB Monocytes Relative 4.4 % LAB HEMETOLOGY METHOD 10/22/2024 7:14 PM [facility] LAB Eosinophils Relative 2.6 % LAB HEMETOLOGY METHOD 10/22/2024 7:14 PM [facility] LAB Basophils Relative 0.8 % LAB HEMETOLOGY METHOD 10/22/2024 7:14 PM [facility] LAB Immature Granulocytes Relative 0.3 % LAB HEMETOLOGY METHOD 10/22/2024 7:14 PM [facility] LAB Neutrophils Absolute 2.09 1.50 - 7.00 K/mcL LAB HEMETOLOGY METHOD 10/22/2024 7:14 PM [facility] LAB Lymphocytes Absolute 1.47 1.00 - 5.00 K/mcL LAB HEMETOLOGY METHOD 10/22/2024 7:14 PM [facility] LAB Monocytes Absolute 0.17(L) 0.20 - 1.00 K/mcL LAB HEMETOLOGY METHOD 10/22/2024 7:14 PM [facility] LAB Eosinophils Absolute 0.10 0.00 - 0.50 K/mcL LAB HEMETOLOGY METHOD 10/22/2024 7:14 PM [facility] LAB Basophils Absolute 0.03 0.00 - 0.20 K/mcL LAB HEMETOLOGY METHOD 10/22/2024 7:14 PM [facility] LAB Immature Granulocytes Absolute 0.01 0.00 - 0.03 K/mcL LAB HEMETOLOGY METHOD 10/22/2024 7:14 PM [facility] LAB Blood Venous blood specimen / Unknown 10/22/2024 3:00 PM EST 10/22/2024 7:07 PM EST us José Miguel Myles MD LAB BLOOD ORDERABLES Babita l Result [facility] LAB [address] [place] [address], * Triglycerides (10/22/2024 3:00 PM EST) Only the most recent of5 resultswithin the time period is included. Triglycerides 98 0 - 150 mg/dL LAB CHEMISTRY METHOD 10/22/2024 7:24 PM EST [facility] LAB Blood Venous blood specimen / Unknown 10/22/2024 3:00 PM EST 10/22/2024 7:07 PM EST José Miguel Myles MD LAB BLOOD ORDERABLES Babita l Result Performing Organization Address City/[facility]/ZIP Co de Phone Number [facility] LAB [address] [place] [address], [place] [phone] * Phosphorus (10/22/2024 3:00 PM EST) Only the most recent of5 resultswithin the time period is included. Phosphorus 3.9 2.5 - 4.5 mg/dL LAB CHEMISTRY METHOD 10/22/2024 7:24 PM EST [facility] LAB Blood Venous blood specimen / Unknown 10/22/2024 3:00 PM EST 10/22/2024 7:07 PM EST José Miguel Myles MD LAB BLOOD ORDERABLES Babita l Result Performing Organization Address City/[facility]/ZIP Co de Phone Number [facility] LAB [address] [place] [address], [place] [phone] * Magnesium (10/22/2024 3:00 PM EST) Only the most recent of5 resultswithin the time period is included. Magnesium 2.1 1.9 - 2.6 mg/dL LAB CHEMISTRY METHOD 10/22/2024 7:24 PM EST [facility] LAB Blood Venous blood specimen / Unknown 10/22/2024 3:00 PM EST 10/22/2024 7:07 PM EST José Miguel Myles MD LAB BLOOD ORDERABLES Babita ingrid Result [facility] LAB [address] [place] [address], * Comprehensive metabolic panel (10/22/2024 3:00 PM EST) Only the most recent of5 resultswithin the time period is included. Sodium 139 133 - 145 mmol/L LAB CHEMISTRY METHOD 10/22/2024 7:24 PM EST [facility] LAB Potassium 4.2 3.5 - 5.5 mmol/L LAB CHEMISTRY METHOD 10/22/2024 7:24 PM [facility] LAB Chloride 108 96 - 110 mmol/L LAB CHEMISTRY METHOD 10/22/2024 7:24 PM [facility] LAB CO2 27 21 - 32 mmol/L LAB CHEMISTRY METHOD 10/22/2024 7:24 PM [facility] LAB Anion Gap 4 3 - 11 LAB CHEMISTRY METHOD 10/22/2024 7:24 PM [facility] LAB Glucose 92 70 - 100 mg/dL LAB CHEMISTRY METHOD 10/22/2024 7:24 PM [facility] BUN 13 5 - 25 mg/dL LAB CHEMISTRY METHOD 10/22/2024 7:24 PM [facility] LAB Creatinine 0.62 0.50 - 1.10 mg/dL LAB CHEMISTRY METHOD 10/22/2024 7:24 PM [facility] LAB eGFR 119 >=60 mL/min/1. 73m2 LAB CHEMISTRY METHOD 10/22/2024 7:24 PM [facility] LAB Comment:Calculation based on the??Chronic Kidney Disease Epidemiology Collaboration (CKD-EPI) equation refit??without adjustment for race. BUN/Creatinine Ratio 21.0 LAB CHEMISTRY METHOD 10/22/2024 7:24 PM [facility] Calcium 8.9 8.5 - 10.5 mg/dL LAB CHEMISTRY METHOD 10/22/2024 7:24 PM [facility] LAB AST (SGOT) 12 10 - 42 unit/L LAB CHEMISTRY METHOD 10/22/2024 7:24 PM [facility] LAB ALT (SGPT) 22 10 - 60 unit/L LAB CHEMISTRY METHOD 10/22/2024 7:24 PM [facility] Alkaline Phosphatase 77 42 - 121 unit/L LAB CHEMISTRY METHOD 10/22/2024 7:24 PM [facility] LAB Total Protein 6.3 6.0 - 8.0 g/dL LAB CHEMISTRY METHOD 10/22/2024 7:24 PM [facility] Albumin 3.6 3.2 - 5.0 g/dL LAB CHEMISTRY METHOD 10/22/2024 7:24 PM [facility] Total Bilirubin 0.2 0.0 - 1.4 mg/dL LAB CHEMISTRY METHOD 10/22/2024 7:24 PM [facility] Blood Venous blood specimen / Unknown 10/22/2024 3:00 PM EST 10/22/2024 7:07 PM EST José Miguel Myles MD LAB BLOOD ORDERABLES Babita l Result [facility] LAB [address] [place] [address], from Last 3 Months Insurance MEDICAID - [place] Care Teams Box Blank Machine Operator Helper Relationship Specialty Start Date End Date Beth Valdez FNP PCP - General 03/27/19
--- OUTSIDE RECORDS SUMMARY | 2024-11-02 13:26 | XMS_ITS | Encounter Summary ---
Author Organization [facility] Address [address] [place] [address] Care Team Providers Care Archivist Political History Name Role Phone Beth Valdez TRAFFIC ASSISTANT Primary Care Provider Encounter Details Date Type Department Care Team (Late st Contact Info) Description 10/22/2024 Lab Requisition [facility] Lab [address] [facility] [place] [address] José Miguel Myles MD [address] [place] [address] [address] [place], [place] [id number] Postsurgical malabsorption, not elsewhere classified; Bariatric surgery status; Other complications of other bariatric procedure; Perforation of intestine (nontraumatic) (CMS/HCC) Social History Tobacco Use Types Packs/Day Years [...] bariatric procedure Perforation of intestine (nontraumatic) (CMS/HCC) documented in this encounter Results * (ABNORMAL) CBC auto differential (10/22/2024 3:00 PM EST) WBC 3.9(L) 4.8 - 10.8 K/mcL LAB HEMETOLOGY METHOD 10/22/2024 7:14 PM [facility] LAB RBC 4.00 3.80 - 4.80 M/mcL LAB HEMETOLOGY METHOD 10/22/2024 7:14 PM [facility] LAB Hemoglobin 11.4(L) 11.5 - 16.0 g/dL LAB HEMETOLOGY METHOD 10/22/2024 7:14 PM [facility] LAB Hematocrit 34.7(L) 35.0 - 47.0 % LAB HEMETOLOGY METHOD 10/22/2024 7:14 PM [facility] LAB MCV 86.1 79.0 - 98.0 FL LAB HEMETOLOGY METHOD 10/22/2024 7:14 PM [facility] LAB MCH 28.3 27.0 - 32.0 pcg LAB HEMETOLOGY METHOD 10/22/2024 7:14 PM [facility] LAB MCHC 32.9 32.0 - 37.0 g/dL LAB HEMETOLOGY METHOD 10/22/2024 7:14 PM [facility] LAB RDW 14.7 11.0 - 15.0 % LAB HEMETOLOGY METHOD 10/22/2024 7:14 PM [facility] LAB Platelets 149 130 - 400 K/mcL LAB HEMETOLOGY METHOD 10/22/2024 7:14 PM [facility] LAB MPV 11.7(H) 7.0 - 11.0 FL LAB HEMETOLOGY METHOD 10/22/2024 7:14 PM [facility] LAB NRBC 0.0 <1.0 % LAB HEMETOLOGY METHOD 10/22/2024 7:14 PM [facility] LAB NRBC Absolute 0.00 <0.10 K/mcL LAB HEMETOLOGY METHOD 10/22/2024 7:14 PM [facility] LAB Neutrophils Relative 53.9 % LAB HEMETOLOGY METHOD 10/22/2024 7:14 PM [facility] LAB Lymphocytes Relative 38.0 % LAB HEMETOLOGY METHOD 10/22/2024 7:14 PM [facility] LAB Monocytes Relative 4.4 % LAB HEMETOLOGY METHOD 10/22/2024 7:14 PM [facility] LAB Eosinophils Relative 2.6 % LAB HEMETOLOGY METHOD 10/22/2024 7:14 PM [facility] LAB Basophils Relative 0.8 % LAB HEMETOLOGY METHOD 10/22/2024 7:14 PM [facility] LAB Immature Granulocytes Relative 0.3 % LAB HEMETOLOGY METHOD 10/22/2024 7:14 PM [facility] LAB Neutrophils Absolute 2.09 1.50 - 7.00 K/mcL LAB HEMETOLOGY METHOD 10/22/2024 7:14 PM [facility] LAB Lymphocytes Absolute 1.47 1.00 - 5.00 K/mcL LAB HEMETOLOGY METHOD 10/22/2024 7:14 PM EST [facility] LAB Monocytes Absolute 0.17(L) 0.20 - 1.00 K/mcL LAB HEMETOLOGY METHOD 10/22/2024 7:14 PM EST [facility] LAB Eosinophils Absolute 0.10 0.00 - 0.50 K/[facility] LAB HEMETOLOGY METHOD 10/22/2024 7:14 PM EST [facility] LAB Basophils Absolute 0.03 0.00 - 0.20 K/[facility] LAB HEMETOLOGY METHOD 10/22/2024 7:14 PM EST [facility] LAB Immature Granulocytes Absolute 0.01 0.00 - 0.03 K/[facility] LAB HEMETOLOGY METHOD 10/22/2024 7:14 PM EST [facility] LAB Blood Venous blood specimen / Unknown 10/22/2024 3:00 PM EST 10/22/2024 7:07 PM EST José Miguel Myles MD LAB BLOOD ORDERABLES Babita l Result [facility] [address] [place] [address], [place] [phone] * Triglycerides (10/22/2024 3:00 PM EST) [facility] Triglycerides 98 0 - 150 mg/dL LAB CHEMISTRY METHOD 10/22/2024 7:24 PM EST [facility] Blood Venous blood specimen / Unknown 10/22/2024 3:00 PM EST 10/22/2024 7:07 PM EST José Miguel Myles MD LAB BLOOD ORDERABLES Babita l Result [facility] [address] [place] [address], [place] [phone] * Phosphorus (10/22/2024 3:00 PM EST) Pathologist [facility] Phosphorus 3.9 2.5 - 4.5 mg/dL LAB CHEMISTRY METHOD 10/22/2024 7:24 PM EST [facility] Blood Venous blood specimen / Unknown 10/22/2024 3:00 PM EST 10/22/2024 7:07 PM EST José Miguel Myles MD LAB BLOOD ORDERABLES Babita l Result [facility] [address] [place] [address], [place] [phone] * Magnesium (10/22/2024 3:00 PM EST) [facility] Magnesium 2.1 1.9 - 2.6 mg/dL LAB CHEMISTRY METHOD 10/22/2024 7:24 PM EST [facility] Blood Venous blood specimen / Unknown 10/22/2024 3:00 PM EST 10/22/2024 7:07 PM EST José Miguel Myles MD LAB BLOOD ORDERABLES Babita l Result [facility] [address] [place] [address], [place] [phone] * Comprehensive metabolic panel (10/22/2024 3:00 PM EST) Pathologist [facility] Sodium 139 133 - 145 mmol/L LAB CHEMISTRY METHOD 10/22/2024 7:24 PM EST [facility] Potassium 4.2 3.5 - 5.5 mmol/L LAB CHEMISTRY METHOD 10/22/2024 7:24 PM EST [facility] Chloride 108 96 - 110 mmol/L LAB CHEMISTRY METHOD 10/22/2024 7:24 PM EST [facility] LAB CO2 27 21 - 32 mmol/L LAB CHEMISTRY METHOD 10/22/2024 7:24 PM [facility] Anion Gap 4 3 - 11 LAB CHEMISTRY METHOD 10/22/2024 7:24 PM [facility] LAB Glucose 92 70 - 100 mg/dL LAB CHEMISTRY METHOD 10/22/2024 7:24 PM [facility] LAB BUN 13 5 - 25 mg/dL LAB CHEMISTRY METHOD 10/22/2024 7:24 PM [facility] LAB Creatinine 0.62 0.50 - 1.10 mg/dL LAB CHEMISTRY METHOD 10/22/2024 7:24 PM [facility] LAB eGFR 119 >=60 mL/min/1. 73m2 LAB CHEMISTRY METHOD 10/22/2024 7:24 PM [facility] LAB Comment:Calculation based on the??Chronic Kidney Disease Epidemiology Collaboration (CKD-EPI) equation refit??without adjustment for race. BUN/Creatinine Ratio 21.0 LAB CHEMISTRY METHOD 10/22/2024 7:24 PM [facility] LAB Calcium 8.9 8.5 - 10.5 mg/dL LAB CHEMISTRY METHOD 10/22/2024 7:24 PM [facility] LAB AST (SGOT) 12 10 - 42 unit/L LAB CHEMISTRY METHOD 10/22/2024 7:24 PM [facility] LAB ALT (SGPT) 22 10 - 60 unit/L LAB CHEMISTRY METHOD 10/22/2024 7:24 PM [facility] Alkaline Phosphatase 77 42 - 121 unit/L LAB CHEMISTRY METHOD 10/22/2024 7:24 PM [facility] Total Protein 6.3 6.0 - 8.0 g/dL LAB CHEMISTRY METHOD 10/22/2024 7:24 PM [facility] Albumin 3.6 3.2 - 5.0 g/dL LAB CHEMISTRY METHOD 10/22/2024 7:24 PM [facility] Total Bilirubin 0.2 0.0 - 1.4 mg/dL LAB CHEMISTRY METHOD 10/22/2024 7:24 PM EST [facility] Blood Venous blood specimen / Unknown 10/22/2024 3:00 PM EST 10/22/2024 7:07 PM EST us José Miguel Myles MD LAB BLOOD ORDERABLES Babita quintero Result [facility] [address] [place] [address], documented in this encounter Visit Diagnoses Diagnosis Postsurgical malabsorption, not elsewhere classified Bariatric surgery status Other complications of other bariatric procedure Perforation of intestine (nontraumatic) (CMS/HCC) documented in this encounter Care Teams Archivist Political History Relationship Specialty Start Date End Date Beth Valdez FNP PCP - General 03/27/19 documented as of this encounter
--- OUTSIDE RECORDS SUMMARY | 2024-11-02 13:26 | XMS_ITS | Encounter Summary ---
Author Organization [employer] Address [address] [facility] [address] [place] [address] Care Team Providers Care Dance Therapist Name Role Phone Beth Valdez FAMILY LAWYER Primary Care Provider Unavailable Tania Ramos Unavailable Unavailable Clovis Montelongo Unavailable Unavail able Reason for Visit * Reason Comments Care Management C3-CHW Provider noti fication program closed. Encounter Details Date Type Department Care Team ([facility] Contact Info) Description 07/18/2024 Telephone [facility] [address] [place] [address] Clovis Montelongo, SHOW OPERATIONS SUPERVISOR Care Management (C3-CHW Provider notification program closed. [...] Master's degree (e.g., MA, MS, Darrius, MEd, CHIEF SUSTAINABILITY OFFICER, ROCIO) 03/30/2023 Comments No Sex and Gender [...] on filedocumented in this encounter Care Teams Dance Therapist Relationship Specialty Start Date End Date Beth Valdez FNP PCP - General Family Medicine 12/10/22 Tania Ramos Community Health Worker 01/05/23 Clovis Montelongo LICSW Community Health Worker Case Management 06/19/24 documented as of this encounter
--- OUTSIDE RECORDS SUMMARY | 2024-11-02 13:26 | XMS_ITS | Encounter Summary ---
Author Organization [facility] Address [address] [place] [address] Care Team Providers Care Warehouse Shipping Clerk Name Role Phone Beth Valdez BYPRODUCT ENGINEER Primary Care Provider Encounter Details Date Type Department Care Team (Late st Contact Info) Description 09/10/2024 Lab Requisition [facility] - Main Lab [address] [facility] [place] [address] José Miguel Myles MD [address] [place] [address] [address] [place], [place] [id number] Perforation of intestine (nontraumatic) (CMS/HCC); Other complications [...] K/mcL LAB HEMETOLOGY METHOD 09/10/2024 7:34 PM [facility] RBC 4.00 3.80 - 4.80 M/mcL LAB HEMETOLOGY METHOD 09/10/2024 7:34 PM [facility] Hemoglobin 11.5 11.5 - 16.0 g/dL LAB HEMETOLOGY METHOD 09/10/2024 7:34 PM [facility] Hematocrit 35.4 35.0 - 47.0 % LAB HEMETOLOGY METHOD 09/10/2024 7:34 PM [facility] MCV 88.5 79.0 - 98.0 FL LAB HEMETOLOGY METHOD 09/10/2024 7:34 PM [facility] MCH 28.8 27.0 - 32.0 pcg LAB HEMETOLOGY METHOD 09/10/2024 7:34 PM [facility] MCHC 32.5 32.0 - 37.0 g/dL LAB HEMETOLOGY METHOD 09/10/2024 7:34 PM [facility] RDW 14.2 11.0 - 15.0 % LAB HEMETOLOGY METHOD 09/10/2024 7:34 PM [facility] Platelets 189 130 - 400 K/mcL LAB HEMETOLOGY METHOD 09/10/2024 7:34 PM [facility] MPV 11.8(H) 7.0 - 11.0 FL LAB HEMETOLOGY METHOD 09/10/2024 7:34 PM [facility] NRBC 0.0 <1.0 % LAB HEMETOLOGY METHOD 09/10/2024 7:34 PM [facility] NRBC Absolute 0.00 <0.10 K/mcL LAB HEMETOLOGY METHOD 09/10/2024 7:34 PM [facility] Neutrophils Relative 59.0 % LAB HEMETOLOGY METHOD 09/10/2024 7:34 PM [facility] Lymphocytes Relative 32.6 % LAB HEMETOLOGY METHOD 09/10/2024 7:34 PM [facility] Monocytes Relative 5.2 % LAB HEMETOLOGY METHOD 09/10/2024 7:34 PM [facility] Eosinophils Relative 2.6 % LAB HEMETOLOGY METHOD 09/10/2024 7:34 PM [facility] Basophils Relative 0.4 % LAB HEMETOLOGY METHOD 09/10/2024 7:34 PM [facility] Immature Granulocytes Relative 0.2 % LAB HEMETOLOGY METHOD 09/10/2024 7:34 PM [facility] Neutrophils Absolute 2.75 1.50 - 7.00 K/mcL LAB HEMETOLOGY METHOD 09/10/2024 7:34 PM [facility] Lymphocytes Absolute 1.52 1.00 - 5.00 K/mcL LAB HEMETOLOGY METHOD 09/10/2024 7:34 PM EST [facility] Monocytes Absolute 0.24 0.20 - 1.00 K/[facility] LAB HEMETOLOGY METHOD 09/10/2024 7:34 PM EST [facility] Eosinophils Absolute 0.12 0.00 - 0.50 K/[facility] LAB HEMETOLOGY METHOD 09/10/2024 7:34 PM EST [facility] Basophils Absolute 0.02 0.00 - 0.20 K/[facility] LAB HEMETOLOGY METHOD 09/10/2024 7:34 PM EST [facility] Immature Granulocytes Absolute 0.01 0.00 - 0.03 K/[facility] LAB HEMETOLOGY METHOD 09/10/2024 7:34 PM EST [facility] Blood Venous blood specimen / Unknown 09/10/2024 3:00 PM EST 09/10/2024 6:31 PM EST José Miguel Myles MD LAB BLOOD ORDERABLES Babita l Result [facility] [address] [place] [address], [place] [phone] * Triglycerides (09/10/2024 3:00 PM EST) Triglycerides 82 0 - 150 mg/dL LAB CHEMISTRY METHOD 09/10/2024 7:50 PM EST [facility] Blood Venous blood specimen / Unknown 09/10/2024 3:00 PM EST 09/10/2024 6:31 PM EST us José Miguel Myles MD LAB BLOOD ORDERABLES Babita l Result Performing Organization Address City/[facility]/ZIP Co de Phone Number [facility] [address] [place] [address], [place] [phone] * Phosphorus (09/10/2024 3:00 PM EST) Pathologist [facility] Phosphorus 4.0 2.5 - 4.5 mg/dL LAB CHEMISTRY METHOD 09/10/2024 7:50 PM EST [facility] Blood Venous blood specimen / Unknown 09/10/2024 3:00 PM EST 09/10/2024 6:31 PM EST José Miguel Myles MD LAB BLOOD ORDERABLES Babita l Result [facility] [address] [place] [address], [place] [phone] * Magnesium (09/10/2024 3:00 PM EST) [facility] Magnesium 2.2 1.9 - 2.6 mg/dL LAB CHEMISTRY METHOD 09/10/2024 7:50 PM EST [facility] Blood Venous blood specimen / Unknown 09/10/2024 3:00 PM EST 09/10/2024 6:31 PM EST José Miguel Myles MD LAB BLOOD ORDERABLES Babita l Result [facility] [address] [place] [address], [place] [phone] * Comprehensive metabolic panel (09/10/2024 3:00 PM EST) [facility] Sodium 138 133 - 145 mmol/L LAB CHEMISTRY METHOD 09/10/2024 7:50 PM EST [facility] Potassium 4.4 3.5 - 5.5 mmol/L LAB CHEMISTRY METHOD 09/10/2024 7:50 PM EST [facility] Chloride 108 96 - 110 mmol/L LAB CHEMISTRY METHOD 09/10/2024 7:50 PM EST [facility] CO2 25 21 - 32 mmol/L LAB CHEMISTRY METHOD 09/10/2024 7:50 PM [facility] Anion Gap 5 3 - 11 LAB CHEMISTRY METHOD 09/10/2024 7:50 PM [facility] Glucose 83 70 - 100 mg/dL LAB CHEMISTRY METHOD 09/10/2024 7:50 PM [facility] BUN 12 5 - 25 mg/dL LAB CHEMISTRY METHOD 09/10/2024 7:50 PM [facility] Creatinine 0.69 0.50 - 1.10 mg/dL LAB CHEMISTRY METHOD 09/10/2024 7:50 PM [facility] eGFR 116 >=60 mL/min/1. 73m2 LAB CHEMISTRY METHOD 09/10/2024 7:50 PM [facility] Comment:Calculation based on the??Chronic Kidney Disease Epidemiology Collaboration (CKD-EPI) equation refit??without adjustment for race. BUN/Creatinine Ratio 17.4 LAB CHEMISTRY METHOD 09/10/2024 7:50 PM [facility] Calcium 8.8 8.5 - 10.5 mg/dL LAB CHEMISTRY METHOD 09/10/2024 7:50 PM [facility] AST (SGOT) 17 10 - 42 unit/L LAB CHEMISTRY METHOD 09/10/2024 7:50 PM [facility] ALT (SGPT) 32 10 - 60 unit/L LAB CHEMISTRY METHOD 09/10/2024 7:50 PM [facility] Alkaline Phosphatase 85 42 - 121 unit/L LAB CHEMISTRY METHOD 09/10/2024 7:50 PM [facility] Total Protein 6.4 6.0 - 8.0 g/dL LAB CHEMISTRY METHOD 09/10/2024 7:50 PM [facility] Albumin 3.9 3.2 - 5.0 g/dL LAB CHEMISTRY METHOD 09/10/2024 7:50 PM [facility] Total Bilirubin 0.2 0.0 - 1.4 mg/dL LAB CHEMISTRY METHOD 09/10/2024 7:50 PM EST [facility] Blood Venous blood specimen / Unknown 09/10/2024 3:00 PM EST 09/10/2024 6:31 PM EST us José Miguel Myles MD LAB BLOOD ORDERABLES Babita l Result [facility] [address] [place] [address], documented in this encounter Visit Diagnoses Diagnosis Perforation of intestine (nontraumatic) (CMS/HCC) Other complications of other bariatric procedure Bariatric surgery status Postsurgical malabsorption, not elsewhere classified documented in this encounter Care Teams Warehouse Shipping Clerk Relationship Specialty Start Date End Date Beth Valdez FNP PCP - General 03/27/19 documented as of this encounter
--- OUTSIDE RECORDS SUMMARY | 2024-11-02 13:26 | XMS_ITS | Encounter Summary ---
Author Organization [employer] Address [address] [place] [address] Care Team Providers Care Spiral Tube Winder Helper Name Role Phone Beth Valdez Primary Care Provider Unavailable Tania Ramos Unavailable Unavailable Clovis Montelongo Unavailable Unavail able Encounter Details Date Type Department Care Team (Late st Contact Info) Description 04/03/2024 Orders Only [facility] [address] [place] [address] Beth Valdez FNP Social History Tobacco Use [...] Master's degree (e.g., MA, MS, Darrius, MEd, WARP CHANGER, ROCIO) 03/30/2023 Comments No Sex and Gender [...] on filedocumented in this encounter Care Teams Spiral Tube Winder Helper Relationship Specialty Start Date End Date Beth Valdez FNP PCP - General Family Medicine 12/10/22 Tania Ramos Community Health Worker 01/05/23 Clovis Montelongo AIRPLANE ELECTRICAL REPAIRER Community Health Worker Case Management 06/19/24 documented as of this encounter
--- OUTSIDE RECORDS SUMMARY | 2024-11-02 13:26 | XMS_ITS | Clinical Summary ---
Author Organization [employer] Address [address] [facility] [address] [facility] [address] [place] [address] Care Team Providers Care Lift Operator Name Role Phone Beth Valdez Primary [...] 2 Active ergocalciferol (Vitamin D2) 1.25 MG (73257 UT) capsuleIndicati ons:Vitamin D deficiency Take 1 [...] Department Care Team Description 09/11/2024 Patient Outreach [address] [address] Meseret Schmitt, VIJI Care Management (C3 Transfer to ) 08/09/2024 Patient Outreach [address] [address] Meseret Schmitt, VIJI Care Management (C3 ) 08/06/2024 Patient Outreach [address] [address] Meseret Schmitt, VIJI Care Management (C3 Appt Request) from Last 3 Months Immunizations Name Administration [...] Master's degree (e.g., MA, MS, Darrius, MEd, PHILOSOPHY INSTRUCTOR, ROCIO) 03/30/2023 Comments No Sex and Gender [...] Health Maintenance Due Date Last Done Comments Alcohol/Substance Use Screening 2001 Family Planning (PISQ) 2004 Hepatitis A Vaccines (1 of 2 - Risk 2-dose series) 2008 Hepatitis B Vaccines (1 of 3 - 19+ 3-dose series) 2008 Pneumococcal Vaccine: Pediatrics (0 to 5 Years) and At-Risk Patients (6 to 49) Years) (1 of 2 - PCV) 2008 Cervical Cancer Screening 11/06/2019 HPV/Cotest 11/06/2019 [...] PM EDT) Cholesterol, Total 178 (<200) MG/DL [facility] Triglyceride (mg/dL) in Serum/Plasma 74 (<150) MG/DL [facility] HDL Cholesterol 67 (>39) MG/DL [facility] LDL Cholesterol, Calculated 96 (0-130) MG/DL [facility] Non HDL Chol. (LDL+VLDL) 111 (<160) MG/DL [facility] Comment: Testing performed or reported by [facility], a Service of [facility], [address] [place] [address] Bridget Childers MD, Software Controls Engineer [facility]# [id number] Blood Venous blood specimen / Unknown 12/08/2022 12:20 PM EDT 12/08/2022 12:22 PM EDT Beth OCHOA LAB BLOOD ORDERABLES F inal Result [facility] [address] [place] [address] * HIV-1 antibody, EIA (10/22/2015) External HIV-1 [...] Provider LAB CYTOLOGY ORDERABLES F inal Result [facility] [address] [place] [address] from Last 3 Months or Most Recently Relevant to Health Maintenance [facility] Care Teams Lift Operator Relationship Specialty Start Date End Date Beth Valdez FNP PCP - General Family Medicine 12/10/22 Tania Ramos Community Health Worker 01/05/23 Clovis Montelongo LICSW Community Health Worker Case Management 06/19/24
--- OUTSIDE RECORDS SUMMARY | 2024-11-02 13:27 | XMS_ITS | Encounter Summary ---
Author Organization [facility] Address [address] [place] [address] Care Team Providers Care Forging Machine Operator Name Role Phone Beth Valdez STULL HEWER Primary Care Provider Encounter Details Date Type Department Care Team (Late st Contact Info) Description 07/16/2024 Lab Requisition [facility] - Main Lab [address] [facility] [place] [address] José Miguel Myles MD [address] [place] [address] [address] [place], [place] [phone] Perforation of intestine (nontraumatic) (CMS/HCC); Other complications [...] surgery status Postsurgical malabsorption, not elsewhere classified [id number] DEHYDROGENASE Routine 07/16/2024 4:00 PM EST Perforation [...] * Phosphorus (07/16/2024 4:00 PM EST) Pathologist [facility] Phosphorus 3.3 2.5 - 4.5 mg/dL LAB CHEMISTRY METHOD 07/19/2024 4:58 AM EST [facility] Blood Venous blood specimen / Unknown 07/16/2024 4:00 PM EST 07/19/2024 4:28 AM EST us José Miguel Myles MD LAB BLOOD ORDERABLES Babita quintero Result [facility]) [facility] [address] [place] [address], * Triglycerides (07/16/2024 4:00 PM EST) Pathologist [facility] Triglycerides 64 0 - 150 mg/dL LAB CHEMISTRY METHOD 07/19/2024 4:[address] [facility] Blood Venous blood specimen / Unknown 07/16/2024 4:00 PM EST 07/19/2024 4:28 AM EST us José Miguel Myles MD LAB BLOOD ORDERABLES Babita l Result [facility] [address] [place] [address], * (ABNORMAL) CBC auto differential (07/16/2024 4:00 PM EST) WBC 4.2(L) 4.8 - 10.8 K/mcL LAB HEMETOLOGY METHOD 07/16/2024 6:[address] [facility] RBC 4.00 3.80 - 4.80 M/mcL LAB HEMETOLOGY METHOD 07/16/2024 6:[address] [facility] Hemoglobin 11.5 11.5 - 16.0 g/dL LAB HEMETOLOGY METHOD 07/16/2024 6:[address] [facility] Hematocrit 35.1 35.0 - 47.0 % LAB HEMETOLOGY METHOD 07/16/2024 6:[address] [facility] MCV 88.4 79.0 - 98.0 FL LAB HEMETOLOGY METHOD 07/16/2024 6:[address] [facility] MCH 29.0 27.0 - 32.0 pcg LAB HEMETOLOGY METHOD 07/16/2024 6:[address] [facility] MCHC 32.8 32.0 - 37.0 g/dL LAB HEMETOLOGY METHOD 07/16/2024 6:[address] [facility] RDW 13.6 11.0 - 15.0 % LAB HEMETOLOGY METHOD 07/16/2024 6:[address] [facility] Platelets 155 130 - 400 K/mcL LAB HEMETOLOGY METHOD 07/16/2024 6:[address] [facility] MPV 11.4(H) 7.0 - 11.0 FL LAB HEMETOLOGY METHOD 07/16/2024 6:[address] [facility] NRBC 0.0 <1.0 % LAB HEMETOLOGY METHOD 07/16/2024 6:[address] [facility] NRBC Absolute 0.00 <0.10 K/mcL LAB HEMETOLOGY METHOD 07/16/2024 6:[address] [facility] Neutrophils Relative 64.0 % LAB HEMETOLOGY METHOD 07/16/2024 6:[address] [facility] Lymphocytes Relative 29.7 % LAB HEMETOLOGY METHOD 07/16/2024 6:[address] [facility] Monocytes Relative 4.2 % LAB HEMETOLOGY METHOD 07/16/2024 6:[address] [facility] Eosinophils Relative 1.4 % LAB HEMETOLOGY METHOD 07/16/2024 6:[address] [facility] Basophils Relative 0.5 % LAB HEMETOLOGY METHOD 07/16/2024 6:[address] [facility] Immature Granulocytes Relative 0.2 % LAB HEMETOLOGY METHOD 07/16/2024 6:[address] [facility] Neutrophils Absolute 2.71 1.50 - 7.00 K/mcL LAB HEMETOLOGY METHOD 07/16/2024 6:[address] [facility] Lymphocytes Absolute 1.26 1.00 - 5.00 K/mcL LAB HEMETOLOGY METHOD 07/16/2024 6:[address] [facility] Monocytes Absolute 0.18(L) 0.20 - 1.00 K/mcL LAB HEMETOLOGY METHOD 07/16/2024 6:[address] [facility] Eosinophils Absolute 0.06 0.00 - 0.50 K/mcL LAB HEMETOLOGY METHOD 07/16/2024 6:07 PM EST [facility] Basophils Absolute 0.02 0.00 - 0.20 K/[facility] LAB HEMETOLOGY METHOD 07/16/2024 6:07 PM EST [facility] Immature Granulocytes Absolute 0.01 0.00 - 0.03 K/[facility] LAB HEMETOLOGY METHOD 07/16/2024 6:07 PM EST [facility] Blood Venous blood specimen / Unknown 07/16/2024 4:00 PM EST 07/16/2024 6:03 PM EST José Miguel Myles MD LAB BLOOD ORDERABLES Babita l Result Performing Organization Address City/[facility]/ZIP Co de Phone Number [facility] [address] [place] [address], * [id number] dehydrogenase (07/16/2024 4:00 PM EST) G6PD activity 12.6 7.0 - 20.5 U/g Hgb 07/20/2024 1:24 PM EST [facility] Comment: Test performed at [facility], [address] , [place], [place] ??[address] ? [phone] Judith Mathew MD, PhD - Acting Manager Blood Venous blood specimen / Unknown 07/16/2024 4:00 PM EST 07/16/2024 6:03 PM EST José Miguel Myles MD LAB BLOOD ORDERABLES Babita l Result [facility] [address] [place] [address] * Magnesium (07/16/2024 4:00 PM EST) Magnesium 2.1 1.9 - 2.6 mg/dL LAB CHEMISTRY METHOD 07/16/2024 7:[address] [facility] Blood Venous blood specimen / Unknown 07/16/2024 4:00 PM EST 07/16/2024 6:03 PM EST us José Miguel Myles MD LAB BLOOD ORDERABLES Babita ingrid Result [facility] [address] [place] [address], * (ABNORMAL) Comprehensive metabolic panel (07/16/2024 4:00 PM EST) Sodium 139 133 - 145 mmol/L LAB CHEMISTRY METHOD 07/18/2024 12:[address] [facility] Potassium 3.9 3.5 - 5.5 mmol/L LAB CHEMISTRY METHOD 07/18/2024 12:[address] [facility] Chloride 109 96 - 110 mmol/L LAB CHEMISTRY METHOD 07/18/2024 12:[address] [facility] CO2 25 21 - 32 mmol/L LAB CHEMISTRY METHOD 07/18/2024 12:[address] [facility] Anion Gap 5 3 - 11 LAB CHEMISTRY METHOD 07/18/2024 12:[address] [facility] Glucose 137(H) 70 - 100 mg/dL LAB CHEMISTRY METHOD 07/18/2024 12:[address] [facility] BUN 12 5 - 25 mg/dL LAB CHEMISTRY METHOD 07/18/2024 12:[address] [facility] Creatinine 0.74 0.50 - 1.10 mg/dL LAB CHEMISTRY METHOD 07/18/2024 12:[address] [facility] eGFR 108 >=60 mL/min/1. 73m2 LAB CHEMISTRY METHOD 07/18/2024 12:[address] [facility] Comment:Calculation based on the??Chronic Kidney Disease Epidemiology Collaboration (CKD-EPI) equation refit??without adjustment for race. BUN/Creatinine Ratio 16.2 LAB CHEMISTRY METHOD 07/18/2024 12:[address] [facility] Calcium 9.1 8.5 - 10.5 mg/dL LAB CHEMISTRY METHOD 07/18/2024 12:[address] [facility] AST (SGOT) 48(H) 10 - 42 unit/L LAB CHEMISTRY METHOD 07/18/2024 12:[address] [facility] ALT (SGPT) 149(H) 10 - 60 unit/L LAB CHEMISTRY METHOD 07/18/2024 12:[address] [facility] Alkaline Phosphatase 109 42 - 121 unit/L LAB CHEMISTRY METHOD 07/18/2024 12:[address] [facility] Total Protein 6.2 6.0 - 8.0 g/dL LAB CHEMISTRY METHOD 07/18/2024 12:[address] [facility] Albumin 3.7 3.2 - 5.0 g/dL LAB CHEMISTRY METHOD 07/18/2024 12:[address] [facility] Total Bilirubin 0.3 0.0 - 1.4 mg/dL LAB CHEMISTRY METHOD 07/18/2024 12:[address] [facility] Blood Venous blood specimen / Unknown 07/16/2024 4:00 PM EST 07/16/2024 6:03 PM EST us José Miguel Myles MD LAB BLOOD ORDERABLES Edit ed Result - Final [facility] [address] [place] [address], documented in this encounter Visit Diagnoses Diagnosis Perforation of intestine (nontraumatic) (CMS/HCC) Other complications of other bariatric procedure Bariatric surgery status Postsurgical malabsorption, not elsewhere classified documented in this encounter Care Teams Forging Machine Operator Relationship Specialty Start Date End Date Beth Valdez FNP PCP - General 03/27/19 documented as of this encounter
--- OUTSIDE RECORDS SUMMARY | 2024-11-02 13:27 | XMS_ITS | Encounter Summary ---
Author Organization [facility] Address [address] [place] [phone] Care Team Providers Care Merchandising Lead Name Role Phone Beth Valdez Primary Care Provider Encounter Details Date Type Department Care Team (Late st Contact Info) Description 07/16/[address] [facility] - Main Lab [address] [facility] [place] [address] José Miguel Myles MD [address] [place] [address] [address] [place] [address] Social History Tobacco Use Types Packs/Day Years [...] on filedocumented in this encounter Care Teams Merchandising Lead Relationship Specialty Start Date End Date Beth Valdez FNP PCP - General 03/27/19 documented as of this encounter
--- OUTSIDE RECORDS SUMMARY | 2024-11-02 13:27 | XMS_ITS | Encounter Summary ---
Author Organization [facility] Address [address] [place] [address] Care Team Providers Care Manager Strategic Marketing Name Role Phone Beth Valdez OUTSIDE SALES EXECUTIVE Primary Care Provider Encounter Details Date Type Department Care Team (Late st Contact Info) Description 09/25/2024 Lab Requisition [facility] - Main Lab [address] [facility] [place] [place] [address] José Miguel Myles MD [address] [place] [address] [address] [place], [place] [id number] Perforation of intestine (nontraumatic) (CMS/HCC); Bariatric surgery [...] LAB HEMETOLOGY METHOD 09/25/2024 6:46 PM EST [facility] LAB RBC 4.20 3.80 - 4.80 M/mcL LAB HEMETOLOGY METHOD 09/25/2024 6:46 PM [facility] LAB Hemoglobin 11.9 11.5 - 16.0 g/dL LAB HEMETOLOGY METHOD 09/25/2024 6:46 PM EST [facility] LAB Hematocrit 36.4 35.0 - 47.0 % LAB HEMETOLOGY METHOD 09/25/2024 6:46 PM [facility] LAB MCV 87.7 79.0 - 98.0 FL LAB HEMETOLOGY METHOD 09/25/2024 6:46 PM [facility] LAB MCH 28.7 27.0 - 32.0 pcg LAB HEMETOLOGY METHOD 09/25/2024 6:46 PM [facility] LAB MCHC 32.7 32.0 - 37.0 g/dL LAB HEMETOLOGY METHOD 09/25/2024 6:46 PM [facility] LAB RDW 14.5 11.0 - 15.0 % LAB HEMETOLOGY METHOD 09/25/2024 6:46 PM [facility] LAB Platelets 161 130 - 400 K/mcL LAB HEMETOLOGY METHOD 09/25/2024 6:46 PM [facility] LAB MPV 11.9(H) 7.0 - 11.0 FL LAB HEMETOLOGY METHOD 09/25/2024 6:46 PM [facility] LAB NRBC 0.0 <1.0 % LAB HEMETOLOGY METHOD 09/25/2024 6:46 PM [facility] LAB NRBC Absolute 0.00 <0.10 K/mcL LAB HEMETOLOGY METHOD 09/25/2024 6:46 PM [facility] Neutrophils Relative 58.5 % LAB HEMETOLOGY METHOD 09/25/2024 6:46 PM [facility] Lymphocytes Relative 33.4 % LAB HEMETOLOGY METHOD 09/25/2024 6:46 PM [facility] Monocytes Relative 5.5 % LAB HEMETOLOGY METHOD 09/25/2024 6:46 PM [facility] Eosinophils Relative 1.8 % LAB HEMETOLOGY METHOD 09/25/2024 6:46 PM [facility] Basophils Relative 0.6 % LAB HEMETOLOGY METHOD 09/25/2024 6:46 PM [facility] Immature Granulocytes Relative 0.2 % LAB HEMETOLOGY METHOD 09/25/2024 6:46 PM [facility] Neutrophils Absolute 3.19 1.50 - 7.00 K/mcL LAB HEMETOLOGY METHOD 09/25/2024 6:46 PM [facility] Lymphocytes Absolute 1.82 1.00 - 5.00 K/mcL LAB HEMETOLOGY METHOD 09/25/2024 6:46 PM EST [facility] Monocytes Absolute 0.30 0.20 - 1.00 K/mcL LAB HEMETOLOGY METHOD 09/25/2024 6:46 PM EST [facility] Eosinophils Absolute 0.10 0.00 - 0.50 K/mcL LAB HEMETOLOGY METHOD 09/25/2024 6:46 PM EST [facility] Basophils Absolute 0.03 0.00 - 0.20 K/[facility] LAB HEMETOLOGY METHOD 09/25/2024 6:46 PM EST [facility] Immature Granulocytes Absolute 0.01 0.00 - 0.03 K/[facility] LAB HEMETOLOGY METHOD 09/25/2024 6:46 PM EST [facility] Blood Venous blood specimen / Unknown 09/25/2024 5:00 PM EST 09/25/2024 6:36 PM EST José Miguel Myles MD LAB BLOOD ORDERABLES Babita l Result [facility] [address] [place] [address], [place] [phone] * Triglycerides (09/25/2024 5:00 PM EST) Triglycerides 55 0 - 150 mg/dL LAB CHEMISTRY METHOD 09/25/2024 7:05 PM EST [facility] Blood Venous blood specimen / Unknown 09/25/2024 5:00 PM EST 09/25/2024 6:36 PM EST José Miguel Myles MD LAB BLOOD ORDERABLES Babita l Result [facility] [address] [place] [address], [place] [phone] * Phosphorus (09/25/2024 5:00 PM EST) Phosphorus 4.0 2.5 - 4.5 mg/dL LAB CHEMISTRY METHOD 09/25/2024 7:05 PM EST [facility] Blood Venous blood specimen / Unknown 09/25/2024 5:00 PM EST 09/25/2024 6:36 PM EST José Miguel Myles MD LAB BLOOD ORDERABLES Babita l Result [facility] [address] [place] [address], [place] [phone] * Magnesium (09/25/2024 5:00 PM EST) Pathologist [facility] Magnesium 2.2 1.9 - 2.6 mg/dL LAB CHEMISTRY METHOD 09/25/2024 7:05 PM EST [facility] Blood Venous blood specimen / Unknown 09/25/2024 5:00 PM EST 09/25/2024 6:36 PM EST José Miguel Myles MD LAB BLOOD ORDERABLES Babita l Result [facility] [address] [place] [address], [place] [phone] * Comprehensive metabolic panel (09/25/2024 5:00 PM EST) Pathologist [facility] Sodium 138 133 - 145 mmol/L LAB CHEMISTRY METHOD 09/25/2024 7:06 PM EST [facility] Potassium 4.1 3.5 - 5.5 mmol/L LAB CHEMISTRY METHOD 09/25/2024 7:06 PM [facility] Chloride 110 96 - 110 mmol/L LAB CHEMISTRY METHOD 09/25/2024 7:06 PM [facility] CO2 24 21 - 32 mmol/L LAB CHEMISTRY METHOD 09/25/2024 7:06 PM [facility] Anion Gap 4 3 - 11 LAB CHEMISTRY METHOD 09/25/2024 7:06 PM [facility] Glucose 84 70 - 100 mg/dL LAB CHEMISTRY METHOD 09/25/2024 7:06 PM [facility] BUN 11 5 - 25 mg/dL LAB CHEMISTRY METHOD 09/25/2024 7:06 PM [facility] Creatinine 0.58 0.50 - 1.10 mg/dL LAB CHEMISTRY METHOD 09/25/2024 7:06 PM [facility] eGFR 121 >=60 mL/min/1. 73m2 LAB CHEMISTRY METHOD 09/25/2024 7:06 PM [facility] Comment:Calculation based on the??Chronic Kidney Disease Epidemiology Collaboration (CKD-EPI) equation refit??without adjustment for race. BUN/Creatinine Ratio 19.0 LAB CHEMISTRY METHOD 09/25/2024 7:06 PM [facility] Calcium 8.9 8.5 - 10.5 mg/dL LAB CHEMISTRY METHOD 09/25/2024 7:06 PM [facility] AST (SGOT) 17 10 - 42 unit/L LAB CHEMISTRY METHOD 09/25/2024 7:06 PM [facility] ALT (SGPT) 24 10 - 60 unit/L LAB CHEMISTRY METHOD 09/25/2024 7:06 PM [facility] Alkaline Phosphatase 79 42 - 121 unit/L LAB CHEMISTRY METHOD 09/25/2024 7:06 PM [facility] Total Protein 6.6 6.0 - 8.0 g/dL LAB CHEMISTRY METHOD 09/25/2024 7:06 PM [facility] Albumin 3.8 3.2 - 5.0 g/dL LAB CHEMISTRY METHOD 09/25/2024 7:06 PM [facility] Total Bilirubin 0.3 0.0 - 1.4 mg/dL LAB CHEMISTRY METHOD 09/25/2024 7:06 PM EST [facility] Blood Venous blood specimen / Unknown 09/25/2024 5:00 PM EST 09/25/2024 6:36 PM EST us José Miguel Myles MD LAB BLOOD ORDERABLES Babita l Result [facility] [address] [place] [address], documented in this encounter Visit Diagnoses Diagnosis Perforation of intestine (nontraumatic) (CMS/HCC) Bariatric surgery status Other complications of other bariatric procedure Postsurgical malabsorption, not elsewhere classified documented in this encounter Care Teams Manager Strategic Marketing Relationship Specialty Start Date End Date Beth Valdez FNP PCP - General 03/27/19 documented as of this encounter
--- OUTSIDE RECORDS SUMMARY | 2024-11-02 13:27 | XMS_ITS | Encounter Summary ---
Author Organization [facility] Address [id number] [place] [phone] Care Team Providers Care Sas Programmer Remote Name Role Phone Beth Valdez Primary Care Provider Encounter Details Date Type Department Care Team (Late st Contact Info) Description 07/16/2024 Lab Requisition [facility] - Main Lab [address] [facility] [employer] [place] [address] José Miguel Myles MD [address] [place] [address] [address] [place] [address] Other complications of other bariatric procedure; Bariatric [...] classified documented in this encounter Care Teams Sas Programmer Remote Relationship Specialty Start Date End Date Beth Valdez FNP PCP - General 03/27/19 documented as of this encounter
--- NOTE | 2024-12-12 13:54 | HO.ANESPROP2 ---
HPI - Anesthesia Eval Consult details Narrative: 34yo F for Upper Endoscopy s/p same 10/2024 with MAC PMFSH Active Problems Active Problems: All Active Problems UTI (urinary tract infection) (Acute) Marginal ulcer (Acute) Bacteremia (Acute) Fever (Acute) Dysuria (Acute) Intestinal malabsorption (Acute) S/P gastric bypass (Acute) Adjustment disorder, unspecified (Acute) Asthma, exercise induced (Acute) Past Medical History Medical History On total parenteral nutrition (TPN) Flank pain Abscess, subdiaphragmatic Perforated viscus Excess skin of abdomen Zinc deficiency Constipation Iron deficiency Panniculitis Overweight BMI 31.0-31.9,adult BMI 39.0-39.9,adult Obesity Intestinal malabsorption Intra-abdominal adhesions BMI 34.0-34.9,adult COVID-19 vaccine series completed History of depression Anxiety BMI over 35 BMI 37.0-37.9, adult Vitamin D deficiency Vitamin B12 deficiency Vitamin B1 deficiency GERD (gastroesophageal reflux disease) Back pain Gestational diabetes Asthma, exercise induced Family History Family history of problems with anesthesia: No Surgical History Surgical History Hx of breast surgery Hx of gastric bypass History of esophagogastroduodenoscopy (EGD) Hx laparoscopic cholecystectomy History of sleeve gastrectomy History of Problems with Anesthesia: No Social History Social History Household Members: Significant Other and Children Housing: House Are you a primary career guidance counselor to a significant other at home: No Do you presently have visiting nurse or other home services: No Alcohol intake: current Alcohol intake frequency: does not drink Patient Tobacco Use Status: Former Tobacco user Tobacco use type: Cigarette Cigarettes Per Day: 5 Years Smoked: 13 Second Hand Smoke Exposure: No Substance Use Type: Marijuana Advance Directives Date on File: 01/20/24 service: No Current occupational status: employed Meds Allergies Allergy/AdvReac Type Severity Reaction Status Date / Time tomato Allergy Severe itchy Verified 11/01/24 11:50 throat Home Medications ?Medication ?Instructions ?Recorded ?Confirmed ?Last Taken ?Type levonorgestrel 21 mcg/24 hr (up to 1 device intrauterine DIRECTED 12/22/20 10/02/24 Unknown History 8 years) 52 mg intrauterine device (Mirena) Assessment and Plan Assessment Anesthesia Assessment: Chart Reviewed Final Anesthetic Review Family History of Problems with Anesthesia: No History of Problems with Anesthesia: No
[2024-12-14 13:36] VITALS: BP 96/39; PULSE 57; RESP 14; TEMP 36.8; O2SAT 100; BMI 23.5
[2024-12-14 13:39] LABS: UPreg QC Valid YES
[2024-12-14 13:40] LABS: Urine Pregnancy NEGATIVE (NEGATIVE)
[2024-12-14] MEDS: Lactated Ringers 1,000 ML 80 ML IVCONT (13:46)
--- NOTE | 2024-12-14 14:00 | P.CONAN_ITS ---
[facility] Active Problems Active Problems: All Active Problems UTI (urinary tract infection) (Acute) Marginal ulcer (Acute) Bacteremia (Acute) Fever (Acute) Dysuria (Acute) Intestinal malabsorption (Acute) S/P gastric bypass (Acute) Adjustment disorder, unspecified (Acute) Asthma, exercise induced (Acute) Past Medical History Medical History On total parenteral nutrition (TPN) Flank pain Abscess, subdiaphragmatic Perforated viscus Excess skin of abdomen Zinc deficiency Constipation Iron deficiency Panniculitis Overweight BMI 31.0-31.9,adult BMI 39.0-39.9,adult Obesity Intestinal malabsorption Intra-abdominal adhesions BMI 34.0-34.9,adult COVID-19 vaccine series completed History of depression Anxiety BMI over 35 BMI 37.0-37.9, adult Vitamin D deficiency Vitamin B12 deficiency Vitamin B1 deficiency GERD (gastroesophageal reflux disease) Back pain Gestational diabetes Asthma, exercise induced Functional capacity: independent ambulation Patient : No Family History Family history of problems with anesthesia: No Surgical History Surgical History Hx of breast surgery Hx of gastric bypass History of esophagogastroduodenoscopy (EGD) Hx laparoscopic cholecystectomy History of sleeve gastrectomy History of Problems with Anesthesia: No Social History Social History Household Members: Significant Other and Children Housing: House Are you a primary healthcare business analyst to a significant other at home: No Do you presently have visiting nurse or other home services: No Alcohol intake: current Alcohol intake frequency: does not drink Patient Tobacco Use Status: Former Tobacco user Tobacco use type: Cigarette Cigarettes Per Day: 5 Years Smoked: 13 Second Hand Smoke Exposure: No Use of substances other than those prescribed or required for medical reasons: No Substance Use Type: Marijuana Have you been hit, kicked, punched, or otherwise hurt by someone within the past year? If so, by whom?: No Advance Directives: No Advance Directives Information Provided: Yes Advance Directives Date on File: 01/20/24 Patient : No FDLMP: 12/04/2024 service: No Current occupational status: employed Meds Allergies Allergy/AdvReac Type Severity Reaction Status Date / Time tomato Allergy Severe itchy Verified 12/14/24 13:35 throat Active Medications: Current Medications Albuterol Sulfate (Albuterol Sulfate (0.083%) 2.5 Mg/3 Ml Vial.Neb) 2.5 mg INHALE ONCE PRN PRN Reason: Shortness of Breath/Wheezing Lactated Ringer's (Lr) 1,000 mls @ 80 mls/hr IVCONT .[id number] ROXANA Last Admin: 12/14/24 13:46 Dose: 80 mls/hr Lactated Ringer's (Lr) 1,000 mls @ 100 mls/hr IVCONT .Q10H [facility] Home Medications ?Medication ?Instructions ?Recorded ?Confirmed ?Last Taken ?Type levonorgestrel 21 mcg/24 hr (up to 1 device intrauterine DIRECTED 12/22/20 12/14/24 Unknown History 8 years) 52 mg intrauterine device (Mirena) Exam Height,Weight and Vital Signs: Height 5 ft 5 in Weight 63.957 kg Last Vital Signs Temp 98.2 F 12/14/24 13:36 Pulse 57 12/14/24 13:36 Resp 14 12/14/24 13:36 BP 96/39 L 12/14/24 13:36 Pulse Ox 100 12/14/24 13:36 O2 Del Method Room Air 12/14/24 13:36 Pertinent Lab Results Pertinent Lab Results: Laboratory Tests 12/14/24 13:30 Urine Test NEGATIVE Airway Mallampati Class: II TM Dist: >3cm Neck ROM: Full Heart: RRR Lungs: RRr Assessment and Plan Final Anesthetic Review Family History of Problems with Anesthesia: No History of Problems with Anesthesia: No NPO: Yes ASA Class: II Final Preanesthetic Review: Meds/Allgs Chart Reviewed, Consent Obtained/Reviewed and Anes Risks/Benef Reviewed Patient Risk: Low Procedure Risk: Low Anesthetic Plan Anesthetic Plan: MAC: Disposition: Standard PACU
--- NOTE | 2024-12-14 14:07 | MHC.SHP ---
Pre-Procedural Eval Section A - 24 Hr Update-Section A only Date of Service: 12/14/24 The patient is an INPATIENT: No The patient has been examined within 24 hours of the surgical procedure. The History & Physical has been completed within 30 days and I have reviewed it.: Yes Section B - Complete if H&P > 30 days Chief Complaint: Postgastric surgery syndromes Details of Present Illness: anastomotic ulcer Relevant Family History (Specify if Yes): Yes Relevant Social History: None Present Medications: None Medical History: No relevant PMH History of Previous Operations: Relevant previous surgery/procedure and date(s) (Laparoscopic sleeve gastrectomy, laparscopic conversion to gastric bypass) Allergies: Allergies Allergy/AdvReac Type Severity Reaction Status Date / Time tomato Allergy Severe itchy Verified 12/14/24 13:35 throat Review of Systems Sugical H&P ROS: Negative: Constitution, Cardiovascular, Respiratory, Neurological, Psychiatric, Hem-Onc, Allergic/Immunologic, Gastrointestinal, Genitourinary, Musculoskeletal, Integumentary, Endocrine and Eyes/Ears/Nose/Throat Exam Surgical H&P Exam: Normal: HEENT, Normal: Heart, Normal: Lungs, Normal: Extremities, Normal: Abdomen, Normal: Skin and Normal: Neurological Plan Diagnosis/Plan: Unchanged (EGD to assess the status of the ulcer. Risks of bleeding and perforation were discussed with the patient and she is in agreement with the plan.) I have reviewed the history and physical and performed a pertinent physical examination on my patient. No changes have occurred unless specified. Time Spent With Patient Time: Total time managing care of this patient today ____ minutes.
--- NOTE | 2024-12-14 14:12 | PM.OP ---
Brief Operative Note Date of Service: 12/14/24 Pre-op diagnosis: Anastomotic ulcer Post-op diagnosis: same Procedure: PROCEDURE DATE: 12/14/2024 PREOPERATIVE DIAGNOSIS: Perforated viscus, s/p gastric bypass POSTOPERATIVE DIAGNOSIS: ?Same as above. 1) Healed anastomotic ulcer, 2) mild erythema at the anastomosis, 3) small diaphragmatic hernia PROCEDURE: [id number] with biopsies Surgeon: ?Adam Myles M.D.. Ph.D. Space Systems Operations Manager: ?None ? Anesthesia: IV sedation Estimated blood loss: ?Minimal FINDINGS AND PROCEDURE: ? OPERATIVE INDICATIONS: ?The patient is a 34 year old female known to me who underwent a laparoscopic revision of a sleeve gastrectomy to gastric bypass. The patient has not been compliant with her follow-up appointments. She presented to the ER about 16 weeks ago with evidence of perforated viscus, most likely an anastomotic ulcer. The patient was treated with NPO, IV antibiotics and TPN for 5 weeks. Recent UGI showed no evidence of leak or stricture. A follow-up endoscopy 8 weeks ago revealed a healing anastomotic ulcer. The patient was allowed to start protein shakes and she remained on TPN. The patient was doing well and tolerated the diet change. However, surveillance endoscopy revealed a worsening ulcer. The patient was placed back on TPN and strict NPO. At the beginning of April she developed line sepsis and the PICC line had to be removed. An endoscopy was performed then by Dr. Palacios as I was away and that showed a normal anastomosis. The patient was placed back on protein shakes and she presented for a follow-up endoscopy to assess the status of the ulcer on 05/09/24 which showed a persistent small anastomotic ulcer. The patient however had discontinued the Pantoprazole and Sucralfrate. She was put back on these medications. The patient has remained on a liquid diet with protein shakes and presented for follow-up endoscopy on 06/05/24 which showed a deep anastomotic ulcer. A new PICC line was placed and she is on strict TPN. The patient did not schedule the follow up endoscopy in one month as recommended due to work conflicts despite my recommendation. A follow-up endoscopy was performed on 08/09/24 which showed?that the ulcer had improved significantly. TPN was continued but the patient was allowed to have water. A f/up endoscopy was performed on 09/06/24 which showed that the ulcer had nearly healed. The patient was allowed to have protein shakes which she tolerated very well. A follow-up endoscopy was performed on 10/02/24 which showed that the ulcer was healed and there was no worsening due to the PO protein shakes. The PICC line was kept but she was given a meal with soft foods. On 11/01/24, a follow-up endoscopy was performed that showed no evidence of anastomotic ulcer. the PICC line was removed and the patient was given a meal plan with oatmeal,2 protein shakes and a small dinner with solid food. She returns today for a follow-up endoscopy to assess the status of the ulcer. Risks and complications of the surgery were discussed with the patient in advance particularly the possibility of perforation or bleeding that may require surgical intervention. The patient understood the risks and was in agreement with the plan. ? PROCEDURE: After informed consent was obtained by the patient, the patient was ?transferred to the Operating Room and was placed in the supine position.? After successful induction of IV sedation, a mouth block was placed and the patient was placed in the left lateral decubitus position. An upper endoscopy was performed next, the oropharynx and esophagus appeared within the normal limits. There was a small diaphragmatic hernia. The z-line was smooth. The small pouch was entered, appeared to be of normal size. There was no inflammation of the gastric pouch near the gastrojejunostomy. The GJ anastomosis was patent but somewhat narrowed in relation to the pouch but improved from last endoscopy The scope can pass through very easily. The previously seen deep anastomotic ulcer in the gastro-jejunostomy has healed. There was minimal erythema at the gastro-jejunostomy. The remaining of the Savana limb was normal without inflammation. At that point the scope was advanced into the proximal small intestine (proximal Savana limb) which appeared to be normal as well. The Savana limb and the pouch were decompressed and the scope was withdrawn from the patient's mouth. The patient was awaken and was transferred in stable condition to the Recovery Room for further care. I was present and performed all steps of the procedure. There were no residents to assist with this case. Adam Myles M.D., Ph.D. Surgeon: José Miguel Myles MD Anesthesia: MAC Was an Space Systems Operations Manager used for this Procedure?: No Estimated blood loss (mL): 0 IV fluids (mL): 400 Urine output (mL): 0 (No Victoria to record output) Pathology: none sent Condition: stable Disposition: PACU
[2024-12-14 14:33] VITALS: BP 109/57; PULSE 63; RESP 16; TEMP 36.5; O2SAT 97
--- NOTE | 2024-12-14 14:39 | HO.POSTANES ---
Post Anesthesia Evaluation Post Anesthesia Evaluation Date of Service: 12/14/24 Vital Signs: Vital Signs Temp Pulse Resp BP Pulse Ox O2 Del Method 12/14/24 14:33 97.7 F 63 16 109/57 L 97 Room Air 12/14/24 13:36 98.2 F 57 14 96/39 L 100 Room Air Anesthesia: Monitored Mental Status: Awake Pain Control: Satisfactory Nausea/Vomiting: None Hydration: Adequate Anesthesia-Related Issues: No Anes. Related Issues
[2024-12-14 14:50] VITALS: BP 103/61; PULSE 51; RESP 16; TEMP 36.6; O2SAT 100
[2024-12-14 15:02] VITALS: BP 103/66; PULSE 52; RESP 16; TEMP 36.6; O2SAT 100
== END 2024-12-14 15:14 | disposition home or self-care (01) ==
PROVIDERS: Nurse Practitioner; PCP Nurse Practitioner Family; Visit Provider Surgery
PROC: 0DJ08ZZ Inspection of Upper Intestinal Tract, Via Natural or Artificial Opening Endoscopic (ICD-10-PCS; CPT 43235; principal; 2024-12-14 14:20)
DX: K95.89 Other complications of other bariatric procedure (principal); L53.9 Erythematous condition, unspecified; Z98.0 Intestinal bypass and anastomosis status; K63.1 Perforation of intestine (nontraumatic); K91.1 Postgastric surgery syndromes; Z87.11 Personal history of peptic ulcer disease; K44.9 Diaphragmatic hernia without obstruction or gangrene; Z98.84 Bariatric surgery status; Z91.199 Patient's noncompliance with other medical treatment and regimen due to unspecified reason
CPT/HCPCS: 43235; 81025; J2003; J2704

== ENCOUNTER → 2024-12-14 12:20 | Outpatient (BNV) | payer MEDICAID, SELFPAY | PROVIDERS: PCP Nurse Practitioner Family; Visit Provider Surgery | DX: K63.1 Perforation of intestine (nontraumatic) (principal) | CPT/HCPCS: 43235 ==

== ENCOUNTER 2025-04-19 09:24 | Day surgery (SDC) | payer MEDICAID, SELFPAY ==
--- OUTSIDE RECORDS SUMMARY | 2025-03-20 10:12 | XMS_ITS | Encounter Summary ---
Author Organization [facility] Address [address] [place] [address] Care Team Providers Care Panel Machine Setter Name Role Phone Beth Valdez BILINGUAL RECEPTIONIST Primary Care Provider Encounter Details Date Type Department Care Team (Late st Contact Info) Description 08/20/2024 Lab Requisition [facility] - Main Lab [address] [facility] [place] [address] José Miguel Myles MD [address] [place] [address] [address]rd [place] [address] Other complications of other bariatric procedure; Bariatric surgery status; Perforation of intestine (nontraumatic) (CMS/HCC V24, CMS/HCC V28); Postsurgical malabsorption, not elsewhere classified Social History [...] K/mcL LAB HEMETOLOGY METHOD 08/20/2024 6:46 PM [facility] RBC 4.10 3.80 - 4.80 M/mcL LAB HEMETOLOGY METHOD 08/20/2024 6:46 PM [facility] Hemoglobin 11.7 11.5 - 16.0 g/dL LAB HEMETOLOGY METHOD 08/20/2024 6:46 PM [facility] Hematocrit 35.5 35.0 - 47.0 % LAB HEMETOLOGY METHOD 08/20/2024 6:46 PM [facility] MCV 87.7 79.0 - 98.0 FL LAB HEMETOLOGY METHOD 08/20/2024 6:46 PM [facility] MCH 28.9 27.0 - 32.0 pcg LAB HEMETOLOGY METHOD 08/20/2024 6:46 PM [facility] MCHC 33.0 32.0 - 37.0 g/dL LAB HEMETOLOGY METHOD 08/20/2024 6:46 PM [facility] RDW 13.8 11.0 - 15.0 % LAB HEMETOLOGY METHOD 08/20/2024 6:46 PM [facility] Platelets 158 130 - 400 K/mcL LAB HEMETOLOGY METHOD 08/20/2024 6:46 PM [facility] MPV 11.9(H) 7.0 - 11.0 FL LAB HEMETOLOGY METHOD 08/20/2024 6:46 PM [facility] NRBC 0.0 <1.0 % LAB HEMETOLOGY METHOD 08/20/2024 6:46 PM [facility] NRBC Absolute 0.00 <0.10 K/mcL LAB HEMETOLOGY METHOD 08/20/2024 6:46 PM [facility] Neutrophils Relative 57.6 % LAB HEMETOLOGY METHOD 08/20/2024 6:46 PM [facility] Lymphocytes Relative 35.2 % LAB HEMETOLOGY METHOD 08/20/2024 6:46 PM [facility] Monocytes Relative 4.3 % LAB HEMETOLOGY METHOD 08/20/2024 6:46 PM [facility] Eosinophils Relative 2.3 % LAB HEMETOLOGY METHOD 08/20/2024 6:46 PM [facility] Basophils Relative 0.6 % LAB HEMETOLOGY METHOD 08/20/2024 6:46 PM [facility] Immature Granulocytes Relative 0.0 % LAB HEMETOLOGY METHOD 08/20/2024 6:46 PM [facility] Neutrophils Absolute 2.81 1.50 - 7.00 K/mcL LAB HEMETOLOGY METHOD 08/20/2024 6:46 PM [facility] Lymphocytes Absolute 1.72 1.00 - 5.00 K/mcL LAB HEMETOLOGY METHOD 08/20/2024 6:46 PM EST [facility] Monocytes Absolute 0.21 0.20 - 1.00 K/mcL LAB HEMETOLOGY METHOD 08/20/2024 6:46 PM EST [facility] Eosinophils Absolute 0.11 0.00 - 0.50 K/[facility] LAB HEMETOLOGY METHOD 08/20/2024 6:46 PM EST [facility] Basophils Absolute 0.03 0.00 - 0.20 K/[facility] LAB HEMETOLOGY METHOD 08/20/2024 6:46 PM EST [facility] Immature Granulocytes Absolute 0.00 0.00 - 0.03 K/[facility] LAB HEMETOLOGY METHOD 08/20/2024 6:46 PM EST [facility] Blood Venous blood specimen / Unknown 08/20/2024 3:00 PM EST 08/20/2024 5:45 PM EST José Miguel Myles MD LAB BLOOD ORDERABLES Babita l Result [facility] [address] [place] [address], [place] [phone] * Triglycerides (08/20/2024 3:00 PM EST) Triglycerides 67 0 - 150 mg/dL LAB CHEMISTRY METHOD 08/20/2024 9:19 PM EST [facility] Blood Venous blood specimen / Unknown 08/20/2024 3:00 PM EST 08/20/2024 5:45 PM EST José Miguel Myles MD LAB BLOOD ORDERABLES Babita l Result [facility] [address] [place] [address], [place] [phone] * Phosphorus (08/20/2024 3:00 PM EST) Pathologist [facility] Phosphorus 3.9 2.5 - 4.5 mg/dL LAB CHEMISTRY METHOD 08/20/2024 9:19 PM EST [facility] Blood Venous blood specimen / Unknown 08/20/2024 3:00 PM EST 08/20/2024 5:45 PM EST José Miguel Myles MD LAB BLOOD ORDERABLES Babita l Result Performing Organization Address City/[facility]/ZIP Co de Phone Number [facility] [address] [place] [address], [place] [phone] * Magnesium (08/20/2024 3:00 PM EST) [facility] Magnesium 2.1 1.9 - 2.6 mg/dL LAB CHEMISTRY METHOD 08/20/2024 9:19 PM EST [facility] Blood Venous blood specimen / Unknown 08/20/2024 3:00 PM EST 08/20/2024 5:45 PM EST José Miguel Myles MD LAB BLOOD ORDERABLES Babita l Result Performing Organization Address City/[facility]/ZIP Co de Phone Number [facility] [address] [place] [address], [place] [phone] * (ABNORMAL) Comprehensive metabolic panel (08/20/2024 3:00 PM EST) [facility] Sodium 140 133 - 145 mmol/L LAB CHEMISTRY METHOD 08/20/2024 9:28 PM EST [facility] Potassium 4.3 3.5 - 5.5 mmol/L LAB CHEMISTRY METHOD 08/20/2024 9:28 PM EST [facility] Chloride 109 96 - 110 mmol/L LAB CHEMISTRY METHOD 08/20/2024 9:28 PM EST [facility] CO2 26 21 - 32 mmol/L LAB CHEMISTRY METHOD 08/20/2024 9:28 PM [facility] Anion Gap 5 3 - 11 LAB CHEMISTRY METHOD 08/20/2024 9:28 PM [facility] Glucose 57(L) 70 - 100 mg/dL LAB CHEMISTRY METHOD 08/20/2024 9:28 PM [facility] BUN 14 5 - 25 mg/dL LAB CHEMISTRY METHOD 08/20/2024 9:28 PM [facility] Creatinine 0.57 0.50 - 1.10 mg/dL LAB CHEMISTRY METHOD 08/20/2024 9:28 PM [facility] eGFR 122 >=60 mL/min/1. 73m2 LAB CHEMISTRY METHOD 08/20/2024 9:28 PM [facility] Comment:Calculation based on the Chronic Kidney Disease Epidemiology Collaboration (CKD-EPI) equation refit without adjustment for race. BUN/Creatinine Ratio 24.6 LAB CHEMISTRY METHOD 08/20/2024 9:28 PM [facility] Calcium 9.3 8.5 - 10.5 mg/dL LAB CHEMISTRY METHOD 08/20/2024 9:28 PM [facility] AST (SGOT) 16 10 - 42 unit/L LAB CHEMISTRY METHOD 08/20/2024 9:28 PM [facility] ALT (SGPT) 22 10 - 60 unit/L LAB CHEMISTRY METHOD 08/20/2024 9:28 PM [facility] Alkaline Phosphatase 79 42 - 121 unit/L LAB CHEMISTRY METHOD 08/20/2024 9:28 PM [facility] Total Protein 6.4 6.0 - 8.0 g/dL LAB CHEMISTRY METHOD 08/20/2024 9:28 PM [facility] Albumin 3.8 3.2 - 5.0 g/dL LAB CHEMISTRY METHOD 08/20/2024 9:28 PM [facility] Total Bilirubin 0.2 0.0 - 1.4 mg/dL LAB CHEMISTRY METHOD 08/20/2024 9:28 PM EST [facility] Blood Venous blood specimen / Unknown 08/20/2024 3:00 PM EST 08/20/2024 5:45 PM EST us José Miguel Myles MD LAB BLOOD ORDERABLES Babita l Result [facility] [address] [place] [address], documented in this encounter Visit Diagnoses Diagnosis Other complications of other bariatric procedure Bariatric surgery status Perforation of intestine (nontraumatic) (CMS/HCC V24, CMS/HCC V28) Postsurgical malabsorption, not elsewhere classified documented in this encounter Care Teams Panel Machine Setter Relationship Specialty Start Date End Date Beth Valdez FNP PCP - General 03/27/19 documented as of this encounter
--- OUTSIDE RECORDS SUMMARY | 2025-03-20 10:12 | XMS_ITS | Encounter Summary ---
Author Organization [employer] [facility] [employer] [facility] [employer] [facility] Address [address] [place] [address] Care Team Providers Care Chipper Feeder Name Role Phone Beth Valdez Primary Care Provider Unavailable Tania Ramos Unavailable Unavailable Clovis Montelongo Unavailable Unavail able Encounter Details Date Type Department Care Team (Late st Contact Info) Description 04/03/2024 Orders Only [facility] [address] [place] [address] Beth Valdez FNP Social History Tobacco Use [...] Master's degree (e.g., MA, MS, [employer], MEd, [employer]TERN [employer]ER, [employer]) 03/30/2023 Comments No Sex and Gender [...] on filedocumented in this encounter Care Teams Chipper Feeder Relationship Specialty Start Date End Date Beth Valdez FNP PCP - General Family Medicine 12/10/22 Tania Ramos Community Health Worker 01/05/23 Clovis Montelongo LICSW Community Health Worker Case Management 06/19/24 documented as of this encounter
--- NOTE | 2025-04-09 15:11 | P.CONAN_ITS ---
HPI - Anesthesia Eval Consult details Narrative: 34yo F for Upper Endoscopy s/p same 12/2024 with TIVA PMFSH Active Problems Active Problems: All Active Problems UTI (urinary tract infection) (Acute) Marginal ulcer (Acute) Bacteremia (Acute) Fever (Acute) Dysuria (Acute) Intestinal malabsorption (Acute) S/P gastric bypass (Acute) Adjustment disorder, unspecified (Acute) Asthma, exercise induced (Acute) Past Medical History Medical History On total parenteral nutrition (TPN) Flank pain Abscess, subdiaphragmatic Perforated viscus Excess skin of abdomen Zinc deficiency Constipation Iron deficiency Panniculitis Overweight BMI 31.0-31.9,adult BMI 39.0-39.9,adult Obesity Intestinal malabsorption Intra-abdominal adhesions BMI 34.0-34.9,adult COVID-19 vaccine series completed History of depression Anxiety BMI over 35 BMI 37.0-37.9, adult Vitamin D deficiency Vitamin B12 deficiency Vitamin B1 deficiency GERD (gastroesophageal reflux disease) Back pain Gestational diabetes Asthma, exercise induced Family History Family history of problems with anesthesia: No Surgical History Surgical History Hx of breast surgery Hx of gastric bypass History of esophagogastroduodenoscopy (EGD) Hx laparoscopic cholecystectomy History of sleeve gastrectomy History of Problems with Anesthesia: No Social History Social History Household Members: Significant Other and Children Housing: House Are you a primary adult caregiver to a significant other at home: No Do you presently have visiting nurse or other home services: No Alcohol intake: current Alcohol intake frequency: does not drink Patient Tobacco Use Status: Former Tobacco user Tobacco use type: Cigarette Cigarettes Per Day: 5 Years Smoked: 13 Second Hand Smoke Exposure: No Substance Use Type: Marijuana Advance Directives Date on File: 01/20/24 service: No Current occupational status: employed Meds Allergies Allergy/AdvReac Type Severity Reaction Status Date / Time tomato Allergy Severe itchy Verified 04/19/25 09:51 throat Home Medications ?Medication ?Instructions ?Recorded ?Confirmed ?Last Taken ?Type levonorgestrel (Mirena) 1 device intrauterine DIR ECTED 12/22/20 04/19/25 Unkn own History Assessment and Plan Assessment Anesthesia Assessment: Chart Reviewed Final Anesthetic Review Family History of Problems with Anesthesia: No History of Problems with Anesthesia: No
[2025-04-17 11:18] VITALS: BMI 23.5
[2025-04-19 09:58] VITALS: BP 105/50; PULSE 54; RESP 12; TEMP 36.8; O2SAT 99; BMI 23.0
[2025-04-19 10:01] LABS: UPreg QC Valid YES
[2025-04-19] MEDS: Lactated Ringers 1,000 ML 100 ML IVCONT (10:07)
--- NOTE | 2025-04-19 10:40 | MHC.SHP ---
Pre-Procedural Eval Section A - 24 Hr Update-Section A only Date of Service: 04/19/25 The patient is an INPATIENT: No The patient has been examined within 24 hours of the surgical procedure. The History & Physical has been completed within 30 days and I have reviewed it.: Yes Section B - Complete if H&P > 30 days Chief Complaint: Postgastric surgery syndromes Details of Present Illness: History of anastomotic ulcer Relevant Family History (Specify if Yes): No Relevant Social History: None Present Medications: None Medical History: No relevant PMH History of Previous Operations: Relevant previous surgery/procedure and date(s) (Laparoscopic sleeve gastrectomy and revision to gastric bypass) Allergies: Allergies Allergy/AdvReac Type Severity Reaction Status Date / Time tomato Allergy Severe itchy Verified 04/19/25 09:51 throat Review of Systems Sugical H&P ROS: Negative: Constitution, Cardiovascular, Respiratory, Neurological, Psychiatric, Hem-Onc, Allergic/Immunologic, Gastrointestinal, Genitourinary, Musculoskeletal, Integumentary, Endocrine and Eyes/Ears/Nose/Throat Exam Surgical H&P Exam: Normal: HEENT, Normal: Heart, Normal: Lungs, Normal: Extremities, Normal: Abdomen, Normal: Skin and Normal: Neurological Plan Diagnosis/Plan: Unchanged (EGD to assess for a recurrent ulcer. Risks of bleeding and perforation were discussed with the patient and she is in agreement with the plan.) I have reviewed the history and physical and performed a pertinent physical examination on my patient. No changes have occurred unless specified. Time Spent With Patient Time: Total time managing care of this patient today ____ minutes.
--- NOTE | 2025-04-19 10:41 | PM.OP ---
Brief Operative Note Date of Service: 04/19/25 Pre-op diagnosis: History of anastomotic ulcer Post-op diagnosis: same (Mild erythema at the GE anastomosis) Procedure: PROCEDURE DATE: 04/19/2025 PREOPERATIVE DIAGNOSIS: Perforated viscus, s/p gastric bypass POSTOPERATIVE DIAGNOSIS: ?Same as above. 1) Healed anastomotic ulcer, 2) mild erythema at the anastomosis PROCEDURE: [id number] with biopsies Surgeon: ?Adam Myles M.D.. Ph.D. Thermite Welder: ?None ? Anesthesia: IV sedation Estimated blood loss: ?Minimal FINDINGS AND PROCEDURE: ? OPERATIVE INDICATIONS: ?The patient is a 35 year old female known to me who underwent a laparoscopic revision of a sleeve gastrectomy to gastric bypass. The patient has not been compliant with her follow-up appointments. She presented to the ER about 16 weeks ago with evidence of perforated viscus, most likely an anastomotic ulcer. The patient was treated with NPO, IV antibiotics and TPN for 5 weeks. Recent UGI showed no evidence of leak or stricture. A follow-up endoscopy 8 weeks ago revealed a healing anastomotic ulcer. The patient was allowed to start protein shakes and she remained on TPN. The patient was doing well and tolerated the diet change. However, surveillance endoscopy revealed a worsening ulcer. The patient was placed back on TPN and strict NPO. At the beginning of April she developed line sepsis and the PICC line had to be removed. An endoscopy was performed then by Dr. Palacios as I was away and that showed a normal anastomosis. The patient was placed back on protein shakes and she presented for a follow-up endoscopy to assess the status of the ulcer on 05/09/24 which showed a persistent small anastomotic ulcer. The patient however had discontinued the Pantoprazole and Sucralfrate. She was put back on these medications. The patient has remained on a liquid diet with protein shakes and presented for follow-up endoscopy on 06/05/24 which showed a deep anastomotic ulcer. A new PICC line was placed and she is on strict TPN. The patient did not schedule the follow up endoscopy in one month as recommended due to work conflicts despite my recommendation. A follow-up endoscopy was performed on 08/09/24 which showed?that the ulcer had improved significantly. TPN was continued but the patient was allowed to have water. A f/up endoscopy was performed on 09/06/24 which showed that the ulcer had nearly healed. The patient was allowed to have protein shakes which she tolerated very well. A follow-up endoscopy was performed on 10/02/24 which showed that the ulcer was healed and there was no worsening due to the PO protein shakes. The PICC line was kept but she was given a meal with soft foods. On 11/01/24, a follow-up endoscopy was performed that showed no evidence of anastomotic ulcer. the PICC line was removed and the patient was given a meal plan with oatmeal,2 protein shakes and a small dinner with solid food. She returned for a follow-up endoscopy to assess the status of the ulcer on 12/14/24 and that showed only mild erythema. She returns for a follow-up endoscopy tomorrow as she has felt some discomfort at the upper abdomen the last few days. She is tolerating 3 Fairlife shakes per day, 2 tablespoons of oatmeal in the morning and a dinner with 4 forkfuls of protein.. Risks and complications of the surgery were discussed with the patient in advance particularly the possibility of perforation or bleeding that may require surgical intervention. The patient understood the risks and was in agreement with the plan. ? PROCEDURE: After informed consent was obtained by the patient, the patient was ?transferred to the Operating Room and was placed in the supine position.? After successful induction of IV sedation, a mouth block was placed and the patient was placed in the left lateral decubitus position. An upper endoscopy was performed next, the oropharynx and esophagus appeared within the normal limits. There was no diaphragmatic hernia seen this time. The z-line was smooth. The small pouch was entered, appeared to be of normal size. There was no inflammation of the gastric pouch near the gastrojejunostomy. The GJ anastomosis was patent and not narrowed in relation to the previous endoscopies. The scope can pass through very easily. The previously seen deep anastomotic ulcer in the gastro-jejunostomy has healed. There was minimal erythema at the gastro-jejunostomy. The remaining of the Savana limb was normal without inflammation. At that point the scope was advanced into the proximal small intestine (proximal Savana limb) which appeared to be normal as well. The Savana limb and the pouch were decompressed and the scope was withdrawn from the patient's mouth. The patient was awaken and was transferred in stable condition to the Recovery Room for further care. I was present and performed all steps of the procedure. There were no residents to assist with this case. Adam Myles M.D., Ph.D. Surgeon: José Miguel Myles MD Anesthesia: MAC Was an Thermite Welder used for this Procedure?: No Estimated blood loss (mL): 0 IV fluids (mL): 400 Urine output (mL): 0 (No Victoria to record output) Pathology: none sent Condition: stable Disposition: PACU
[2025-04-19 11:16] VITALS: BP 118/71; PULSE 82; RESP 18; TEMP 36.4; O2SAT 97
[2025-04-19 11:31] VITALS: BP 106/73; PULSE 55; RESP 18; TEMP 36.7; O2SAT 99
== END 2025-04-19 12:14 | disposition home or self-care (01) ==
PROVIDERS: Nurse Practitioner; PCP Nurse Practitioner Family; Visit Provider Surgery
PROC: 0DJ08ZZ Inspection of Upper Intestinal Tract, Via Natural or Artificial Opening Endoscopic (ICD-10-PCS; CPT 43235; principal; 2025-04-19 10:30)
DX: K91.1 Postgastric surgery syndromes (principal); K63.89 Other specified diseases of intestine; K63.1 Perforation of intestine (nontraumatic); L53.9 Erythematous condition, unspecified; Z87.11 Personal history of peptic ulcer disease; Z98.0 Intestinal bypass and anastomosis status; Z91.198 Patient's noncompliance with other medical treatment and regimen for other reason; Z98.84 Bariatric surgery status
CPT/HCPCS: 43239; 81025; J2003; J2704

== ENCOUNTER → 2025-04-19 09:24 | Outpatient (BNV) | payer MEDICAID, SELFPAY | PROVIDERS: PCP Nurse Practitioner Family; Visit Provider Surgery | DX: K63.1 Perforation of intestine (nontraumatic) (principal); K28.9 Gastrojejunal ulcer, unspecified as acute or chronic, without hemorrhage or perforation | CPT/HCPCS: 43235 ==